=== PATIENT | male | born 1990 | race Hispanic/Latino ===

== ENCOUNTER 2023-10-19 03:50 | Inpatient (IN) | payer OTHER, SELFPAY ==
[2023-10-19] VITALS (13 sets, daily range): BP systolic 68–111; BP diastolic 60–77; BMI 20.9; BMI 20.4
--- NOTE | 2023-10-19 02:06 | ED.GENMED ---
History of Present Illness
General
Chief Complaint: Abdominal Pain
Source: patient
Exam Limitations: none
Time Seen by Provider: 10/19/23 01:48
Travel History
Have you had any contact with someone who has COVID-19?: No
Do you have any symptoms of coronavirus? Fever > 100 degrees, chills, cough, shortness of breath, sore throat, loss of taste or smell, muscle aches, or headache?: No
History of Present Illness
History of Present Illness:
This is a 33 year old male that is brought in by ambulance with c/o abd pain. States that he did drink today and now he has abd pain. States that his abd was last tapped about 3 weeks ago. States that he has some chest discomfort, SOB, abd pain and
diarrhea due to his medication. Denies any fever, chills, nausea, vomiting, headache, dizziness, urinary burning.
Past History
Past History
ED Past Medical History: Other (alcohol abuse, alcoholic hepatitis, Cirrhosis of the liver, Ascities)
ED Past Surgical History: None
Social History
Tobacco: Non-smoker
Alcohol: Chronic alcoholic (Daily 4 large beer and 2 shots)
Drug: Other (denies however UDS from prior visit pos for opioids)
Personal: Single
Living: with roommate
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
Review of Systems
Review of Systems
All Other Systems: ROS reviewed and negative except as documented in HPI and ROS
Constitutional: Reports no symptoms; Denies fever or chills
EENT: Reports no symptoms
Respiratory: Reports trouble breathing; Denies cough
Cardiac: Reports chest pain
ABD/GI: Reports abdominal pain and diarrhea; Denies nausea or vomiting
: Reports no symptoms; Denies dysuria, frequency or urgency
Musculoskeletal: Reports no symptoms
Skin: Reports no symptoms
Neurological: Reports no symptoms; Denies dizzy or headache
Psychiatric: Reports no symptoms
Phy Exam
General Physical Exam
General Presentation: no apparent distress
General age: appears stated age
General Skin: warm and dry
General Habitus: normal
General Mental: alert
General Hydration: other (Dry lips)
ENT Exam
ENT Exam: TM's normal, pharynx normal and neck supple
Eye Exam
Eye Exam: EOMI
Cardiovascular Exam
Cardiovascular Exam: regular rate/rhythm, no edema and normal peripheral pulses
Pulmonary Exam
Pulmonary Exam: lungs clear, no respiratory distress, no rales, chest non tender, no crackles, no rhonchi, no wheezing and no cough
Gastrointestinal Exam
Gastrointestinal Exam: normal bowel sounds, non tender, no organomegaly, no pulsatile mass and ascites
Musculoskeletal Exam
Musculoskeletal Exam: full ROM and no edema
Skin Exam
Skin Exam: normal color, warm/dry, no petechia and other (Left flank contusion noted)
Psychiatric Exam
Psychiatric Exam: normal mood/affect
Course
Orders/Labs/Results
Orders:
Orders
10/19/23 02:04
US Abdomen Limited Urgent
Comment:
Reason For Exam: abd ascities.
10/19/23 02:05
Electrocardiogram (*1) Urgent
Reason for Study: Shortness of Breath
CR Chest - 2 Views Urgent
Comment:
Reason For Exam: SOB
10/19/23 02:06
EKG- Treatment ONCE
10/19/23 02:21
Alcohol Urgent
Complete Blood Count/With Diff Urgent
Comprehensive Metabolic Panel Urgent
Lipase Urgent
Prothrombin Time Urgent
Troponin I Urgent
Abnormal Lab Results
10/19/23
02:21
RBC 2.86 L 10^6/uL
(4.70-6.10)
Hgb 9.4 L g/dL
(13.0-18.0)
Hct 25.5 L %
(39.0-52.0)
MCH 32.9 H pg
(27.0-31.0)
RDW 14.9 H %
(11.5-14.5)
Absolute Monos (auto) 0.8 H 10^3/uL
(0.1-0.6)
Monocytes % 9.7 H %
(1.7-9.3)
Eosinophils % 7.9 H %
(0-6)
Basophils % 2.2 H %
(0-2)
PT 18.2 H Sec
(11.4-14.6)
Sodium 130 L mmol/L
(135-145)
Chloride 96 L mmol/L
(98-107)
Creatinine 0.6 L mg/dL
(0.7-1.3)
Glucose 101 H mg/dl
(70-99)
Calcium 7.9 L mg/dl
(8.4-10.2)
Total Bilirubin 3.9 H mg/dl
(0.2-1.3)
AST 89 H U/L
(17-59)
Alkaline Phosphatase 208 H U/L
(38-126)
Albumin 3.3 L g/dl
(3.5-5.0)
Alcohol, Quantitative 482 H* mg/dl
10/19/23 02:21
10/19/23 02:21
H/H low but consistent with prior labs, Sodium slightly low. PT 18.2 with INR 1.50, Chloride slightly low. Glucose nonfasting. Calcium slightly low. AST elevation (chronic alcoholic), Albumin low, Alcohol elevated at 482
Vital Signs
Initial and Last Documented VS:
Initial Vital Signs
Temp Pulse Resp BP Pulse Ox
97.6 F 78 20 108/76 97
10/19/23 01:45 10/19/23 01:45 10/19/23 01:45 10/19/23 01:45 10/19/23 01:45
Last Documented Vital Signs
Temp Pulse Resp BP Pulse Ox
97.6 F 74 22 104/73 98
10/19/23 01:45 10/19/23 02:15 10/19/23 02:15 10/19/23 02:00 10/19/23 02:15
MDM/Problems Addressed
Differential Diagnosis Includes:
Abd ascites.
MDM/Problems Addressed:
This is a 33 year old male that comes in by ambulance with c/o abd pain. States that he did drink today and he has abd pain. States that he was taped 3 weeks ago. States that he has abd pain, SOB and chest discomfort.
Will get labs, US and chest x-ray.
Back into see patient. Explained that he will be admitted. US shows a large amount of ascites. Hospitalist notified.
Chronic conditions affecting care: Other (Cirrhosis of the liver, Ascites)
Acute Exacerbation and/or Progression of Chronic Illness:
Ascites
*Radiology
Radiology exam reviewed: preliminary read by ED provider (Chest- Poor inspiration. Elevated diaphragms. Negative for any acute disease of the chest. ) and radiology read reviewed (US night hawk-Large volume abdominal ascites with fluid in all 4
quadrants. The liver demonstrates a heterogeneous echotexture and surface nodularity consistent with cirrhosis. No hydronephrosis in the visualized kidneys. )
*EKG
Interpreted by ED Provider?: Yes
Heart Rate: 72
Rate: normal
Rhythm: sinus
[place]: left axis deviation
Interval: normal interval
QRS Pattern: normal QRS
Ischemia: no ischemia
*Critical Care Note
Total Time (30-74mins, 75-104mins- exclusive of procedures): Not Applicable
ED Attending Note
-
Portions of this chart may have been created with voice recognition software.� Occasional wrong word or��sound alike� substitutions may have occurred due to the inherent limitations of voice recognition software.
Discharge Plan
Departure
Patient Disposition: Admit
Date of Disposition: 10/19/23
Time of Disposition: 03:06
Admit to: Telemetry
Presentation/result/management discussed w/ accepting MD/DO: Hospitalist
Patient with high blood pressure during this ER visit?: No
Condition: Good
Covid-19: Not Applicable
Discharge Problem:
Abdominal ascites, Abdominal pain, Alcohol intoxication
Prescriptions:
No Action
furosemide 40 mg Tablet
60 mg PO DAILY Qty: 30 0RF
spironolactone 50 mg Tablet
100 mg PO DAILY Qty: 30 0RF
Vitamin D3
1 tab PO DAILY
potassium
1 tab PO DAILY
Interventions
Interventions:
*Risk Screen - Suicide Last Done: 10/19/23 01:45
*General Assessment Last Done: 10/19/23 01:45
*Neglect/Abuse Screening Last Done: 10/19/23 01:45
ED- Fall Risk Assessment Last Done: 10/19/23 01:56
*ED COVID-19 Vaccine History Last Done: 10/19/23 01:45
SA-Lcvbtm-Oyqiirohjm Assessment Last Done: 10/19/23 01:56
[2023-10-19 02:45] LABS: PT 18.2 Sec (11.4-14.6)
[2023-10-19 02:50] LABS: % Basophils 2.2 % (0-2); % Eosinophils 7.9 % (0-6); % Immature Granulocytes 0.3 % (0-0.5); % Lymphocytes 30.2 % (20.5-51.1); % Monocytes 9.7 % (1.7-9.3); % Neutrophils 49.7 % (42.2-75.2); ALT (SGPT) 23 U/L (0-50); AST (SGOT) 89 U/L (17-59); Absolute Basophils 0.2 10^3/uL (0-0.2); Absolute Eosinophils 0.7 10^3/uL (0-0.7); Absolute Lymphocytes 2.6 10^3/uL (1.2-3.4); Absolute Monocytes 0.8 10^3/uL (0.1-0.6); Absolute Neutrophils 4.3 10^3/uL (1.4-6.5); Albumin 3.3 g/dl (3.5-5.0); Alkaline Phosphatase 208 U/L (38-126); Blood Urea Nitrogen 17 mg/dl (9-20); Calcium 7.9 mg/dl (8.4-10.2); Carbon Dioxide 27 mmol/L (22-30); Chloride 96 mmol/L (98-107); Estimated Creatinine Clearance > 125 ml/min; Glucose 101 mg/dl (70-99); Hematocrit 25.5 % (39.0-52.0); Hemoglobin 9.4 g/dL (13.0-18.0); Lipase 50 U/L (23-300); Mean Corp Hgb Conc. 36.9 g/dL (33.0-37.0); Mean Corpuscular Hgb 32.9 pg (27.0-31.0); Mean Corpuscular Volume 89.2 fL (80.0-94.0); Mean Platelet Volume 8.7 fL (7.4-10.4); Nucleated Red Blood Cells % 0 % (-); Platelet Count 302 10^3/uL (130-400); Potassium 4.4 mmol/L (3.5-5.1); Red Blood Cell Count 2.86 10^6/uL (4.70-6.10); Red Cell Dist. Width 14.9 % (11.5-14.5); Sodium 130 mmol/L (135-145); Total Bilirubin 3.9 mg/dl (0.2-1.3); Total Protein 7.4 g/dl (6.3-8.2); White Blood Cell Count 8.7 10^3/uL (4.8-10.8); eGFR > 60.00
[2023-10-19 03:01] LABS: Troponin I < 0.012 ng/ml
[2023-10-19 03:06] LABS: Alcohol 482 mg/dl
--- NOTE | 2023-10-19 03:45 | HPS.HSE ---
Family Physician
-
Family Physician: * NONE
Chief Complaint
-
Abdominal ascension, shortness of breath
History of Present Illness
Patient is 33 years old with history of alcoholic liver cirrhosis, recurrent ascites status post paracentesis, alcohol abuse, who came to the ER with abdominal ascension and shortness of breath, patient did drink today and complaining of abdominal
pain and distention.
Last paracentesis was 3 weeks ago.
Patient also was complaining of chest discomfort, diarrhea, denies any fever or chills.
Initial blood work in the ER shows alcohol level of 482.
Patient will be admitted under hospitalist service.
Medical History
Past Medical History
Past Medical History: Reports Other
Additional Past Medical History:
Liver cirrhosis, ascites, alcohol abuse, esophageal varices status post banding
Past Surgical History: Reports Other
Additional Past Surgical History:
EGD, esophageal varices banding
Social History
Tobacco: Non-smoker
Alcohol: Daily
Family History
Family History: Not pertinent
Allergies / Home Medications
Allergies reflects when Allergies were last updated in [facility].
Home Medications with original date entered in [facility]
Allergy/Medication List:
Allergies
Allergy/AdvReac Type Severity Reaction Status Date / Time
No Known Allergies Allergy Verified 08/21/23 18:10
Home Medications
furosemide 40 mg tablet 60 mg PO DAILY #30 tabs 07/06/23
spironolactone 50 mg tablet 100 mg PO DAILY #30 tabs 07/06/23
Vitamin D3 1 tab PO DAILY 08/21/23
potassium 1 tab PO DAILY 08/21/23
Review of Systems
-
A 12 point ROS was completed and negative except as noted: Yes
Constitutional: Reports Weight Gain and Fatigue; Denies Fever, Weight Loss or Sleep Disturbance
EENT: Denies Tearing, Sore Throat, Mouth Pain, Mouth Swelling or Runny Nose
Respiratory: Reports Trouble Breathing; Denies Cough or Hemoptysis
Cardiac: Reports Chest Pain; Denies Diaphoresis, Palpitations or Syncope
Abdomen/GI: Reports See HPI, Abdominal Pain, Pain and Other (Abdominal distention); Denies Nausea, Vomiting, Diarrhea, Constipated, Bloody Stools or Black Stools
: Denies Dysuria, Frequency, Flank Pain, Incontinence, Difficulty Voiding, Urgency, Bleeding or Dark Urine
Musculoskeletal: Denies Joint Pain, Joint Swelling, Muscle Pain, Muscle Stiffness or Edema
Skin: Denies Itching or Rash
Neurological: Reports Weakness; Denies Dizzy, Headache or Numbness
Endocrine: Denies Polyuria, Polydipsia or Temp Intolerance
Hematologic/Lymphatic: Denies Bleeding, Swollen Glands or Bruising
Psych: Reports Calm; Denies Depression, Anxiety or Panic Disorder
Physical Exam
Vital Signs
Vital Signs
Temp Pulse Resp BP Pulse Ox
97.6 F 74 22 104/73 98
10/19/23 01:45 10/19/23 02:15 10/19/23 02:15 10/19/23 02:00 10/19/23 02:15
Physical Exam
General: Respiratory Distress, Appears in Distress, Pain and Appears Chronically Ill; No Well Developed or Well Nourished
HEENT: NormoCephalic, Moist mucous membranes, Atraumatic, PERRLA, Nose Appears Normal and Ears Appear Normal
Respiratory: Rales, Rhonchi and Crackles
Cardiac: S1/S2 and Regular Rhythm
Breast: Deferred by me
GI: Tender, Distended and Other (Abdomen is distended with shifting dullness); No Non Distended
Genito-urinary: Deferred by me
Musculoskeletal: No Clubbing, No Cyanosis and No Edema
Skin: Warm; No Rash, Jaundice, Ulcers, Lesions or Decubitus Ulcers
Neuro: Awake, Alert, Oriented, AO x 3, No Motor Deficits, Nonfocal/grossly intact and Cranial Nerves Intact
Hematologic/Lymphatic: No Lymphadenopathy
Psych: Calm
Laboratory Results
-
10/19/23 02:21
10/19/23 02:21
Laboratory Results
PT 18.2 Sec (11.4-14.6) H 10/19/23 02:21
INR 1.50 10/19/23 02:21
Total Bilirubin 3.9 mg/dl (0.2-1.3) H 10/19/23 02:21
AST 89 U/L (17-59) H 10/19/23 02:21
ALT 23 U/L (0-50) 10/19/23 02:21
Alkaline Phosphatase 208 U/L (38-126) H 10/19/23 02:21
Troponin I < 0.012 ng/ml 10/19/23 02:21
Lipase 50 U/L (23-300) 10/19/23 02:21
Data Reviewed
-
Diagnostic Radiology: Report Reviewed by me
CT Scan: Report Reviewed by me
Ultrasound: Report Reviewed by me
Lab Data: Labs Reviewed by me
Impression/Plan
-
IMPRESSION:
34 years old with history of alcoholic cirrhosis and recurrent ascites came with chest pain, shortness of breath, abdominal distention, daily alcohol use, admitted for paracentesis.
PLAN:
Acute respiratory distress secondary ascites caused by decompensated liver cirrhosis.
-IR consulted for paracentesis
-GI consulted
-Continue Xifaxan
-cont Lasix
-Continue spironolactone
-Start Rocephin empirically for SBP
PT/OT consult, social service for discharge plan.
Alcohol use disorder
-Alcohol level of 482
-No signs of withdrawal currently but high risk for withdrawal
-Thiamine and folate
History of esophageal varices status post banding
No sign of GI bleed
CODE STATUS: Full code
DVT prophylaxis: Lovenox
Diet: Cardiac diet
[2023-10-19] MEDS: ROCEPHIN 1000 MG IV (04:21)
[2023-10-19] MEDS: STERILE WATER FOR INJECTION 10 ML IV (04:21)
--- NOTE | 2023-10-19 06:30 | PTCARENOTE ---
patient admitted to [facility], placed on tele #5. Pt mosotho speaking, truck hop #[id number] used for admission intake and assessment. Patient dozing off during conversation but easily arousable to verbal command. pt inst to utilize call peraza and not get oob
without assitance. patient verb understanding
[2023-10-19 06:55] LABS: Hematocrit 26.1 % (39.0-52.0); Hemoglobin 9.5 g/dL (13.0-18.0); Mean Corp Hgb Conc. 36.4 g/dL (33.0-37.0); Mean Corpuscular Volume 90.6 fL (80.0-94.0); Mean Platelet Volume 8.3 fL (7.4-10.4); Platelet Count 255 10^3/uL (130-400); Red Blood Cell Count 2.88 10^6/uL (4.70-6.10); Red Cell Dist. Width 14.8 % (11.5-14.5); White Blood Cell Count 7.4 10^3/uL (4.8-10.8)
[2023-10-19 07:25] LABS: ALT (SGPT) 21 U/L (0-50); AST (SGOT) 75 U/L (17-59); Albumin 2.8 g/dl (3.5-5.0); Alkaline Phosphatase 201 U/L (38-126); Blood Urea Nitrogen 15 mg/dl (9-20); Calcium 7.9 mg/dl (8.4-10.2); Carbon Dioxide 28 mmol/L (22-30); Chloride 96 mmol/L (98-107); Estimated Creatinine Clearance 115 ml/min; Glucose 91 mg/dl (70-99); Magnesium 1.9 mg/dl (1.6-2.3); Sodium 131 mmol/L (135-145); Total Bilirubin 3.3 mg/dl (0.2-1.3); Total Protein 6.8 g/dl (6.3-8.2); eGFR > 60.00
--- NOTE | 2023-10-19 07:43 | W.PN.UPDATE ---
Update Note
Progress Note Update
33-year-old Micronesian-speaking only male admitted early this morning for respiratory distress secondary to severe ascites from alcoholic liver cirrhosis.
He continues to drink. Will order IV Ativan for MSAS protocol, he is for paracentesis today. GI consulted. Continue to monitor closely.
--- NOTE | 2023-10-19 07:48 | CON.GI ---
Addendum entered and electronically signed by Uche Viera MD 10/19/23 16:20:
I saw and examined the patient.
The INDUSTRIAL CHEMICALS SUPERVISOR or PA's note was reviewed and I agree with the note.
Comment:
This patient is a 33-year-old man with a history of decompensated alcoholic liver disease. He is also history of ascites requiring paracentesis and esophageal varices. He did come to the emergency room with confusion as well as complaints of more
abdominal distention. He did have recent alcohol use.
abd: soft, less distended
lethargic, oriented to name not place
impression;
ascites
encephalopathy
alcohol abuse
cirrhosis
plan:
paracentesis
SBP prophalaxis if neg for SBP
lactulose and xifaxin bid
PPI
alcohol abstinence
Addendum entered and electronically signed by Nikia Angeles NP 10/19/23 13:05:
7300mL removed. 37.5g Albumin 25% IV ordered per protocol. No SBP on fluid cell counts. Will discuss with Dr. Viera regarding prophylaxis for SBP. Was on Ciprofloxacin in past. Unclear if he was taking this daily.
Original Note:
Consultation
-
Date/Time Consultation Requested: 10/19/23 @ 05:59
Date/Time Consultation Performed: 10/19/23 @ 08:30
Requesting Provider: Dr. Mere Navarro
Performing Provider: AMINA Sanders; Dr. Uche Viera
Reason for Consultation: Liver cirrhosis with ascites
Medical History
Chief Complaint / HPI
Chief Complaint: abdominal distention, shortness of breath
History of Present Illness:
The pt is a 33 yo male with a PMH significant for decompensated alcoholic liver cirrhosis with ascites requiring multiple paracentesis, ongoing alcohol abuse, Esophageal varices with banding in April 2023, chronic anemia, hepatic encephalopathy,
who presented to the ER with complaints of abdominal distention and shortness of breath. We are being asked to evaluate for ascites. Upon review of records, the patient has had multiple admissions for recurrent ascites with ongoing alcohol use. He
was last seen in the hospital in June with abdominal pain found to have recurrent significant ascites. His peritoneal fluid did have some blood as well, and he required blood transfusion but had no further signs of bleeding. He has had
multiple paracentesis in the past with large volume removal, with previous fluid cell counts with questionable paracentesis and had been on ciprofloxacin prophylactic in the past but most recent paracentesis was negative for SBP. He had required
transfer to [facility] in the fall as well for bleeding EV. It is noted he was in the emergency room in August with complaints of abdominal pain with leaking fluid from his umbilicus. He was subsequently transferred to [facility] at that time with
concern for possible perforated viscus and the patient notes he did have a surgery for a ?hernia. Language line digital media sales consultant #[id number] used for HPI. Today he reports that he started with significant abdominal pain yesterday. He notes chronic
abdominal swelling, and drank a large volume of alcohol yesterday. He had been abstaining from alcohol but because he felt sad and missed [facility] he drank significantly. He does not quantify how much he drank but it is noted his alcohol level
was in the 400s on admission. He admits to pain in his abdomen which is improving. He denies nausea or vomiting. He denies any melena, hematochezia, or hematemesis. He is lethargic but arousable. He denies fevers or chills. He does appear
confused but answering questions appropriately, and does admit to feeling somewhat confused yesterday but feels this is improved this morning. Per his medication list he is on furosemide 60 mg and spironolactone 100 mg which she reports being
compliant with. Pertinent labs in the ER showed a sodium 130, BUN 17, creatinine 0.6, potassium 4.4, total bilirubin 3.9, AST 89, ALT 23, alk phos 208, lipase 50, troponin negative x 1, INR 1.5, WBC 8.7, hemoglobin 9.4, platelets 302,000. He
underwent ultrasound imaging of the abdomen which did show severe ascites. He was made n.p.o., admitted for further evaluation by GI, and pending a paracentesis this morning.
Past Medical History
Past Medical History: Other (decompensated liver disease with ascites, encephalopathy, esophageal varices with bleeding/banding)
Past Surgical History: Other (?Hernia repair August 2023)
Social History
Tobacco: Non-Smoker
Alcohol: Chronic Alcoholic
Drug: None
Family History
Family History: Reviewed & Not Pertinent
Allergies / Home Medications
Allergy/AdvReac Type Severity Reaction Status Date / Time
No Known Allergies Allergy Verified 10/19/23 04:20
Medication Instructions Recorded
furosemide 40 mg tablet 60 mg PO DAILY #30 tabs 07/06/23
spironolactone 50 mg tablet 100 mg PO DAILY #30 tabs 07/06/23
Vitamin D3 1 tab PO DAILY 08/21/23
potassium 1 tab PO DAILY 08/21/23
Review of Systems
-
History Source: Patient
Constitutional: Reports No Symptoms
EENT: Reports No Symptoms
Respiratory: Reports No Symptoms
Cardiac: Reports No Symptoms
Abdomen/GI: Reports Abdominal Pain
: Reports No Symptoms
Musculoskeletal: Reports No Symptoms
Skin: Reports No Symptoms
Neurological: Reports No Symptoms
Vital Signs
Temp Pulse Resp BP Pulse Ox
97.8 F 73 18 99/72 97
10/19/23 05:06 10/19/23 05:06 10/19/23 05:06 10/19/23 05:06 10/19/23 05:06
Physical Exam
Exam
General: Comfortable and Other (Cachectic appearing, jaundice, but resting comfortably no acute distress)
HEENT: Normocephalic, Atraumatic and Other (Bilateral scleral icterus)
Respiratory: Clear
Cardiac: S1/S2 and Regular Rhythm
Breast: N/A
GI: Soft, Non Tender, Normal Bowel Sounds, Distended and Other (+fluid wave, ascites)
Rectal: Deferred by Provider
Musculoskeletal: No Edema
Skin: Warm and Dry
Neuro: Other (drowsy but arousable, confused, oriented to self and place, no asterixis)
Psych: Calm
Results
WBC 7.4 10^3/uL (4.8-10.8) 10/19/23 06:10
Hgb 9.5 g/dL (13.0-18.0) L 10/19/23 06:10
Hct 26.1 % (39.0-52.0) L 10/19/23 06:10
MCV 90.6 fL (80.0-94.0) 10/19/23 06:10
Plt Count 255 10^3/uL (130-400) 10/19/23 06:10
Absolute Neuts (auto) 4.3 10^3/uL (1.4-6.5) 10/19/23 02:21
PT 18.2 Sec (11.4-14.6) H 10/19/23 02:21
INR 1.50 10/19/23 02:21
Sodium 131 mmol/L (135-145) L 10/19/23 06:10
Potassium 4.0 mmol/L (3.5-5.1) 10/19/23 06:10
Chloride 96 mmol/L (98-107) L 10/19/23 06:10
Carbon Dioxide 28 mmol/L (22-30) 10/19/23 06:10
BUN 15 mg/dl (9-20) 10/19/23 06:10
Creatinine 0.7 mg/dL (0.7-1.3) 10/19/23 06:10
Calcium 7.9 mg/dl (8.4-10.2) L 10/19/23 06:10
Total Bilirubin 3.3 mg/dl (0.2-1.3) H 10/19/23 06:10
AST 75 U/L (17-59) H 10/19/23 06:10
ALT 21 U/L (0-50) 10/19/23 06:10
Alkaline Phosphatase 201 U/L (38-126) H 10/19/23 06:10
Lipase 50 U/L (23-300) 10/19/23 02:21
Diagnostic Image Results:
10/19/2023 US abdomen: IMPRESSION: 'Severe ascites. Cirrhotic liver morphology.'
08/21/2023 CT A/P: 'There is minimal free intraperitoneal air suggesting the presence of perforated abdominal viscus. There is soft tissue with internal gas presumably reflecting bowel in the patient's 3.5 cm umbilical hernia with bowel appearing to
extend beyond the skin surface. This may be the origin of the free intraperitoneal air. There is moderate volume ascites throughout the abdomen and pelvis, decreased in volume when compared with the prior study with associated anasarca. While the
liver has a normal appearance, the presence of significant ascites and splenomegaly raises concern for liver failure.'
Prior GI Procedures:
EGD: 04/22/23, Dr. Kim: Grade II esophageal varices. Banded. Esophageal plaques were found, consistent with� candidiasis. Erythematous mucosa in the stomach. Portal hypertensive gastropathy. Normal examined duodenum. No specimens collected
Colonoscopy: none
Assessment / Plan
-
The pt is a 33 yo male with a PMH significant for decompensated alcoholic liver cirrhosis with ascites requiring multiple paracentesis, ongoing alcohol abuse, Esophageal varices with banding in April 2023, chronic anemia, hepatic encephalopathy
on Xifaxan, who presented to the ER with complaints of abdominal distention and shortness of breath. We are being asked to evaluate for ascites. As noted above he has had recurrent admissions for ascites secondary to decompensated liver cirrhosis
with recurrent alcohol use. His last admission was in June requiring 2 larger volume paracentesis of 7700 and 6600 cc of fluid removed. No SBP at that time. He now again presents with recurrent abdominal pain with severe ascites on ultrasound
imaging. He notes binge drinking yesterday, but unable to quantify. He is drowsy this morning but arousable. MELD-sodium score 22 indicating a 19.6% estimated 90-day mortality rate/MELD 3.0 is 20.
Problem list:
-Abdominal pain likely secondary to severe ascites seen on ultrasound imaging
-decompensated liver cirrhosis secondary to alcohol abuse with recurrent ascites, hepatic encephalopathy, and esophageal varices with prior banding
-Chronic hyponatremia
-hx GI bleed 04/2023 with EV with bleeding/banding transfer to [facility]
-ETOH abuse
-hx�ETOH hepatitis
-Chronic anemia
-?History of SBP (February 2023)
-Recent surgery at [facility] for ?Hernia versus perforated viscus (records not available)
Recommendations:
-Etiology of symptoms 2/2 to recurrent ascites with decompensated liver cirrhosis with ongoing alcohol use v peritonitis with somewhat recent abdominal surgery at [facility] v other.
---US showing severe ascites
-Agree with paracentesis, send fluid culture, cell counts, and gram stain, rule out SBP
-Albumin if needed (pending volume removed)
-Daily MELD sodium labs (current MELD sodium score 22/MELD 3.0 is 20)
-Reportedly with history of SBP in February 2023, to consider ongoing prophylaxis at discharge, currently on Rocephin 1 g
-Continue diuretics with Lasix 60mg and Spironolactone 100mg daily
-Monitor electrolytes
-Continue Xifaxan BiD and monitor mental status
-Will check an ammonia level, may need to add lactulose as he was somewhat difficult to arouse but did participate in conversation normally when awake
-2 gram Na diet
-PPI daily
-Again reinforced the need for ETOH abstinence as this will ultimately cause mortality with his severe liver disease
-Monitor for alcohol withdrawal
-Will obtain records from [facility] with his reported recent surgery. Evaluation in our ER in August showed possible perforated viscus.
-Will follow
-
-
Thank you for consultation and allowing me to participate in the patient's care. Please call the electronics utility worker GI physician during the after hours with any questions or concerns.
[2023-10-19] MEDS: VITAMIN B1 100 MG PO (09:17)
[2023-10-19] MEDS: PROTONIX 40 MG PO (09:17)
[2023-10-19] MEDS: FOLVITE 1 MG PO (09:18)
[2023-10-19] MEDS: XIFAXAN 550 MG PO ×2 (09:18→20:34)
[2023-10-19 09:41] LABS: Ammonia 21 umol/L (9-30)
[2023-10-19] MEDS: ALDACTONE PO (10:07)
[2023-10-19] MEDS: LASIX PO (10:08)
[2023-10-19 12:32] LABS: Body Fluid Albumin < 1.0 g/dl; Body Fluid Amylase < 30 U/L; Body Fluid LDH 121 U/L; Body Fluid Protein < 2.0 g/dl
[2023-10-19 12:41] LABS: Body Fluid Mononuclear 87.2 %; Body Fluid Polymorphonuclear 12.8 %; Body Fluid WBC 140 /CUMM
[2023-10-19 12:54] LABS: Body Fluid Second Tech AMA
[2023-10-19] MEDS: FLEXBUMIN 50 IV (15:48)
[2023-10-19] MEDS: FLEXBUMIN 100 IV (15:48)
[2023-10-19] MEDS: MORPHINE SULFATE 4 MG IV ×2 (15:52→20:34)
[2023-10-19] MEDS: LOW STRENGTH ASPIRIN 324 MG PO (16:14)
[2023-10-19] MEDS: LOVENOX 40 MG SC (18:25)
[2023-10-20] VITALS (7 sets, daily range): BP systolic 106–147; BP diastolic 59–86; PULSE 75; O2SAT 97
[2023-10-20] MEDS: MORPHINE SULFATE 4 MG IV ×4 (01:18→21:10)
[2023-10-20] MEDS: STERILE WATER FOR INJECTION 10 ML IV (05:29)
[2023-10-20] MEDS: ROCEPHIN 1000 MG IV (05:30)
[2023-10-20 06:17] LABS: Hematocrit 25.6 % (39.0-52.0); Mean Corp Hgb Conc. 35.2 g/dL (33.0-37.0); Mean Corpuscular Hgb 32.6 pg (27.0-31.0); Mean Corpuscular Volume 92.8 fL (80.0-94.0); Mean Platelet Volume 8.6 fL (7.4-10.4); Platelet Count 206 10^3/uL (130-400); Red Blood Cell Count 2.76 10^6/uL (4.70-6.10); Red Cell Dist. Width 14.8 % (11.5-14.5); White Blood Cell Count 8.2 10^3/uL (4.8-10.8)
[2023-10-20 06:33] LABS: Troponin I < 0.012 ng/ml
[2023-10-20 06:36] LABS: ALT (SGPT) 20 U/L (0-50); AST (SGOT) 63 U/L (17-59); Albumin 3.1 g/dl (3.5-5.0); Alkaline Phosphatase 213 U/L (38-126); Blood Urea Nitrogen 15 mg/dl (9-20); Calcium 8.9 mg/dl (8.4-10.2); Carbon Dioxide 31 mmol/L (22-30); Chloride 95 mmol/L (98-107); Estimated Creatinine Clearance > 125 ml/min; Glucose 122 mg/dl (70-99); Magnesium 1.9 mg/dl (1.6-2.3); Phosphorus 4.3 mg/dl (2.5-4.5); Potassium 4.4 mmol/L (3.5-5.1); Sodium 131 mmol/L (135-145); Total Bilirubin 4.6 mg/dl (0.2-1.3); Total Protein 6.9 g/dl (6.3-8.2); eGFR > 60.00
--- NOTE | 2023-10-20 07:47 | W.PN.HOSP.TC ---
Today's Communication/Plan
-
see bold
Assessment / Plan
Assessment / Plan
HPI: 33 years old with history of alcoholic liver cirrhosis, recurrent ascites status post paracentesis, alcohol abuse, who came to the ER with abdominal ascension and shortness of breath, patient did drink today and complaining of abdominal pain
and distention.
Last paracentesis was 3 weeks ago.
Patient also was complaining of chest discomfort, diarrhea, denies any fever or chills.
Initial blood work in the ER shows alcohol level of 482.
Patient will be admitted under hospitalist service.
Acute respiratory distress secondary ascites caused by decompensated liver cirrhosis
-Improved status post paracentesis on 10/18 draining 7.3 L, s/p IV albumin, neg for SBP
-GI following, continue Xifaxan, Lasix, spironolactone, Rocephin
-Alcohol cessation counseling has been recommended�patient has been informed that he will if he keeps drinking
-PT/OT
Nausea/vomiting
-Supportive care, clear liquid diet
Noncardiac chest pain
-EKG nonischemic, troponins negative
-Pain meds as needed
Alcohol use disorder
-Alcohol level of 482 upon admission
-MSAS protocol, IV ativan prn
-Thiamine and folate
History of esophageal varices status post banding
-No sign of GI bleed, monitor
DVT prophylaxis�Lovenox
Full code
Physical Exam
General: Appears chronically ill, no acute distress
HEENT: Normocephalic, Atraumatic, EOMI, MMM
Respiratory: Clear to Auscultation bilaterally
Cardiac: Normal S1/S2, Regular Rate and Rhythm
GI: Soft, distended abdomen, diffusely tender
Extremities: No Clubbing, Cyanosis, or Edema
Neuro: Nonfocal/Grossly Intact
Psych: Calm, Cooperative
Derm: No Visible lesions
Anticipated Discharge: 24 - 48 hours
Subjective/Interval History
-
Date of Service: October 19, 2023
Had nausea or vomiting.
Objective Data
-
Labs:
Laboratory Results
10/19/23 10/19/23
02:21 06:10
WBC 8.7 7.4
Hgb 9.4 L 9.5 L
Hct 25.5 L 26.1 L
Plt Count 302 255
PT 18.2 H
INR 1.50
Sodium 130 L 131 L
Potassium 4.4 4.0
Chloride 96 L 96 L
Carbon Dioxide 27 28
BUN 17 15
Creatinine 0.6 L 0.7
Glucose 101 H 91
Calcium 7.9 L 7.9 L
Total Bilirubin 3.9 H 3.3 H
AST 89 H 75 H
ALT 23 21
Alkaline Phosphatase 208 H 201 H
Vital Signs:
Vital Signs
Temp Pulse Resp BP Pulse Ox
98 F 73 16 95/64 97
10/19/23 08:41 10/19/23 08:41 10/19/23 08:41 10/19/23 08:41 10/19/23 08:41
[2023-10-20] MEDS: PROTONIX 40 MG PO (07:52)
[2023-10-20] MEDS: ALDACTONE 100 MG PO (07:52)
[2023-10-20] MEDS: FOLVITE 1 MG PO (07:53)
[2023-10-20] MEDS: VITAMIN B1 100 MG PO (07:53)
[2023-10-20] MEDS: LASIX 60 MG PO (07:53)
[2023-10-20] MEDS: LOW STRENGTH ASPIRIN 81 MG PO (07:53)
[2023-10-20] MEDS: XIFAXAN 550 MG PO ×2 (07:54→21:08)
[2023-10-20] MEDS: DUPHALAC/CHRONULAC 20 GRAMS PO (08:39)
--- NOTE | 2023-10-20 08:49 | PTCARENOTE ---
1 episode of vomiting right after taking lactulose. Feels relief after.
[2023-10-20] MEDS: ATIVAN 1 MG IV (10:51)
--- NOTE | 2023-10-20 11:35 | W.PN.GI.CBS2 ---
Addendum entered and electronically signed by Uche Viera MD 10/20/23 13:53:
I saw and examined the patient.
The SYNTHETIC GEM PRESS OPERATOR or PA's note was reviewed and I agree with the note.
Comment:
Pt with improvement in confusion. did state some abdominal pain (not to me in early am but to Nikia SYNTHETIC GEM PRESS OPERATOR)
abd: soft, nontender
aao x3
impression
alcohol cirrhosis
encephalopathy
ascites
plan:
checking lipase
clear liquids
monitor lfts, mental status
ascitic fluid w/o SBP
Original Note:
Today's Communication / Plan
-
Clear liquid diet. Check lipase level. Trend LFTs. Monitor mental status
Assessment / Plan
-
The pt is a 33 yo male with a PMH significant for decompensated alcoholic liver cirrhosis with ascites requiring multiple paracentesis, ongoing alcohol abuse, Esophageal varices with banding in April 2023, chronic anemia, hepatic encephalopathy
on Xifaxan, who presented to the ER with complaints of abdominal distention and shortness of breath. We are being asked to evaluate for ascites. As noted above he has had recurrent admissions for ascites secondary to decompensated liver cirrhosis
with recurrent alcohol use. His last admission was in June requiring 2 larger volume paracentesis of 7700 and 6600 cc of fluid removed. No SBP at that time. He now again presents with recurrent abdominal pain with severe ascites on ultrasound
imaging. He notes binge drinking yesterday, but unable to quantify. MELD-sodium score 22 indicating a 19.6% estimated 90-day mortality rate/MELD 3.0 is 20.
10/20/2023: More awake and alert. Episode of nausea with vomiting this morning. Complains of upper epigastric/left-sided chest pain.
Problem list:
-Abdominal pain likely secondary to severe ascites seen on ultrasound imaging
-decompensated liver cirrhosis secondary to alcohol abuse with recurrent ascites, hepatic encephalopathy, and esophageal varices with prior banding
-Chronic hyponatremia
-hx GI bleed 04/2023 with EV with bleeding/banding transfer to [place]
-ETOH abuse
-hx�ETOH hepatitis
-Chronic anemia
-?History of SBP (February 2023)
-Recent surgery at [facility] for ?Hernia versus perforated viscus (records not available)
Recommendations:
-Etiology of symptoms 2/2 to recurrent ascites with decompensated liver cirrhosis with ongoing alcohol use v peritonitis with somewhat recent abdominal surgery at [place] v other.
-Status post paracentesis with 7300 cc removed, no evidence of SBP.
-Will check a lipase level with episode of epigastric pain and vomiting with recent heavy alcohol use and mildly uptrending LFTs
-Continue diuretics with Lasix 60 mg daily and spironolactone 100 mg daily
-Follow peritoneal fluid culture/Gram stain
-On IV ceftriaxone. Will need SBP prophylaxis at discharge with history of SBP.
-Daily MELD sodium labs
-Monitor renal function electrolyte
-With improvement in mental status will discontinue lactulose and continue on a regular medication regimen with twice daily side effect. His ammonia level was normal
-Will change to clear liquid diet with episode of vomiting, and advance when tolerating and no further vomiting
-PPI daily
-Strict alcohol abstinence is advised
-Will obtain records from [place] with his reported recent surgery. Evaluation in our ER in August showed possible perforated viscus. Will request records again as they are not available.
-Will follow
Subjective
Subjective
Date of Service: October 20, 2023
The patient was seen and examined at the bedside. I did use a truck loader overhead crane service. The patient notes he had some upper abdominal pain/chest pain this morning which resulted in vomiting. Currently feels improved after receiving anti-nausea
medication and Ativan. He denies any further complaints. He reports he had a brown bowel movement last night.
Objective
Data Reviewed
Laboratory Data:
Laboratory Results
10/20/23 06:00
10/20/23 06:00
Laboratory Results
PT 18.2 Sec (11.4-14.6) H 10/19/23 02:21
INR 1.50 10/19/23 02:21
Phosphorus 4.3 mg/dl (2.5-4.5) 10/20/23 06:00
Magnesium 1.9 mg/dl (1.6-2.3) 10/20/23 06:00
Total Bilirubin 4.6 mg/dl (0.2-1.3) H 10/20/23 06:00
AST 63 U/L (17-59) H 10/20/23 06:00
ALT 20 U/L (0-50) 10/20/23 06:00
Alkaline Phosphatase 213 U/L (38-126) H 10/20/23 06:00
Lipase 50 U/L (23-300) 10/19/23 02:21
Vital Signs and I&O:
Vital Signs
Temp Pulse Resp BP Pulse Ox
98.9 F 77 16 106/59 97
10/20/23 11:27 10/20/23 11:27 10/20/23 11:27 10/20/23 11:27 10/20/23 11:27
I&O
10/19/23 10/20/23 10/21/23
06:59 06:59 06:59
Intake Total 780 / 780
Balance 780 / 780
Physical Exam
Physical Exam
HEENT: Other (Bilateral scleral icterus)
Cardiology: S1 and S2 (Regular rate/rhythm)
Pulmonary: Clear
GI: Soft, Distended (Minimally distended), Tender (Mild tenderness to the mid epigastric area without guarding or rebound tenderness) and Normal Bowel Sounds
Awake, alert
[2023-10-20 12:07] LABS: Lipase 45 U/L (23-300)
[2023-10-20] MEDS: LOVENOX 40 MG SC (18:00)
[2023-10-21 03:38] VITALS: BP 114/77
[2023-10-21] MEDS: ROCEPHIN 1000 MG IV (04:48)
[2023-10-21] MEDS: STERILE WATER FOR INJECTION 10 ML IV (04:48)
[2023-10-21 06:26] LABS: Hematocrit 23.2 % (39.0-52.0); Hemoglobin 8.4 g/dL (13.0-18.0); Mean Corp Hgb Conc. 36.2 g/dL (33.0-37.0); Mean Corpuscular Hgb 33.2 pg (27.0-31.0); Mean Corpuscular Volume 91.7 fL (80.0-94.0); Mean Platelet Volume 8.5 fL (7.4-10.4); Platelet Count 164 10^3/uL (130-400); Red Blood Cell Count 2.53 10^6/uL (4.70-6.10); Red Cell Dist. Width 14.5 % (11.5-14.5); White Blood Cell Count 6.9 10^3/uL (4.8-10.8)
[2023-10-21 07:02] LABS: ALT (SGPT) 16 U/L (0-50); AST (SGOT) 49 U/L (17-59); Albumin 3.1 g/dl (3.5-5.0); Alkaline Phosphatase 152 U/L (38-126); Blood Urea Nitrogen 17 mg/dl (9-20); Calcium 8.9 mg/dl (8.4-10.2); Carbon Dioxide 33 mmol/L (22-30); Chloride 86 mmol/L (98-107); Estimated Creatinine Clearance 115 ml/min; Glucose 99 mg/dl (70-99); Magnesium 1.6 mg/dl (1.6-2.3); Potassium 4.4 mmol/L (3.5-5.1); Sodium 125 mmol/L (135-145); Total Bilirubin 5.7 mg/dl (0.2-1.3); Total Protein 6.7 g/dl (6.3-8.2); eGFR > 60.00
[2023-10-21 07:43] VITALS: BP 106/69
[2023-10-21] MEDS: PROTONIX 40 MG PO (08:16)
[2023-10-21] MEDS: VITAMIN B1 100 MG PO (08:16)
[2023-10-21] MEDS: XIFAXAN 550 MG PO ×2 (08:17→20:10)
[2023-10-21] MEDS: ALDACTONE 100 MG PO (08:17)
[2023-10-21] MEDS: MORPHINE SULFATE 4 MG IV (08:17)
[2023-10-21] MEDS: FOLVITE 1 MG PO (08:17)
[2023-10-21] MEDS: LOW STRENGTH ASPIRIN 81 MG PO (08:17)
[2023-10-21] MEDS: LASIX 60 MG PO (08:17)
--- NOTE | 2023-10-21 08:49 | W.PN.HOSP.TC ---
Addendum entered and electronically signed by Corbin Ribeiro MD 10/21/23 14:16:
Called patient's sister to give her an update per patient request.
She did not curing pickling packer, I left a message.
Original Note:
Today's Communication/Plan
-
see bold
Assessment / Plan
Assessment / Plan
HPI: 33 years old with history of alcoholic liver cirrhosis, recurrent ascites status post paracentesis, alcohol abuse, who came to the ER with abdominal ascension and shortness of breath, patient did drink today and complaining of abdominal pain
and distention.
Last paracentesis was 3 weeks ago.
Patient also was complaining of chest discomfort, diarrhea, denies any fever or chills.
Initial blood work in the ER shows alcohol level of 482.
Patient will be admitted under hospitalist service.
Acute respiratory distress secondary ascites caused by decompensated liver cirrhosis
-Improved status post paracentesis on 10/18 draining 7.3 L, s/p IV albumin, neg for SBP
-GI following, continue Xifaxan, Lasix, spironolactone, Rocephin
-Alcohol cessation counseling has been recommended�patient has been informed that he will if he keeps drinking
-PT/OT
Chronic hyponatremia
-Due to fluid overload from liver failure
-Sodium 125 today, was 131
-Start fluid restriction, trend sodium
Chronic anemia from chronic liver disease
-Hemoglobin 8.4 today, was 9, about his baseline
-Monitor, transfuse for hemoglobin less than 7.0
Nausea/vomiting
-Abd xray with some mild dilation/thickening of SB in LUQ
-Resolved
Noncardiac chest pain
-EKG nonischemic, troponins negative
-Pain meds as needed
Alcohol use disorder
-Alcohol level of 482 upon admission
-MSAS protocol, IV ativan prn
-Thiamine and folate
History of esophageal varices status post banding
-No sign of GI bleed, monitor
DVT prophylaxis�Lovenox
Full code
Physical Exam
General: Appears chronically ill, no acute distress
HEENT: Normocephalic, Atraumatic, EOMI, MMM
Respiratory: Clear to Auscultation bilaterally
Cardiac: Normal S1/S2, Regular Rate and Rhythm
GI: Soft, distended abdomen, diffusely tender
Extremities: No Clubbing, Cyanosis, or Edema
Neuro: Nonfocal/Grossly Intact
Psych: Calm, Cooperative
Derm: No Visible lesions
Anticipated Discharge: 24 - 48 hours
Subjective/Interval History
-
Date of Service: October 21, 2023
Nausea and vomiting resolved. Patient feels much better today. No chest pain, no abdominal pain. He is breathing comfortably.
Objective Data
-
Labs:
Laboratory Results
10/21/23
06:19
WBC 6.9
Hgb 8.4 L
Hct 23.2 L
Plt Count 164 D
Sodium 125 L
Potassium 4.4
Chloride 86 L
Carbon Dioxide 33 H
BUN 17
Creatinine 0.7
Glucose 99
Calcium 8.9
Total Bilirubin 5.7 H
AST 49
ALT 16
Alkaline Phosphatase 152 H
Vital Signs:
Vital Signs
Temp Pulse Resp BP Pulse Ox
98.8 F 87 17 106/69 99
10/21/23 07:43 10/21/23 07:43 10/21/23 07:43 10/21/23 07:43 10/21/23 07:43
I&O
10/20/23 10/21/23 10/22/23
06:59 06:59 06:59
Intake Total 780 / 780 1680 / 1680
Output Total 225 / 225
Balance 780 / 780 1455 / 1455
--- NOTE | 2023-10-21 09:47 | W.PN.GI.CBS2 ---
Today's Communication / Plan
-
advance diet as tolerated
Assessment / Plan
-
The pt is a 33 yo male with a PMH significant for decompensated alcoholic liver cirrhosis with ascites requiring multiple paracentesis, ongoing alcohol abuse, Esophageal varices with banding in April 2023, chronic anemia, hepatic encephalopathy
on Xifaxan, who presented to the ER with complaints of abdominal distention and shortness of breath. We are being asked to evaluate for ascites. As noted above he has had recurrent admissions for ascites secondary to decompensated liver cirrhosis
with recurrent alcohol use. His last admission was in June requiring 2 larger volume paracentesis of 7700 and 6600 cc of fluid removed. No SBP at that time. He now again presents with recurrent abdominal pain with severe ascites on ultrasound
imaging. He notes binge drinking yesterday, but unable to quantify. MELD-sodium score 22 indicating a 19.6% estimated 90-day mortality rate/MELD 3.0 is 20.
10/20/2023: More awake and alert. Episode of nausea with vomiting this morning. Complains of upper epigastric/left-sided chest pain.
Problem list:
-Abdominal pain likely secondary to severe ascites seen on ultrasound imaging
-decompensated liver cirrhosis secondary to alcohol abuse with recurrent ascites, hepatic encephalopathy, and esophageal varices with prior banding
-Chronic hyponatremia
-hx GI bleed 04/2023 with EV with bleeding/banding transfer to [place]
-ETOH abuse
-hx�ETOH hepatitis
-Chronic anemia
-?History of SBP (February 2023)
-Recent surgery at [facility] for ?Hernia versus perforated viscus (records not available)
Recommendations:
- lipase normal, continue diet
- abd xray with some mild dilation/thickening of SB in LUQ, likely etiology of yesterdays symptoms but better today, will follow
- continue diuretics
- mental status back to baseline
- continue clears and advance as tolerated
- no SBP by paracentesis
-Strict alcohol abstinence is advised
-
Subjective
Subjective
Date of Service: October 21, 2023
Pt feels better, still some LUQ d/c but mild. no more N/V
Objective
Data Reviewed
Laboratory Data:
Laboratory Results
10/21/23 06:19
10/21/23 06:19
Laboratory Results
PT 18.2 Sec (11.4-14.6) H 10/19/23 02:21
INR 1.50 10/19/23 02:21
Phosphorus 4.0 mg/dl (2.5-4.5) 10/21/23 06:19
Magnesium 1.6 mg/dl (1.6-2.3) 10/21/23 06:19
Total Bilirubin 5.7 mg/dl (0.2-1.3) H 10/21/23 06:19
AST 49 U/L (17-59) 10/21/23 06:19
ALT 16 U/L (0-50) 10/21/23 06:19
Alkaline Phosphatase 152 U/L (38-126) H 10/21/23 06:19
Lipase Cancelled 10/20/23 11:03
Vital Signs and I&O:
Vital Signs
Temp Pulse Resp BP Pulse Ox
98.8 F 87 17 106/69 99
10/21/23 07:43 10/21/23 07:43 10/21/23 07:43 10/21/23 07:43 10/21/23 07:43
I&O
10/20/23 10/21/23 10/22/23
06:59 06:59 06:59
Intake Total 780 / 780 1680 / 1680
Output Total 225 / 225
Balance 780 / 780 1455 / 1455
Physical Exam
Physical Exam
GI: Soft and Tender (mild tenderness LUQ)
Neuro: Non Focal (oriented)
[2023-10-21 11:25] VITALS: BP 112/77
[2023-10-21 15:53] VITALS: BP 110/69
[2023-10-21] MEDS: LOVENOX 40 MG SC (17:52)
[2023-10-21 23:15] VITALS: BP 105/65
[2023-10-22 00:19] VITALS: BP 105/65
[2023-10-22] MEDS: FLUSH (NSS) 2 FLUSH IV (04:27)
[2023-10-22] MEDS: STERILE WATER FOR INJECTION 10 ML IV (04:27)
[2023-10-22] MEDS: ROCEPHIN 1000 MG IV (04:28)
[2023-10-22 06:11] LABS: Hematocrit 23.2 % (39.0-52.0); Hemoglobin 8.2 g/dL (13.0-18.0); Mean Corp Hgb Conc. 35.3 g/dL (33.0-37.0); Mean Corpuscular Hgb 32.8 pg (27.0-31.0); Mean Corpuscular Volume 92.8 fL (80.0-94.0); Mean Platelet Volume 8.9 fL (7.4-10.4); Platelet Count 182 10^3/uL (130-400); Red Cell Dist. Width 14.2 % (11.5-14.5); White Blood Cell Count 8.3 10^3/uL (4.8-10.8)
[2023-10-22 06:39] LABS: ALT (SGPT) 16 U/L (0-50); AST (SGOT) 42 U/L (17-59); Albumin 3.1 g/dl (3.5-5.0); Alkaline Phosphatase 182 U/L (38-126); Blood Urea Nitrogen 19 mg/dl (9-20); Calcium 8.5 mg/dl (8.4-10.2); Carbon Dioxide 33 mmol/L (22-30); Chloride 87 mmol/L (98-107); Estimated Creatinine Clearance 90 ml/min; Glucose 92 mg/dl (70-99); Magnesium 1.7 mg/dl (1.6-2.3); Phosphorus 3.9 mg/dl (2.5-4.5); Potassium 4.1 mmol/L (3.5-5.1); Sodium 127 mmol/L (135-145); Total Bilirubin 3.9 mg/dl (0.2-1.3); Total Protein 6.6 g/dl (6.3-8.2); eGFR > 60.00
[2023-10-22 07:00] VITALS: BP 112/69
[2023-10-22] MEDS: LOW STRENGTH ASPIRIN 81 MG PO (08:48)
[2023-10-22] MEDS: FOLVITE 1 MG PO (08:48)
[2023-10-22] MEDS: LASIX 60 MG PO (08:48)
[2023-10-22] MEDS: VITAMIN B1 100 MG PO (08:48)
[2023-10-22] MEDS: PROTONIX 40 MG PO (08:48)
[2023-10-22] MEDS: XIFAXAN 550 MG PO (08:48)
[2023-10-22] MEDS: ALDACTONE 100 MG PO (08:52)
--- NOTE | 2023-10-22 09:44 | W.PN.GI.CBS2 ---
Today's Communication / Plan
-
alcohol abstinence
Assessment / Plan
-
The pt is a 33 yo male with a PMH significant for decompensated alcoholic liver cirrhosis with ascites requiring multiple paracentesis, ongoing alcohol abuse, Esophageal varices with banding in April 2023, chronic anemia, hepatic encephalopathy
on Xifaxan, who presented to the ER with complaints of abdominal distention and shortness of breath. We are being asked to evaluate for ascites. As noted above he has had recurrent admissions for ascites secondary to decompensated liver cirrhosis
with recurrent alcohol use. His last admission was in June requiring 2 larger volume paracentesis of 7700 and 6600 cc of fluid removed. No SBP at that time. He now again presents with recurrent abdominal pain with severe ascites on ultrasound
imaging. He notes binge drinking yesterday, but unable to quantify. MELD-sodium score 22 indicating a 19.6% estimated 90-day mortality rate/MELD 3.0 is 20.
10/20/2023: More awake and alert. Episode of nausea with vomiting this morning. Complains of upper epigastric/left-sided chest pain.
Problem list:
-Abdominal pain likely secondary to severe ascites seen on ultrasound imaging
-decompensated liver cirrhosis secondary to alcohol abuse with recurrent ascites, hepatic encephalopathy, and esophageal varices with prior banding
-Chronic hyponatremia
-hx GI bleed 04/2023 with EV with bleeding/banding transfer to [place]
-ETOH abuse
-hx�ETOH hepatitis
-Chronic anemia
-?History of SBP (February 2023)
-Recent surgery at [facility] for ?Hernia versus perforated viscus (records not available)
Recommendations:
- low sodium diet
- outpatient cipro for SBP prophalaxis
- outpatient dose of diuretics
-Strict alcohol abstinence is advised
no active inpatient issue will sign off.
Subjective
Subjective
Date of Service: October 22, 2023
Pt feels well. eating fine, area of LUQ (that corresponded with some dilated sb loops) resolved
Objective
Data Reviewed
Laboratory Data:
Laboratory Results
10/22/23 05:42
10/22/23 05:42
Laboratory Results
PT 18.2 Sec (11.4-14.6) H 10/19/23 02:21
INR 1.50 10/19/23 02:21
Phosphorus 3.9 mg/dl (2.5-4.5) 10/22/23 05:42
Magnesium 1.7 mg/dl (1.6-2.3) 10/22/23 05:42
Total Bilirubin 3.9 mg/dl (0.2-1.3) H 10/22/23 05:42
AST 42 U/L (17-59) 10/22/23 05:42
ALT 16 U/L (0-50) 10/22/23 05:42
Alkaline Phosphatase 182 U/L (38-126) H 10/22/23 05:42
Lipase Cancelled 10/20/23 11:03
Vital Signs and I&O:
Vital Signs
Temp Pulse Resp BP Pulse Ox
99 F 82 18 112/69 99
10/22/23 07:00 10/22/23 08:48 10/22/23 07:00 10/22/23 08:48 10/22/23 09:02
I&O
10/21/23 10/22/23 10/23/23
06:59 06:59 06:59
Intake Total 1680 / 1680 540 / 540
Output Total 225 / 225 50 / 50
Balance 1455 / 1455 490 / 490
Physical Exam
Physical Exam
HEENT: Anicteric (mildly icteric)
Cardiology: S1 and S2
GI: Soft and Non Distended
Neuro: Non Focal (oriented x3)
--- NOTE | 2023-10-22 11:32 | W.PN.HOSP.TC ---
Addendum entered and electronically signed by Rl Valenzuela MD 10/23/23 13:13:
Add on diagnosis list:
Moderate protein calorie malnutrition
Alcohol abuse and dependence
Original Note:
Today's Communication/Plan
-
d/c home
Assessment / Plan
Assessment / Plan
HPI: 33 years old with history of alcoholic liver cirrhosis, recurrent ascites status post paracentesis, alcohol abuse, who came to the ER with abdominal ascension and shortness of breath, patient did drink today and complaining of abdominal pain
and distention.
Last paracentesis was 3 weeks ago. Patient also was complaining of chest discomfort, diarrhea, denies any fever or chills. Initial blood work in the ER shows alcohol level of 482. Patient will be admitted under hospitalist service.
Acute respiratory distress secondary ascites caused by decompensated liver cirrhosis
-Improved status post paracentesis on 10/18 draining 7.3 L, s/p IV albumin, neg for SBP
-GI following, continue Xifaxan, Lasix, spironolactone, Rocephin
-Alcohol cessation counseling has been recommended�patient has been informed that he will if he keeps drinking
-Patient does not have medical insurance - will provide script for lactulose .
Chronic hyponatremia
-Due to fluid overload from liver failure
-Sodium 127 today
-Maintain on fluid restriction
Chronic anemia from chronic liver disease
-Hemoglobin 8.2
-Monitor, transfuse for hemoglobin less than 7.0
Nausea/vomiting-resolved
-Abd xray with some mild dilation/thickening of SB in LUQ
-Resolved
Noncardiac chest pain
-EKG nonischemic, troponins negative
-Pain meds as needed
Alcohol use disorder
-Alcohol level of 482 upon admission
-MSAS protocol, IV ativan prn
-Thiamine and folate
History of esophageal varices status post banding
-No sign of GI bleed, monitor
DVT prophylaxis�Lovenox
Full code
More than 30 minutes spent in discharge including
Final examination of the patient
Summarizing hospital stay
Instructions for continuing care to all relevant caregivers
Preparation of discharge records, prescriptions, and referral forms
Total time spent (in minutes): 38 mins
Anticipated Discharge: Today
Subjective/Interval History
-
Date of Service: October 22, 2023
denies of abd pain/nausea/vomiting
resting comfortably in bed
Objective Data
-
Labs:
Laboratory Results
10/22/23
05:42
WBC 8.3
Hgb 8.2 L
Hct 23.2 L
Plt Count 182
Sodium 127 L
Potassium 4.1
Chloride 87 L
Carbon Dioxide 33 H
BUN 19
Creatinine 0.9
Glucose 92
Calcium 8.5
Total Bilirubin 3.9 H
AST 42
ALT 16
Alkaline Phosphatase 182 H
Vital Signs:
Vital Signs
Temp Pulse Resp BP Pulse Ox
99 F 82 18 112/69 99
10/22/23 07:00 10/22/23 08:48 10/22/23 07:00 10/22/23 08:48 10/22/23 09:02
I&O
10/21/23 10/22/23 10/23/23
06:59 06:59 06:59
Intake Total 1680 / 1680 540 / 540
Output Total 225 / 225 50 / 50
Balance 1455 / 1455 490 / 490
Review of Systems
-
Respiratory: Reports No Symptoms
Cardiac: Reports No Symptoms
Abdomen/GI: Reports No Symptoms
Physical Exam
-
General: Appears Chronically Ill
HEENT: Oxygen
Respiratory: Clear to Auscultation
Cardiac: Regular Rhythm and S1/S2; Negative Murmur
GI: Soft, Nontender and Normal Bowel Sounds
Neuro: Awake, Alert and Oriented
--- NOTE | 2023-10-22 13:26 | CM ---
Addendum entered by Essie Rao 10/22/23 14:12:
patient has declned assisitance with his alcohol use.
Original Note:
doctor notified that patient ready for discharge home.therapy had recommended patient go to skilled rehab.i spoke with patient via budget analyst phone.he wants to return home to his apt where he has 10 steps to enter apt.his bed and bath are on first
level once he is inside apt.he lives with a friend and states he amb with a walker at times.friend also assists with his adl's when needed. patient states he wants to go home and has declined ip rehab.i have asked therapy to eval him again.therapy
told cm that if he can ambulate in room he is able to return home.patient is not able to get a ride home.he does not have his phone so he cannot call his friend to pick hip up.he told cm he does have the keys to his apt.i have also left [facility] for his
sister to return my call.patient has no pcp so i gave him a pamphlet for the [facility] in both [place] and [place].
plan:home with no hcs.ankush is setting up lyft ride for patient to return home.
--- NOTE | 2023-10-22 13:39 | CM ---
CM will provide patient with transportation assistance via [employer]ft. CM updated bedside RN.
--- NOTE | 2023-10-23 07:28 | W.DCSUMMARY ---
Discharge Summary
Discharge Data
Date of Admission: 10/19/23
Date of Discharge: 10/22/23
-
Pending Results: No
Hospital Course
Discharging Physician : Dr Rl Valenzuela
Disposition : To home
Primary care physician : None
Principal Discharge diagnosis :
Acute hypoxic respite insufficiency
Recurrent ascites
Alcohol abuse
Chronic hyponatremia
Chronic Discharge diagnosis :
History of esophageal varices s/p banding
History of alcohol hepatitis
Chronic anemia
Hospital Course :
Patient is a 33-year-old male with above-mentioned past medical history came to ER for having new onset of abdominal distention and shortness of breath. Patient with history of alcoholic cirrhosis and had paracentesis 3 weeks ago. Patient
continues to drink an alcohol level of 482 in ER. Examination suggestive of patient having recurrent of significant ascites and causing dyspnea. Interventional radiology and gastroenterology was consulted and patient was started on empiric
Rocephin. Interventional urology drained 7.3 L peritoneal fluid and was provided IV albumin. No signs of bacterial peritonitis on testing. Antibiotics were discontinued and patient was maintained on rifaximin/Lasix/Aldactone. Alcohol cessation
and counseling was discussed with patient.
As mentioned above patient was noted to be intoxicated with blood alcohol level of 482 at admission. Patient monitored for alcohol withdrawal in hospital.
Post stabilization patient was discharged home.
Important imaging findings :
None
Procedure findings :
None
Discharge Plan
-
Patient Disposition: Home (Routine Discharge)
Discharge Diagnosis/Procedures: Alcoholic cirrhosis, Recurrent ascites, hyponatremia
Condition: Fair
Diet: 2 Gram Sodium and Restrict fluids to 48 oz
Activity: As tolerated
Driving Restrictions: As prior to admission
Bathing Restrictions: OK to Shower
Activity Restrictions/Additional Instructions:
Please call [facility] [phone] for a follow up appointment.
Referrals:
NONE,* [Family Provider] -
Prescriptions:
New
furosemide 40 mg Tablet
60 mg PO DAILY 30 Days Qty: 45 2RF
pantoprazole 40 mg Tablet,Delayed Release (Dr/Ec)
40 mg PO DAILY Qty: 30 2RF
lactulose 20 gram/30 mL solution
20 g PO BID 30 Days Qty: 2880 0RF
Continued
spironolactone 50 mg Tablet
100 mg PO DAILY Qty: 30 0RF
Patient Comments:
STRENGTH UNKNOWN
Vitamin D3
1 tab PO DAILY
Patient Comments:
STRENGTH UNKNOWN
potassium
1 tab PO DAILY
Patient Comments:
STRENGTH UNKNOWN
ciprofloxacin HCl 500 mg tablet
500 mg PO DAILY
Patient Comments:
STRENGTH UNKNOWN
folic acid 1 mg tablet
1 mg PO DAILY
Discontinued
furosemide 40 mg Tablet
40 mg PO DAILY
Discharge Orders:
Discharge Patient (As Directed); Ordered 10/22/23
Ordered By: Rl Valenzuela
Discharge Date and Time
Discharge Date/Time: 10/22/23 14:20
Print Language: GERMAN
--- NOTE | 2023-10-23 09:51 | PN.CDI ---
CDI
- -
CDI:
Physician Documentation Request
Admit Date: 10/19/23 03:50
Dear Doctor Nicolas,
Patient admitted for decompensated liver cirrhosis.
ED Physician Documentation: 'States that he did drink today and now he has abd pain...alcohol abuse...Daily 4 large beer and 2 shots'
10/21 Hospitalist PN: 'Alcohol use disorder -Alcohol level of 482 upon admission'
If possible, please provide further specificity as outlined below:
1. Please specify the pattern of use, include all that apply:
- Use, with or without abuse and/or dependence
- Abuse with or without dependence
- Dependence
2. Please identify any associated manifestations
- Intoxication: with or without delirium, with or without perceptual disturbance
- Other, please specify
- No manifestations
Use of terms such as suspected, likely, concern for, or probable (associated with a specific diagnosis that is being evaluated, monitored, or treated as if it exists) are acceptable and can be coded in the inpatient setting, when documented at the
time of discharge.
Thank you,
Kathy Rouse RN, BSN
CDI Specialist
Available via [place] text
Please use your independent medical judgment in providing your response.
--- NOTE | 2023-10-23 10:03 | PN.CDI ---
CDI
- -
CDI:
Physician Documentation Request
Admit Date: 10/19/23 03:50
Dear Doctor Nicolas,
Patient admitted for decompensated liver cirrhosis.
10/18 Assembly Inspector Helper Assessment: 'With weight loss of > 10% in 6 months and observed muscle and fat wasting pt meets AND/ASPEN criteria for moderate protein calorie malnutrition.'
Based on the information, which of the following most accurately represents the patient's nutritional status?
Moderate protein calorie malnutrition
Other
[place] Criteria ([facility] Hospitalist 2017)
2 or more criteria must be present for either
non severe or severe malnutrition
Note that the criteria differs related to the
presence of an acute or chronic illness
Acute Illness Chronic Illness
Energy Intake Non Severe: <75% for >7 days Non Severe: <75% for >1 month
Severe: <50% for >5 days Severe: <75% for >1 month
Weight Loss Non Severe: 1-2% over 1 week Non Severe: 5% over 1 month
5% over 1 month 7.5% over 3 months
7.5% over 3 months 10% over 6 months
1 year N/A 20% over 1 year
Severe: >2% over 1 week Severe: >5% over 1 month
>5% over 1 month >7.5% over 3 months
>7.5% over 3 months >10% over 6 months
1 year N/A >20% over 1 year
Body Fat Non Severe: Mild Decrease Non Severe: Mild Loss
Severe: Moderate Decrease Severe: Severe Loss
Muscle Mass Non Severe: Mild Decrease Non Severe: Mild Loss
Severe: Moderate Decrease Severe: Severe Loss
Fluid Accumulation Non Severe: Mild Accumulation Non Severe: Mild Accumulation
Severe: Moderate to severe Severe: Moderate to severe
accumulation accumulation
Reduced Wing Mailer Machine Operator Strength Non Severe: N/A Non Severe: N/A
Severe: Measurably reduced Severe: Measurably reduced
Use of terms such as suspected, likely, concern for, or probable (associated with a specific diagnosis that is being evaluated, monitored, or treated as if it exists) are acceptable and can be coded in the inpatient setting, when documented at the
time of discharge.
Thank you,
Kathy Rouse RN, BSN
CDI Specialist
Available via [place] text
Please use your independent medical judgment in providing your response.
== END 2023-10-22 14:20 | disposition home or self-care (01) | DRG 433 ==
LOC: 3 WEST ACU 03:50
PROVIDERS: Clinical Nurse Specialist Family Health; Family Medicine; Nurse Practitioner Family; Physician Assistant; ADMITTING PHYSICIAN General Practice; ATTENDING PHYSICIAN Hospitalist; CONSULT PHYSICIAN Specialist; EMERGENCY PHYSICIAN Student in an Organized Health Care Education/Training Program
PROC: 0W9G3ZZ Drainage of Peritoneal Cavity, Percutaneous Approach (ICD-10-PCS; 2023-10-19)
DX: K70.31 Alcoholic cirrhosis of liver with ascites (principal); E44.0 Moderate protein-calorie malnutrition; E87.1 Hypo-osmolality and hyponatremia; D64.9 Anemia, unspecified; F10.229 Alcohol dependence with intoxication, unspecified; Y90.8 Blood alcohol level of 240 mg/100 ml or more; R06.03 Acute respiratory distress; Z68.20 Body mass index [BMI] 20.0-20.9, adult
CPT/HCPCS: 49083; 71046; 74018; 76705; 80053; 82042; 82077; 82140; 82150; 83615; 83690; 83735; 84100; 84157; 84484; 85025; 85027; 85610; 87015; 87070; 87205; 89051; 93005; 97163; 99285; P9047

== ENCOUNTER 2023-11-17 23:16 | Inpatient (IN) | payer OTHER, SELFPAY ==
[2023-11-17 19:19] VITALS: BP 136/93
[2023-11-17 20:48] LABS: % Basophils 1.7 % (0-2); % Eosinophils 4.3 % (0-6); % Immature Granulocytes 0.3 % (0-0.5); % Lymphocytes 16.9 % (20.5-51.1); % Monocytes 7.2 % (1.7-9.3); % Neutrophils 69.6 % (42.2-75.2); Absolute Basophils 0.1 10^3/uL (0-0.2); Absolute Eosinophils 0.3 10^3/uL (0-0.7); Absolute Lymphocytes 1.3 10^3/uL (1.2-3.4); Absolute Monocytes 0.5 10^3/uL (0.1-0.6); Absolute Neutrophils 5.2 10^3/uL (1.4-6.5); Hemoglobin 11.2 g/dL (13.0-18.0); Mean Corp Hgb Conc. 36.1 g/dL (33.0-37.0); Mean Corpuscular Hgb 32.7 pg (27.0-31.0); Mean Corpuscular Volume 90.4 fL (80.0-94.0); Mean Platelet Volume 8.1 fL (7.4-10.4); Nucleated Red Blood Cells % 0 % (-); Platelet Count 240 10^3/uL (130-400); Red Blood Cell Count 3.43 10^6/uL (4.70-6.10); Red Cell Dist. Width 13.5 % (11.5-14.5); White Blood Cell Count 7.5 10^3/uL (4.8-10.8)
[2023-11-17 21:06] LABS: ALT (SGPT) 20 U/L (0-50); AST (SGOT) 62 U/L (17-59); Albumin 3.3 g/dl (3.5-5.0); Alcohol 179 mg/dl; Alkaline Phosphatase 279 U/L (38-126); Blood Urea Nitrogen 4 mg/dl (9-20); Calcium 8.3 mg/dl (8.4-10.2); Carbon Dioxide 23 mmol/L (22-30); Chloride 98 mmol/L (98-107); Glucose 101 mg/dl (70-99); Lipase 43 U/L (23-300); Sodium 128 mmol/L (135-145); Total Bilirubin 4.9 mg/dl (0.2-1.3); Total Protein 8.1 g/dl (6.3-8.2); eGFR > 60.00
[2023-11-17 21:20] LABS: Potassium 4.3 mmol/L (3.5-5.1)
[2023-11-17 21:21] VITALS: BP 119/90
[2023-11-17 21:50] VITALS: BP 119/90
[2023-11-17 22:00] VITALS: BP 106/73
--- NOTE | 2023-11-17 22:15 | ED.GENMED ---
History of Present Illness
General
Chief Complaint: Abdominal Symptoms
Source: patient and previous hospital records (Previous hospitalizations for similar complaint most recently October 18 until October 21)
Exam Limitations: none
Time Seen by Provider: 11/17/23 21:37
Travel History
Have you had any contact with someone who has COVID-19?: No
Do you have any symptoms of coronavirus? Fever > 100 degrees, chills, cough, shortness of breath, sore throat, loss of taste or smell, muscle aches, or headache?: No
History of Present Illness
History of Present Illness:
This is a 33-year-old gentleman with history of chronic alcohol use disorder, hepatic cirrhosis with ascites who presents with progressive severe ascites with shortness of breath.
Multiple previous ED visits and previous hospitalizations for similar complaints most recently October 18 to October 21 where he underwent paracentesis by IR draining 7.3 L of peritoneal fluid.
He continues to neglect follow-up with an [facility] citing transportation issues.
He unfortunately continues to drink alcohol as well.
He complains of shortness of breath worse with lying supine but no cough nor fever. Generalized abdominal fullness without pain. No vomiting nor diarrhea.
Past History
Past History
ED Past Medical History: Other (alcohol abuse, alcoholic hepatitis, Cirrhosis of the liver, Ascities)
ED Past Surgical History: None
Social History
Tobacco: Non-smoker
Alcohol: Chronic alcoholic (Daily 4 large beer and 2 shots)
Drug: Other (denies however UDS from prior visit pos for opioids)
Personal: Single
Living: with roommate
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
Family History
Family History: Other (Noncontributory)
Phy Exam
Physical Exam
Physical Exam:
GENERAL: 33-year-old primarily Faroese-speaking gentleman appears somewhat older than stated age. Thin build with severe abdominal distention related to ascites. Overall appears in no acute distress.
EYE: pupils equal and reactive. Mildly icteric sclera.
NECK: Supple, nontender, no meningismus, no significant adenopathy. Mild JVD.
ENT: oral mucosa is moist. No rhinorrhea.
CARDIAC: Regular rate and rhythm. no murmur.
LUNGS: no acute respiratory distress, mildly decreased breath sounds at bases otherwise clear to auscultation.
ABDOMEN: Significant global abdominal distention with positive fluid wave, no appreciable tenderness to palpation, no r/g, no cvat. normoactive BS.
NEUROLOGICAL: Alert and oriented x3, no focal neuro deficits.
SKIN: Warm and dry, mildly icteric, skin intact. No rash.
MUSCULOSKELETAL: No C/C/E. peripheral pulses are full and equal b/l. No palpable tenderness.
PSYCH: Moderately blunted affect.
Course
Orders/Labs/Results
Orders:
Orders
11/17/23 20:36
Alcohol Urgent
Complete Blood Count/With Diff Urgent
Comprehensive Metabolic Panel Urgent
Lipase Urgent
11/17/23 21:38
Protime/PTT Urgent
Abnormal Lab Results
11/17/23
20:36
RBC 3.43 L 10^6/uL
(4.70-6.10)
Hgb 11.2 L g/dL
(13.0-18.0)
Hct 31.0 L %
(39.0-52.0)
MCH 32.7 H pg
(27.0-31.0)
Lymphocytes % 16.9 L %
(20.5-51.1)
Sodium 128 L mmol/L
(135-145)
BUN 4 L mg/dl
(9-20)
Creatinine 0.6 L mg/dL
(0.7-1.3)
Glucose 101 H mg/dl
(70-99)
Calcium 8.3 L mg/dl
(8.4-10.2)
Total Bilirubin 4.9 H mg/dl
(0.2-1.3)
AST 62 H U/L
(17-59)
Alkaline Phosphatase 279 H U/L
(38-126)
Albumin 3.3 L g/dl
(3.5-5.0)
11/17/23 20:36
11/17/23 20:36
Vital Signs
Initial and Last Documented VS:
Initial Vital Signs
Temp Pulse Resp BP Pulse Ox
99.2 F 101 20 136/93 96
11/17/23 19:19 11/17/23 19:19 11/17/23 19:19 11/17/23 19:19 11/17/23 19:19
Last Documented Vital Signs
Temp Pulse Resp BP Pulse Ox
99.2 F 92 20 119/90 98
11/17/23 19:19 11/17/23 21:50 11/17/23 21:50 11/17/23 21:50 11/17/23 21:51
MDM/Problems Addressed
Differential Diagnosis Includes:
33-year-old with ongoing/chronic alcohol abuse, hepatic cirrhosis with recurrent severe ascites.
Ongoing social constraints including lack of healthcare coverage, lack of reliable transportation adds to poor follow-up and recurrent unscheduled ED visits/hospitalizations for recurrent severe, symptomatic ascites.
Labs show mild anemia but improved from previous. Normal white blood cell count.
Chronic hyponatremia, similar to previous.
Chronic mild hyperbilirubinemia, similar to previous.
Alcohol level 179, consistent with ongoing alcohol abuse.
Questionable low-grade fever initially, afebrile upon recheck.
He is certainly at risk for spontaneous bacterial peritonitis.
Thus far no evidence of alcohol withdrawal on exam.
Will admit to hospitalist service with plan for IR consult, paracentesis in the a.m.
*Pulse Oximetry
Patient hypoxic: no
*Critical Care Note
Total Time (30-74mins, 75-104mins- exclusive of procedures): Not Applicable
ED Attending Note
-
Portions of this chart may have been created with voice recognition software.� Occasional wrong word or��sound alike� substitutions may have occurred due to the inherent limitations of voice recognition software.
Discharge Plan
Departure
Patient Disposition: Admit
Date of Disposition: 11/17/23
Time of Disposition: 22:18
Admit to: Med/Surg
Admit to doctor: Htay
Presentation/result/management discussed w/ accepting MD/DO: Hospitalist
Condition: Good
Discharge Problem:
Alcoholic cirrhosis of liver with ascites, Decompensation of cirrhosis of liver, Abdominal ascites, Alcohol intoxication, Severe alcohol use disorder
Prescriptions:
No Action
spironolactone 50 mg Tablet
100 mg PO DAILY Qty: 30 0RF
Patient Comments:
STRENGTH UNKNOWN
Vitamin D3
1 tab PO DAILY
Patient Comments:
STRENGTH UNKNOWN
potassium
1 tab PO DAILY
Patient Comments:
STRENGTH UNKNOWN
ciprofloxacin HCl 500 mg tablet
500 mg PO DAILY
Patient Comments:
STRENGTH UNKNOWN
folic acid 1 mg tablet
1 mg PO DAILY
furosemide 40 mg Tablet
60 mg PO DAILY 30 Days Qty: 45 2RF
pantoprazole 40 mg Tablet,Delayed Release (Dr/Ec)
40 mg PO DAILY Qty: 30 2RF
lactulose 20 gram/30 mL solution
20 g PO BID 30 Days Qty: 2880 0RF
Referrals:
UNKNOWN - PT DOES,NOT KNOW [Family Provider] -
Interventions
Interventions:
*Risk Screen - Suicide Last Done: 11/17/23 21:51
*General Assessment Last Done: 11/17/23 21:51
ED- Fall Risk Assessment Last Done: 11/17/23 21:51
*ED COVID-19 Vaccine History Last Done: 11/17/23 21:51
UJ-Fzvauj-Yhzmyuyvve Assessment Last Done: 03/30/24 21:51
Discharge Date and Time
Print Language: INDIAN
[2023-11-17 22:41] LABS: INR 1.56; PT 18.5 Sec (11.4-14.6)
[2023-11-17 22:42] LABS: APTT 42.4 Sec (23.4-35.0)
--- NOTE | 2023-11-17 22:48 | HPS.HSE ---
Family Physician
-
Family Physician: NOT KNOW UNKNOWN - PT DOES
Chief Complaint
-
recurrent ascites and SoB .
History of Present Illness
33M HX decompensated alcoholic liver cirrhosis with ascites requiring multiple paracentesis, ongoing ETOH abuse, Esophageal varices with banding in April 2023, chronic anemia, hepatic encephalopathy on Xifaxan, who presented to the ER to
evaluate for recurrent ascites and SoB .
Reports non complaint with Meds and OP f/u at [facility] citing transportation issues
ROS:
Dyspnea worse with lying supine
No cough nor fever.
Generalized abdominal fullness without pain.
No V/D
Medical History
Past Medical History
Past Medical History: Reports Other
Additional Past Medical History:
Alcohol abuse
HX decompensated liver cirrhosis
Ongoing ETOH use with recurrent ascites, hepatic encephalopathy, and esophageal varices with prior banding
Chronic hyponatremia
HX GI bleed 04/2023 with EV with bleeding/banding transfer to [place]
HX ETOH hepatitis
Chronic anemia
Past Surgical History: Reports None
Social History
Tobacco: Non-smoker
Alcohol: Chronic Alcoholic (Daily 4 large beer and 2 shot)
Personal: Single
Living: Other (with room mate )
Family History
Family History: Not pertinent
Allergies / Home Medications
Allergies reflects when Allergies were last updated in [facility].
Home Medications with original date entered in [facility]
Allergy/Medication List:
Allergies
Allergy/AdvReac Type Severity Reaction Status Date / Time
No Known Allergies Allergy Verified 10/19/23 04:20
Home Medications
spironolactone 50 mg tablet 100 mg (2 x 50 mg) PO DAILY #30 tabs 07/06/23
Vitamin D3 1 tab PO DAILY Supplement 08/21/23
potassium 1 tab PO DAILY Electrolyte Repletion 08/21/23
ciprofloxacin HCl 500 mg tablet 500 mg PO DAILY Liver Issues 10/19/23
folic acid 1 mg tablet 1 mg PO DAILY Supplement 10/19/23
furosemide 40 mg tablet 60 mg (1.5 x 40 mg) PO DAILY Fluid retention/Swelling 30 days #45 tabs 10/22/23
lactulose 20 gram/30 mL oral solution 20 g (30 mL) PO BID Liver cirrohosis 30 days #2,880 mL 10/22/23
pantoprazole 40 mg tablet,delayed release 40 mg PO DAILY GERD #30 tabs 10/22/23
Review of Systems
-
Constitutional: Reports No Symptoms
EENT: Reports No Symptoms
Respiratory: Reports Trouble Breathing (with lying flat )
Cardiac: Reports No Symptoms
Abdomen/GI: Reports Other (distension )
: Reports No Symptoms
Musculoskeletal: Reports No Symptoms
Skin: Reports No Symptoms
Neurological: Reports No Symptoms
Endocrine: Reports No Symptoms
Hematologic/Lymphatic: Reports No Symptoms
Psych: Reports No Symptoms
Physical Exam
Vital Signs
Vital Signs
Temp Pulse Resp BP Pulse Ox
99.2 F 92 20 119/90 98
11/17/23 19:19 11/17/23 21:50 11/17/23 21:50 11/17/23 21:50 11/17/23 21:51
Physical Exam
General: Well Developed (thin ) and No Apparent Distress
HEENT: NormoCephalic, Moist mucous membranes and Atraumatic
Respiratory: Clear; No Wheezes, Rales or Rhonchi
Cardiac: S1/S2 and Regular Rhythm; No Tachycardia or Murmur
Breast: Deferred by me
GI: Distended (massive distension , non tender ); No Non Distended (significnatly distended ) or Tender
Rectal: Deferred by Provider
Genito-urinary: Deferred by me
Musculoskeletal: No Edema
Neuro: AO x 3
Psych: Other (flat affect )
Laboratory Results
-
11/17/23 20:36
11/17/23 20:36
Laboratory Results
PT 18.5 Sec (11.4-14.6) H 11/17/23 22:25
INR 1.56 11/17/23 22:25
APTT 42.4 Sec (23.4-35.0) H 11/17/23 22:25
Total Bilirubin 4.9 mg/dl (0.2-1.3) H 11/17/23 20:36
AST 62 U/L (17-59) H 11/17/23 20:36
ALT 20 U/L (0-50) 11/17/23 20:36
Alkaline Phosphatase 279 U/L (38-126) H 11/17/23 20:36
Lipase 43 U/L (23-300) 11/17/23 20:36
Data Reviewed
-
Lab Data: Labs Reviewed by me
Old Records: Reviewed
Impression/Plan
-
Reviewed VS: T 99.2 HR 92 BP 120/90 RR 20 POx 98
Wt 53.75 kg( 10/19/23 ) ---> 68.3 kg today : Gained 14.6 kg over 4 weeks
Data
nl WCC nl Plt
Hgb 11.2 - baseline is 8 - 9
Pending INR - base line is 1.5
Stable Na 128 - baseline is 125 - 130
BUN 4
Cr 0.6
BG 101
TB 4.9 AST 62 ALT 20 AKP 280 Alb 3.3
ETOH 179
Last hospitalist admission: Last hospitalist admission: 10/19/23 - 10/22/23
DC Dx:
Acute hypoxic respite insufficiency
Recurrent ascites
Alcohol abuse
Chronic hyponatremia
ASSESSMENT & PLAN
Recurrent symptomatic massive ascites : Gained 14.6 kg over 4 weeks
MELD- Na 24 score : 14-15 % estimated 90-day mortality
HX decompensated liver cirrhosis
Ongoing ETOH use with recurrent ascites, hepatic encephalopathy, and esophageal varices with prior banding
Chronic hyponatremia
HX GIB 04/2023 with EV with bleeding/banding transfer to [facility]
HX ETOH hepatitis
Chronic anemia
NON COMPLIANCE with Meds and f/u
-? HX SBP (February 2023)
- low sodium diet
- Resume PO Cipro for SBP prophylaxis
- Resume Lasix/ Aldactone
- Strict alcohol abstinence
- GI consult
- IR consult for abdo paracentesis
Chronic hyponatremia: stab;e
- fluid restriction
Chronic anemia from chronic liver disease
- Observe Hgb
Alcohol use disorder: severe
- ETOH 179 upon admission
- MSAS protocol, IV Ativan prn
-Thiamine and folate
DVT Px: LMWH
Full code
IP MS
[2023-11-17 23:00] VITALS: BP 109/81
[2023-11-18] VITALS: BP 103/69
[2023-11-18 01:19] VITALS: BP 127/89
--- NOTE | 2023-11-18 01:30 | PTCARENOTE ---
pt arrived to floor from ed via stretcher. Pt transferred to bed from stretcher because pt reported he felt too weak to ambulate. Pt flat and drowsy. Pt primary language is Turkish, LL set up in room to communicate with pt. Pt c/o abdominal
discomfort r/t severe abdominal distention. MSAS 1 for HR of 92. otherwise Pt VSS. Pt oriented to room, call peraza within reach. will review chart and follow plan of care.
[2023-11-18] MEDS: DILAUDID 0.25 MG IV ×3 (02:47→19:52)
[2023-11-18 07:00] VITALS: BP 140/80
[2023-11-18 07:42] LABS: Ammonia 26 umol/L (9-30)
[2023-11-18] MEDS: THIAMINE INJECTION 200 MG IV ×2 (08:19→19:42)
[2023-11-18] MEDS: DUPHALAC/CHRONULAC 20 GRAMS PO ×2 (08:19→19:41)
[2023-11-18] MEDS: FOLVITE 1 MG PO (08:20)
[2023-11-18] MEDS: CIPRO 500 MG PO (08:20)
[2023-11-18] MEDS: PROTONIX 40 MG PO (08:20)
[2023-11-18] MEDS: ALDACTONE 100 MG PO (08:20)
[2023-11-18] MEDS: LASIX 40 MG PO (08:25)
--- NOTE | 2023-11-18 09:53 | CON.GI ---
Consultation
-
Date/Time Consultation Requested: 11/18/23 at 5am
Date/Time Consultation Performed: 11/18/23 at 7:15
Requesting Provider: Judith
Performing Provider: Maximiliano
Reason for Consultation: Ascites
Medical History
Chief Complaint / HPI
Chief Complaint: ascites
History of Present Illness:
This patient is a 33-year-old man with a history of decompensated alcoholic liver disease predominantly with ascites requiring multiple paracentesis, ongoing intermittent alcohol use, history of esophageal varices with banding in 2022 who comes
emergency room with recurrent ascites. He does not have abdominal pain, nausea or vomiting. He does continue to drink alcohol
Past Medical History
Past Medical History: Other (Decompensated liver disease, chronic hyponatremia, alcohol abuse, esophageal varices)
Past Surgical History: Other (Presumed hernia repair)
Social History
Alcohol: Binge Drinker
Family History
Family History: Reviewed & Not Pertinent
Allergies / Home Medications
Allergy/AdvReac Type Severity Reaction Status Date / Time
No Known Allergies Allergy Verified 10/19/23 04:20
�Medication �Instructions �Recorded
spironolactone 50 mg tablet 100 mg (2 x 50 mg) PO DAILY #30 07/06/23
tabs
Vitamin D3 1 tab PO DAILY Supplement 08/21/23
potassium 1 tab PO DAILY Electrolyte 08/21/23
Repletion
ciprofloxacin HCl 500 mg tablet 500 mg PO DAILY Liver Issues 10/19/23
folic acid 1 mg tablet 1 mg PO DAILY Supplement 10/19/23
furosemide 40 mg tablet 60 mg (1.5 x 40 mg) PO DAILY Fluid 10/22/23
retention/Swelling 30 days #45 tabs
lactulose 20 gram/30 mL oral 20 g (30 mL) PO BID Liver 10/22/23
solution cirrohosis 30 days #2,880 mL
pantoprazole 40 mg tablet,delayed 40 mg PO DAILY GERD #30 tabs 10/22/23
release
Review of Systems
-
All other systems: A 12 pt ROS was Negative except as stated above in HPI
Vital Signs
Temp Pulse Resp BP Pulse Ox
98.3 F 85 16 140/80 93
11/18/23 07:00 11/18/23 08:20 11/18/23 07:00 11/18/23 08:20 11/18/23 07:00
Physical Exam
Exam
General: Comfortable
HEENT: Anicteric
Cardiac: S1/S2
GI: Other (Tense ascites nontender)
Neuro: Awake and Oriented (X 2)
Psych: Calm
Results
WBC 7.5 10^3/uL (4.8-10.8) 11/17/23 20:36
Hgb 11.2 g/dL (13.0-18.0) L 11/17/23 20:36
Hct 31.0 % (39.0-52.0) L 11/17/23 20:36
MCV 90.4 fL (80.0-94.0) 11/17/23 20:36
Plt Count 240 10^3/uL (130-400) 11/17/23 20:36
Absolute Neuts (auto) 5.2 10^3/uL (1.4-6.5) 11/17/23 20:36
PT 18.5 Sec (11.4-14.6) H 11/17/23 22:25
INR 1.56 11/17/23 22:25
APTT 42.4 Sec (23.4-35.0) H 11/17/23 22:25
Sodium 128 mmol/L (135-145) L 11/17/23 20:36
Potassium 4.3 mmol/L (3.5-5.1) 11/17/23 20:36
Chloride 98 mmol/L (98-107) 11/17/23 20:36
Carbon Dioxide 23 mmol/L (22-30) 11/17/23 20:36
BUN 4 mg/dl (9-20) L 11/17/23 20:36
Creatinine 0.6 mg/dL (0.7-1.3) L 11/17/23 20:36
Calcium 8.3 mg/dl (8.4-10.2) L 11/17/23 20:36
Total Bilirubin 4.9 mg/dl (0.2-1.3) H 11/17/23 20:36
AST 62 U/L (17-59) H 11/17/23 20:36
ALT 20 U/L (0-50) 11/17/23 20:36
Alkaline Phosphatase 279 U/L (38-126) H 11/17/23 20:36
Lipase 43 U/L (23-300) 11/17/23 20:36
Assessment / Plan
-
This patient is a 33-year-old man with a history of decompensated alcoholic liver disease predominantly with ascites requiring multiple taps intermittently and a previous history of variceal bleeding. For now I would do the following:
1. large volume paracentesis
2. hold diuretics today and restart based on kidney function in am (currently normal)
3. eventual elective egd for varices
4. continue sbp prophalaxis
5. continue xifaxin
6. alcohol abstinence
-
-
Thank you for consultation and allowing me to participate in the patient's care. Please call the alternative education teacher GI physician during the after hours with any questions or concerns.
--- NOTE | 2023-11-18 11:31 | W.PN.HOSP.TC ---
Today's Communication/Plan
-
for paracentesis today
Assessment / Plan
Assessment / Plan
pt is a 33 year old male
HX decompensated liver cirrhosis from ETOH abuse--now with Recurrent symptomatic massive ascites--Gained 14.6 kg over 4 weeks noncompliant with meds and follow up despite being told by myself on a previous admission that he will if he doesn't
follow up and abstain from ETOH--MELD- Na 24 score--14-15 % estimated 90-day mortality--Ongoing ETOH use with recurrent ascites, hx hepatic encephalopathy, and esophageal varices with prior banding--low sodium diet--Resume PO Cipro for SBP
prophylaxis--Resume Lasix/ Aldactone--Strict alcohol abstinence--GI consult--IR consult for abdominal paracentesis
Chronic hyponatremia--fluid restriction and lasix/aldactone
Chronic anemia from chronic liver disease- Observe Hgb
Alcohol use disorder--severe - ETOH 179 upon admission--watch for DTs--MSAS protocol, IV Ativan prn--Thiamine and folate
DVT Px: LMWH
code status --Full code
Anticipated Discharge: > 48 hours
Subjective/Interval History
-
Date of Service: November 18, 2023
pt denies c/o
Objective Data
-
Vital Signs:
max temp for 24 hours
11/17/23
19:19
Temp 99.2 F
Vital Signs
Temp Pulse Resp BP Pulse Ox
98.3 F 85 16 140/80 93
11/18/23 07:00 11/18/23 08:20 11/18/23 07:00 11/18/23 08:20 11/18/23 07:00
Review of Systems
-
All other systems: Reviewed and negative
Physical Exam
-
General: Appears Chronically Ill and Cachectic
HEENT: Normocephalic and Atraumatic
Respiratory: Clear to Auscultation; Negative Wheezes or Rhonchi
Cardiac: Regular Rhythm, S1/S2 and Tachycardic; Negative Murmur
GI: Soft, Nontender, Normal Bowel Sounds and Distended (massively)
Musculoskeletal: No Clubbing and No Cyanosis; Negative No Edema (2+ LE edema bilaterally)
Neuro: Awake
[2023-11-18 12:05] VITALS: BP 124/80; BP_SYST 98
--- NOTE | 2023-11-18 12:36 | CM ---
Attempted to do Initial assessment - pt off unit in IR
[2023-11-18 13:04] LABS: Body Fluid Mononuclear 89.7 %; Body Fluid Polymorphonuclear 10.3 %; Body Fluid WBC 97 /CUMM
[2023-11-18 13:06] LABS: Body Fluid Albumin < 1.0 g/dl; Body Fluid Amylase < 30 U/L; Body Fluid LDH < 90 U/L; Body Fluid Protein < 2.0 g/dl
[2023-11-18 13:21] LABS: Body Fluid Second Tech CS
[2023-11-18] MEDS: FLEXBUMIN 50 IV (13:28)
[2023-11-18] MEDS: FLEXBUMIN 100 IV ×2 (14:35→16:17)
[2023-11-18 15:00] VITALS: BP 109/70
[2023-11-18 23:34] VITALS: BP 111/68
[2023-11-19 00:34] VITALS: BP 111/68
[2023-11-19 07:00] VITALS: BP 113/68
[2023-11-19] MEDS: THIAMINE INJECTION 200 MG IV (07:31)
[2023-11-19] MEDS: PROTONIX 40 MG PO (07:31)
[2023-11-19] MEDS: DUPHALAC/CHRONULAC 20 GRAMS PO (07:31)
[2023-11-19] MEDS: CIPRO 500 MG PO (07:31)
[2023-11-19] MEDS: FOLVITE 1 MG PO (07:31)
[2023-11-19 08:18] LABS: Hematocrit 25.8 % (39.0-52.0); Mean Corp Hgb Conc. 34.9 g/dL (33.0-37.0); Mean Corpuscular Hgb 32.7 pg (27.0-31.0); Mean Corpuscular Volume 93.8 fL (80.0-94.0); Mean Platelet Volume 8.8 fL (7.4-10.4); Platelet Count 121 10^3/uL (130-400); Red Blood Cell Count 2.75 10^6/uL (4.70-6.10); Red Cell Dist. Width 13.6 % (11.5-14.5); White Blood Cell Count 6.3 10^3/uL (4.8-10.8)
[2023-11-19 08:46] LABS: Blood Urea Nitrogen 5 mg/dl (9-20); Calcium 8.3 mg/dl (8.4-10.2); Carbon Dioxide 29 mmol/L (22-30); Chloride 95 mmol/L (98-107); Estimated Creatinine Clearance > 125 ml/min; Glucose 94 mg/dl (70-99); Magnesium 1.5 mg/dl (1.6-2.3); Potassium 3.3 mmol/L (3.5-5.1); Sodium 131 mmol/L (135-145); eGFR > 60.00
--- NOTE | 2023-11-19 11:26 | W.PN.GI.CBS2 ---
Today's Communication / Plan
-
can restart outpatient diuretics on discharge
no further inpt w/u
Assessment / Plan
-
This patient is a 33-year-old man with a history of decompensated alcoholic liver disease predominantly with ascites requiring multiple taps intermittently and a previous history of variceal bleeding. For now I would do the following:
1. restart outpatient diuretics upon discharge as renal function remains stable
2. continue sbp prophalaxis
3.. continue xifaxin
4. Alcohol abstinence
no further inpatient management will sign off
Subjective
Subjective
Date of Service: November 19, 2023
Pt feels much better after paracentesis
Objective
Data Reviewed
Laboratory Data:
Laboratory Results
11/19/23 07:46
11/19/23 07:46
Laboratory Results
PT 18.5 Sec (11.4-14.6) H 11/17/23 22:25
INR 1.56 11/17/23 22:25
APTT 42.4 Sec (23.4-35.0) H 11/17/23 22:25
Magnesium 1.5 mg/dl (1.6-2.3) L 11/19/23 07:46
Total Bilirubin 4.9 mg/dl (0.2-1.3) H 11/17/23 20:36
AST 62 U/L (17-59) H 11/17/23 20:36
ALT 20 U/L (0-50) 11/17/23 20:36
Alkaline Phosphatase 279 U/L (38-126) H 11/17/23 20:36
Lipase 43 U/L (23-300) 11/17/23 20:36
Vital Signs and I&O:
Vital Signs
Temp Pulse Resp BP Pulse Ox
99.2 F 91 18 113/68 95
11/19/23 07:00 11/19/23 07:00 11/19/23 07:00 11/19/23 07:00 11/19/23 07:00
I&O
11/18/23 11/19/23 11/20/23
06:59 06:59 06:59
Intake Total 740 / 740
Output Total 200 / 200
Balance 540 / 540
Physical Exam
Physical Exam
GI: Other (ascites much improved, not tense)
Neuro: Non Focal
--- NOTE | 2023-11-19 14:11 | W.PN.HOSP.TC ---
Addendum entered and electronically signed by Rylan Morales MD 11/22/23 16:00:
Moderate Protein Calorie Malnutrition with weight loss >10% in 6 months and subcutaneous fat loss over tricep, loss of muscle over quads and calf.
Original Note:
Today's Communication/Plan
-
DC planning
Assessment / Plan
Assessment / Plan
pt is a 33 year old male
HX decompensated liver cirrhosis from ETOH abuse--now with Recurrent symptomatic massive ascites--Gained 14.6 kg over 4 weeks noncompliant with meds and follow up despite being told by on a previous admission that he will if he
doesn't follow up and abstain from ETOH--MELD- Na 24 score--14-15 % estimated 90-day mortality--Ongoing ETOH use with recurrent ascites, hx hepatic encephalopathy, and esophageal varices with prior banding--low sodium diet--Resume PO Cipro for SBP
prophylaxis--Resume Lasix/ Aldactone--Strict alcohol abstinence--GI input from today noted - follow up as OP
Chronic hyponatremia--fluid restriction and lasix/aldactone
Chronic anemia from chronic liver disease- stable Hgb
Alcohol use disorder--severe - ETOH 179 upon admission-no evidence of alcohol withdrawal. Patient did not need any Ativan here in the hospital.
DVT Px: LMWH
code status --Full code
Medically reached stability for discharge ;follow as outpatient
PT eval prior to DC
Anticipated Discharge: Today
Subjective/Interval History
-
Date of Service: November 19, 2023
Tolerating diet without nausea vomiting. No shakes or tremors.
Denies any abdominal pain.
Korean speaking . Speaks little sinhala.
Objective Data
-
Labs:
Laboratory Results
11/19/23
07:46
WBC 6.3
Hgb 9.0 L
Hct 25.8 L
Plt Count 121 L D
Sodium 131 L
Potassium 3.3 L
Chloride 95 L
Carbon Dioxide 29
BUN 5 L
Creatinine 0.5 L
Glucose 94
Calcium 8.3 L
Vital Signs:
Vital Signs
Temp Pulse Resp BP Pulse Ox
99.2 F 91 18 113/68 95
11/19/23 07:00 11/19/23 07:00 11/19/23 07:00 11/19/23 07:00 11/19/23 07:00
I&O
11/18/23 11/19/23 11/20/23
06:59 06:59 06:59
Intake Total 740 / 740
Output Total 200 / 200
Balance 540 / 540
Review of Systems
-
Unable to obtain full review of systems at this time due to: Language Barrier
Respiratory: Denies Trouble Breathing
Cardiac: Denies Chest Pain
Neuro: Denies Dizzy
Physical Exam
-
General: No Apparent Distress
HEENT: Moist Mucous Membranes
Respiratory: Clear to Auscultation
Cardiac: Regular Rhythm, S1/S2 and Tachycardic
GI: Soft, Nontender, Normal Bowel Sounds and Distended
Neuro: Awake, Alert and Oriented; Negative Tremors
Psych: Calm
Data Reviewed
-
Labs: Labs Reviewed by me
--- NOTE | 2023-11-19 14:46 | CM ---
Placed a call to [facility] and spoke with [place] who stated that he would be on his way to provide resources to patient prior to discharge.
Plan: Case management will continue to follow and assist with discharge planning. Patient will f/u with [facility].
[2023-11-19 15:00] VITALS: BP 114/76; BP 118/82; PULSE 73
[2023-11-19 15:08] VITALS: BMI 19.9
--- NOTE | 2023-11-19 15:27 | CM ---
Reviewed chart, received referral from attending for etoh resources. Placed a call to [facility] and spoke with [place] who stated that he would come out and provide resources.
Obtained information for assessment. Glue Jointer Feeder by bedside. Patient stated that he lives with his dad who assists with printer maintainer, cooking, cleaning and laundry in a one story apartment.
He has no DME.
His father assists with ADLs when patient is unable otherwise he is independent.
He denied any DME in his home.
Patient uses [facility] for all of his medications.
He does not have a PCP.
Patient has no health insurance. Placed a call to Diane in [facility] to update. Left message and provided patient information.
Plan: Case management will continue to follow and assist with discharge planning. Home when stable with ETOH resources.
[2023-11-19 16:24] VITALS: BMI 19.9
--- NOTE | 2023-11-19 16:53 | W.DS.TRANS ---
DC Summary - Hiv Counselor
-
Discharge Instructions:
Discharge Diagnosis/Procedures Decompensated liver disease with recurrent
ascites status post paracentesis; ongoing
alcohol use
Diet 2 Gram Sodium
Activity As tolerated
Driving Restrictions No driving
Bathing Restrictions None
Blood Work BMP blood work -arrange through your PCP
Other Services PT
Specialty Instructions Weigh Daily
Instructions:
Stand-Alone Forms:
Changes to Home Medications: No
Discharge Medications:
DC Medications w/original date entered in 99tests
ciprofloxacin HCl 500 mg tablet 500 mg PO DAILY #30 tabs 11/19/23
folic acid 1 mg tablet 1 mg PO DAILY #30 tabs 11/19/23
furosemide 40 mg tablet 40 mg PO DAILY #30 tabs 11/19/23
lactulose 20 gram/30 mL oral solution 20 g (30 mL) PO BID #1,200 mL 11/19/23
pantoprazole 40 mg tablet,delayed release 40 mg PO DAILY #30 tabs 11/19/23
spironolactone 50 mg tablet 100 mg (2 x 50 mg) PO DAILY #30 tabs 11/19/23
thiamine HCl (vitamin B1) 100 mg tablet 100 mg PO DAILY #30 tabs 11/19/23
Home Medication Changes
Pending Results: No
--- NOTE | 2023-11-19 21:22 | PTCARENOTE ---
Patient discharged and transported via wheelchair @2030 by tech to lobby, picked up by family member.
--- NOTE | 2023-11-20 10:42 | PN.CDI ---
CDI
- -
CDI:
Physician Documentation Request
Admit Date: 11/17/23 23:16
Dear Doctor Andrew,
Please review the following and provide your response in the progress notes.
Clinical Indicators:
Per RD assessment 11/18: Patient meets ASPEN/AND criteria for Moderate Protein Calorie Malnutrition with weight loss >10% in 6 months and subcutaneous fat loss over tricep, loss of muscle over quads and calf.
BMI 19.9
Based on the information, which of the following most accurately represents the patient's nutritional status?
Moderate malnutrition
Other (please specify)
[place] Criteria ([facility] Hospitalist 2017)
2 or more criteria must be present for either
non severe or severe malnutrition
Note that the criteria differs related to the
presence of an acute or chronic illness
Acute Illness Chronic Illness
Energy Intake Non Severe: <75% for >7 days Non Severe: <75% for >1 month
Severe: <50% for >5 days Severe: <75% for >1 month
Weight Loss Non Severe: 1-2% over 1 week Non Severe: 5% over 1 month
5% over 1 month 7.5% over 3 months
7.5% over 3 months 10% over 6 months
1 year N/A 20% over 1 year
Severe: >2% over 1 week Severe: >5% over 1 month
>5% over 1 month >7.5% over 3 months
>7.5% over 3 months >10% over 6 months
1 year N/A >20% over 1 year
Body Fat Non Severe: Mild Decrease Non Severe: Mild Loss
Severe: Moderate Decrease Severe: Severe Loss
Muscle Mass Non Severe: Mild Decrease Non Severe: Mild Loss
Severe: Moderate Decrease Severe: Severe Loss
Fluid Accumulation Non Severe: Mild Accumulation Non Severe: Mild Accumulation
Severe: Moderate to severe Severe: Moderate to severe
accumulation accumulation
Reduced Home Health Occupational Therapist Strength Non Severe: N/A Non Severe: N/A
Severe: Measurably reduced Severe: Measurably reduced
Additional criteria that can be used to Determine if Mild or Moderate Malnutrition (Merck Manual 2018)
Mild Moderate Severe
Albumin gm/dl <3.0 gm/dl <2.5 gm/dl <2.0 gm/dl
Pre Albumin mg/dl <15 gm/dl <10 mg/dl <5.0 mg/dl
BMI <18.5 <17 <16
Use of terms such as suspected, likely, concern for, or probable (associated with a specific diagnosis that is being evaluated, monitored, or treated as if it exists) are acceptable and can be coded in the inpatient setting, when documented at the
time of discharge.
Thank you,
Audrey Chan
CDI Specialist
Please use your independent medical judgment in providing your response.
== END 2023-11-19 20:32 | disposition home or self-care (01) | DRG 433 ==
LOC: 3 WEST ACU 23:16
PROVIDERS: Emergency Medicine; Internal Medicine; Radiology Diagnostic Radiology; ADMITTING PHYSICIAN Internal Medicine; ATTENDING PHYSICIAN Internal Medicine; CONSULT PHYSICIAN Internal Medicine; EMERGENCY PHYSICIAN Emergency Medicine
PROC: 0W9G3ZZ Drainage of Peritoneal Cavity, Percutaneous Approach (ICD-10-PCS; 2023-11-18)
DX: K70.31 Alcoholic cirrhosis of liver with ascites (principal); E44.0 Moderate protein-calorie malnutrition; E87.1 Hypo-osmolality and hyponatremia; Z68.1 Body mass index [BMI] 19.9 or less, adult; F10.229 Alcohol dependence with intoxication, unspecified; Y90.6 Blood alcohol level of 120-199 mg/100 ml; D63.8 Anemia in other chronic diseases classified elsewhere; Z91.148 Patient's other noncompliance with medication regimen for other reason
CPT/HCPCS: 49083; 80048; 80053; 82042; 82077; 82140; 82150; 83615; 83690; 83735; 84157; 85025; 85027; 85610; 85730; 89051; 97162; 99285; P9047

== ENCOUNTER 2023-12-18 18:05 | Inpatient (IN) | payer OTHER, SELFPAY ==
[2023-12-16] VITALS (11 sets, daily range): BP systolic 105–109; BP diastolic 63–72; PULSE 75–84; BMI 19.6; BMI 19.8
[2023-12-16 19:03] LABS: Hematocrit 23.3 % (39.0-52.0); Hemoglobin 8.2 g/dL (13.0-18.0); Mean Corp Hgb Conc. 35.2 g/dL (33.0-37.0); Mean Corpuscular Hgb 31.8 pg (27.0-31.0); Mean Corpuscular Volume 90.3 fL (80.0-94.0); Mean Platelet Volume 9.2 fL (7.4-10.4); Platelet Count 102 10^3/uL (130-400); Red Blood Cell Count 2.58 10^6/uL (4.70-6.10); White Blood Cell Count 4.6 10^3/uL (4.8-10.8)
[2023-12-16 19:11] LABS: INR 1.98; PT 22.4 Sec (11.4-14.6)
[2023-12-16 19:12] LABS: APTT 43.3 Sec (23.4-35.0)
[2023-12-16 19:14] LABS: ALT (SGPT) 27 U/L (0-50); AST (SGOT) 121 U/L (17-59); Albumin 2.7 g/dl (3.5-5.0); Alkaline Phosphatase 182 U/L (38-126); Blood Urea Nitrogen 21 mg/dl (9-20); Calcium 8.2 mg/dl (8.4-10.2); Carbon Dioxide 32 mmol/L (22-30); Chloride 96 mmol/L (98-107); Estimated Creatinine Clearance 68 ml/min; Glucose 95 mg/dl (70-99); Potassium 3.1 mmol/L (3.5-5.1); Sodium 132 mmol/L (135-145); Total Bilirubin 4.3 mg/dl (0.2-1.3); Total Protein 7.2 g/dl (6.3-8.2); eGFR > 60.00
[2023-12-16 19:20] LABS: Alcohol None Detected
[2023-12-16 19:29] LABS: Absolute Neutrophils -Man Diff 3.6 10^3/uL (1.4-6.5); Band Neutrophils 5 % (0-3); Eosinophils 1 % (0-6); Lymphocytes 8 % (20-51); Monocytes 11 % (2-9); Segmented Neutrophils 75 % (42-75)
[2023-12-16 19:30] LABS: Anisocytosis 1+; Normal RBC Morphology Yes
[2023-12-16 19:31] LABS: Hypochromasia 1+; Polychromasia Slight; Smudge Cells 1+; Total Cells Counted 100
[2023-12-16 19:32] LABS: Platelets Checked Yes
--- NOTE | 2023-12-16 19:37 | ED.GENMED ---
History of Present Illness
<Jenny Ward PA-C - Last Filed: 12/16/23 22:00>
General
Chief Complaint: Dizziness
Source: patient
Exam Limitations: none
Time Seen by Provider: 12/16/23 18:55
Nursing documentation reviewed up to this point in time: agreed with
Travel History
Have you had any contact with someone who has COVID-19?: No
Do you have any symptoms of coronavirus? Fever > 100 degrees, chills, cough, shortness of breath, sore throat, loss of taste or smell, muscle aches, or headache?: No
History of Present Illness
History of Present Illness:
33 y/o M with h/o ESLD, ongoing alcohol abuse, significant ascites requiring frequent paracenteiss, h/o esophageal varices requiring bandint, chronic anemia
says he has had a skin tag or lesion on his anterior neck near collar bone that spontaneously started bleeding yesterday, despite pressure, was bleeding/oozing through bandages at times
he doesn't think it was constantly bleeding but got worse today
he feels lightheaded and short of breath
last was here 3 weeks ago when he had a para for severe ascites causing sob
pt continues to drink and be noncompliant with medication despite being told how critical his condition of liver diseae is
pt denies drinking today
Past History
<eJnny Ward PA-C - Last Filed: 12/16/23 22:00>
Past History
ED Past Medical History: Other (alcohol abuse, alcoholic hepatitis, Cirrhosis of the liver, Ascities)
ED Past Surgical History: None
Social History
Tobacco: Non-smoker
Alcohol: Chronic alcoholic (Daily 4 large beer and 2 shots)
Drug: Other (denies however UDS from prior visit pos for opioids)
Personal: Single
Living: with roommate
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
Family History
Family History: Other (Noncontributory)
Review of Systems
<Jenny Ward PA-C - Last Filed: 12/16/23 22:00>
Review of Systems
Allergies reviewed?: Yes
All Other Systems: Not applicable
Phy Exam
<Jenny Ward PA-C - Last Filed: 12/16/23 22:00>
Physical Exam
Physical Exam:
GENERAL: Alert ,chronically ill appearing
EYE: pupils equal and reactive , icteric
NECK: Supple
ENT: o/p clr, mmm.
CARDIAC: Regular rate and rhythm .
LUNGS: mildly tachypneic, diminished lungs b/l, no wheezes
ABDOMEN: distended, nontender, + ascites
NEUROLOGICAL: Alert and oriented, no focal neuro deficits
SKIN: Warm and dry,
small skin tag with ulceration/pin point opening that is oozing blood
did not respond to holdin pressure
MUSCULOSKELETAL: thin
PSYCH: Normal and appropriate interaction.
Course
<Jenny Ward PA-C - Last Filed: 12/16/23 22:00>
Orders/Labs/Results
Orders:
Orders
12/16/23 Lunch
Regular
At Your Request: Limited Participation
Does patient need a safe tray?: No
12/16/23 18:40
EKG [Electrocardiogram (*1)] Urgent
Reason for Study: Vertigo / Dizzy
EKG- Treatment ONCE
12/16/23 18:55
Alcohol Urgent
Complete Blood Count/With Diff Urgent
Comprehensive Metabolic Panel Urgent
Manual Differential Urgent
PT/INR [Prothrombin Time] Urgent
PTT Urgent
12/16/23 19:41
Orthostatic VS- Treatment ONCE
CR Chest - 2 Views Urgent
Comment:
Reason For Exam: sob
12/16/23 20:58
Add On- LAB Urgent
Tests Added?: ALCOHOL
12/16/23 22:08
Admit/Transfer Patient As Directed
Co-Sign Provider:
Level of Care: Observation services
Assign to:: Medical/Surgical
Physician / Group: Shayne/Hospitalist
Diagnosis: etOH cirrhosis, ascites, bleeding skin tag
Reason for Hospitalization: etOH cirrhosis, ascites, bleeding skin tag
12/16/23 22:10
Code Status As Directed
Resuscitation Status: Full Code
12/16/23 22:17
Potassium Chloride [KCl] 40 meq PO NOW STA
12/16/23 23:40
Bisacodyl [Dulcolax] 10 mg RECTAL [id number] PRN
Docusate W/Senna [Senokot-S] 1 tablet PO BIDPRN PRN
Polyethylene Glycol Powder [Miralax] 17 grams PO DAILYPRN PRN
12/16/23 23:40
Consult Interventional Radiology [IRAD CONSULT] Routine
Consulting Provider: Pranay Kaiser
Was physician already notified: No
Reason for Consult/Procedure: paracentesis, therapeutic
Acknowledgement that appropriate orders are entered: Yes
Consult Notification Routine
Specialty to Notify: IRAD (Interventional Radiology)
Activity As Directed
Activity Level: With Assistance
Intake/ Output As Directed
Frequency: Per unit guidelines
MSAS SCORE As Directed
MSAS Score 0-4: Repeat MSAS every 2 hours until 0-4 for three consecutive assessments, then every 4 hours x 48
hours.
MSAS Score 5-7: For MILD withdrawl symptoms. Repeat MSAS and RASS every 2 hours
MSAS Score 8-11: For MODERATE withdrawal symptoms. Repeat MSAS and RASS every 1 hour. Consider ICU or IMU
level of care.
MSAS Score > 11: For SEVERE withdrawal symptoms. Repeat MSAS and RASS every 1 hour. Notify provider, consider
ICU level of care.
MSAS Additional Instructions: If no improvement or no decrease in score from severe to moderate within 12
hours, consult psychiatry
MSAS Notify Provider: Notify provider if patient requires more than 10 mg of Lorazepam in eight hour period.
Pneumatic Compression Sleeves As Directed
Type: Knee high
Vital Signs As Directed
Frequency: Per unit guidelines
Weight As Directed
Frequency: Daily
Pulse Ox/spot Check [RESP] Routine
Quantity: 1
DX Deep Vein Thrombosis Video Routine
12/17/23 06:00
Complete Blood Count/No Diff IN AM
Comprehensive Metabolic Panel IN AM
Magnesium IN AM
12/17/23 08:00
Ciprofloxacin HCl [Cipro] 500 mg PO DAILY
FOLic ACID [Folvite] 1 mg PO DAILY
Furosemide [Lasix] 40 mg PO DAILY
Lactulose [Duphalac/Chronulac] 20 grams PO BID
Pantoprazole [Protonix] 40 mg PO DAILY
Spironolactone [Aldactone] 100 mg PO DAILY
Thiamine HCl [Vitamin B1] 100 mg PO DAILY
Abnormal Lab Results
12/16/23
18:55
WBC 4.6 L 10^3/uL
(4.8-10.8)
RBC 2.58 L 10^6/uL
(4.70-6.10)
Hgb 8.2 L g/dL
(13.0-18.0)
Hct 23.3 L %
(39.0-52.0)
MCH 31.8 H pg
(27.0-31.0)
RDW 15.0 H %
(11.5-14.5)
Plt Count 102 L 10^3/uL
(130-400)
Band Neutrophils 5 H %
(0-3)
Lymphocytes (Manual) 8 L %
(20-51)
Monocytes (Manual) 11 H %
(2-9)
PT 22.4 H Sec
(11.4-14.6)
APTT 43.3 H Sec
(23.4-35.0)
Sodium 132 L mmol/L
(135-145)
Potassium 3.1 L mmol/L
(3.5-5.1)
Chloride 96 L mmol/L
(98-107)
Carbon Dioxide 32 H mmol/L
(22-30)
BUN 21 H mg/dl
(9-20)
Calcium 8.2 L mg/dl
(8.4-10.2)
Total Bilirubin 4.3 H mg/dl
(0.2-1.3)
AST 121 H U/L
(17-59)
Alkaline Phosphatase 182 H U/L
(38-126)
Albumin 2.7 L g/dl
(3.5-5.0)
12/16/23 18:55
12/16/23 18:55
Vital Signs
Initial and Last Documented VS:
Initial Vital Signs
Temp Pulse Resp BP Pulse Ox
99.0 F 87 19 109/71 98
12/16/23 18:48 12/16/23 18:48 12/16/23 18:48 12/16/23 18:48 12/16/23 18:48
Last Documented Vital Signs
Temp Pulse Resp BP Pulse Ox
99 F 81 17 105/68 97
12/16/23 23:27 12/16/23 23:27 12/16/23 23:27 12/16/23 23:27 12/16/23 23:27
Nildalt;Stanislav Gutierrez, - Last Filed: 12/17/23 00:51>
Orders/Labs/Results
Orders:
Orders
12/16/23 Lunch
Regular
At Your Request: Limited Participation
Does patient need a safe tray?: No
12/16/23 18:40
EKG [Electrocardiogram (*1)] Urgent
Reason for Study: Vertigo / Dizzy
EKG- Treatment ONCE
12/16/23 18:55
Alcohol Urgent
Complete Blood Count/With Diff Urgent
Comprehensive Metabolic Panel Urgent
Manual Differential Urgent
PT/INR [Prothrombin Time] Urgent
PTT Urgent
12/16/23 19:41
Orthostatic VS- Treatment ONCE
CR Chest - 2 Views Urgent
Comment:
Reason For Exam: sob
12/16/23 20:58
Add On- LAB Urgent
Tests Added?: ALCOHOL
12/16/23 22:08
Admit/Transfer Patient As Directed
Co-Sign Provider:
Level of Care: Observation services
Assign to:: Medical/Surgical
Physician / Group: Shayne/Hospitalist
Diagnosis: etOH cirrhosis, ascites, bleeding skin tag
Reason for Hospitalization: etOH cirrhosis, ascites, bleeding skin tag
12/16/23 22:10
Code Status As Directed
Resuscitation Status: Full Code
12/16/23 22:17
Potassium Chloride [KCl] 40 meq PO NOW STA
12/16/23 23:40
Bisacodyl [Dulcolax] 10 mg RECTAL [id number] PRN
Docusate W/Senna [Senokot-S] 1 tablet PO BIDPRN PRN
Polyethylene Glycol Powder [Miralax] 17 grams PO DAILYPRN PRN
12/16/23 23:40
Consult Interventional Radiology [IRAD CONSULT] Routine
Consulting Provider: Pranay Kaiser
Was physician already notified: No
Reason for Consult/Procedure: paracentesis, therapeutic
Acknowledgement that appropriate orders are entered: Yes
Consult Notification Routine
Specialty to Notify: IRAD (Interventional Radiology)
Activity As Directed
Activity Level: With Assistance
Intake/ Output As Directed
Frequency: Per unit guidelines
MSAS SCORE As Directed
MSAS Score 0-4: Repeat MSAS every 2 hours until 0-4 for three consecutive assessments, then every 4 hours x 48
hours.
MSAS Score 5-7: For MILD withdrawl symptoms. Repeat MSAS and RASS every 2 hours
MSAS Score 8-11: For MODERATE withdrawal symptoms. Repeat MSAS and RASS every 1 hour. Consider ICU or IMU
level of care.
MSAS Score > 11: For SEVERE withdrawal symptoms. Repeat MSAS and RASS every 1 hour. Notify provider, consider
ICU level of care.
MSAS Additional Instructions: If no improvement or no decrease in score from severe to moderate within 12
hours, consult psychiatry
MSAS Notify Provider: Notify provider if patient requires more than 10 mg of Lorazepam in eight hour period.
Pneumatic Compression Sleeves As Directed
Type: Knee high
Vital Signs As Directed
Frequency: Per unit guidelines
Weight As Directed
Frequency: Daily
Pulse Ox/spot Check [RESP] Routine
Quantity: 1
DX Deep Vein Thrombosis Video Routine
12/17/23 06:00
Complete Blood Count/No Diff IN AM
Comprehensive Metabolic Panel IN AM
Magnesium IN AM
12/17/23 08:00
Ciprofloxacin HCl [Cipro] 500 mg PO DAILY
FOLic ACID [Folvite] 1 mg PO DAILY
Furosemide [Lasix] 40 mg PO DAILY
Lactulose [Duphalac/Chronulac] 20 grams PO BID
Pantoprazole [Protonix] 40 mg PO DAILY
Spironolactone [Aldactone] 100 mg PO DAILY
Thiamine HCl [Vitamin B1] 100 mg PO DAILY
Abnormal Lab Results
12/16/23
18:55
WBC 4.6 L 10^3/uL
(4.8-10.8)
RBC 2.58 L 10^6/uL
(4.70-6.10)
Hgb 8.2 L g/dL
(13.0-18.0)
Hct 23.3 L %
(39.0-52.0)
MCH 31.8 H pg
(27.0-31.0)
RDW 15.0 H %
(11.5-14.5)
Plt Count 102 L 10^3/uL
(130-400)
Band Neutrophils 5 H %
(0-3)
Lymphocytes (Manual) 8 L %
(20-51)
Monocytes (Manual) 11 H %
(2-9)
PT 22.4 H Sec
(11.4-14.6)
APTT 43.3 H Sec
(23.4-35.0)
Sodium 132 L mmol/L
(135-145)
Potassium 3.1 L mmol/L
(3.5-5.1)
Chloride 96 L mmol/L
(98-107)
Carbon Dioxide 32 H mmol/L
(22-30)
BUN 21 H mg/dl
(9-20)
Calcium 8.2 L mg/dl
(8.4-10.2)
Total Bilirubin 4.3 H mg/dl
(0.2-1.3)
AST 121 H U/L
(17-59)
Alkaline Phosphatase 182 H U/L
(38-126)
Albumin 2.7 L g/dl
(3.5-5.0)
12/16/23 18:55
12/16/23 18:55
Vital Signs
Initial and Last Documented VS:
Initial Vital Signs
Temp Pulse Resp BP Pulse Ox
99.0 F 87 19 109/71 98
12/16/23 18:48 12/16/23 18:48 12/16/23 18:48 12/16/23 18:48 12/16/23 18:48
Last Documented Vital Signs
Temp Pulse Resp BP Pulse Ox
99 F 81 17 105/68 97
12/16/23 23:27 12/16/23 23:27 12/16/23 23:27 12/16/23 23:27 12/16/23 23:27
Procedures
<Jenny Ward PA-C - Last Filed: 12/16/23 22:00>
Laceration Closure
Anterior Neck:
Status of Wound: clean
Size of Wound in cm: 0.1
Description of Wound Edges: other (small hemangioma or skin tag bleeding actively)
Preparation: cleaned with saline
Anesthesia: 1% Lidocaine with epi
Type of Closure: single layer closure
Skin Closure Material: 4-0 nylon
Number of sutures: 1
Additional information:
figure 8 suture placed, no bleeding
<HAMLET Castro Last Filed: 12/16/23 22:00>
MDM/Problems Addressed
Differential Diagnosis Includes:
anemia, pneumonia, ascites, sepsis
MDM/Problems Addressed:
33 y/o M alcoholic cirrhosis, ascites, continued alcohol use, esophageal varices with banding; here with lightheadedness, sob and bleeding from a skin tag or hemangioma that spontaneously started bleeding left sternal notch region yesterday; it was
oozing mildly yesterdya, worse soaking dressings todya;
bp soft low 100s, not tachy, the area was continuosly oozing, not pulsatile; i put a figure 8 suture in that stopped it
hg down from 9 3 weeks ago to 8.2, bands present, pt is mildly tachypneic and has a very large amount of ascites but without tendrness or pain; new atelectasis on cxr; admit to trend [facility], and para tomorrow
<HAMLET Castro Last Filed: 12/16/23 22:00>
*Critical Care Note
Total Time (30-74mins, 75-104mins- exclusive of procedures): Not Applicable
ED Attending Note
<Jenny Ward PA-C - Last Filed: 12/16/23 22:00>
-
Portions of this chart may have been created with voice recognition software.� Occasional wrong word or��sound alike� substitutions may have occurred due to the inherent limitations of voice recognition software.
<Stanislav Gutierrez DO - Last Filed: 12/17/23 00:51>
ED Attending Note
Patient seen and examined by attending physician: Yes
I performed the substantive portion of visit, reviewed & personally made and approve the management plan that is documented in note by myself or KAIN.: Yes
Discharge Plan
Departure
Patient Disposition: Admit
Date of Disposition: 12/16/23
Time of Disposition: 21:01
Admit to: Telemetry
Presentation/result/management discussed w/ accepting MD/DO: Hospitalist
Condition: Fair
Covid-19: Not Applicable
Discharge Problem:
Hemorrhage of skin lesion, Anemia, Ascites
Interventions
Interventions:
*Risk Screen - Suicide Last Done: 12/16/23 18:40
*General Assessment Last Done: 12/16/23 18:40
*Neglect/Abuse Screening Last Done: 12/16/23 18:40
ED- Fall Risk Assessment Last Done: 12/16/23 18:45
*ED COVID-19 Vaccine History Last Done: 12/16/23 18:40
*Nursing Disposition Last Done: 12/16/23 23:17
ED- Neurological Assessment Last Done: 12/16/23 18:46
ED Swallowing Screen Last Done: 12/16/23 22:00
Discharge Date and Time
Discharge Date/Time: 12/16/23 23:18
--- NOTE | 2023-12-16 21:34 | HPS.HSE ---
Family Physician
-
Family Physician: NOT KNOW UNKNOWN - PT DOES
Chief Complaint
-
Bleeding skin tag
History of Present Illness
The patient is a 33 year old male with PMH significant for ESLD, decompensated liver cirrhosis from ETOH abuse, ongoing alcohol abuse (last drink 2 days ago per patient report), recurrent massive ascites requiring frequent paracentesis most recent 1
month ago per patient, hepatic encephalopathy, esophageal varices requiring banding, chronic anemia, chronic hyponatremia, presents to the ED due to bleeding skin tag or lesion on anterior neck near collar bone, started spontaneously bleeding
yesterday, bleeding/oozing through bandages at times. Symptoms of bleeding worsened today, associated with lightheadedness and dyspnea.
He was admitted here 11/16 to 11/18 and had paracentesis for severe ascites- noted at that time MELD- Na 24 score--14-15 % estimated 90-day mortality - discussed alcohol cessation with patient at that time as well.
Patient continues to drink and be noncompliant with medication despite being told how critical his condition of liver disease. He declines to talk about it with me at this time.
Medical History
Past Medical History
Past Medical History: Reports Other
Additional Past Medical History:
Alcohol abuse
HX decompensated liver cirrhosis
Ongoing ETOH use with recurrent ascites, hepatic encephalopathy, and esophageal varices with prior banding
Chronic hyponatremia
HX GI bleed 04/2023 with EV with bleeding/banding transfer to [place]
HX ETOH hepatitis
Chronic anemia
Past Surgical History: Reports None
Social History
Tobacco: Non-smoker
Alcohol: Chronic Alcoholic (Daily 4 large beer and 2 shot)
Personal: Single
Living: Other (with room mate )
Family History
Family History: Not pertinent
Allergies / Home Medications
Allergies reflects when Allergies were last updated in [facility].
Home Medications with original date entered in [facility]
Allergy/Medication List:
Allergies
Allergy/AdvReac Type Severity Reaction Status Date / Time
No Known Allergies Allergy Verified 12/16/23 18:45
Home Medications
ciprofloxacin HCl 500 mg tablet 500 mg PO DAILY #30 tabs 11/19/23
folic acid 1 mg tablet 1 mg PO DAILY #30 tabs 11/19/23
furosemide 40 mg tablet 40 mg PO DAILY #30 tabs 11/19/23
lactulose 20 gram/30 mL oral solution 20 g (30 mL) PO BID #1,200 mL 11/19/23
pantoprazole 40 mg tablet,delayed release 40 mg PO DAILY #30 tabs 11/19/23
spironolactone 50 mg tablet 100 mg (2 x 50 mg) PO DAILY #30 tabs 11/19/23
thiamine HCl (vitamin B1) 100 mg tablet 100 mg PO DAILY #30 tabs 11/19/23
Review of Systems
-
A 12 point ROS was completed and negative except as noted: Yes
Physical Exam
Vital Signs
Vital Signs
Temp Pulse Resp BP Pulse Ox
99.0 F 80 22 108/68 98
12/16/23 18:48 12/16/23 21:15 12/16/23 21:15 12/16/23 21:00 12/16/23 18:48
Physical Exam
General: Appears Chronically Ill and Cachectic
HEENT: NormoCephalic and Other (fine hair on head, mustache, nagel, icteric sclera)
Respiratory: Clear and Non Labored Respirations
Cardiac: S1/S2 and Regular Rhythm
GI: Distended (severe ascites w fluid wave)
Musculoskeletal: No Clubbing, No Cyanosis and No Edema
Skin: Warm and Dry
Neuro: AO x 3, No Motor Deficits and Nonfocal/grossly intact
Psych: Calm
Laboratory Results
-
12/16/23 18:55
12/16/23 18:55
Laboratory Results
PT 22.4 Sec (11.4-14.6) H 12/16/23 18:55
INR 1.98 12/16/23 18:55
APTT 43.3 Sec (23.4-35.0) H 12/16/23 18:55
Total Bilirubin 4.3 mg/dl (0.2-1.3) H 12/16/23 18:55
AST 121 U/L (17-59) H 12/16/23 18:55
ALT 27 U/L (0-50) 12/16/23 18:55
Alkaline Phosphatase 182 U/L (38-126) H 12/16/23 18:55
Data Reviewed
-
Diagnostic Radiology: Report Reviewed by me (New suspected moderate right lower lobe atelectasis.)
Impression/Plan
-
IMPRESSION:
The patient is a 33 year old male with PMH significant for ESLD, decompensated liver cirrhosis from ETOH abuse, ongoing alcohol abuse (last drink 2 days ago per patient report), recurrent massive ascites requiring frequent paracentesis most recent 1
month ago per patient, hepatic encephalopathy, esophageal varices requiring banding, chronic anemia, chronic hyponatremia, presents to the ED due to bleeding skin tag or lesion on anterior neck near collar bone, started spontaneously bleeding
yesterday, bleeding/oozing through bandages at times. Symptoms of bleeding worsened today, associated with lightheadedness and dyspnea.
He was admitted here 11/16 to 11/18 and had paracentesis for severe ascites- noted at that time MELD- Na 24 score--14-15 % estimated 90-day mortality - discussed alcohol cessation with patient at that time as well.
Patient continues to drink and be noncompliant with medication despite being told how critical his condition of liver disease. He declines to talk about it with me at this time.
ED txt: Figure 8 suture skin tag/bleeding chest lesion stopped bleeding in ED
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
-monitor for signs/symptoms of bleeding/repeat monitoring of H & H in am
# Alcohol abuse, last drink 1-2 days ago
-CIWA protocol,monitor for withdrawal
#HX decompensated liver cirrhosis with Ongoing ETOH use with recurrent ascites, hepatic encephalopathy, and esophageal varices with prior banding
-monitor , no signs of encephalopathy at this time, nor active GI bleeding
-IR consult for paracentesis, therapeutic
-O2 if needed per protocol
-continue home meds
#Chronic hyponatremia, stable at 132
#HX GI bleed 04/2023 with EV with bleeding/banding transfer to [place]
#HX ETOH hepatitis
#Chronic anemia
DVT proph-bleeding risk/PCDs
Full Code
[2023-12-16] MEDS: KCL 40 MEQ PO (22:30)
[2023-12-17] VITALS (7 sets, daily range): BP systolic 73–109; BP diastolic 45–75; BMI 19.9
--- NOTE | 2023-12-17 00:52 | PTCARENOTE ---
Pt received from ER AAOX3, ambulated to bed. Denies of any complaints at this time. Pt moroccan speaking only,able to understand basic dominican.On [facility] protocol.Plan of care continued. pt oriented to room and call peraza in reach.
[2023-12-17 08:02] LABS: Hemoglobin 7.2 g/dL (13.0-18.0); Mean Corp Hgb Conc. 34.6 g/dL (33.0-37.0); Mean Corpuscular Hgb 31.6 pg (27.0-31.0); Mean Corpuscular Volume 91.2 fL (80.0-94.0); Red Blood Cell Count 2.28 10^6/uL (4.70-6.10); Red Cell Dist. Width 14.8 % (11.5-14.5); White Blood Cell Count 4.2 10^3/uL (4.8-10.8)
[2023-12-17 08:19] LABS: Hematocrit 20.8 % (39.0-52.0)
[2023-12-17 08:43] LABS: Mean Platelet Volume 9.4 fL (7.4-10.4); Platelet Count 94 10^3/uL (130-400)
[2023-12-17 08:59] LABS: ALT (SGPT) 30 U/L (0-50); AST (SGOT) 115 U/L (17-59); Albumin 2.4 g/dl (3.5-5.0); Alkaline Phosphatase 182 U/L (38-126); Blood Urea Nitrogen 20 mg/dl (9-20); Calcium 7.9 mg/dl (8.4-10.2); Carbon Dioxide 32 mmol/L (22-30); Chloride 99 mmol/L (98-107); Estimated Creatinine Clearance 81 ml/min; Glucose 91 mg/dl (70-99); Magnesium 1.6 mg/dl (1.6-2.3); Potassium 3.7 mmol/L (3.5-5.1); Sodium 132 mmol/L (135-145); Total Bilirubin 2.9 mg/dl (0.2-1.3); Total Protein 6.5 g/dl (6.3-8.2); eGFR > 60.00
--- NOTE | 2023-12-17 09:30 | PTCARENOTE ---
Received patient back from IR, s/p Right paracentesis. Patient ambulated from stretcher to bed with supervision. Patient has no c/o pain, RUQ bandaid CDI. Patient tolerating PO fluids, breakfast is ordered.
[2023-12-17] MEDS: ALDACTONE 100 MG PO (09:40)
[2023-12-17] MEDS: PROTONIX 40 MG PO (09:40)
[2023-12-17] MEDS: CIPRO 500 MG PO (09:40)
[2023-12-17] MEDS: LASIX 40 MG PO (09:40)
[2023-12-17] MEDS: DUPHALAC/CHRONULAC 20 GRAMS PO ×2 (09:40→20:14)
[2023-12-17] MEDS: VITAMIN B1 100 MG PO (09:40)
[2023-12-17] MEDS: FOLVITE 1 MG PO (09:40)
[2023-12-17 09:55] LABS: Body Fluid Mononuclear 85.1 %; Body Fluid Polymorphonuclear 14.9 %; Body Fluid WBC 54 /CUMM
[2023-12-17 10:01] LABS: Body Fluid Second Tech AMA
--- NOTE | 2023-12-17 11:16 | W.PN.HOSP.TC ---
Today's Communication/Plan
-
recheck Hgb
pending results, consider GI consult
albumin infusion post paracentesis
Assessment / Plan
Assessment / Plan
The patient is a 33 year old male with PMH significant for ESLD, decompensated liver cirrhosis from ETOH abuse, ongoing alcohol abuse (last drink 2 days RUN LEAD per patient report), recurrent massive ascites requiring frequent paracentesis most recent 1
month ago per patient, hepatic encephalopathy, esophageal varices requiring banding, chronic anemia, chronic hyponatremia, presents to the ED due to bleeding skin tag or lesion on anterior neck near collar bone, started spontaneously bleeding
yesterday, bleeding/oozing through bandages at times. Symptoms of bleeding worsened today, associated with lightheadedness and dyspnea.
He was admitted here 11/16 to 11/18 and had paracentesis for severe ascites- noted at that time MELD- Na 24 score--14-15 % estimated 90-day mortality - discussed alcohol cessation with patient at that time as well.
Patient continues to drink and be noncompliant with medication despite being told how critical his condition of liver disease. He declines to talk about it with me at this time.
ED txt: Figure 8 suture skin tag/bleeding chest lesion stopped bleeding in ED
Underwent paracentesis this morning with 7300 cc fluid removed
Case reviewed with Dr. Brady, will repeat Hgb this afternoon, if not steady or rising, will consult
Will order albumin post paracentesis
#Bleeding skin lesion upper chest wall s/p figure 8 suture in ED, pt has coagulopathy from alcohol cirrhosis Hgb 8.2-->7.2 from 9.0 (11/18), likely due to acute bleeding from skin lesion
-monitor for signs/symptoms of bleeding/repeat monitoring of H & H in am
# Alcohol abuse, last drink 1-2 days RUN LEAD
-[facility] protocol,monitor for withdrawal
#HX decompensated liver cirrhosis with Ongoing ETOH use with recurrent ascites, hepatic encephalopathy, and esophageal varices with prior banding
-monitor , no signs of encephalopathy at this time, nor active GI bleeding
-IR consult for paracentesis, appreciated
-O2 if needed per protocol
-continue home meds
-hypoalbuminemia
Alb 2.4
#Chronic hyponatremia, stable at 132
#HX GI bleed 04/2023 with EV with bleeding/banding transfer to [place]
#HX ETOH hepatitis
#Chronic anemia
Hypokalemia
resolved 3.1-->3.7
DVT proph-bleeding risk/PCDs
Full Code
Anticipated Discharge: 24 - 48 hours
Subjective/Interval History
-
Date of Service: December 17, 2023
Appears comfortable post paracentesis
Objective Data
-
Labs:
Laboratory Results
12/17/23
07:37
WBC 4.2 L
Hgb 7.2 L
Hct 20.8 L*
Plt Count 94 L
Sodium 132 L
Potassium 3.7
Chloride 99
Carbon Dioxide 32 H
BUN 20
Creatinine 1.0
Glucose 91
Calcium 7.9 L
Total Bilirubin 2.9 H
AST 115 H
ALT 30
Alkaline Phosphatase 182 H
Vital Signs:
Vital Signs
Temp Pulse Resp BP Pulse Ox
98.8 F 74 16 104/65 98
12/17/23 08:10 12/17/23 09:06 12/17/23 09:06 12/17/23 09:06 12/17/23 08:54
I&O
12/16/23 12/17/23 12/18/23
06:59 06:59 06:59
Intake Total 240 / 240
Balance 240 / 240
Review of Systems
-
History Source: Patient and Coordinated Provider
Constitutional: Denies Fever
EENT: Reports No Symptoms Reported
Respiratory: Reports No Symptoms
Cardiac: Reports No Symptoms; Denies Chest Pain
Abdomen/GI: Reports No Symptoms
Physical Exam
-
General: Well Developed, Well Nourished, No Apparent Distress and Appears Chronically Ill
HEENT: Normocephalic, Atraumatic and Moist Mucous Membranes
Respiratory: Clear to Auscultation; Negative Wheezes, Rales, Rhonchi or Crackles
Cardiac: Regular Rhythm and S1/S2
GI: Soft, Nontender and Nondistended
Musculoskeletal: No Clubbing, No Cyanosis and No Edema
Skin: Warm and Dry
[2023-12-17] MEDS: FLEXBUMIN 100 IV ×2 (12:21→20:13)
[2023-12-17 14:01] LABS: Hemoglobin 7.2 g/dL (13.0-18.0)
[2023-12-17 14:04] LABS: Hematocrit 20.6 % (39.0-52.0)
[2023-12-17] MEDS: BENADRYL 25 MG PO (20:30)
[2023-12-18] MEDS: FLEXBUMIN 100 IV (04:00)
[2023-12-18 04:08] VITALS: BMI 16.9
[2023-12-18] MEDS: DUPHALAC/CHRONULAC 20 GRAMS PO ×2 (07:51→19:55)
[2023-12-18] MEDS: CIPRO 500 MG PO (07:52)
[2023-12-18] MEDS: FOLVITE 1 MG PO (07:52)
[2023-12-18] MEDS: VITAMIN B1 100 MG PO (07:52)
[2023-12-18] MEDS: PROTONIX 40 MG PO (07:52)
[2023-12-18] MEDS: ALDACTONE PO (07:58)
[2023-12-18] MEDS: LASIX PO (07:58)
[2023-12-18 08:08] LABS: % Basophils 0.8 % (0-2); % Immature Granulocytes 0.3 % (0-0.5); % Lymphocytes 35.7 % (20.5-51.1); % Monocytes 19.4 % (1.7-9.3); % Neutrophils 38.8 % (42.2-75.2); Absolute Eosinophils 0.2 10^3/uL (0-0.7); Absolute Lymphocytes 1.3 10^3/uL (1.2-3.4); Absolute Monocytes 0.7 10^3/uL (0.1-0.6); Absolute Neutrophils 1.4 10^3/uL (1.4-6.5); Hemoglobin 7.2 g/dL (13.0-18.0); Mean Corp Hgb Conc. 34.8 g/dL (33.0-37.0); Mean Corpuscular Hgb 31.9 pg (27.0-31.0); Mean Corpuscular Volume 91.6 fL (80.0-94.0); Mean Platelet Volume 9.7 fL (7.4-10.4); Nucleated Red Blood Cells % 0 % (-); Platelet Count 84 10^3/uL (130-400); Red Blood Cell Count 2.26 10^6/uL (4.70-6.10); Red Cell Dist. Width 14.6 % (11.5-14.5); White Blood Cell Count 3.6 10^3/uL (4.8-10.8)
[2023-12-18 08:11] LABS: Hematocrit 20.7 % (39.0-52.0)
[2023-12-18 08:20] VITALS: BP 97/62
[2023-12-18 08:35] LABS: ALT (SGPT) 27 U/L (0-50); AST (SGOT) 101 U/L (17-59); Alkaline Phosphatase 176 U/L (38-126); Blood Urea Nitrogen 14 mg/dl (9-20); Calcium 8.4 mg/dl (8.4-10.2); Carbon Dioxide 30 mmol/L (22-30); Chloride 102 mmol/L (98-107); Estimated Creatinine Clearance 69 ml/min; Glucose 90 mg/dl (70-99); Potassium 3.7 mmol/L (3.5-5.1); Sodium 134 mmol/L (135-145); Total Bilirubin 2.5 mg/dl (0.2-1.3); Total Protein 6.5 g/dl (6.3-8.2); eGFR > 60.00
--- NOTE | 2023-12-18 11:37 | CM ---
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 Patient reports he resides with his father and cousin in an apartment, no DME. Patient does not have a PCP, uses the [facility] pharmacy in [place]. Patient
reports nothing new has changed since his last admission. CM will continue to follow for discharge planning needs.
Plan; home no needs likely.
--- NOTE | 2023-12-18 13:11 | W.PN.HOSP.TC ---
Addendum entered and electronically signed by Miles Branham MD 12/18/23 18:02:
call from Edwin Bhardwaj D.O. Recommend change status to inpt due to complexity of issues, will change
Original Note:
Today's Communication/Plan
-
recheck Hgb in AM
Assessment / Plan
Assessment / Plan
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
month ago per patient, hepatic encephalopathy, esophageal varices requiring banding, chronic anemia, chronic hyponatremia, presents to the ED due to bleeding skin tag or lesion on anterior neck near collar bone, started spontaneously bleeding
yesterday, bleeding/oozing through bandages at times. Symptoms of bleeding worsened today, associated with lightheadedness and dyspnea.
He was admitted here 11/16 to 11/18 and had paracentesis for severe ascites- noted at that time MELD- Na 24 score--14-15 % estimated 90-day mortality - discussed alcohol cessation with patient at that time as well.
Patient continues to drink and be noncompliant with medication despite being told how critical his condition of liver disease. He declines to talk about it with me at this time.
ED txt: Figure 8 suture skin tag/bleeding chest lesion stopped bleeding in ED
Underwent paracentesis morning of admission with 7300 cc fluid removed
Alb increased 2.5-->3.0
Anemia.
Hgb 8.2-->7.2-->7.2-->7.2
showing no signs of active bleed. Obtained blood permit, used translation line on phone
Call placed to Dr. Casarez 12/17 and reviewed case. Hgb holding steady at 7.2. His preference would be no blood transfused at this time, as has no signs of active bleed.
Will recheck Hgb in AM. If continues to hold steady, consider dc. If Hgb drops, will transfuse and consider consult
#Bleeding skin lesion upper chest wall s/p figure 8 suture in ED, pt has coagulopathy from alcohol cirrhosis Hgb 8.2-->7.2 from 9.0 (11/18), likely due to acute bleeding from skin lesion
-monitor for signs/symptoms of bleeding/repeat monitoring of H & H in am
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
-CIWA protocol,monitor for withdrawal
#HX decompensated liver cirrhosis with Ongoing ETOH use with recurrent ascites, hepatic encephalopathy, and esophageal varices with prior banding
-monitor , no signs of encephalopathy at this time, nor active GI bleeding
-IR consult for paracentesis, appreciated
-O2 if needed per protocol
-continue home meds
-hypoalbuminemia
Alb 2.4-->3.0
#Chronic hyponatremia, stable at 132
#HX GI bleed 04/2023 with EV with bleeding/banding transfer to [place]
#HX ETOH hepatitis
#Chronic anemia
Hypokalemia
resolved 3.1-->3.7
DVT proph-bleeding risk/PCDs
Full Code
Anticipated Discharge: 24 - 48 hours
Subjective/Interval History
-
Date of Service: December 18, 2023
Pt is comfortable
Objective Data
-
Labs:
Laboratory Results
12/18/23
07:24
WBC 3.6 L
Hgb 7.2 L
Hct 20.7 L*
Plt Count 84 L
Sodium 134 L
Potassium 3.7
Chloride 102
Carbon Dioxide 30
BUN 14
Creatinine 1.0
Glucose 90
Calcium 8.4
Total Bilirubin 2.5 H
AST 101 H
ALT 27
Alkaline Phosphatase 176 H
Vital Signs:
Vital Signs
Temp Pulse Resp BP Pulse Ox
98.6 F 77 18 97/62 96
12/18/23 08:20 12/18/23 08:20 12/18/23 08:20 12/18/23 08:20 12/18/23 08:20
I&O
12/17/23 12/18/23 12/19/23
06:59 06:59 06:59
Intake Total 240 / 240 1979
Balance 240 / 240 1979
Review of Systems
-
History Source: Patient and Coordinated Provider
Constitutional: Denies Fever
EENT: Reports No Symptoms Reported
Respiratory: Reports No Symptoms
Cardiac: Reports No Symptoms; Denies Chest Pain
Abdomen/GI: Reports No Symptoms
Physical Exam
-
General: Well Developed, Well Nourished, No Apparent Distress and Appears Chronically Ill
HEENT: Normocephalic, Atraumatic and Moist Mucous Membranes
Respiratory: Clear to Auscultation; Negative Wheezes, Rales, Rhonchi or Crackles
Cardiac: Regular Rhythm and S1/S2
GI: Soft, Nontender and Nondistended
Musculoskeletal: No Clubbing, No Cyanosis and No Edema
Skin: Warm and Dry
[2023-12-18 15:21] VITALS: BP 101/65
[2023-12-18 23:20] VITALS: BP 92/59
[2023-12-19 06:00] VITALS: BMI 17.0
[2023-12-19 07:34] LABS: % Basophils 1.1 % (0-2); % Immature Granulocytes 0.2 % (0-0.5); % Lymphocytes 32.7 % (20.5-51.1); % Monocytes 15.7 % (1.7-9.3); % Neutrophils 46.3 % (42.2-75.2); Absolute Basophils 0.1 10^3/uL (0-0.2); Absolute Eosinophils 0.2 10^3/uL (0-0.7); Absolute Lymphocytes 1.5 10^3/uL (1.2-3.4); Absolute Monocytes 0.7 10^3/uL (0.1-0.6); Absolute Neutrophils 2.1 10^3/uL (1.4-6.5); Hematocrit 21.9 % (39.0-52.0); Hemoglobin 7.5 g/dL (13.0-18.0); Mean Corp Hgb Conc. 34.2 g/dL (33.0-37.0); Mean Corpuscular Hgb 31.1 pg (27.0-31.0); Mean Corpuscular Volume 90.9 fL (80.0-94.0); Mean Platelet Volume 9.8 fL (7.4-10.4); Nucleated Red Blood Cells % 0 % (-); Platelet Count 98 10^3/uL (130-400); Red Blood Cell Count 2.41 10^6/uL (4.70-6.10); Red Cell Dist. Width 14.5 % (11.5-14.5); White Blood Cell Count 4.5 10^3/uL (4.8-10.8)
[2023-12-19 07:43] VITALS: BP 89/58
[2023-12-19 07:44] VITALS: BP 91/56
[2023-12-19] MEDS: CIPRO 500 MG PO (07:49)
[2023-12-19] MEDS: PROTONIX 40 MG PO (07:49)
[2023-12-19] MEDS: VITAMIN B1 100 MG PO (07:49)
[2023-12-19] MEDS: LASIX PO (07:49)
[2023-12-19] MEDS: FOLVITE 1 MG PO (07:49)
[2023-12-19] MEDS: DUPHALAC/CHRONULAC 20 GRAMS PO (07:49)
[2023-12-19] MEDS: ALDACTONE PO (07:49)
[2023-12-19 14:17] VITALS: BMI 17.0
[2023-12-19 15:00] VITALS: BP 89/52
--- NOTE | 2023-12-19 16:29 | W.PN.HOSP.TC ---
Addendum entered and electronically signed by Miles Branham MD 12/21/23 17:44:
'Patient meets ASPEN/AND Criteria for Moderate Protein Calorie Malnutrition as evidenced by Unintentional weight loss >10% in 6 months and moderate SQ loss over rib cage and moderate muscle loss over quadriceps, calf and clavicle.'
BMI 17.0
Albumin 2.7-2.4-3.0
Original Note:
Today's Communication/Plan
-
dc to home, state he lives with his father
Assessment / Plan
Assessment / Plan
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
month ago per patient, hepatic encephalopathy, esophageal varices requiring banding, chronic anemia, chronic hyponatremia, presents to the ED due to bleeding skin tag or lesion on anterior neck near collar bone, started spontaneously bleeding
yesterday, bleeding/oozing through bandages at times. Symptoms of bleeding worsened today, associated with lightheadedness and dyspnea.
He was admitted here 11/16 to 11/18 and had paracentesis for severe ascites- noted at that time MELD- Na 24 score--14-15 % estimated 90-day mortality - discussed alcohol cessation with patient at that time as well.
Patient through translation line states he is not drinking
ED txt: Figure 8 suture skin tag/bleeding chest lesion stopped bleeding in ED
Underwent paracentesis morning of admission with 7300 cc fluid removed
Alb increased 2.5-->3.0
Anemia.
Hgb 8.2-->7.2-->7.2-->7.2-->7.5
showing no signs of active bleed. Obtained blood permit, used translation line on phone
Call placed to Dr. Casarez 12/17 and reviewed case. Hgb holding steady at 7.2. His preference would be no blood transfused at this time, as has no signs of active bleed.
Will recheck Hgb in AM. If continues to hold steady, consider dc. If Hgb drops, will transfuse and consider consult
#Bleeding skin lesion upper chest wall s/p figure 8 suture in ED, pt has coagulopathy from alcohol cirrhosis Hgb 8.2-->7.2 from 9.0 (11/18), likely due to acute bleeding from skin lesion
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
-[facility] protocol,monitor for withdrawal
#HX decompensated liver cirrhosis with Ongoing ETOH use with recurrent ascites, hepatic encephalopathy, and esophageal varices with prior banding
-monitor , no signs of encephalopathy at this time, nor active GI bleeding
-IR consult for paracentesis, appreciated
-hypoalbuminemia
Alb 2.4-->3.0
#Chronic hyponatremia, stable at 132
#HX GI bleed 04/2023 with EV with bleeding/banding transfer to [place]
#HX ETOH hepatitis
#Chronic anemia
Hypokalemia
resolved 3.1-->3.7
DVT proph-bleeding risk/PCDs
Actually looks better, he wants to go home. He appears optimized and we reviewed that he absolutely must stop drinking
Full Code
dc now
see dictated note
Anticipated Discharge: Today
Subjective/Interval History
-
Date of Service: December 19, 2023
Feels well, used translation line
Objective Data
-
Labs:
Laboratory Results
12/19/23
07:09
WBC 4.5 L
Hgb 7.5 L
Hct 21.9 L
Plt Count 98 L
Vital Signs:
Vital Signs
Temp Pulse Resp BP Pulse Ox
98.6 F 77 18 89/52 99
12/19/23 15:00 12/19/23 15:00 12/19/23 15:00 12/19/23 15:00 12/19/23 15:00
I&O
12/18/23 12/19/23 12/20/23
06:59 06:59 06:59
Intake Total 1979 960 / 960
Balance 1979 960 / 960
Review of Systems
-
History Source: Patient and Coordinated Provider
Constitutional: Denies Fever
EENT: Reports No Symptoms Reported
Respiratory: Reports No Symptoms
Cardiac: Reports No Symptoms; Denies Chest Pain
Abdomen/GI: Reports No Symptoms
Physical Exam
-
General: Well Developed, Well Nourished, No Apparent Distress and Appears Chronically Ill
HEENT: Normocephalic, Atraumatic and Moist Mucous Membranes
Respiratory: Clear to Auscultation; Negative Wheezes, Rales, Rhonchi or Crackles
Cardiac: Regular Rhythm and S1/S2
GI: Soft, Nontender and Nondistended
Musculoskeletal: No Clubbing, No Cyanosis and No Edema
Skin: Warm and Dry
--- NOTE | 2023-12-19 19:00 | W.DS.TRANS ---
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
-
Discharge Instructions:
Discharge Diagnosis/Procedures Blood Loss Anemia, Alcohol Liver Disease
Diet Restrict fluids to 64 oz
Activity As tolerated
Driving Restrictions As prior to admission
Bathing Restrictions None
Blood Work CBC, CMP after seen in clinic
Instructions:
Stand-Alone Forms:
Changes to Home Medications: Yes
Discharge Medications:
DC Medications w/original date entered in [facility]
ciprofloxacin HCl 500 mg tablet 500 mg PO DAILY #30 tabs 11/19/23
furosemide 40 mg tablet 40 mg PO DAILY #30 tabs 11/19/23
lactulose 20 gram/30 mL oral solution 20 g (30 mL) PO BID #1,200 mL 11/19/23
pantoprazole 40 mg tablet,delayed release 40 mg PO DAILY #30 tabs 11/19/23
spironolactone 50 mg tablet 100 mg (2 x 50 mg) PO DAILY #30 tabs 11/19/23
thiamine HCl (vitamin B1) 100 mg tablet 100 mg PO DAILY #30 tabs 11/19/23
bisacodyl 10 mg rectal suppository 10 mg IL [id number] PRN constipation #0 ea 12/19/23
folic acid 1 mg tablet 1 mg PO DAILY #0 tabs 12/19/23
neomycin-bacitracn Zn-polymyx 3.5 mg-400 unit-5,000 unit/gram top oint (Neosporin ([id number])) 1 applic topical BID #14.2 grams 12/19/23
polyethylene glycol 3350 17 gram oral powder packet (HealthyLax) 17 g PO DAILYPRN PRN constipation #0 ea 12/19/23
sennosides 8.6 mg-docusate sodium 50 mg tablet 1 tab PO BIDPRN PRN constipation #0 tabs 12/19/23
Home Medication Changes
Neosporin added to bleeding skin tag
Pending Results: No
--- NOTE | 2023-12-21 10:40 | PN.CDI ---
CDI
- -
CDI:
Physician Documentation Request
Admit Date: 12/18/23 18:05
Dear Doctor Yonas,
Please review the following and provide your response in the progress notes.
Clinical Indicators:
Per RD assessment 12/18: 'Patient meets ASPEN/AND Criteria for Moderate Protein Calorie Malnutrition as evidenced by Unintentional weight loss >10% in 6 months and moderate SQ loss over rib cage and moderate muscle loss over quadriceps, calf and
clavicle.'
BMI 17.0
Albumin 2.7-2.4-3.0
Based on the information, which of the following most accurately represents the patient's nutritional status?
Moderate Malnutrition
Other (please specify)Unable to determine
[place] Criteria ([facility] Hospitalist 2017)
2 or more criteria must be present for either
non severe or severe malnutrition
Note that the criteria differs related to the
presence of an acute or chronic illness
Acute Illness Chronic Illness
Energy Intake Non Severe: <75% for >7 days Non Severe: <75% for >1 month
Severe: <50% for >5 days Severe: <75% for >1 month
Weight Loss Non Severe: 1-2% over 1 week Non Severe: 5% over 1 month
5% over 1 month 7.5% over 3 months
7.5% over 3 months 10% over 6 months
1 year N/A 20% over 1 year
Severe: >2% over 1 week Severe: >5% over 1 month
>5% over 1 month >7.5% over 3 months
>7.5% over 3 months >10% over 6 months
1 year N/A >20% over 1 year
Body Fat Non Severe: Mild Decrease Non Severe: Mild Loss
Severe: Moderate Decrease Severe: Severe Loss
Muscle Mass Non Severe: Mild Decrease Non Severe: Mild Loss
Severe: Moderate Decrease Severe: Severe Loss
Fluid Accumulation Non Severe: Mild Accumulation Non Severe: Mild Accumulation
Severe: Moderate to severe Severe: Moderate to severe
accumulation accumulation
Reduced Dielectric Press Operator Strength Non Severe: N/A Non Severe: N/A
Severe: Measurably reduced Severe: Measurably reduced
Additional criteria that can be used to Determine if Mild or Moderate Malnutrition ([employer]ck Manual 2018)
Mild Moderate Severe
Albumin gm/dl <3.0 gm/dl <2.5 gm/dl <2.0 gm/dl
Pre Albumin mg/dl <15 gm/dl <10 mg/dl <5.0 mg/dl
BMI <18.5 <17 <16
Use of terms such as suspected, likely, concern for, or probable (associated with a specific diagnosis that is being evaluated, monitored, or treated as if it exists) are acceptable and can be coded in the inpatient setting, when documented at the
time of discharge.
Thank you,
Audrey REDDY, RN, CCDS
CDI Specialist
[phone]
Please use your independent medical judgment in providing your response.
== END 2023-12-19 17:35 | disposition home or self-care (01) | DRG 607 ==
LOC: 4 EAST ACU 18:05
PROVIDERS: Radiology Vascular & Interventional Radiology; ADMITTING PHYSICIAN Internal Medicine; ATTENDING PHYSICIAN Internal Medicine; EMERGENCY PHYSICIAN Emergency Medicine
PROC: 0W9G3ZZ Drainage of Peritoneal Cavity, Percutaneous Approach (ICD-10-PCS; 2023-12-18)
DX: L98.9 Disorder of the skin and subcutaneous tissue, unspecified (principal); E87.1 Hypo-osmolality and hyponatremia; E44.0 Moderate protein-calorie malnutrition; Z68.1 Body mass index [BMI] 19.9 or less, adult; D50.0 Iron deficiency anemia secondary to blood loss (chronic); K72.10 Chronic hepatic failure without coma; K70.31 Alcoholic cirrhosis of liver with ascites; K70.11 Alcoholic hepatitis with ascites; F10.10 Alcohol abuse, uncomplicated; K76.82 Hepatic encephalopathy; E87.6 Hypokalemia; Z91.148 Patient's other noncompliance with medication regimen for other reason
CPT/HCPCS: 12001; 49083; 71046; 80053; 82077; 83735; 85014; 85018; 85025; 85027; 85610; 85730; 89051; 93005; 99285; P9047

== ENCOUNTER 2024-01-16 21:11 | Inpatient (IN) | payer OTHER, SELFPAY ==
[2024-01-16 19:27] VITALS: BP 114/66
[2024-01-16 19:44] VITALS: BP 120/82
[2024-01-16] MEDS: ZOFRAN 4 MG IV ×2 (19:55→23:40)
[2024-01-16 19:59] LABS: % Basophils 0.4 % (0-2); % Eosinophils 0.4 % (0-6); % Immature Granulocytes 0.5 % (0-0.5); % Lymphocytes 7.8 % (20.5-51.1); % Monocytes 6.3 % (1.7-9.3); % Neutrophils 84.6 % (42.2-75.2); Absolute Basophils 0.1 10^3/uL (0-0.2); Absolute Immature Granulocytes 0.1 10^3/uL (0-0.05); Absolute Lymphocytes 0.9 10^3/uL (1.2-3.4); Absolute Monocytes 0.7 10^3/uL (0.1-0.6); Absolute Neutrophils 9.4 10^3/uL (1.4-6.5); Hemoglobin 7.3 g/dL (13.0-18.0); Mean Corp Hgb Conc. 37.1 g/dL (33.0-37.0); Mean Corpuscular Volume 89.1 fL (80.0-94.0); Mean Platelet Volume 9.6 fL (7.4-10.4); Nucleated Red Blood Cells % 0 % (-); Platelet Count 107 10^3/uL (130-400); Red Blood Cell Count 2.21 10^6/uL (4.70-6.10); Red Cell Dist. Width 15.6 % (11.5-14.5); White Blood Cell Count 11.1 10^3/uL (4.8-10.8)
[2024-01-16 20:00] VITALS: BP 110/93
[2024-01-16 20:02] LABS: Hematocrit 19.7 % (39.0-52.0)
--- NOTE | 2024-01-16 20:03 | ED.GENMED ---
Addendum entered and electronically signed by AMINA Edwards 01/17/24 02:46:
Rectal exam hem positive for dark stool. When going back into see patient for his rectal exam, patient has vomited coffee ground liquid. Will start on Protonix drip. Hospitalist notified. PRBC's ordered.
Original Note:
History of Present Illness
General
Chief Complaint: Breathing Problem
Source: patient
Exam Limitations: other (Language barrier)
Time Seen by Provider: 01/16/24 19:38
Travel History
Have you had any contact with someone who has COVID-19?: No
Do you have any symptoms of coronavirus? Fever > 100 degrees, chills, cough, shortness of breath, sore throat, loss of taste or smell, muscle aches, or headache?: No
History of Present Illness
History of Present Illness:
This is a 33 year old male that comes in with c/o nausea, vomiting and pain. Sates that he has generalized pain with nausea and vomiting. State that he is not able to eat. States that this has been going on for the past several days. States that he
has chills, chest pain, SOB, nausea, vomiting, diarrhea, headache. Denies any dizziness or urinary burning.
Past History
Past History
ED Past Medical History: Renal failure (Peritoneal dialysis), Psychiatric (Depression) and Other (alcohol abuse, alcoholic hepatitis, Cirrhosis of the liver, Ascites, Anemia, )
ED Past Surgical History: Other (Hernia repair)
Social History
Tobacco: Non-smoker
Alcohol: Chronic alcoholic (Daily 4 large beer and 2 shots)
Drug: Other (denies however UDS from prior visit pos for opioids)
Personal: Single
Living: with roommate
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
Family History
Family History: Other (Noncontributory)
Review of Systems
Review of Systems
All Other Systems: ROS reviewed and negative except as documented in HPI and ROS
Constitutional: Reports fever and chills
EENT: Reports no symptoms
Respiratory: Reports trouble breathing; Denies cough
Cardiac: Reports chest pain
ABD/GI: Reports abdominal pain, nausea, vomiting and diarrhea
: Reports no symptoms; Denies dysuria, frequency or urgency
Musculoskeletal: Reports no symptoms
Skin: Reports no symptoms
Neurological: Reports headache; Denies dizzy
Psychiatric: Reports no symptoms
Phy Exam
General Physical Exam
General Presentation: moderate distress
General age: appears older than age
General Skin: warm and dry
General Habitus: frail
General Mental: alert
General Hydration: dry mucous membranes
ENT Exam
ENT Exam: TM's normal, pharynx normal and neck supple
Eye Exam
Eye Exam: EOMI
Cardiovascular Exam
Cardiovascular Exam: no edema, normal peripheral pulses and tachycardia
Pulmonary Exam
Pulmonary Exam: chest non tender, no rhonchi, no cough and other (Rales with Exp wheezing noted throughout)
Gastrointestinal Exam
Gastrointestinal Exam: no organomegaly, no pulsatile mass and ascites (large amount of ascites)
Musculoskeletal Exam
Musculoskeletal Exam: full ROM and no edema
Skin Exam
Skin Exam: warm/dry, no rash, no petechia and jaundice (Slight jaundice)
Psychiatric Exam
Psychiatric Exam: normal mood/affect
Course
Orders/Labs/Results
Orders:
Orders
01/16/24 19:31
Electrocardiogram (*1) Urgent
Reason for Study: Shortness of Breath
EKG- Treatment ONCE
01/16/24 19:47
Type+Screen Urgent
CBC/With Diff [Complete Blood Count/With Diff] Urgent
01/16/24 19:52
Ondansetron Injectable [Zofran] 4 mg .ROUTE .STK-MED ONE
01/16/24 19:53
Ondansetron Injectable [Zofran] 4 mg IV NOW STA
01/16/24 20:00
Ammonia Urgent
Protime/PTT Urgent
01/16/24 20:02
US Abdomen Limited Urgent
Comment:
Reason For Exam: abd ascites
01/16/24 20:04
CR Chest - 2 Views Urgent
Comment:
Reason For Exam: Wheezing, rales
01/16/24 20:08
Morphine Sulfate 2 mg IV NOW STA
01/16/24 20:09
Lactic Acid Urgent
Blood Culture Q30M
LEENA Source: Blood/Venous
Specimen Description:
01/16/24 20:24
Comprehensive Metabolic Panel Urgent
Blood Culture Q30M
LEENA Source: Blood/Venous
Specimen Description:
01/16/24 20:31
0.9% Sodium Chloride 1000 ml [Nss] 1,000 ml IV BOLUS
01/16/24 20:48
Admit/Transfer Patient As Directed
Co-Sign Provider:
Level of Care: Inpatient admission
Assign to:: ICU
Physician / Group: milena
Diagnosis: decompensated liver cirrhosis, hepatic encephelopathy
Reason for Hospitalization: decompensated liver cirrhosis, hepatic encephelopathy
Expected length of stay greater than two midnights?: Yes
ELOS- Estimated Length of Stay in days: 2
I certify the patient meets the requirements for IP care: Yes
01/16/24 20:49
Code Status As Directed
Resuscitation Status: Full Code
01/16/24 21:00
Pantoprazole 80 mg/ 100 mL 8 mg/hr NOW X 1 BAG Pantoprazole 80 mg/100 ml Nss [Protonix] 80 mg in 100 ml IV NOW
Pantoprazole [Protonix IV] 80 mg IV NOW STA
01/16/24 21:01
* Blood Bank Products Urgent
Blood Bank Products: *Packed RBC Leuko(PRBC's)
Quantity: 2
Transfuse Today: Yes
Reason: Bleeding
Type And Crossmatch Urgent
IV Insert/Care/Rem.- Treatment PRN
Abnormal Lab Results
01/16/24 01/16/24 01/16/24
19:47 20:00 20:09
WBC 11.1 H 10^3/uL
(4.8-10.8)
RBC 2.21 L 10^6/uL
(4.70-6.10)
Hgb 7.3 L g/dL
(13.0-18.0)
Hct 19.7 L* %
(39.0-52.0)
MCH 33.0 H pg
(27.0-31.0)
MCHC 37.1 H g/dL
(33.0-37.0)
RDW 15.6 H %
(11.5-14.5)
Plt Count 107 L 10^3/uL
(130-400)
Abs Immat Gran (auto) 0.1 H 10^3/uL
(0-0.05)
Absolute Neuts (auto) 9.4 H 10^3/uL
(1.4-6.5)
Absolute Lymphs (auto) 0.9 L 10^3/uL
(1.2-3.4)
Absolute Monos (auto) 0.7 H 10^3/uL
(0.1-0.6)
Neutrophils % 84.6 H %
(42.2-75.2)
Lymphocytes % 7.8 L %
(20.5-51.1)
PT 21.4 H Sec
(11.4-14.6)
APTT 36.2 H Sec
(23.4-35.0)
Sodium
Chloride
BUN
Glucose
Lactic Acid 4.0 H* mmol/L
(0.7-2.0)
Calcium
Total Bilirubin
Alkaline Phosphatase
Ammonia 45 H umol/L
(9-30)
Total Protein
Albumin
01/16/24
20:24
WBC
RBC
Hgb
Hct
MCH
MCHC
RDW
Plt Count
Abs Immat Gran (auto)
Absolute Neuts (auto)
Absolute Lymphs (auto)
Absolute Monos (auto)
Neutrophils %
Lymphocytes %
PT
APTT
Sodium 128 L mmol/L
(135-145)
Chloride 96 L mmol/L
(98-107)
BUN 28 H mg/dl
(9-20)
Glucose 117 H mg/dl
(70-99)
Lactic Acid
Calcium 7.6 L mg/dl
(8.4-10.2)
Total Bilirubin 3.6 H mg/dl
(0.2-1.3)
Alkaline Phosphatase 140 H U/L
(38-126)
Ammonia
Total Protein 6.0 L g/dl
(6.3-8.2)
Albumin 2.5 L g/dl
(3.5-5.0)
01/16/24 19:47
01/16/24 20:24
Slight Leukocytosis, H/H low, anemic, Plt low, PT 21.4 with INR 1.87, PTT 36.2, Ammonia elevated to 45, Lactic acid 4.0, Hyponatremia, chloride slightly low. Dehydration. Glucose nonfasting. Hypocalcemia, Total brown elevation. Alk phos elevation.
Total protein slightly low. Albumin low.
Vital Signs
Initial and Last Documented VS:
Initial Vital Signs
Temp Pulse Resp BP Pulse Ox
99.3 F 117 18 114/66 93
01/16/24 19:27 01/16/24 19:27 01/16/24 19:27 01/16/24 19:27 01/16/24 19:27
Last Documented Vital Signs
Temp Pulse Resp BP Pulse Ox
99.3 F 118 22 110/93 97
01/16/24 19:27 01/16/24 20:15 01/16/24 20:15 01/16/24 20:00 01/16/24 20:15
MDM/Problems Addressed
Differential Diagnosis Includes:
aspiration Pneumonia. Ascites,
MDM/Problems Addressed:
This is a 33 year old male that comes in with c/o generalized pain, nausea and vomiting. Patient has ascites.
Will get labs, US and admit.
Chronic conditions affecting care:
Ascites
Acute Exacerbation and/or Progression of Chronic Illness:
ascites
*Radiology
Radiology exam reviewed: radiology read reviewed (Chest-Extremely low lung volumes with. Elevation of right hemidiaphragam again noted. Pulmonary vascularity within the limits of normal. Mild right basilar subsegmental atelectasis and scarring.
US-large volume ascites Throughout)
*Pulse Oximetry
Patient hypoxic: yes
Comment: 88% on room air
*Credit Assessment Analyst Interpretation
Rate: tachycardiac
Heart Rate: 125
Rhythm: sinus tachycardia
*Critical Care Note
Total Time (30-74mins, 75-104mins- exclusive of procedures): Not Applicable
ED Attending Note
-
Portions of this chart may have been created with voice recognition software.� Occasional wrong word or��sound alike� substitutions may have occurred due to the inherent limitations of voice recognition software.
Discharge Plan
Departure
Patient Disposition: Admit
Date of Disposition: 01/16/24
Time of Disposition: 20:39
Admit to: ICU
Presentation/result/management discussed w/ accepting MD/DO: Hospitalist
Condition: Fair
Covid-19: Not Applicable
Discharge Problem:
Abdominal ascites, Anemia, Acute hepatic encephalopathy, Generalized pain, Acute GI bleeding
Prescriptions:
No Action
ciprofloxacin HCl 500 mg Tablet
500 mg PO DAILY Qty: 30 0RF
Rx Instructions:
as before
pantoprazole 40 mg Tablet,Delayed Release (Dr/Ec)
40 mg PO DAILY Qty: 30 0RF
Rx Instructions:
as before
spironolactone 50 mg Tablet
100 mg PO DAILY Qty: 30 0RF
Rx Instructions:
as before
lactulose 20 gram/30 mL Solution
20 g PO BID Qty: 1200 0RF
Rx Instructions:
as before
thiamine HCl (vitamin B1) 100 mg tablet
100 mg PO DAILY Qty: 30 0RF
furosemide 40 mg Tablet
40 mg PO DAILY Qty: 30 0RF
Rx Instructions:
as before
polyethylene glycol 3350 [HealthyLax] 17 gram Powder In Packet
17 g PO DAILYPRN PRN (Reason: constipation) Qty: 0 0RF
sennosides-docusate sodium 8.6-50 mg Tablet
1 tab PO BIDPRN PRN (Reason: constipation) Qty: 0 0RF
bisacodyl 10 mg Suppository
10 mg SC [id number] PRN (Reason: constipation) Qty: 0 0RF
folic acid 1 mg Tablet
1 mg PO DAILY Qty: 0 0RF
Neosporin (swp-vlf-nizsj) 3.5mg-400 unit- 5,000 unit/gram ointment
1 applic topical BID Qty: 14.2 0RF
Rx Instructions:
apply to cut on chest wall until resolves
Referrals:
UNKNOWN - PT DOES,NOT KNOW [Family Provider] -
Interventions
Interventions:
*Risk Screen - Suicide Last Done: 01/16/24 20:00
*General Assessment Last Done: 01/16/24 19:27
ED- Fall Risk Assessment Last Done: 01/16/24 20:00
ED- Cardiac Assessment Last Done: 01/16/24 20:00
ED- Pulmonary Assessment Last Done: 01/16/24 20:00
Discharge Date and Time
Print Language: CHINESE
[2024-01-16 20:17] LABS: Ammonia 45 umol/L (9-30); INR 1.87; PT 21.4 Sec (11.4-14.6)
[2024-01-16] MEDS: MORPHINE SULFATE 2 MG IV (20:17)
[2024-01-16 20:18] LABS: APTT 36.2 Sec (23.4-35.0)
[2024-01-16 20:58] LABS: ALT (SGPT) 21 U/L (0-50); AST (SGOT) 56 U/L (17-59); Albumin 2.5 g/dl (3.5-5.0); Alkaline Phosphatase 140 U/L (38-126); Blood Urea Nitrogen 28 mg/dl (9-20); Calcium 7.6 mg/dl (8.4-10.2); Carbon Dioxide 22 mmol/L (22-30); Chloride 96 mmol/L (98-107); Glucose 117 mg/dl (70-99); Potassium 3.5 mmol/L (3.5-5.1); Sodium 128 mmol/L (135-145); Total Bilirubin 3.6 mg/dl (0.2-1.3); eGFR > 60.00
--- NOTE | 2024-01-16 21:06 | HPS.HSE ---
Family Physician
-
Family Physician: NOT KNOW UNKNOWN - PT DOES
Chief Complaint
-
abdominal distention
History of Present Illness
33-year-old male with past medical history of end-stage liver disease, alcoholic cirrhosis, alcohol use disorder, alcoholic hepatitis, esophageal varices status post banding, chronic anemia, chronic hyponatremia, presenting with nausea, vomiting for
past several days. He had coffee-ground emesis in the emergency room. He is not able to eat. He has generalized body pain. He has chills, chest pain, shortness of breath, diarrhea and headache as per ER.
Patient is not able to provide much history to me at this time due to abdominal discomfort.
He does admit to drinking 5 beers 2 to 3 days ago.
Medical History
Past Medical History
Past Medical History: Reports Other (end-stage liver disease, alcoholic cirrhosis, alcohol use disorder, alcoholic hepatitis, esophageal varices status post banding, chronic anemia, chronic hyponatremia)
Past Surgical History: Reports None
Social History
Tobacco: Non-smoker
Alcohol: Daily
Drug: None
Family History
Family History: Not pertinent
Allergies / Home Medications
Allergies reflects when Allergies were last updated in [facility].
Home Medications with original date entered in [facility]
Allergy/Medication List:
Allergies
Allergy/AdvReac Type Severity Reaction Status Date / Time
No Known Allergies Allergy Verified 12/16/23 18:45
Home Medications
ciprofloxacin HCl 500 mg tablet 500 mg PO DAILY #30 tabs 11/19/23
furosemide 40 mg tablet 40 mg PO DAILY #30 tabs 11/19/23
lactulose 20 gram/30 mL oral solution 20 g (30 mL) PO BID #1,200 mL 11/19/23
pantoprazole 40 mg tablet,delayed release 40 mg PO DAILY #30 tabs 11/19/23
spironolactone 50 mg tablet 100 mg (2 x 50 mg) PO DAILY #30 tabs 11/19/23
thiamine HCl (vitamin B1) 100 mg tablet 100 mg PO DAILY #30 tabs 11/19/23
bisacodyl 10 mg rectal suppository 10 mg VA [id number] PRN constipation #0 ea 12/19/23
folic acid 1 mg tablet 1 mg PO DAILY #0 tabs 12/19/23
neomycin-bacitracn Zn-polymyx 3.5 mg-400 unit-5,000 unit/gram top oint (Neosporin ([id number])) 1 applic topical BID #14.2 grams 12/19/23
polyethylene glycol 3350 17 gram oral powder packet (HealthyLax) 17 g PO DAILYPRN PRN constipation #0 ea 12/19/23
sennosides 8.6 mg-docusate sodium 50 mg tablet 1 tab PO BIDPRN PRN constipation #0 tabs 12/19/23
Review of Systems
-
History Source: Patient
A 12 point ROS was completed and negative except as noted: Yes
Constitutional: Reports No Symptoms
EENT: Reports No Symptoms
Respiratory: Reports No Symptoms
Cardiac: Reports No Symptoms
Abdomen/GI: Reports See HPI
: Reports No Symptoms
Musculoskeletal: Reports No Symptoms
Skin: Reports No Symptoms
Neurological: Reports No Symptoms
Endocrine: Reports No Symptoms
Hematologic/Lymphatic: Reports No Symptoms
Psych: Reports No Symptoms
Physical Exam
Vital Signs
Vital Signs
Temp Pulse Resp BP Pulse Ox
99.3 F 118 22 110/93 97
01/16/24 19:27 01/16/24 20:15 01/16/24 20:15 01/16/24 20:00 01/16/24 20:15
Physical Exam
General: Well Developed, Well Nourished and No Apparent Distress
HEENT: NormoCephalic, Moist mucous membranes and Atraumatic
Respiratory: Clear
Cardiac: S1/S2 and Regular Rhythm; No Murmur or Rub
GI: Soft, Non Tender, Non Distended and Normal Bowel Sounds; No Organomegaly
Rectal: Deferred by Provider
Musculoskeletal: No Clubbing, No Cyanosis and No Edema
Skin: No Rash
Neuro: Nonfocal/grossly intact
Laboratory Results
-
01/16/24 19:47
01/16/24 20:24
Laboratory Results
PT 21.4 Sec (11.4-14.6) H 01/16/24 20:00
INR 1.87 01/16/24 20:00
APTT 36.2 Sec (23.4-35.0) H 01/16/24 20:00
Lactic Acid 4.0 mmol/L (0.7-2.0) H* 01/16/24 20:09
Total Bilirubin 3.6 mg/dl (0.2-1.3) H 01/16/24 20:24
AST 56 U/L (17-59) 01/16/24 20:24
ALT 21 U/L (0-50) 01/16/24 20:24
Alkaline Phosphatase 140 U/L (38-126) H 01/16/24 20:24
Data Reviewed
-
Lab Data: Labs Reviewed by me
Old Records: Reviewed
Impression/Plan
-
IMPRESSION:
PLAN:
#Hematemesis
#History of esophageal varices status post banding
-Hemoccult positive
-N.p.o.
-2 units of blood
-Protonix drip
-Octreotide drip
# Decompensated alcoholic liver cirrhosis with ascites
# Hepatic encephalopathy
-Ammonia level 45
-INR 1.87
-Lactic acid 4 secondary to decreased hepatic clearance
-CMP pending
-Check blood cultures
-Chest x-ray unremarkable
-IV fluids given
-Liver ultrasound pending
-Empiric ceftriaxone to cover for SBP
-IR consulted for paracentesis
-N.p.o.
-Continue lactulose, add Xifaxan
-Hold Lasix, spironolactone
-GI consulted
Chronic anemia
-Hemoglobin stable 7.3
Chronic thrombocytopenia secondary to cirrhosis
-Stable
Worsening of chronic hyponatremia secondary to GI losses
-Monitor with IV fluids
Alcohol use disorder
-Check alcohol, UDS
-Thiamine and folate
-Alcohol withdrawal protocol
History of umbilical hernia
Full code
DVT prophylaxis�SCDs
NPO
[2024-01-16] MEDS: NSS 1000 IV ×2 (21:12→21:48)
[2024-01-16] MEDS: PROTONIX IV 80 MG IV (21:13)
[2024-01-16] MEDS: PROTONIX 100 IV (21:13)
--- NOTE | 2024-01-16 21:21 | PHANOTE ---
Med Rec Note:
Used housing development specialist to ask pt about his medication, pt began answering and then stopped, housing development specialist ended call.
Home med list compiled from discharge on 12/19/23, and Dr Adrian. Med list left unconfirmed due unknown what pt is taking.
[2024-01-16] MEDS: DILAUDID 0.5 MG IV (21:45)
[2024-01-16] MEDS: ROCEPHIN 2000 MG IV (21:47)
[2024-01-16] MEDS: STERILE WATER FOR INJECTION 20 ML IV (21:47)
[2024-01-16 22:00] VITALS: BP 109/62
[2024-01-16 22:15] VITALS: BP 111/80
[2024-01-16 22:24] LABS: Magnesium 1.8 mg/dl (1.6-2.3)
[2024-01-16 22:25] LABS: Alcohol None Detected
[2024-01-16 23:00] VITALS: BP 120/83
[2024-01-16] MEDS: SANDOSTATIN 500.600000000000023 MCG IV (23:00)
[2024-01-16] MEDS: ATIVAN 1 MG IV (23:48)
[2024-01-17] VITALS (66 sets, daily range): BP systolic 91–144; BP diastolic 60–106
--- NOTE | 2024-01-17 00:31 | PTCARENOTE ---
Rec'd pt from ED actively vomiting blood. Protonix gtt continued. PRBCs sent for and hung. Awaiting 2nd unit. Upper Sorbian speaking, oriented, c/o pain in b/L lower abdomen. Dilaudid given as ordered with relief. ST 120s, BP stable. Additional PIV
placed. Labs sent as ordered. 2L nc Sat 97%, 90% on Room Air. Abdomen extremely distended, rounded, firm, tender. NPO with sips of clears. Zofran PRN. Scattered bruising on back. When asked 'I get bruises'. Will monitor.
[2024-01-17] MEDS: DILAUDID 0.5 MG IV ×4 (05:31→20:00)
[2024-01-17 05:33] LABS: % Basophils 0.2 % (0-2); % Eosinophils 0.7 % (0-6); % Immature Granulocytes 0.5 % (0-0.5); % Lymphocytes 13.5 % (20.5-51.1); % Monocytes 7.3 % (1.7-9.3); % Neutrophils 77.8 % (42.2-75.2); Absolute Eosinophils 0.1 10^3/uL (0-0.7); Absolute Immature Granulocytes 0.1 10^3/uL (0-0.05); Absolute Lymphocytes 1.7 10^3/uL (1.2-3.4); Absolute Monocytes 0.9 10^3/uL (0.1-0.6); Hematocrit 23.1 % (39.0-52.0); Hemoglobin 8.4 g/dL (13.0-18.0); Mean Corp Hgb Conc. 36.4 g/dL (33.0-37.0); Mean Corpuscular Hgb 31.3 pg (27.0-31.0); Mean Corpuscular Volume 86.2 fL (80.0-94.0); Mean Platelet Volume 9.3 fL (7.4-10.4); Nucleated Red Blood Cells % 0 % (-); Platelet Count 85 10^3/uL (130-400); Red Blood Cell Count 2.68 10^6/uL (4.70-6.10); Red Cell Dist. Width 16.5 % (11.5-14.5); White Blood Cell Count 12.8 10^3/uL (4.8-10.8)
[2024-01-17 05:46] LABS: Lactic Acid 1.3 mmol/L (0.7-2.0)
[2024-01-17 05:51] LABS: Amphetamines Negative (Negative); Barbiturates Negative (Negative); Benzodiazepines Positive (Negative); Buprenorphine Negative (Negative); Cocaine Negative (Negative); Marijuana Negative (Negative); Methadone Negative (Negative); Methamphetamines Negative (Negative); Opiates Positive (Negative); Phencyclidine Negative (Negative); Tricyclic Antidepressants Negative (Negative)
[2024-01-17 06:04] LABS: Fentanyl, Urine Negative (Negative)
[2024-01-17 06:20] LABS: ALT (SGPT) 22 U/L (0-50); AST (SGOT) 63 U/L (17-59); Albumin 2.6 g/dl (3.5-5.0); Alkaline Phosphatase 149 U/L (38-126); Blood Urea Nitrogen 36 mg/dl (9-20); Carbon Dioxide 23 mmol/L (22-30); Chloride 96 mmol/L (98-107); Glucose 119 mg/dl (70-99); Potassium 3.9 mmol/L (3.5-5.1); Sodium 128 mmol/L (135-145); Total Bilirubin 4.3 mg/dl (0.2-1.3); Total Protein 6.1 g/dl (6.3-8.2); eGFR > 60.00
--- NOTE | 2024-01-17 06:21 | PTCARENOTE ---
No change in previous assessment, one episode of bloody stool this AM. AM Labs pending. Dilaudid for pain PRN. Will monitor.
[2024-01-17] MEDS: XIFAXAN 550 MG PO (07:40)
[2024-01-17] MEDS: FOLVITE 1 MG PO (07:41)
[2024-01-17] MEDS: THIAMINE INJECTION 100 MG IV (07:41)
--- NOTE | 2024-01-17 08:00 | PTCARENOTE ---
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
--- NOTE | 2024-01-17 08:31 | CON.INTV ---
Consultation
Consultation Request
Date/Time Consultation Requested: 01/16/2024 - 2132
Date/Time Consultation Performed: 01/17/2024829
Requesting Provider: Dr. Granados
Performing Provider: Dr. Domínguez
Reason for Consultation: UGIB/Anemia
Medical History
-
Chief Complaint: SOB, N/V
History of Present Illness:
33-year-old male with a past medical history of decompensated alcoholic cirrhosis who presents with shortness of breath, nausea and vomiting for the last few days. He says he drank 4 days ago. In the ER he had heme positive dark stool on rectal
exam, and also vomited coffee-ground liquids. Hb was 7.3 with a platelet count of 107. INR 1.87. He had positive opiates and benzodiazepines on his UDS. Alcohol screen was negative. Blood cultures were collected. Abdominal ultrasound showed
large volume ascites, and CXR showed low lung volumes with right hemidiaphragm elevation which was seen on prior CXR's. He was given morphine in the ER + Zofran, and started on PPI gtt and octretoide gtt. Considering his history of decompensated
alcoholic cirrhosis with concern for upper GI bleed, he was admitted to the ICU for further care and critical care services consulted for additional management/recommendations.
Patient seen this morning. He is very distended in his belly due to ascites. Going down for paracentesis today then is pending EGD by GI. When I saw him his BP was 133/106, heart rate 105, he was breathing at 16 breaths/min and saturating 97% on
room air.
PMHx: Decompensated alcoholic liver cirrhosis, alcohol use disorder, history of esophageal varices s/p banding (April 2023 here at ), portal hypertensive gastropathy, history of esophageal candidiasis, chronic anemia, chronic hyponatremia
PSHx: Hernia repair
Past Medical History
Past Medical History: Other (Above as per HPI)
Past Surgical History: Other (Above as per HPI)
Social History
Tobacco: Non-smoker
Alcohol: Daily (Chronic alcoholic)
Drug: None
Family History
Family History: Reviewed & Not Pertinent
Allergies / Home Medications
Allergies
Allergy/AdvReac Type Severity Reaction Status Date / Time
No Known Allergies Allergy Verified 12/16/23 18:45
Home Medications
�Medication �Instructions �Recorded �Confirmed �Last Taken �Type
ciprofloxacin HCl 500 mg tablet 500 mg PO DAILY #30 tabs 11/19/23 Unknown Rx
furosemide 40 mg tablet 40 mg PO DAILY #30 tabs 11/19/23 Unknown Rx
lactulose 20 gram/30 mL oral 20 g (30 mL) PO BID #1,200 mL 11/19/23 Unknown Rx
solution
pantoprazole 40 mg tablet,delayed 40 mg PO DAILY #30 tabs 11/19/23 Unknown Rx
release
spironolactone 50 mg tablet 100 mg (2 x 50 mg) PO DAILY #30 11/19/23 Unknown Rx
tabs
thiamine HCl (vitamin B1) 100 mg 100 mg PO DAILY #30 tabs 11/19/23 Unknown Rx
tablet
bisacodyl 10 mg rectal suppository 10 mg [place] [id number] PRN constipation 12/19/23 Unknown Rx
#0 ea
folic acid 1 mg tablet 1 mg PO DAILY #0 tabs 12/19/23 Unknown Rx
neomycin-bacitracn Zn-polymyx 3.5 1 applic topical BID #14.2 grams 12/19/23 Unknown Rx
mg-400 unit-5,000 unit/gram top
oint (Neosporin ([id number]))
polyethylene glycol 3350 17 gram 17 g PO DAILYPRN PRN constipation 12/19/23 Unknown Rx
oral powder packet (HealthyLax) #0 ea
sennosides 8.6 mg-docusate sodium 1 tab PO BIDPRN PRN constipation 12/19/23 Unknown Rx
50 mg tablet #0 tabs
Review of Systems
-
Unable to Obtain full review of systems at this time due to: Acuity
Vitals / Labs / Diagnostic Testing
Vital Signs
Temp Pulse Resp BP Pulse Ox
98.8 F 108 11 130/86 94
01/17/24 03:48 01/17/24 06:00 01/17/24 06:00 01/17/24 06:00 01/17/24 06:00
Lab Data
01/17/24 05:14
01/17/24 05:14
Laboratory Results
01/16/24
20:00
PT 21.4 H
INR 1.87
APTT 36.2 H
Diagnostic Testing:
Physical Exam
-
HEENT: Normocephalic and Anicteric
Cardiovascular: S1/S2 and Peripheral Edema (negative)
Respiratory: Wheeze (negative), Rales (negative), Rhonchi (negative) and Non-Labored Respirations
GI: Soft, Distended and Non Tender
Neurology: Awake, Alert and Tremors (n)
Skin: Warm and Dry
General: Fever (negative), Chills (negative) and Sweats (negative)
Assessment
-
Assessment: 33-year-old male with a past medical history of decompensated alcoholic cirrhosis who presents with shortness of breath, nausea and vomiting for the last few days. He says he drank 4 days ago. In the ER he had heme positive dark stool
on rectal exam, and also vomited coffee-ground liquids. Hb was 7.3 with a platelet count of 107. INR 1.87. He had positive opiates and benzodiazepines on his UDS. Alcohol screen was negative. Blood cultures were collected. Abdominal ultrasound
showed large volume ascites, and CXR showed low lung volumes with right hemidiaphragm elevation which was seen on prior CXR's. He was given morphine in the ER + Zofran, and started on PPI gtt and octretoide gtt. Considering his history of
decompensated alcoholic cirrhosis with concern for upper GI bleed, he was admitted to the ICU for further care and critical care services consulted for additional management/recommendations.
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
chronic hyponatremia
Impression:
#Acute anemia suspected to be from hematemesis
#Upper gastrointestinal hemorrhage likely due to esophageal varices versus PUD versus Sara-Taylor
#Decompensated alcoholic cirrhosis with Hx of EV s/p banding (04/2023), HE and recurrent ascites
#Elevated right hemidiaphragm likely due to recurrent ascites vs phrenic nerve dysfunction
#Hypochloremic, hyponatremia - due to cirrhosis and is chronic (baseline sNa 125-131)
#Positive blood culture/GPC in clusters from 01/16/2024
#Lactic acidosis � resolved
#Transaminitis with hyperbilirubinemia and elevated ammonia � due to acute decompensated liver cirrhosis
Plan:
- Given concern for upper GI bleed, keep n.p.o. with large-bore IV x 2
- Rocephin 2g x 7 days
- Start IV vanc given (+) blood Cx with GPC in clusters - could be a contaminant but unknown if MRSA; continue IV vancomycin until BCx speciates
- GI consulted --> patient underwent EGD today with grade 1 esophageal varices seen with no stigmata of recent bleeding, also portal hypertensive gastropathy, scar seen in the middle/lower third of his esophagus due to prior banding, with a normal
examined duodenum.
- Check UA with reflex to UCx
- Abdominal ultrasound with Dopplers to assess if patient had TIPS procedure, which he apparently was sent to [facility] for in the past but unclear if this ever was performed --> no TIPS seen on US
- His CBD was dilated to 9 mm on abdominal ultrasound to would obtain MRCP to further evaluate this
- PPI + octreotide gtt
- Trend H/H q6-8 hrs and transfuse to keep Hb>7g/dL; do NOT be aggressive with transfusions as this can cause his known esophageal varices to rupture
- Gentle hydration with NS 0.9% but caution not to cause volume overload
- MSAS, folate, MVN and thiamine
- Consult IR for paracentesis --> removed 10L of ascitic fluid. Fluid was clear, yellow and sent for cultures and cytopathology.
- Continue rifaxminin
- Would hold lactulose until Hb is stable for at least 12-24 hours, as if there is a gastrointestinal bleed occurring then the lactulose could worsen this
- Maintain SpO2 >90-94%
- Maintain MAP>65
- If BP remains stable by tomorrow then would resume aldactone and lasix
- Trend I/O and sCr
- Trend sNa
- Replete electrolytes with K>4, Mg>2
- Maintain euglycemia with goal BG 140-180
- prn nebulized bronchodilators
- Incentive spirometer
- DVT ppx
Continue ICU level of care and this patient with decompensated liver cirrhosis and unstable acute anemia with high risk of clinical deterioration and need for vasopressors and additional life saving measures. He requires q1hr vital signs.
Critical care statement: A total of 40 minutes of critical care time was provided for this patient today. This includes management of unstable vital signs, evaluation of the patient at bedside, reviewing the patient's pertinent medical records
including radiographs, microbiology, laboratory evaluations, and discussion with primary team, consultants, pharmacy, nutrition, physical therapy, case management, charge nurse, critical care nursing, and respiratory therapy.
Data:
Abd US with dopplers 01-17-2024:
No TIPS catheter is demonstrated.
There is moderate-large volume ascites
There is cirrhosis
There is cholelithiasis
There is dilatation of the common duct to 9 mm suggesting possible distal biliary obstruction which, if clinically indicated, could be further evaluated with MRCP
Abd US 01-16-2024: Large volume ascites.
CXR 01-16-2024:
Extremely low lung volumes with elevation of right hemidiaphragm again noted.
Pulmonary vascularity within the limits of normal.
Mild right basilar subsegmental atelectasis and scarring.
[2024-01-17] MEDS: SANDOSTATIN 500.600000000000023 MCG IV ×2 (08:59→21:05)
[2024-01-17] MEDS: PROTONIX 100 IV ×3 (09:04→18:38)
--- NOTE | 2024-01-17 09:11 | CON.GI ---
Addendum entered and electronically signed by Toña Rosales MD 01/17/24 13:42:
I saw and examined the patient.
The CHIEF SECURITY OFFICER's note was reviewed and I agree with the note.
Comment: This is a 33-year-old Uruguayan-speaking male with history of decompensated alcohol cirrhosis with prior history of esophageal varices and upper GI bleed status post banding April 2023 and subsequently was transferred to [place] to
evaluate for TIPS unfortunately continues to use alcohol, hepatic encephalopathy and recurrent ascites he also had a perforated bowel in August 2023 from strangulated umbilical hernia and was emergently transferred to [place] for surgery. He now
presents with ascites and had paracentesis today with 10 L removed and also was having symptoms of coffee-ground emesis and dark stool today.
Assessment and plan 1 dark stools with coffee-ground emesis his hemoglobin though is close to baseline from his prior admissions. He does have a history of portal gastropathy and esophageal varices which were banded in April 2023 will schedule
him for repeat endoscopy. Will start prophylactic antibiotics X 7 days for cirrhosis and GIB. Continue PPI gtt and Octreotide gtt. not a candidate for beta-blockers given recurrent large volume ascites
2 decompensated alcoholic cirrhosis with prior history of hepatic encephalopathy and also recurrent ascites and has required paracenteses multiple times in the past he did have a repeat paracentesis today with 10 L drained will follow-up on cell
counts to rule out SBP and give albumin replacement. Unfortunately continues to drink advised strict alcohol abstinence. Continue thiamine and folic acid. Also continue Xifaxan, currently no HE.
Addendum entered and electronically signed by AMINA Canales 01/17/24 10:35:
10 liters removed in para will add albumin replacement await cell counts
Original Note:
Consultation
-
Date/Time Consultation Requested: 01/16/24 2300
Date/Time Consultation Performed: 01/17/24 0900
Requesting Provider: Mu Granados MD
Performing Provider: AMINA Teague, Toña Rosales MD
Reason for Consultation: hematemesis, abd distention
Medical History
Chief Complaint / HPI
Chief Complaint: abdominal pain
History of Present Illness:
Pt is a 33yo with hx ETOH cirrhosis with decompensation with continued ETOH use, prior UGI bleed with variceal banding (apr 2023), ascites, hepatic encephalopathy, tx to [place] several months ago for evaluation for TIPS procedure in April
and ? hernia repair in August presents with abdominal pain, shortness of breath, vomiting dark emesis. In reviewing with patient via language line he admits to ETOH 3 days prior to admission.
He admits to dizziness, occasional dysphagia, abdominal pain with distention, and diarrhea with dark stools and black stool this am per staff. He denies issue with GERD and constipation. Last EGD 04/22/23, Dr. Kim: Grade II esophageal
varices. Banded. Esophageal plaques were found, consistent with� candidiasis. Erythematous mucosa in the stomach. Portal hypertensive gastropathy. Normal examined duodenum. No specimens collected-- after EGD noted with spurting blood treated with
additional bands. On admission US with marked ascites. hbg 7.3, platelets 107, Na 128, K 3.5, creat 0.8, bili 3.6, AST 56, ALT 21, alk phos 140 albumin 2.5.
Past Medical History
Past Medical History: Other (cirrhosis with decompensation with GI bleed, EV with banding, ascites, and HE)
Past Surgical History: Other (hernia repair August 2023)
Social History
Tobacco: Non-Smoker
Alcohol: Chronic Alcoholic (last ETOH 3 days prior to admission - beer )
Drug: None
Living: With Family (father )
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
Family History
Family History: Other (uncle with cirrhosis )
Allergies / Home Medications
Allergy/AdvReac Type Severity Reaction Status Date / Time
No Known Allergies Allergy Verified 12/16/23 18:45
�Medication �Instructions �Recorded
ciprofloxacin HCl 500 mg tablet 500 mg PO DAILY #30 tabs 11/19/23
furosemide 40 mg tablet 40 mg PO DAILY #30 tabs 11/19/23
lactulose 20 gram/30 mL oral 20 g (30 mL) PO BID #1,200 mL 11/19/23
solution
pantoprazole 40 mg tablet,delayed 40 mg PO DAILY #30 tabs 11/19/23
release
spironolactone 50 mg tablet 100 mg (2 x 50 mg) PO DAILY #30 11/19/23
tabs
thiamine HCl (vitamin B1) 100 mg 100 mg PO DAILY #30 tabs 11/19/23
tablet
bisacodyl 10 mg rectal suppository 10 mg PA [id number] PRN constipation 12/19/23
#0 ea
folic acid 1 mg tablet 1 mg PO DAILY #0 tabs 12/19/23
neomycin-bacitracn Zn-polymyx 3.5 1 applic topical BID #14.2 grams 12/19/23
mg-400 unit-5,000 unit/gram top
oint (Neosporin ([id number]))
polyethylene glycol 3350 17 gram 17 g PO DAILYPRN PRN constipation 12/19/23
oral powder packet (HealthyLax) #0 ea
sennosides 8.6 mg-docusate sodium 1 tab PO BIDPRN PRN constipation 12/19/23
50 mg tablet #0 tabs
Review of Systems
-
History Source: Patient
Constitutional: Reports Weight Gain
EENT: Reports No Symptoms
Respiratory: Reports Trouble Breathing
Abdomen/GI: Reports Nausea, Vomiting, Diarrhea and Black Stools
: Reports No Symptoms
Musculoskeletal: Reports No Symptoms
Skin: Reports No Symptoms
Neurological: Reports Dizzy and Weakness
Hematologic/Lymphatic: Reports Bleeding
Vital Signs
Temp Pulse Resp BP Pulse Ox
98.1 F 95 17 133/106 97
01/17/24 07:55 01/17/24 09:00 01/17/24 09:00 01/17/24 09:00 01/17/24 09:00
Physical Exam
Exam
General: Other (ill appearing, jaundice )
HEENT: Other (jaundice )
Respiratory: Other (decreased )
Cardiac: Other (tachy)
GI: Soft, Tender (minimal ) and Distended
Rectal: Other (black this am per nursing staff)
Musculoskeletal: No Clubbing and No Cyanosis
Skin: Warm and Dry
Neuro: Awake, Alert and Other (upper sorbian speaking with conversation with natural resource specialist)
Psych: Calm
Results
WBC 12.8 10^3/uL (4.8-10.8) H 01/17/24 05:14
Hgb 8.4 g/dL (13.0-18.0) L 01/17/24 05:14
Hct 23.1 % (39.0-52.0) L 01/17/24 05:14
MCV 86.2 fL (80.0-94.0) 01/17/24 05:14
Plt Count 85 10^3/uL (130-400) L D 01/17/24 05:14
Absolute Neuts (auto) 10.0 10^3/uL (1.4-6.5) H 01/17/24 05:14
PT 21.4 Sec (11.4-14.6) H 01/16/24 20:00
INR 1.87 01/16/24 20:00
APTT 36.2 Sec (23.4-35.0) H 01/16/24 20:00
Sodium 128 mmol/L (135-145) L 01/17/24 05:14
Potassium 3.9 mmol/L (3.5-5.1) 01/17/24 05:14
Chloride 96 mmol/L (98-107) L 01/17/24 05:14
Carbon Dioxide 23 mmol/L (22-30) 01/17/24 05:14
BUN 36 mg/dl (9-20) H 01/17/24 05:14
Creatinine 1.0 mg/dL (0.7-1.3) 01/17/24 05:14
Calcium 8.0 mg/dl (8.4-10.2) L 01/17/24 05:14
Total Bilirubin 4.3 mg/dl (0.2-1.3) H 01/17/24 05:14
AST 63 U/L (17-59) H 01/17/24 05:14
ALT 22 U/L (0-50) 01/17/24 05:14
Alkaline Phosphatase 149 U/L (38-126) H 01/17/24 05:14
Diagnostic Image Results:
01/16/24 CXR
Extremely low lung volumes with.
Elevation of right hemidiaphragm again noted.
Pulmonary vascularity within the limits of normal.
Mild right basilar subsegmental atelectasis and scarring.
01/16/24 US abdomen large volume ascites
12/17/23 para 7300ml
08/21/2023 CT A/P: 'There is minimal free intraperitoneal air suggesting the presence of perforated abdominal viscus. There is soft tissue with internal gas presumably reflecting bowel in the patient's 3.5 cm umbilical hernia with bowel appearing to
extend beyond the skin surface. This may be the origin of the free intraperitoneal air. There is moderate volume ascites throughout the abdomen and pelvis, decreased in volume when compared with the prior study with associated anasarca. While the
liver has a normal appearance, the presence of significant ascites and splenomegaly raises concern for liver failure.'
Prior GI Procedures:
EGD: 04/22/23, Dr. Kim: Grade II esophageal varices. Banded. Esophageal plaques were found, consistent with� candidiasis. Erythematous mucosa in the stomach. Portal hypertensive gastropathy. Normal examined duodenum. No specimens collected
Colonoscopy: none
Assessment / Plan
-
Pt is a 33yo with hx ETOH cirrhosis with decompensation with continued ETOH use, prior UGI bleed with variceal banding (apr 2023), ascites, hepatic encephalopathy, tx to [place] several months ago for evaluation for TIPS procedure in April
and ? hernia repair in August presents with abdominal pain, shortness of breath, vomiting dark emesis. In reviewing with patient via language line he admits to ETOH 3 days prior to admission. Last EGD 04/22/23, Dr. Kim: Grade II esophageal
varices. Banded. Esophageal plaques were found, consistent with� candidiasis. Erythematous mucosa in the stomach. Portal hypertensive gastropathy. Normal examined duodenum. No specimens collected-- after EGD noted with spurting blood treated with
additional bands. On admission US with marked ascites. hbg 7.3, platelets 107, Na 128, K 3.5, creat 0.8, bili 3.6, AST 56, ALT 21, alk phos 140 albumin 2.5. MELD 3.0 24 on admission
-decompensated cirrhosis with continued ETOH ses
-intractable ascites
-hematemesis./black stools
-leukocytosis
-LE edema
-GI bleed 04/2023 with EV with bleeding/banding transfer to [place]
-hx HE
-continued ETOH abuse
-anemia
-hyponatremia
-coagulopathy
-thrombocytopenia
PLAN:etiology of symptoms with concern for recurrent ascites in setting of continued decompensated cirrhosis with concurrent bleeding
plan for paracentesis this am to eval for SBP with leukocytosis, will likely need albumin replacement post para
possible EGD later today vs tomorrow- sooner if continued vomiting only minimal overnight with black stool this am
cont NPO
cont PPI and octeotide gtt
MELD NA 24 on admission
diuretics on hold
discussed Need for ETOH abstinence and severity of disease with risk of with continued ETOH use
offered to call family to discuss status -- pt declines
cont Xifaxan BiD and monitor mental status
monitor for withdrawal
cont thiamine and folate
requested [place] records to confirm no prior tips placed and ? hernia repair last August
close follow
-
-
Thank you for consultation and allowing me to participate in the patient's care. Please call the client application support specialist GI physician during the after hours with any questions or concerns.
[2024-01-17 10:46] LABS: Body Fluid Mononuclear 93.3 %; Body Fluid Polymorphonuclear 6.7 %; Body Fluid WBC 30 /CUMM
[2024-01-17 10:59] LABS: Body Fluid Albumin < 1.0 g/dl; Body Fluid Amylase < 30 U/L; Body Fluid LDH < 90 U/L; Body Fluid Protein < 2.0 g/dl
[2024-01-17 11:00] LABS: Body Fluid Second Tech AMA
[2024-01-17] MEDS: NSS 1000 IV ×2 (11:09→21:06)
[2024-01-17] MEDS: FLEXBUMIN 100 IV ×2 (11:17→13:11)
[2024-01-17] MEDS: FLEXBUMIN 50 IV (11:51)
--- NOTE | 2024-01-17 12:30 | PTCARENOTE ---
pt had paracentesis preformed, 10L removed, pt tolerated procedure, PRN pain meds given, currently down in GI lab.
--- NOTE | 2024-01-17 13:18 | CM ---
CM following re: discharge planing.
Reviewed pt's chart, met with pt and spoke to pt's sister's GRACE Valdes.
Pt is a 33 year old Dutch speaking male, admitted with primary dx of Hematemesis
Pt is well known to this CM from previous admission. CM spoke pt's sister Maira Valdes (cell [phone]) who stated he brought pt to yesterday. Pt was born and grew up in [place],arrived to [place] [facility] at the age of 18, remains undocumented
immigrant, lives with a friend in an apartment in [place] and has supportive sister Maira. Per Lucio, pt is single and has no children.
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 Patient does not work and has no insurance. He has PCP and uses [facility] pharmacy in [place].
As per prior CM notes, patient has been referred to [facility] in prior admissions. He has also been referred to [facility] in prior admissions and has declined referrals for alcohol related treatment.
Pt referred to [facility]
D/C plan: most likely home with sister and friends support and to follow up with [facility].
CM will follow with discharge plan updates as hospitalization progresses
--- NOTE | 2024-01-17 16:00 | PTCARENOTE ---
pt continues to c/o ABD pain, PRN meds given, Ultrasound was completed, no other changes at this time, call peraza in reach.
[2024-01-17 16:14] LABS: Hematocrit 21.9 % (39.0-52.0); Hemoglobin 7.7 g/dL (13.0-18.0); Mean Corp Hgb Conc. 35.2 g/dL (33.0-37.0); Mean Corpuscular Hgb 31.2 pg (27.0-31.0); Mean Corpuscular Volume 88.7 fL (80.0-94.0); Mean Platelet Volume 9.5 fL (7.4-10.4); Platelet Count 62 10^3/uL (130-400); Red Blood Cell Count 2.47 10^6/uL (4.70-6.10); Red Cell Dist. Width 17.5 % (11.5-14.5); White Blood Cell Count 9.7 10^3/uL (4.8-10.8)
--- NOTE | 2024-01-17 17:03 | W.PN.HOSP.TC ---
Today's Communication/Plan
-
follow Hgb
NPO
continue in ICU
Assessment / Plan
Assessment / Plan
Hematemesis
#History of esophageal varices status post banding
-Hemoccult positive
-N.p.o.
-2 units of blood given
-Protonix drip
-Octreotide drip
# Decompensated alcoholic liver cirrhosis with ascites
# Hepatic encephalopathy
-Ammonia level 45
-INR 1.87
-Lactic acid 4-->3.0-->1.3
-Check blood cultures
-Chest x-ray unremarkable
-IV fluids given
-Liver ultrasound pending
-Empiric ceftriaxone to cover for SBP
-IR consulted for paracentesis
10 liters removed
-N.p.o.
-Continue lactulose, add Xifaxan
-Hold Lasix, spironolactone
-GI consulted
discussed with Bobby
Chronic anemia
-Hemoglobin 7.3-->8.4-->7.7
discussed with GI, requests NPO post midnight, but hold on further blood for now
Chronic thrombocytopenia secondary to cirrhosis
-Stable
Worsening of chronic hyponatremia secondary to GI losses
-Monitor with IV fluids
Alcohol use disorder
-Check alcohol, UDS
-Thiamine and folate
-Alcohol withdrawal protocol
History of umbilical hernia
Total Critical Care Time 45 minutes. I was immediately available to the patient and staff. I personally examined, reviewed labs, diagnostic images/reports, interpretations, treatment plans, discussed patient care with other providers and family
or caregivers (if patient is unable to make decisions), entered orders as appropriate and documented the medical record.
Full code
DVT prophylaxis�SCDs
NPO
Anticipated Discharge: > 48 hours
Subjective/Interval History
-
Date of Service: January 17, 2024
Not in distress
Objective Data
-
Labs:
Laboratory Results
01/17/24 01/17/24
05:14 16:02
WBC 12.8 H 9.7
Hgb 8.4 L 7.7 L
Hct 23.1 L 21.9 L
Plt Count 85 L D 62 L D
Sodium 128 L
Potassium 3.9
Chloride 96 L
Carbon Dioxide 23
BUN 36 H
Creatinine 1.0
Glucose 119 H
Calcium 8.0 L
Total Bilirubin 4.3 H
AST 63 H
ALT 22
Alkaline Phosphatase 149 H
Vital Signs:
Vital Signs
Temp Pulse Resp BP Pulse Ox
98.3 F 95 12 109/75 93
01/17/24 11:42 01/17/24 16:45 01/17/24 16:45 01/17/24 16:45 01/17/24 16:45
I&O
01/16/24 01/17/24 01/18/24
06:59 06:59 06:59
Intake Total 1740.2 / 1871.9 1567.0 / 1567.0
Output Total 350 / 350 300 / 300
Balance 1390.2 / 1521.9 1267.0 / 1267.0
Review of Systems
-
History Source: Coordinated Provider
Constitutional: Denies Fever
Respiratory: Reports No Symptoms
Cardiac: Reports No Symptoms
Abdomen/GI: Reports No Symptoms; Denies Abdominal Pain
Physical Exam
-
General: Well Developed, Well Nourished and No Apparent Distress
HEENT: Normocephalic, Atraumatic and Moist Mucous Membranes
Respiratory: Clear to Auscultation; Negative Wheezes, Rales or Rhonchi
Cardiac: Regular Rhythm and S1/S2
GI: Soft, Nontender and Nondistended
Musculoskeletal: No Clubbing, No Cyanosis and No Edema
[2024-01-17] MEDS: VANCOCIN 300 MG IV (18:44)
[2024-01-17] MEDS: VANCOCIN 300 ML IV (18:44)
[2024-01-17] MEDS: XIFAXAN PO (19:48)
--- NOTE | 2024-01-17 19:56 | PHA.VAN.IN ---
Assessment
- Assessment
Renal Function: Appears elevated from baseline (~0.6)
Concomitant Antimicrobials: ceftriaxone
Plan
- Plan
Initial / Loading Dose: vanc 1500mg administered @ 1843
Maintenance Regimen: dosing by level for now
Monitoring: random level 01/17 600
Pharmacokinetics Vancomycin I
- -
Patient Age: 33
Patient Sex: Male
Vancomycin Day #: 1
Indication: Bacteremia
Requesting Provider: Dr. Valenzuela
Pertinent Antimicrobial Allergies:
no pertinent antimicrobial allergies
Height / Weight:
Actual Weight 62.6 kg
- Vital Signs / Lab Results
Temp Pulse Resp BP Pulse Ox
98.2 F 86 11 116/64 94
01/17/24 15:57 01/17/24 19:30 01/17/24 19:30 01/17/24 19:30 01/17/24 19:30
Lab Results - Hematology
01/16/24 01/17/24 01/17/24
19:47 05:14 16:02
WBC 11.1 H 12.8 H 9.7
Lab Results - Chemistry
01/16/24 01/16/24 01/17/24
19:47 20:24 05:14
BUN Cancelled 28 H 36 H
Creatinine Cancelled 0.8 1.0
Estimated Creat Clear Cancelled
Albumin Cancelled 2.5 L 2.6 L
01/16/24 01/16/24 01/17/24
20:09 21:52 05:14
Lactic Acid 4.0 H* 3.0 H 1.3
Microbiology Results
01/16/24 20:24 Blood Culture - Preliminary
Blood/Venous Positive culture in progress
Gram Stain - Preliminary
01/17/24 09:45 Gram Stain - Preliminary
Peritoneal Fluid
--- NOTE | 2024-01-17 20:00 | PTCARENOTE ---
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 IV x 3 patent- Protonix gtt, Octreotide gtt, NSS infusing per work list. pt c/o 02/26 abd pain- prn dilaudid given as documented in OCT. call peraza with patient, bed alarm on.
[2024-01-17] MEDS: ROCEPHIN 2000 MG IV (21:05)
[2024-01-17] MEDS: STERILE WATER FOR INJECTION 20 ML IV (21:05)
[2024-01-17 21:20] LABS: Mean Corp Hgb Conc. 36.3 g/dL (33.0-37.0); Mean Corpuscular Hgb 31.7 pg (27.0-31.0); Mean Corpuscular Volume 87.2 fL (80.0-94.0); Mean Platelet Volume 9.1 fL (7.4-10.4); Platelet Count 47 10^3/uL (130-400); Red Blood Cell Count 2.18 10^6/uL (4.70-6.10); Red Cell Dist. Width 17.7 % (11.5-14.5); White Blood Cell Count 7.2 10^3/uL (4.8-10.8)
[2024-01-17 21:22] LABS: Hemoglobin 6.9 g/dL (13.0-18.0)
--- NOTE | 2024-01-17 21:50 | PTCARENOTE ---
2100 hgb recheck 6.9, 1 u PRBC started.
[2024-01-17 22:54] LABS: Urine Albumin Negative (Neg - Trace); Urine Bilirubin 1+ (Negative); Urine Character Clear (Clear); Urine Color Yellow; Urine Glucose Negative (Negative); Urine Ketone 1+ (Negative); Urine Leukocyte Trace (Negative); Urine Nitrite Negative (Negative); Urine Occult Blood Negative (Negative); Urine Specific Gravity 1.015 (<1.030); Urine Urobilinogen Negative (Neg - 1+)
[2024-01-17 23:05] LABS: Urine Squamous Cell 0-2 /LPF (Few)
[2024-01-17 23:07] LABS: Urine Red Blood Cell 0-2 /HPF (0-2)
[2024-01-17 23:08] LABS: Urine Bacteria Moderate (Negative)
[2024-01-18] VITALS (17 sets, daily range): BP systolic 103–143; BP diastolic 67–91
[2024-01-18] MEDS: DILAUDID 0.5 MG IV ×5 (00:05→18:07)
--- NOTE | 2024-01-18 00:05 | PTCARENOTE ---
Reassessed, PRBC complete, prn dilaudid for 8/10 B/L upper abd pain, no further changes.
[2024-01-18 03:02] LABS: Hematocrit 22.6 % (39.0-52.0); Hemoglobin 8.2 g/dL (13.0-18.0); Mean Corp Hgb Conc. 36.3 g/dL (33.0-37.0); Mean Corpuscular Hgb 31.2 pg (27.0-31.0); Mean Corpuscular Volume 85.9 fL (80.0-94.0); Platelet Count 57 10^3/uL (130-400); Red Blood Cell Count 2.63 10^6/uL (4.70-6.10); Red Cell Dist. Width 17.4 % (11.5-14.5); White Blood Cell Count 6.7 10^3/uL (4.8-10.8)
[2024-01-18 03:11] LABS: INR 1.94
--- NOTE | 2024-01-18 03:15 | PTCARENOTE ---
no changes in pt assessment, CHG cloths, new linen, mouth care; denies pain at this time, am labs sent, call peraza with patient.
[2024-01-18 03:25] LABS: Vancomycin Random 17.7 ug/ml
[2024-01-18 03:29] LABS: ALT (SGPT) 17 U/L (0-50); AST (SGOT) 50 U/L (17-59); Albumin 2.7 g/dl (3.5-5.0); Alkaline Phosphatase 97 U/L (38-126); Blood Urea Nitrogen 25 mg/dl (9-20); Calcium 7.8 mg/dl (8.4-10.2); Carbon Dioxide 24 mmol/L (22-30); Chloride 99 mmol/L (98-107); Glucose 99 mg/dl (70-99); Magnesium 1.6 mg/dl (1.6-2.3); Phosphorus 2.7 mg/dl (2.5-4.5); Potassium 3.1 mmol/L (3.5-5.1); Sodium 130 mmol/L (135-145); Total Bilirubin 3.4 mg/dl (0.2-1.3); Total Protein 5.6 g/dl (6.3-8.2); eGFR > 60.00
[2024-01-18 04:05] LABS: AFP Male/Tumor Marker 1.74 ng/ml
[2024-01-18] MEDS: PROTONIX 100 IV (04:14)
[2024-01-18] MEDS: MAGNESIUM SULFATE 102 GRAMS IV (04:56)
[2024-01-18] MEDS: KCL ELIXIR 40 MEQ PO (04:56)
--- NOTE | 2024-01-18 05:31 | W.PN.GI.CBS2 ---
Today's Communication / Plan
-
See assessment and plan for details.
Assessment / Plan
-
1. Cirrhosis: Secondary to alcohol, decompensated with previous esophageal varices status post banding and ascites. There is no signs of active GI bleeding now, with scars from previous banding sites, small varices without stigmata of bleeding, no
gastric varices or signs of blood in the stomach. He did have some blood in the oropharynx and his bleeding could have been more from oropharyngeal in the setting of thrombocytopenia and coagulopathy rather than GI, now stable after 3 units in
total. He is status post paracentesis, without SBP and overall doing okay. Ultrasound with Doppler shows no TIPS as it was a question about whether not he received this when he was transferred to [place] last time. At this point can stop
octreotide, continue PPI twice daily. He states he does not follow-up with a physician, unclear if he was taking medicines at home, though would restart Lasix and Aldactone, advance diet and continue observation for now.
Subjective
Subjective
Date of Service: January 18, 2024
No events overnight, no vomiting or bowel movements per nursing or the patient. Received 1 unit PRBC and responded more than appropriately. His pain is much improved status post paracentesis. Endoscopy showed scars from previous banding, small
varices, without gastric varices or signs of recent GI bleeding, though did have blood in his oropharynx.
Objective
Data Reviewed
Laboratory Data:
Laboratory Results
01/18/24 02:48
01/18/24 02:48
Laboratory Results
PT 22.0 Sec (11.4-14.6) H 01/18/24 02:48
INR 1.94 01/18/24 02:48
APTT 36.2 Sec (23.4-35.0) H 01/16/24 20:00
Phosphorus 2.7 mg/dl (2.5-4.5) 01/18/24 02:48
Magnesium 1.6 mg/dl (1.6-2.3) 01/18/24 02:48
Total Bilirubin 3.4 mg/dl (0.2-1.3) H 01/18/24 02:48
AST 50 U/L (17-59) 01/18/24 02:48
ALT 17 U/L (0-50) 01/18/24 02:48
Alkaline Phosphatase 97 U/L (38-126) 01/18/24 02:48
Vital Signs and I&O:
Vital Signs
Temp Pulse Resp BP Pulse Ox
97.9 F 88 19 116/75 96
01/18/24 03:07 01/18/24 04:15 01/18/24 04:15 01/18/24 04:00 01/18/24 04:15
I&O
01/16/24 01/17/24 01/18/24
06:59 06:59 06:59
Intake Total 1740.2 / 1871.9 3897.4 / 3897.4
Output Total 350 / 350 650 / 650
Balance 1390.2 / 1521.9 3247.4 / 3247.4
Physical Exam
Physical Exam
General: NAD
Abdomen: normal bowel sounds, soft, minimal epigastric tenderness, no masses or bruits, mild ascites
[2024-01-18] MEDS: LASIX 40 MG PO (07:33)
[2024-01-18] MEDS: THIAMINE INJECTION 100 MG IV (07:33)
[2024-01-18] MEDS: ALDACTONE 100 MG PO (07:33)
[2024-01-18] MEDS: FOLVITE 1 MG PO (07:33)
[2024-01-18] MEDS: XIFAXAN 550 MG PO ×2 (07:34→21:17)
--- NOTE | 2024-01-18 09:31 | PN.CDI ---
CDI
- -
CDI:
Physician Documentation Request
Admit Date: 01/16/24 21:11
Dear Doctor Yonas,
Clinical Indicators:
Patient admitted with hematemesis and decompensated alcoholic cirrhosis.
01/16 note/assessment: -'Significant 26.8% weight loss over 6months.'
-'Pt meets criteria for severe protein calorie malnutrition of chronic illness with
>10% wt loss x 6months, prolonged inadequate energy intake prior to hospital
admit <75% for >1month, severe fluid/ascites accumulation.'
Based on the information, which of the following most accurately represents the patient's nutritional status?
Severe Protein Calorie Malnutrition
Moderate Protein Calorie Malnutrition
Other (please specify)
[place] Criteria ([facility] Hospitalist 2017)
2 or more criteria must be present for either
non severe or severe malnutrition
Note that the criteria differs related to the
presence of an acute or chronic illness
Acute Illness Chronic Illness
Energy Intake Non Severe: <75% for >7 days Non Severe: <75% for >1 month
Severe: <50% for >5 days Severe: <75% for >1 month
Weight Loss Non Severe: 1-2% over 1 week Non Severe: 5% over 1 month
5% over 1 month 7.5% over 3 months
7.5% over 3 months 10% over 6 months
1 year N/A 20% over 1 year
Severe: >2% over 1 week Severe: >5% over 1 month
>5% over 1 month >7.5% over 3 months
>7.5% over 3 months >10% over 6 months
1 year N/A >20% over 1 year
Body Fat Non Severe: Mild Decrease Non Severe: Mild Loss
Severe: Moderate Decrease Severe: Severe Loss
Muscle Mass Non Severe: Mild Decrease Non Severe: Mild Loss
Severe: Moderate Decrease Severe: Severe Loss
Fluid Accumulation Non Severe: Mild Accumulation Non Severe: Mild Accumulation
Severe: Moderate to severe Severe: Moderate to severe
accumulation accumulation
Reduced Pourer Crane Ladle Strength Non Severe: N/A Non Severe: N/A
Severe: Measurably reduced Severe: Measurably reduced
Additional criteria that can be used to Determine if Mild or Moderate Malnutrition ([employer]ck Manual 2018)
Mild Moderate Severe
Albumin gm/dl <3.0 gm/dl <2.5 gm/dl <2.0 gm/dl
Pre Albumin mg/dl <15 gm/dl <10 mg/dl <5.0 mg/dl
BMI <18.5 <17 <16
Use of terms such as suspected, likely, concern for, or probable (associated with a specific diagnosis that is being evaluated, monitored, or treated as if it exists) are acceptable and can be coded in the inpatient setting, when documented at the
time of discharge.
Thank you,
MAUREEN Valdez RN
CDI Specialist
available via tiger text
Please use your independent medical judgment in providing your response.
--- NOTE | 2024-01-18 09:48 | PN.CDI ---
CDI
- -
CDI:
Physician Documentation Request
Admit Date: 01/16/24 21:11
Dear Doctor Yonas,
Clinical Indicators:
Patient admitted with hematemesis and decompensated alcoholic cirrhosis.
01/16 PN, 'Alcohol use disorder'
01/15-01/16 MSAS scores: 3- 8 (tachycardia, constant nausea, diaphoresis, increased activity)
01/15 Ativan 1 mg IV x 1 dose.
Please provide further specificity as outlined below:
Alcohol use disorder with dependence & withdrawal
Alcohol use disorder with dependence only
Alcohol use disorder only
Other, please specify
Use of terms such as suspected, likely, concern for, or probable (associated with a specific diagnosis that is being evaluated, monitored, or treated as if it exists) are acceptable and can be coded in the inpatient setting, when documented at the
time of discharge.
Thank you,
MAUREEN Valdez RN
CDI Specialist
available via tiger text
Please use your independent medical judgment in providing your response.
--- NOTE | 2024-01-18 11:28 | W.PN.INTV ---
Today's Communication / Plan
Recommendations
Transferred to [facility]
Monitor H&H
Alcohol withdrawal protocol
Monitor electrolytes
Vancomycin for now until cultures finalize
Ceftriaxone for SBP prophylaxis
Continue PPI
Sign off
Assessment
-
Assessment: 33-year-old male with a past medical history of decompensated alcoholic cirrhosis who presents with shortness of breath, nausea and vomiting for the last few days. He says he drank 4 days ago. In the ER he had heme positive dark stool
on rectal exam, and also vomited coffee-ground liquids. Hb was 7.3 with a platelet count of 107. INR 1.87. He had positive opiates and benzodiazepines on his UDS. Alcohol screen was negative. Blood cultures were collected. Abdominal ultrasound
showed large volume ascites, and CXR showed low lung volumes with right hemidiaphragm elevation which was seen on prior CXR's. He was given morphine in the ER + Zofran, and started on PPI gtt and octretoide gtt. Considering his history of
decompensated alcoholic cirrhosis with concern for upper GI bleed, he was admitted to the ICU for further care and critical care services consulted for additional management/recommendations.
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
chronic hyponatremia
Impression:
#Acute anemia suspected to be from hematemesis
#Upper gastrointestinal hemorrhage likely due to esophageal varices versus PUD versus Sara-Taylor
#Decompensated alcoholic cirrhosis with Hx of EV s/p banding (04/2023), HE and recurrent ascites
#Elevated right hemidiaphragm likely due to recurrent ascites vs phrenic nerve dysfunction
#Hypochloremic, hyponatremia - due to cirrhosis and is chronic (baseline sNa 125-131)
#Positive blood culture/GPC in clusters from 01/16/2024
#Lactic acidosis � resolved
#Transaminitis with hyperbilirubinemia and elevated ammonia � due to acute decompensated liver cirrhosis
Plan:
Clinically hemodynamically stable overnight
No further bleeding
GI correspondence reviewed: No evidence for acute bleeding on EGD.
Diet has been advanced and he is tolerating
No further transfusions
-
Ascitic fluid without peritonitis.
Prophylactic antibiotics started Rocephin.
Started IV vanc given (+) blood Cx with GPC in clusters - could be a contaminant but unknown if MRSA; continue IV vancomycin until BCx speciates
Urinalysis noted with bacteria but no WBCs.
Follow cultures.
-
GI following--> patient underwent EGD today with grade 1 esophageal varices seen with no stigmata of recent bleeding, also portal hypertensive gastropathy, scar seen in the middle/lower third of his esophagus due to prior banding, with a normal
examined duodenum.
no evidence for prior TIPS.
PPI-consider transition to twice daily dosing of steroid drip.
off octreotide
-
Trend H/H q6-8 hrs and transfuse to keep Hb>7g/dL;
Status post 3 units of packed red blood cell.
Currently without active bleeding
-Alert, following commands.
- MSAS, folate, MVN and thiamine
IR for paracentesis --> removed 10L of ascitic fluid. Fluid was clear, yellow and sent for cultures and cytopathology. No evidence for SBP
Continue rifaximin
Lactulose as
-
- Replete electrolytes with K>4, Mg>2
- Maintain euglycemia with goal BG 140-180
- Incentive spirometer
- DVT ppx
Transferred to [facility]. Critical care team will sign off at this point.

Data:
Abd US with dopplers 01-17-2024:
No TIPS catheter is demonstrated.
There is moderate-large volume ascites
There is cirrhosis
There is cholelithiasis
There is dilatation of the common duct to 9 mm suggesting possible distal biliary obstruction which, if clinically indicated, could be further evaluated with MRCP
Abd US 01-16-2024: Large volume ascites.
CXR 01-16-2024:
Extremely low lung volumes with elevation of right hemidiaphragm again noted.
Pulmonary vascularity within the limits of normal.
Mild right basilar subsegmental atelectasis and scarring.
Subjective Dataa
Subjective Data
Date of Service:
Date of Service: January 18, 2024
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
Subjective:
Patient feels better
Tolerating breakfast
Denies nausea or vomiting
No further bleeding
Review of Systems
General: Fever (nn)
Cardiopulmonary: Dyspnea (n), Dyspnea on Exertion (n) and Cough (n)
GI: Abdominal Pain (n)
Objective Data
Data Reviewed
Vital Signs / I&O / Oxygen:
Vital Signs
Temp Pulse Resp BP Pulse Ox
97.6 F 72 8 123/79 95
01/18/24 07:57 01/18/24 11:00 01/18/24 11:00 01/18/24 11:00 01/18/24 11:00
Intake and Output
01/17/24 01/18/24 01/19/24
06:59 06:59 06:59
Intake Total 1740.2 / 1871.9 4160.8 / 4250.8 450 / 450
Output Total 350 / 350 650 / 650 215 / 215
Balance 1390.2 / 1521.9 3510.8 / 3600.8 235 / 235
SaO2 95
Nasal Cannula flow liters per 2
minute
Physical Exam
General: Respiratory Distress (n), Comfortable and Other (Cachectic)
HEENT: Normocephalic
Cardiovascular: S1-S2
Respiratory: Clear and Non-Labored Respirations
GI: Distended (Ascites)
Neurology: Awake and Alert
Labs/Micro/Reports
Lab Data
01/18/24 02:48
01/18/24 02:48
Laboratory Results
01/18/24
02:48
PT 22.0 H
INR 1.94
Microbiology
01/17/24 09:45 Peritoneal Fluid Body Fluid Culture - Preliminary
No Growth After 18-24 Hours
01/17/24 09:45 Peritoneal Fluid Gram Stain - Preliminary
01/16/24 20:09 Blood/Venous Blood Culture - Preliminary
No Growth in 24 hours- Final report to follow
01/16/24 20:24 Blood/Venous Blood Culture - Preliminary
Positive culture in progress
01/16/24 20:24 Blood/Venous Gram Stain - Preliminary
--- NOTE | 2024-01-18 11:47 | PHA.VAN.FU ---
Vancomycin Assessment / Plan
- Assessment
Renal Function: SCR Decreasing
WBC's are: WNL
In the past 24 hrs, patient has been: Afebrile
Concomitant Antimicrobials: ceftriaxone
- Assessment - Therapeutic Drug Monitoring
Random Level: 17.7 - drawn ~8H after 1500mg loading dose
- Dosing Plan
Adjust Regimen to: Vanc 1000mg Q12H starting at 1800
New Regimen Predicts: AUC (520), Peak (35.9), Trough (11.5)
- Monitoring Plan
No level(s) ordered at this time: consider levels in next few days
- Follow Up
Pharmacy will continue to follow.
Vancomycin Follow UP
- -
Patient Age: 33
Patient Sex: Male
Vancomycin Day #: 2
Indication: Bacteremia
Requesting Provider: Dr. Valenzuela
Pertinent Antimicrobial Allergies:
NKDA
Height / Weight:
Height 5 ft 5 in
Actual Weight 55.7 kg
- Vital Signs / Lab Results
Temp Pulse Resp BP Pulse Ox
97.6 F 72 8 123/79 95
01/18/24 07:57 01/18/24 11:00 01/18/24 11:00 01/18/24 11:00 01/18/24 11:00
Lab Results - Hematology
01/16/24 01/17/24 01/17/24
19:47 05:14 16:02
WBC 11.1 H 12.8 H 9.7
01/17/24 01/18/24
21:06 02:48
WBC 7.2 6.7
Lab Results - Chemistry
01/16/24 01/16/24 01/17/24
19:47 20:24 05:14
BUN Cancelled 28 H 36 H
Creatinine Cancelled 0.8 1.0
Estimated Creat Clear Cancelled
Albumin Cancelled 2.5 L 2.6 L
01/18/24
02:48
BUN 25 H
Creatinine 0.7
Estimated Creat Clear
Albumin 2.7 L
01/16/24 01/16/24 01/17/24
20:09 21:52 05:14
Lactic Acid 4.0 H* 3.0 H 1.3
Lab Results - Urine
01/17/24
22:47
Urine Nitrite (Reflex) Negative
Leukocyte Esterase Rfl Trace A
Ur Squamous Epith Cells 0-2
Microbiology Results
01/17/24 09:45 Body Fluid Culture - Preliminary
Peritoneal Fluid No Growth After 18-24 Hours
Gram Stain - Preliminary
01/16/24 20:09 Blood Culture - Preliminary
Blood/Venous No Growth in 24 hours- Final report to follow
01/16/24 20:24 Blood Culture - Preliminary
Blood/Venous Positive culture in progress
Gram Stain - Preliminary
Therapeutic Drug Monitoring
Random Vancomycin 17.7 ug/ml 01/18/24 02:48
--- NOTE | 2024-01-18 13:56 | CM ---
CM following re: discharge planing.
Discussed in rounds, reviewed pt's chart, met with pt. Per rounds meeting, clinically hemodynamically stable, no bleeding and pt will be downgraded from ICU level of care.
Pt was born and grew up in [facility] [place],arrived to [facility] at the age of 18, remains undocumented immigrant, lives with a friend in an apartment in [place] and has supportive sister Maira, has long h/o alcohol abuse.
[facility] following.
D/C plan: most likely home with sister and friends support and to follow up with [facility].
CM will follow with discharge plan updates as hospitalization progresses
--- NOTE | 2024-01-18 15:10 | W.PN.HOSP.TC ---
Today's Communication/Plan
-
transfer to Med Surg
Abd US in AM
May need further paracentesis
follow CBC, potential further transfusion
Poor prognosis
Assessment / Plan
Assessment / Plan
Hematemesis
#History of esophageal varices status post banding
-Hemoccult positive
-diet advanced
-2 units of blood given initially, 3rd unit given last evening
-Protonix changed to 40 mg IV q12h
-Octreotide drip stopped
# Decompensated alcoholic liver cirrhosis with ascites
# Hepatic encephalopathy
-Ammonia level 45
-INR 1.87
-Lactic acid 4-->3.0-->1.3
-blood cultures coag neg Staph
-Chest x-ray unremarkable
-IV fluids given
-Liver ultrasound pending
-Empiric ceftriaxone to cover for SBP
-IR consulted for paracentesis
10 liters removed
-resumed diet
-Continue lactulose, add Xifaxan
-Hold Lasix, spironolactone
-GI consulted
discussed with Dr Rosales
Chronic anemia
-Hemoglobin 7.3-->8.4-->7.7-->6.9-->8.2
patient underwent EGD 01/17 with grade 1 esophageal varices seen with no stigmata of recent bleeding, also portal hypertensive gastropathy, scar seen in the middle/lower third of his esophagus due to prior banding, with a normal examined duodenum.
no evidence for prior TIPS.
Severe Protein Calorie Malnutrition
Pt appears cachexic with alb of 2.7 most likely from a combination of alcohol abuse and cirrhosis. With RD stating that pt meets criteria for severe malnutrition
Alcohol use disorder with dependence & withdrawal
will continue MSAS protocol
Chronic thrombocytopenia secondary to cirrhosis
-Stable
Worsening of chronic hyponatremia secondary to GI losses
-Monitor with IV fluids
Alcohol use disorder
-Thiamine and folate
-Alcohol withdrawal protocol
History of umbilical hernia
Full code
DVT prophylaxis�SCDs
diet resumed
Anticipated Discharge: > 48 hours
Subjective/Interval History
-
Date of Service: January 18, 2024
Appears comfortable, sitting in chair eating
Objective Data
-
Labs:
Laboratory Results
01/18/24
02:48
PT 22.0 H
INR 1.94
Sodium 130 L
Potassium 3.1 L
Chloride 99
Carbon Dioxide 24
BUN 25 H
Creatinine 0.7
Glucose 99
Calcium 7.8 L
Total Bilirubin 3.4 H
AST 50
ALT 17
Alkaline Phosphatase 97
Vital Signs:
Vital Signs
Temp Pulse Resp BP Pulse Ox
98.0 F 82 15 119/82 97
01/18/24 11:52 01/18/24 14:30 01/18/24 14:30 01/18/24 12:00 01/18/24 14:30
I&O
01/17/24 01/18/24 01/19/24
06:59 06:59 06:59
Intake Total 1740.2 / 1871.9 4160.8 / 4250.8 690 / 690
Output Total 350 / 350 650 / 650 415 / 415
Balance 1390.2 / 1521.9 3510.8 / 3600.8 275 / 275
Review of Systems
-
History Source: Coordinated Provider
Constitutional: Denies Fever
Respiratory: Reports No Symptoms
Cardiac: Reports No Symptoms
Abdomen/GI: Reports No Symptoms; Denies Abdominal Pain
Physical Exam
-
General: Well Developed, Well Nourished, No Apparent Distress, Appears Chronically Ill and Cachectic
HEENT: Normocephalic, Atraumatic and Moist Mucous Membranes
Respiratory: Clear to Auscultation; Negative Wheezes, Rales or Rhonchi
Cardiac: Regular Rhythm and S1/S2
GI: Soft, Nontender, Nondistended and Other (recurrence of ascites)
Musculoskeletal: No Clubbing, No Cyanosis and No Edema
[2024-01-18] MEDS: KCL 20 MEQ PO ×2 (16:10→21:17)
[2024-01-18] MEDS: ZOFRAN 4 MG IV (16:11)
--- NOTE | 2024-01-18 16:29 | PTCARENOTE ---
Received patient from ICU awake and alert. No c/o pain, did c/o nausea and received Zofran with some relief. Oriented to room and unit. Call peraza in reach.
[2024-01-18] MEDS: VANCOCIN 200 IV (17:00)
--- NOTE | 2024-01-18 17:16 | PTCARENOTE ---
Patient requested oxygen be placed on for 'comfort' . Pulse ox on room air 96% oxygen applied at 2 LPM . Denies chest pain or any other issue at present .
[2024-01-18] MEDS: ROCEPHIN 2000 MG IV (21:18)
[2024-01-18] MEDS: PROTONIX IV 40 MG IV (21:18)
[2024-01-18] MEDS: STERILE WATER FOR INJECTION 20 ML IV (21:18)
[2024-01-18] MEDS: NSS (PRESERVATIVE FREE) 10 ML IV (21:18)
[2024-01-19] MEDS: DILAUDID 0.5 MG IV (00:10)
[2024-01-19 04:13] VITALS: BP 105/67
[2024-01-19] MEDS: VANCOCIN 200 IV ×2 (05:09→17:05)
[2024-01-19 07:17] LABS: % Basophils 0.7 % (0-2); % Eosinophils 9.2 % (0-6); % Immature Granulocytes 0.3 % (0-0.5); % Lymphocytes 18.3 % (20.5-51.1); % Monocytes 8.9 % (1.7-9.3); % Neutrophils 62.6 % (42.2-75.2); Absolute Basophils 0.1 10^3/uL (0-0.2); Absolute Eosinophils 0.6 10^3/uL (0-0.7); Absolute Lymphocytes 1.3 10^3/uL (1.2-3.4); Absolute Monocytes 0.6 10^3/uL (0.1-0.6); Absolute Neutrophils 4.3 10^3/uL (1.4-6.5); Hematocrit 23.6 % (39.0-52.0); Hemoglobin 8.3 g/dL (13.0-18.0); Mean Corp Hgb Conc. 35.2 g/dL (33.0-37.0); Mean Corpuscular Hgb 30.5 pg (27.0-31.0); Mean Corpuscular Volume 86.8 fL (80.0-94.0); Mean Platelet Volume 9.2 fL (7.4-10.4); Nucleated Red Blood Cells % 0 % (-); Platelet Count 55 10^3/uL (130-400); Red Blood Cell Count 2.72 10^6/uL (4.70-6.10); Red Cell Dist. Width 16.9 % (11.5-14.5); White Blood Cell Count 6.9 10^3/uL (4.8-10.8)
[2024-01-19 07:38] LABS: ALT (SGPT) 16 U/L (0-50); AST (SGOT) 46 U/L (17-59); Albumin 2.4 g/dl (3.5-5.0); Alkaline Phosphatase 102 U/L (38-126); Blood Urea Nitrogen 14 mg/dl (9-20); Calcium 7.6 mg/dl (8.4-10.2); Carbon Dioxide 25 mmol/L (22-30); Chloride 95 mmol/L (98-107); Estimated Creatinine Clearance 119 ml/min; Glucose 132 mg/dl (70-99); Sodium 125 mmol/L (135-145); Total Bilirubin 1.9 mg/dl (0.2-1.3); Total Protein 5.4 g/dl (6.3-8.2); eGFR > 60.00
[2024-01-19 07:45] LABS: Potassium 3.8 mmol/L (3.5-5.1)
[2024-01-19 08:09] VITALS: BP 104/68
[2024-01-19] MEDS: LASIX 40 MG PO (08:23)
[2024-01-19] MEDS: FOLVITE 1 MG PO (08:23)
[2024-01-19] MEDS: KCL 20 MEQ PO ×2 (08:23→20:40)
[2024-01-19] MEDS: ALDACTONE 100 MG PO (08:23)
[2024-01-19] MEDS: PROTONIX IV 40 MG IV ×2 (08:24→20:40)
[2024-01-19] MEDS: NSS (PRESERVATIVE FREE) 10 ML IV ×2 (08:24→20:40)
[2024-01-19] MEDS: THIAMINE INJECTION 100 MG IV (08:24)
[2024-01-19] MEDS: XIFAXAN 550 MG PO ×2 (08:24→20:39)
--- NOTE | 2024-01-19 08:37 | PHA.VAN.FU ---
Vancomycin Assessment / Plan
- Assessment
Renal Function: Stable (SCr 1.0 ->0.7 ->0.7)
WBC's are: WNL
In the past 24 hrs, patient has been: Afebrile
- Dosing Plan
Continue: vanc 1000mg q12h
- Monitoring Plan
Peak Level: 01/19 2030
Trough Level: 01/20 530
- Follow Up
Pharmacy will continue to follow.
Vancomycin Follow UP
- -
Patient Age: 33
Patient Sex: Male
Vancomycin Day #: 3
Indication: Bacteremia
Requesting Provider: Dr. Valenzuela/ Dr Branham
Pertinent Antimicrobial Allergies:
NKDA
Height / Weight:
Height 5 ft 5 in
Actual Weight 55.7 kg
- Vital Signs / Lab Results
Temp Pulse Resp BP Pulse Ox
98.6 F 63 14 104/68 100
01/19/24 08:09 01/19/24 08:09 01/19/24 08:09 01/19/24 08:09 01/19/24 08:09
Lab Results - Hematology
01/16/24 01/17/24 01/17/24
19:47 05:14 16:02
WBC 11.1 H 12.8 H 9.7
01/17/24 01/18/24 01/19/24
21:06 02:48 06:36
WBC 7.2 6.7 6.9
Lab Results - Chemistry
01/16/24 01/16/24 01/17/24
19:47 20:24 05:14
BUN Cancelled 28 H 36 H
Creatinine Cancelled 0.8 1.0
Estimated Creat Clear Cancelled
Albumin Cancelled 2.5 L 2.6 L
01/18/24 01/19/24
02:48 06:36
BUN 25 H 14
Creatinine 0.7 0.7
Estimated Creat Clear 119
Albumin 2.7 L 2.4 L
01/16/24 01/16/24 01/17/24
20:09 21:52 05:14
Lactic Acid 4.0 H* 3.0 H 1.3
Microbiology Results
01/16/24 20:09 Blood Culture - Preliminary
Blood/Venous No Growth in 48 hours- Final report to follow
01/16/24 20:24 Blood Culture - Preliminary
Blood/Venous Coagulase neg. staphylococcus
Additional testing on request
Gram Stain - Preliminary
01/17/24 09:45 Body Fluid Culture - Preliminary
Peritoneal Fluid No Growth After 18-24 Hours
Gram Stain - Preliminary
Therapeutic Drug Monitoring
Random Vancomycin 17.7 ug/ml 01/18/24 02:48
--- NOTE | 2024-01-19 09:59 | W.PN.GI.CBS2 ---
Today's Communication / Plan
-
See assessment and plan for details.
Assessment / Plan
-
1. Cirrhosis: Secondary to alcohol, decompensated with previous esophageal varices status post banding and ascites. There is no signs of active GI bleeding now, with scars from previous banding sites, small varices without stigmata of bleeding, no
gastric varices or signs of blood in the stomach. He did have some blood in the oropharynx and his bleeding could have been more from oropharyngeal in the setting of thrombocytopenia and coagulopathy rather than GI, now stable after 3 units in
total. He is status post paracentesis, without SBP and overall doing okay. LFTs are trending down. Diuretics restarted yesterday, there was no TIPS on imaging. Will continue diuretics, Xifaxan and supportive care. Pending clinical course
possible repeat paracentesis on Sunday.
Subjective
Subjective
Date of Service: January 19, 2024
Patient feeling okay, complains of some mild right-sided abdominal pain, no vomiting, tolerating diet without difficulty, no signs of bleeding.
Objective
Data Reviewed
Laboratory Data:
Laboratory Results
01/19/24 06:36
01/19/24 06:36
Laboratory Results
PT 22.0 Sec (11.4-14.6) H 01/18/24 02:48
INR 1.94 01/18/24 02:48
APTT 36.2 Sec (23.4-35.0) H 01/16/24 20:00
Phosphorus 2.7 mg/dl (2.5-4.5) 01/18/24 02:48
Magnesium 1.6 mg/dl (1.6-2.3) 01/18/24 02:48
Total Bilirubin 1.9 mg/dl (0.2-1.3) H D 01/19/24 06:36
AST 46 U/L (17-59) 01/19/24 06:36
ALT 16 U/L (0-50) 01/19/24 06:36
Alkaline Phosphatase 102 U/L (38-126) 01/19/24 06:36
Vital Signs and I&O:
Vital Signs
Temp Pulse Resp BP Pulse Ox
98.6 F 63 14 104/68 99
01/19/24 08:09 01/19/24 08:09 01/19/24 08:09 01/19/24 08:09 01/19/24 09:26
I&O
01/18/24 01/19/24 01/20/24
06:59 06:59 06:59
Intake Total 4160.8 / 4250.8 910 / 910
Output Total 650 / 650 1240 / 1240
Balance 3510.8 / 3600.8 -330 / -330
Physical Exam
Physical Exam
General: NAD, alert
Abdomen: normal bowel sounds, soft, mild right sided tenderness, no masses or bruits, moderate ascites
[2024-01-19 10:47] VITALS: BP 107/67
[2024-01-19 15:00] VITALS: BP 100/67
--- NOTE | 2024-01-19 17:17 | W.PN.HOSP.TC ---
Today's Communication/Plan
-
consideration for repeat paracentesis in 2 days
Assessment / Plan
Assessment / Plan
Hematemesis
#History of esophageal varices status post banding
-Hemoccult positive
-diet advanced
-2 units of blood given initially, 3rd unit given last evening
-Protonix changed to 40 mg IV q12h
-Octreotide drip stopped
# Decompensated alcoholic liver cirrhosis with ascites
# Hepatic encephalopathy
-Ammonia level 45
-INR 1.87
-Lactic acid 4-->3.0-->1.3
-blood cultures coag neg Staph
-Chest x-ray unremarkable
-IV fluids given
-Liver ultrasound pending
-Empiric ceftriaxone to cover for SBP
-IR consulted for paracentesis
10 liters removed
-resumed diet
-Continue lactulose, add Xifaxan
-Hold Lasix, spironolactone
-GI consulted
discussed with Dr Casarez
01/18 US: Ultrasound of the abdomen is performed to assess for ascites. There is a moderate to large amount of ascites present, with ascites visualized in both lower quadrants as well as the right upper quadrant.
Chronic anemia
-Hemoglobin 7.3-->8.4-->7.7-->6.9-->8.2
patient underwent EGD 01/17 with grade 1 esophageal varices seen with no stigmata of recent bleeding, also portal hypertensive gastropathy, scar seen in the middle/lower third of his esophagus due to prior banding, with a normal examined duodenum.
no evidence for prior TIPS.
Severe Protein Calorie Malnutrition
Pt appears cachexic with alb of 2.7 most likely from a combination of alcohol abuse and cirrhosis. With RD stating that pt meets criteria for severe malnutrition
Alcohol use disorder with dependence & withdrawal
will continue MSAS protocol
Chronic thrombocytopenia secondary to cirrhosis
-Stable
Worsening of chronic hyponatremia secondary to GI losses
-Monitor with IV fluids
Alcohol use disorder
-Thiamine and folate
-Alcohol withdrawal protocol
History of umbilical hernia
Full code
DVT prophylaxis�SCDs
diet resumed
Anticipated Discharge: > 48 hours
Subjective/Interval History
-
Date of Service: January 19, 2024
does not appear in distress
Objective Data
-
Labs:
Laboratory Results
01/19/24
06:36
WBC 6.9
Hgb 8.3 L
Hct 23.6 L
Plt Count 55 L
Sodium 125 L
Potassium 3.8
Chloride 95 L
Carbon Dioxide 25
BUN 14
Creatinine 0.7
Glucose 132 H
Calcium 7.6 L
Total Bilirubin 1.9 H D
AST 46
ALT 16
Alkaline Phosphatase 102
Vital Signs:
Vital Signs
Temp Pulse Resp BP Pulse Ox
98.4 F 87 16 107/67 96
01/19/24 10:47 01/19/24 10:47 01/19/24 10:47 01/19/24 10:47 01/19/24 10:47
I&O
01/18/24 01/19/24 01/20/24
06:59 06:59 06:59
Intake Total 4160.8 / 4250.8 910 / 910
Output Total 650 / 650 1240 / 1240
Balance 3510.8 / 3600.8 -330 / -330
Review of Systems
-
History Source: Coordinated Provider
Constitutional: Denies Fever
Respiratory: Reports No Symptoms
Cardiac: Reports No Symptoms
Abdomen/GI: Reports No Symptoms; Denies Abdominal Pain
Physical Exam
-
General: Well Developed, Well Nourished, No Apparent Distress, Appears Chronically Ill and Cachectic
HEENT: Normocephalic, Atraumatic and Moist Mucous Membranes
Respiratory: Clear to Auscultation; Negative Wheezes, Rales or Rhonchi
Cardiac: Regular Rhythm and S1/S2
GI: Soft, Nontender, Nondistended and Other (recurrence of ascites)
Musculoskeletal: No Clubbing, No Cyanosis and No Edema
[2024-01-19 20:54] VITALS: BP 108/68
[2024-01-19] MEDS: ROCEPHIN 2000 MG IV (21:49)
[2024-01-19] MEDS: STERILE WATER FOR INJECTION 20 ML IV (21:49)
[2024-01-20] VITALS (7 sets, daily range): BP systolic 97–129; BP diastolic 54–78
[2024-01-20] MEDS: VANCOCIN 200 IV ×2 (05:48→17:05)
[2024-01-20] MEDS: ALDACTONE 100 MG PO (08:14)
[2024-01-20] MEDS: KCL 20 MEQ PO ×2 (08:15→22:14)
[2024-01-20] MEDS: XIFAXAN 550 MG PO ×2 (08:15→22:14)
[2024-01-20] MEDS: FOLVITE 1 MG PO (08:15)
[2024-01-20] MEDS: LASIX 40 MG PO (08:15)
[2024-01-20] MEDS: NSS (PRESERVATIVE FREE) 10 ML IV ×2 (08:16→22:14)
[2024-01-20] MEDS: PROTONIX IV 40 MG IV ×2 (08:16→22:14)
[2024-01-20] MEDS: THIAMINE INJECTION 100 MG IV (08:16)
--- NOTE | 2024-01-20 08:39 | PHA.VAN.FU ---
Vancomycin Assessment / Plan
- Assessment
Renal Function: Stable
WBC's are: WNL
In the past 24 hrs, patient has been: Afebrile
Concomitant Antimicrobials: ceftriaxone, rifaximin
- Dosing Plan
Continue: vancomycin 1000 mg q12h
- Monitoring Plan
Peak Level: ordered for 12/19 2029
Trough Level: ordered for 01/20 530
- Follow Up
Pharmacy will continue to follow.
Vancomycin Follow UP
- -
Patient Age: 33
Patient Sex: Male
Vancomycin Day #: 4
Indication: Bacteremia
Requesting Provider: Dr. Valenzuela/ Dr Branham
Pertinent Antimicrobial Allergies:
NKDA
Height / Weight:
Height 5 ft 5 in
Actual Weight 55.7 kg
- Vital Signs / Lab Results
Temp Pulse Resp BP Pulse Ox
98.2 F 81 18 107/71 98
01/20/24 08:00 01/20/24 08:00 01/20/24 08:00 01/20/24 08:00 01/20/24 08:00
Lab Results - Hematology
01/17/24 01/17/24 01/18/24
16:02 21:06 02:48
WBC 9.7 7.2 6.7
01/19/24
06:36
WBC 6.9
Lab Results - Chemistry
01/18/24 01/19/24
02:48 06:36
BUN 25 H 14
Creatinine 0.7 0.7
Estimated Creat Clear 119
Albumin 2.7 L 2.4 L
Microbiology Results
01/16/24 20:09 Blood Culture - Preliminary
Blood/Venous No Growth in 72 hours- Final report to follow
01/16/24 20:24 Blood Culture - Preliminary
Blood/Venous Coagulase neg. staphylococcus
Additional testing on request
Gram Stain - Preliminary
01/17/24 22:47 Urine Culture - Final
Urine NO GROWTH
01/17/24 09:45 Body Fluid Culture - Preliminary
Peritoneal Fluid No Growth After 48 Hours
Gram Stain - Preliminary
Therapeutic Drug Monitoring
Random Vancomycin 17.7 ug/ml 01/18/24 02:48
--- NOTE | 2024-01-20 11:11 | W.PN.HOSP.TC ---
Today's Communication/Plan
-
possible repeat paracentesis tomorrow
continue to follow labs
Assessment / Plan
Assessment / Plan
Hematemesis
#History of esophageal varices status post banding
-Hemoccult positive
-diet advanced
-2 units of blood given initially, 3rd unit given 01/17 evening
-Protonix changed to 40 mg IV q12h
-Octreotide drip stopped
currently eating well
# Decompensated alcoholic liver cirrhosis with ascites
# Hepatic encephalopathy
-Ammonia level 45
-INR 1.87
-Lactic acid 4-->3.0-->1.3
-blood cultures coag neg Staph
-Chest x-ray unremarkable
-IV fluids given
-Liver ultrasound pending
-Empiric ceftriaxone to cover for SBP
-IR consulted for paracentesis
10 liters removed
-resumed diet
-Continue lactulose, add Xifaxan
-Resumed Lasix, spironolactone
-GI consulted
discussed with Dr Casarez 01/18, await decision as to whether will have repeat paracentesis tomorrow
01/18 US: Ultrasound of the abdomen is performed to assess for ascites. There is a moderate to large amount of ascites present, with ascites visualized in both lower quadrants as well as the right upper quadrant.
Chronic anemia
-Hemoglobin 7.3-->8.4-->7.7-->6.9-->8.2-->8.3
patient underwent EGD 01/17 with grade 1 esophageal varices seen with no stigmata of recent bleeding, also portal hypertensive gastropathy, scar seen in the middle/lower third of his esophagus due to prior banding, with a normal examined duodenum.
no evidence for prior TIPS.
Severe Protein Calorie Malnutrition
Pt appears cachexic with alb of 2.7 most likely from a combination of alcohol abuse and cirrhosis. With RD stating that pt meets criteria for severe malnutrition
Alcohol use disorder with dependence & withdrawal
will continue MSAS protocol
Chronic thrombocytopenia secondary to cirrhosis
-Stable 55k
Worsening of chronic hyponatremia secondary to GI losses
-Monitor with IV fluids
Alcohol use disorder
-Thiamine and folate
-Alcohol withdrawal protocol
History of umbilical hernia
Full code
DVT prophylaxis�SCDs
diet resumed
Anticipated Discharge: 24 - 48 hours
Subjective/Interval History
-
Date of Service: January 20, 2024
No distress
Objective Data
-
Vital Signs:
Vital Signs
Temp Pulse Resp BP Pulse Ox
98.2 F 81 18 107/71 98
01/20/24 08:00 01/20/24 08:00 01/20/24 08:00 01/20/24 08:00 01/20/24 08:35
I&O
01/19/24 01/20/24 01/21/24
06:59 06:59 06:59
Intake Total 910 / 910 980 / 980
Output Total 1240 / 1240 1050 / 1050
Balance -330 / -330 -70 / -70
Review of Systems
-
History Source: Coordinated Provider
Constitutional: Denies Fever
Respiratory: Reports No Symptoms
Cardiac: Reports No Symptoms
Abdomen/GI: Reports No Symptoms; Denies Abdominal Pain
Physical Exam
-
General: Well Developed, Well Nourished, No Apparent Distress, Appears Chronically Ill and Cachectic
HEENT: Normocephalic, Atraumatic and Moist Mucous Membranes
Respiratory: Clear to Auscultation; Negative Wheezes, Rales or Rhonchi
Cardiac: Regular Rhythm and S1/S2
GI: Soft, Nontender, Nondistended and Other (recurrence of ascites)
Musculoskeletal: No Clubbing, No Cyanosis and No Edema
--- NOTE | 2024-01-20 15:07 | W.PN.GI.CBS2 ---
Today's Communication / Plan
-
para Mon
Assessment / Plan
-
1. Cirrhosis: Secondary to alcohol, decompensated with previous esophageal varices status post banding and ascites. There is no signs of active GI bleeding now, with scars from previous banding sites, small varices without stigmata of bleeding, no
gastric varices or signs of blood in the stomach. He did have some blood in the oropharynx and his bleeding could have been more from oropharyngeal in the setting of thrombocytopenia and coagulopathy rather than GI, now stable after 3 units in
total. He is status post paracentesis, without SBP and overall doing okay 01/16. LFTs are trending down - no labs checked today - ordered labs for AM should have daily MELD labs. Diuretics restarted 01/17, there was no TIPS on imaging. Will
continue diuretics, Xifaxan and supportive care. 01/18 with mod/large ascites. Will order para in AM to be done on Sunday.
Subjective
Subjective
Date of Service: January 20, 2024
no events
Objective
Data Reviewed
Laboratory Data:
Laboratory Results
01/19/24 06:36
01/19/24 06:36
Laboratory Results
PT 22.0 Sec (11.4-14.6) H 01/18/24 02:48
INR 1.94 01/18/24 02:48
APTT 36.2 Sec (23.4-35.0) H 01/16/24 20:00
Phosphorus 2.7 mg/dl (2.5-4.5) 01/18/24 02:48
Magnesium 1.6 mg/dl (1.6-2.3) 01/18/24 02:48
Total Bilirubin 1.9 mg/dl (0.2-1.3) H D 01/19/24 06:36
AST 46 U/L (17-59) 01/19/24 06:36
ALT 16 U/L (0-50) 01/19/24 06:36
Alkaline Phosphatase 102 U/L (38-126) 01/19/24 06:36
Vital Signs and I&O:
Vital Signs
Temp Pulse Resp BP Pulse Ox
98.2 F 81 18 107/71 98
01/20/24 08:00 01/20/24 08:00 01/20/24 08:00 01/20/24 08:00 01/20/24 08:35
I&O
01/19/24 01/20/24 01/21/24
06:59 06:59 06:59
Intake Total 910 / 910 980 / 980
Output Total 1240 / 1240 1050 / 1050
Balance -330 / -330 -70 / -70
Physical Exam
Physical Exam
GI: Distended
Extremities: Other (cachexia in arms)
--- NOTE | 2024-01-20 15:45 | CM ---
Patient with Dx Hematemesis, Decompensated alcoholic liver cirrhosis with ascites, Hepatic encephalopathy. Plan possible repeat paracentesis tomorrow. Per nurse assessment; assist of 1, ambulatory in room.
Spoke with ELVI Boyle, who was here to meet with this patient; the patient agrees to do a Estonian speaking outpatient program, and did not commit to a specific program. Per [place], as he is uninsured he may do AA.
Plan home with outpatient [facility] program referrals from [facility]VI.
[2024-01-20] MEDS: DILAUDID 0.5 MG IV (17:05)
[2024-01-20 21:04] LABS: Vancomycin Peak 33.9 ug/ml (18-26)
[2024-01-20] MEDS: STERILE WATER FOR INJECTION IV (22:15)
[2024-01-21] VITALS (9 sets, daily range): BP systolic 75–115; BP diastolic 54–76
[2024-01-21] MEDS: DILAUDID 0.5 MG IV ×3 (01:01→15:59)
[2024-01-21 05:56] LABS: % Basophils 0.6 % (0-2); % Eosinophils 7.2 % (0-6); % Immature Granulocytes 0.4 % (0-0.5); % Lymphocytes 18.8 % (20.5-51.1); % Monocytes 15.1 % (1.7-9.3); % Neutrophils 57.9 % (42.2-75.2); Absolute Eosinophils 0.5 10^3/uL (0-0.7); Absolute Lymphocytes 1.4 10^3/uL (1.2-3.4); Absolute Monocytes 1.1 10^3/uL (0.1-0.6); Absolute Neutrophils 4.2 10^3/uL (1.4-6.5); Hematocrit 25.5 % (39.0-52.0); Mean Corp Hgb Conc. 35.3 g/dL (33.0-37.0); Mean Corpuscular Hgb 31.5 pg (27.0-31.0); Mean Corpuscular Volume 89.2 fL (80.0-94.0); Mean Platelet Volume 9.2 fL (7.4-10.4); Nucleated Red Blood Cells % 0 % (-); Platelet Count 71 10^3/uL (130-400); Red Blood Cell Count 2.86 10^6/uL (4.70-6.10); White Blood Cell Count 7.2 10^3/uL (4.8-10.8)
[2024-01-21 06:11] LABS: INR 1.63; PT 19.2 Sec (11.4-14.6)
[2024-01-21 06:19] LABS: Vancomycin Trough 19.2 ug/ml (5-20)
[2024-01-21 06:24] LABS: ALT (SGPT) 16 U/L (0-50); AST (SGOT) 37 U/L (17-59); Albumin 2.7 g/dl (3.5-5.0); Alkaline Phosphatase 133 U/L (38-126); Blood Urea Nitrogen 15 mg/dl (9-20); Calcium 8.3 mg/dl (8.4-10.2); Carbon Dioxide 26 mmol/L (22-30); Chloride 92 mmol/L (98-107); Direct Bilirubin 1.1 mg/dl (0.0-0.4); Estimated Creatinine Clearance 104 ml/min; Glucose 98 mg/dl (70-99); Potassium 4.1 mmol/L (3.5-5.1); Sodium 124 mmol/L (135-145); Total Bilirubin 2.2 mg/dl (0.2-1.3); Total Protein 5.9 g/dl (6.3-8.2); eGFR > 60.00
[2024-01-21] MEDS: VANCOCIN IV (08:08)
[2024-01-21] MEDS: XIFAXAN 550 MG PO ×2 (08:09→19:58)
[2024-01-21] MEDS: ALDACTONE 100 MG PO (08:09)
[2024-01-21] MEDS: KCL 20 MEQ PO ×2 (08:09→19:58)
[2024-01-21] MEDS: FOLVITE 1 MG PO (08:10)
[2024-01-21] MEDS: NSS (PRESERVATIVE FREE) 10 ML IV ×2 (08:10→19:59)
[2024-01-21] MEDS: LASIX 40 MG PO (08:10)
[2024-01-21] MEDS: THIAMINE INJECTION 100 MG IV (08:10)
[2024-01-21] MEDS: PROTONIX IV 40 MG IV ×2 (08:10→19:59)
--- NOTE | 2024-01-21 08:11 | W.PN.GI.CBS2 ---
Today's Communication / Plan
-
Please see assessment and plan for details.
Assessment / Plan
-
1. Cirrhosis: Secondary to alcohol, decompensated with previous esophageal varices status post banding and ascites. There is no signs of active GI bleeding now, with scars from previous banding sites, small varices without stigmata of bleeding, no
gastric varices or signs of blood in the stomach. He did have some blood in the oropharynx and his bleeding could have been more from oropharyngeal in the setting of thrombocytopenia and coagulopathy rather than GI, now stable after 3 units in
total. He is status post paracentesis, without SBP and overall doing okay 01/16, though with reaccumulation and pain we will repeat paracentesis today. Will continue diuretics, Xifaxan and supportive care.
Subjective
Subjective
Date of Service: January 21, 2024
Patient complaining of some abdominal pain, otherwise doing well, no signs of bleeding.
Objective
Data Reviewed
Laboratory Data:
Laboratory Results
01/21/24 05:21
01/21/24 05:21
Laboratory Results
PT 19.2 Sec (11.4-14.6) H 01/21/24 05:21
INR 1.63 01/21/24 05:21
APTT 36.2 Sec (23.4-35.0) H 01/16/24 20:00
Phosphorus 2.7 mg/dl (2.5-4.5) 01/18/24 02:48
Magnesium 1.6 mg/dl (1.6-2.3) 01/18/24 02:48
Total Bilirubin 2.2 mg/dl (0.2-1.3) H 01/21/24 05:21
AST 37 U/L (17-59) 01/21/24 05:21
ALT 16 U/L (0-50) 01/21/24 05:21
Alkaline Phosphatase 133 U/L (38-126) H 01/21/24 05:21
Vital Signs and I&O:
Vital Signs
Temp Pulse Resp BP Pulse Ox
98.0 F 70 18 99/63 96
01/21/24 03:14 01/21/24 03:14 01/21/24 03:14 01/21/24 03:14 01/21/24 03:14
I&O
01/20/24 01/21/24 01/22/24
06:59 06:59 06:59
Intake Total 980 / 980 860 / 860
Output Total 1050 / 1050 400 / 400
Balance -70 / -70 460 / 460
Physical Exam
Physical Exam
General: NAD
Abdomen: normal bowel sounds, soft, mild diffuse tenderness, no masses or bruits, large ascites
--- NOTE | 2024-01-21 09:36 | PHA.VAN.FU ---
Vancomycin Assessment / Plan
- Assessment
Renal Function: Stable
Vancomycin discontinued but provided the following patient-specific PK based on levels collected prior to discontinuation
- Assessment - Therapeutic Drug Monitoring
Extrapolated Cmax (mcg/mL): 39.3
Peak level was drawn: Appropriately (drawn ~2.3H after end of previous infusion)
Extrapolated Cmin (mcg/mL): 19.5
Trough Drawn: Appropriately
Levels were drawn: At steady state (levels drawn after 5th maintenance dose)
Calculated AUC (mcg*h/mL): 681
Calculated ke: 0.0635
Calculated half life (H): 10.9
Calculated Vd (L): 46 (0.8 L/kg)
Calculated Vanc CL (ml/min): 49
Above calculations are from regimen of Vanc 1000mg Q12H
Vancomycin 750mg Q12H is predicted to provide and AUC 527, Cmax 30.4, Cmin 15.1 using patient-specific PK
- Follow Up
Vancomycin discontinued
Vancomycin Follow UP
- -
Patient Age: 33
Patient Sex: Male
Vancomycin Day #: 5
Indication: Bacteremia
Requesting Provider: Dr. Valenzuela/ Dr Branham
Pertinent Antimicrobial Allergies:
NKDA
Height / Weight:
Height 5 ft 5 in
Actual Weight 55.7 kg
- Vital Signs / Lab Results
Temp Pulse Resp BP Pulse Ox
97.9 F 89 18 106/68 96
01/21/24 08:15 01/21/24 08:15 01/21/24 08:15 01/21/24 08:15 01/21/24 08:15
Lab Results - Hematology
01/19/24 01/21/24
06:36 05:21
WBC 6.9 7.2
Lab Results - Chemistry
01/19/24 01/21/24
06:36 05:21
BUN 14 15
Creatinine 0.7 0.8
Estimated Creat Clear 119 104
Albumin 2.4 L 2.7 L
Microbiology Results
01/16/24 20:09 Blood Culture - Preliminary
Blood/Venous No Growth in 4 days- Final report to follow
01/17/24 09:45 Body Fluid Culture - Final
Peritoneal Fluid No Growth After 72 Hours
Gram Stain - Final
01/16/24 20:24 Blood Culture - Preliminary
Blood/Venous Coagulase neg. staphylococcus
Additional testing on request
Gram Stain - Preliminary
01/17/24 22:47 Urine Culture - Final
Urine NO GROWTH
Therapeutic Drug Monitoring
Vancomycin Peak 33.9 ug/ml (18-26) H 01/20/24 20:24
Vancomycin Trough 19.2 ug/ml (5-20) 01/21/24 05:21
Random Vancomycin 17.7 ug/ml 01/18/24 02:48
--- NOTE | 2024-01-21 12:12 | W.PN.HOSP.TC ---
Today's Communication/Plan
-
nephro input
IRAD for para
DC vancomycin
Assessment / Plan
Assessment / Plan
#Hematemesis
#History of esophageal varices status post banding
-Hemoccult positive
-diet advanced
-2 units of blood given initially, 3rd unit given 01/17 evening
-Protonix changed to 40 mg IV q12h
-Octreotide drip stopped
currently eating well
# Decompensated alcoholic liver cirrhosis with ascites
# Hepatic encephalopathy
-Ammonia level 45
-INR 1.87
-Lactic acid 4-->3.0-->1.3
-Chest x-ray unremarkable
-IV fluids given
-Liver ultrasound pending
-Status post ceftriaxone.
-IR consulted for paracentesis-10 liters removed
-resumed diet
-Continue lactulose, add Xifaxan
-Resumed Lasix, spironolactone
-GI consulted
-IRAD Consult for repeat paracentesis today.
Acute on chronic hyponatremia
-Received IV fluids early on
-Maintained on diuretic
-Sodium worsened to 124.
-Check urine studies.
-Will need to ask nephro for input
Chronic anemia
-Hemoglobin at 9
patient underwent EGD 01/17 with grade 1 esophageal varices seen with no stigmata of recent bleeding, also portal hypertensive gastropathy, scar seen in the middle/lower third of his esophagus due to prior banding, with a normal examined duodenum.
Coag negative staph bacteremia
-DC further vancomycin.
Severe Protein Calorie Malnutrition
Pt appears cachexia with alb of 2.7 most likely from a combination of alcohol abuse and cirrhosis. With RD stating that pt meets criteria for severe malnutrition
Alcohol use disorder with dependence & withdrawal
will continue MSAS protocol
no evidence for prior TIPS.
Chronic thrombocytopenia secondary to cirrhosis
-Stable 71k
Alcohol use disorder
-Thiamine and folate
-Alcohol withdrawal protocol
History of umbilical hernia
Full code
DVT prophylaxis�SCDs
jail prognosis guarded
Anticipated Discharge: > 48 hours
Subjective/Interval History
-
Date of Service: January 21, 2024
states of abd distention
Objective Data
-
Labs:
Laboratory Results
01/21/24
05:21
WBC 7.2
Hgb 9.0 L
Hct 25.5 L
Plt Count 71 L D
PT 19.2 H
INR 1.63
Sodium 124 L
Potassium 4.1
Chloride 92 L
Carbon Dioxide 26
BUN 15
Creatinine 0.8
Glucose 98
Calcium 8.3 L
Total Bilirubin 2.2 H
AST 37
ALT 16
Alkaline Phosphatase 133 H
Vital Signs:
Vital Signs
Temp Pulse Resp BP Pulse Ox
98.2 F 82 18 112/72 96
01/21/24 11:00 01/21/24 11:00 01/21/24 11:00 01/21/24 11:00 01/21/24 11:00
I&O
01/20/24 01/21/24 01/22/24
06:59 06:59 06:59
Intake Total 980 / 980 860 / 860
Output Total 1050 / 1050 400 / 400
Balance -70 / -70 460 / 460
Physical Exam
-
General: No Apparent Distress, Appears Chronically Ill and Cachectic
HEENT: Normocephalic, Atraumatic and Moist Mucous Membranes
Respiratory: Clear to Auscultation; Negative Wheezes, Rales or Rhonchi
Cardiac: Regular Rhythm and S1/S2
GI: Soft, Nontender, Distended and Other (+fluid wave )
Musculoskeletal: No Clubbing, No Cyanosis and No Edema
Neuro: Awake
Psych: Calm
Data Reviewed
-
Total Time Spent with Patient (in minutes): 55
--- NOTE | 2024-01-21 12:32 | CM ---
Patient seen bedside.
Patient for paracentesis today.
Plan: home with outpatient resources for ETOH when stable.
[2024-01-21 13:48] LABS: Osmolality Serum 261 mOsm/kg (275-300)
--- NOTE | 2024-01-21 15:35 | W.CON.NEPH ---
Consultation
-
Date/Time Consultation Requested: 01/21/24 1228
Date/Time Consultation Performed: 01/21/24 1530
Requesting Provider: Romulo Garcia
Performing Provider: Mary Golden
Reason for Consultation: hypoantremia
Medical History
-
Chief Complaint: abdominal distension
History of Present Illness:
33-year-old male with past medical history of end-stage liver disease, alcoholic cirrhosis on lasix, Aldactone, alcohol use disorder, alcoholic hepatitis, esophageal varices status post banding on PPI, chronic anemia, chronic hyponatremia, presented
with nausea, vomiting for several days [employer]ING [employer]. He had coffee-ground emesis in the emergency room on 01/15. Had EGD on 01/16 with no acute bleed, has portal hypertensive gastropathy, varices grade1, prior banding scar tissue. s/p 3 units of PRBC since
admit. He has chronic hyponatremia with fluctuating levels but mostly in low 130s. This admit his sodium decreasing steadily from 128 to 124 hence nephrology consulted. Pt reports no active n/v or diarrhea. Abd pain is improving. reports eating
well. He just had paracentesis of 8.5lit. MOst recently had 10lit removed on 01/16.
He does admit to drinking 5 beers 2 to 3 days [employer]ING TEND[employer].
Past Medical History
cirrhosis with decompensation with GI bleed, EV with banding, ascites, and HE
Past Surgical History: Other (abd hernia repair August 2023, EGD with banding in 04/2023)
Social History
Tobacco: Non-Smoker
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
Living: With Family
Employment: Other (works in [employer])
Family History
uncle with cirrhosis
Family History: Not Pertinent
Allergies / Home Medications
Allergy/AdvReac Type Severity Reaction Status Date / Time
No Known Allergies Allergy Verified 12/16/23 18:45
�Medication �Instructions �Recorded �Confirmed �Type
ciprofloxacin HCl 500 mg tablet 500 mg PO DAILY #30 tabs 11/19/23 Rx
furosemide 40 mg tablet 40 mg PO DAILY #30 tabs 11/19/23 Rx
lactulose 20 gram/30 mL oral 20 g (30 mL) PO BID #1,200 mL 11/19/23 Rx
solution
pantoprazole 40 mg tablet,delayed 40 mg PO DAILY #30 tabs 11/19/23 Rx
release
spironolactone 50 mg tablet 100 mg (2 x 50 mg) PO DAILY #30 11/19/23 Rx
tabs
thiamine HCl (vitamin B1) 100 mg 100 mg PO DAILY #30 tabs 11/19/23 Rx
tablet
bisacodyl 10 mg rectal suppository 10 mg MT [id number] PRN constipation 12/19/23 Rx
#0 ea
folic acid 1 mg tablet 1 mg PO DAILY #0 tabs 12/19/23 Rx
neomycin-bacitracn Zn-polymyx 3.5 1 applic topical BID #14.2 grams 12/19/23 Rx
mg-400 unit-5,000 unit/gram top
oint (Neosporin ([id number]))
polyethylene glycol 3350 17 gram 17 g PO DAILYPRN PRN constipation 12/19/23 Rx
oral powder packet (HealthyLax) #0 ea
sennosides 8.6 mg-docusate sodium 1 tab PO BIDPRN PRN constipation 12/19/23 Rx
50 mg tablet #0 tabs
Review of Systems
-
all complete 12 point ROS have been inquired and found negative other than stated in HPI
Physical Exam
Vital Signs
Vital Signs
Temp Pulse Resp BP Pulse Ox
98.4 F 74 17 107/65 98
01/21/24 13:26 01/21/24 15:10 01/21/24 15:10 01/21/24 15:10 01/21/24 13:26
Lab Results
WBC 7.2 10^3/uL (4.8-10.8) 01/21/24 05:21
RBC 2.86 10^6/uL (4.70-6.10) L 01/21/24 05:21
Hgb 9.0 g/dL (13.0-18.0) L 01/21/24 05:21
Hct 25.5 % (39.0-52.0) L 01/21/24 05:21
Plt Count 71 10^3/uL (130-400) L D 01/21/24 05:21
Sodium 124 mmol/L (135-145) L 01/21/24 05:21
Potassium 4.1 mmol/L (3.5-5.1) 01/21/24 05:21
Chloride 92 mmol/L (98-107) L 01/21/24 05:21
Carbon Dioxide 26 mmol/L (22-30) 01/21/24 05:21
BUN 15 mg/dl (9-20) 01/21/24 05:21
Creatinine 0.8 mg/dL (0.7-1.3) 01/21/24 05:21
eGFR > 60.00 01/21/24 05:21
Glucose 98 mg/dl (70-99) 01/21/24 05:21
Calcium 8.3 mg/dl (8.4-10.2) L 01/21/24 05:21
Phosphorus 2.7 mg/dl (2.5-4.5) 01/18/24 02:48
Albumin 2.7 g/dl (3.5-5.0) L 01/21/24 05:21
CXR 01/15:
IMPRESSION:
Extremely low lung volumes with.
Elevation of right hemidiaphragm again noted.
Pulmonary vascularity within the limits of normal.
Mild right basilar subsegmental atelectasis and scarring.
Physical Exam
General: Awake, Alert, Oriented, AOx3, No Distress and Nontoxic
HEENT: EOMI, Facial Symmetry, Neck Supple and No JVD
Respiratory: Clear, Normal Excursion and Nonlabored Respirations
Cardiac: S1/S2 and Regular Rate/Rhythm
Breast: Deferred by me
Abdomen: Soft, Nontender and Nondistended
Musculoskeletal: No Cyanosis and No Edema
Skin: No Rash
Neuro: Nonfocal/Grossly Intact
Psych: Mood/afflect pleasant and Appropriate
Data Reviewed
-
Radiology: Report Reviewed by me and Discussed with Patient
Labs: Labs Reviewed by me and Discussed with Patient
Assessment/Plan
-
IMP:
Hematemesis
History of esophageal varices status post banding
Decompensated alcoholic liver cirrhosis with ascites and Hepatic encephalopathy
Acute on chronic hyponatremia
Acute on Chronic anemia
GD 01/17 with grade 1 esophageal varices seen with no stigmata of recent bleeding, also portal hypertensive gastropathy, scar seen in the middle/lower third of his esophagus due to prior banding, with a normal examined duodenum.
Coag negative staph bacteremia
Severe Protein Calorie Malnutrition
Alcohol use disorder with dependence & withdrawal
Chronic thrombocytopenia secondary to cirrhosis
Alcohol use disorder
History of umbilical hernia
PLan:
A/w decompensated cirrhosis and GIB
Progressive hyponatremia acute on chronic
check U studies, suspect from ESLD+ETOH
cont lasix and ALdactone
FR 40 ounces/day
check TSH
BP stable
cont po kcl
alb as he is s/p paracentesis today
stable renal function
smasca if U osmo significantly high
d/w pt and nursing
[2024-01-21 15:44] LABS: Body Fluid Mononuclear 91.3 %; Body Fluid Polymorphonuclear 8.7 %; Body Fluid WBC 46 /CUMM
[2024-01-21] MEDS: FLEXBUMIN 50 IV (15:59)
[2024-01-21 16:06] LABS: Body Fluid Second Tech FB
--- NOTE | 2024-01-21 17:14 | W.PN.UPDATE ---
Update Note
Progress Note Update
Paracentesis noted, negative for SBP. Would continue diuretics and outpatient medications. We again discussed alcohol abstinence today. Will sign off for now, please call back with any further questions.
[2024-01-21] MEDS: FLEXBUMIN 100 IV ×2 (17:40→19:54)
[2024-01-21] MEDS: STERILE WATER FOR INJECTION IV (20:45)
[2024-01-22 03:05] VITALS: BP 99/61
[2024-01-22] MEDS: DILAUDID 0.5 MG IV (05:15)
[2024-01-22 07:00] VITALS: BP 100/56
[2024-01-22] MEDS: ALDACTONE 100 MG PO (08:22)
[2024-01-22] MEDS: XIFAXAN 550 MG PO ×2 (08:23→20:02)
[2024-01-22] MEDS: KCL 20 MEQ PO (08:23)
[2024-01-22] MEDS: LASIX 40 MG PO (08:23)
[2024-01-22] MEDS: THIAMINE INJECTION 100 MG IV (08:23)
[2024-01-22] MEDS: NSS (PRESERVATIVE FREE) 10 ML IV ×2 (08:23→20:02)
[2024-01-22] MEDS: FOLVITE 1 MG PO (08:23)
[2024-01-22] MEDS: PROTONIX IV 40 MG IV ×2 (08:23→20:02)
[2024-01-22 08:55] LABS: Urine Sodium 21 mmol/L (30-90)
[2024-01-22 09:27] LABS: Blood Urea Nitrogen 16 mg/dl (9-20); Calcium 8.4 mg/dl (8.4-10.2); Carbon Dioxide 29 mmol/L (22-30); Chloride 92 mmol/L (98-107); Estimated Creatinine Clearance 93 ml/min; Glucose 100 mg/dl (70-99); Potassium 4.8 mmol/L (3.5-5.1); Sodium 125 mmol/L (135-145); eGFR > 60.00
[2024-01-22 11:01] VITALS: BP 98/57
[2024-01-22 11:11] LABS: Osmolality Urine 477 mOsm/kg (300-900)
--- NOTE | 2024-01-22 11:20 | W.PN.HOSP.TC ---
Today's Communication/Plan
-
nephro recs
trend bmp
Cont FR
lactulose/rifaxmin.
Assessment / Plan
Assessment / Plan
#Hematemesis
#History of esophageal varices status post banding
-Hemoccult positive
-diet advanced
-2 units of blood given initially, 3rd unit given 01/17 evening
-Protonix changed to 40 mg IV q12h
-Octreotide drip stopped
currently eating well
# Decompensated alcoholic liver cirrhosis with ascites
# Hepatic encephalopathy
-Chest x-ray unremarkable
-IV fluids given
-Status post ceftriaxone.
-IR consulted for paracentesis-10 liters removed
-resumed diet
-Continue lactulose, add Xifaxan
-Resumed Lasix, spironolactone
-GI consulted
-IRAD Consult for repeat paracentesis on 01/20 and additional 8.5L removed. NEG for SBP s/p albumin.
Acute on chronic hyponatremia
-Received IV fluids early on
-Maintained on diuretic
-Sodium at 125 from 124 yesterday s/p albumin/lasix.
-Cont with 40oz FR.
-nephro recs.
Chronic anemia
-Hemoglobin at 9
patient underwent EGD 01/17 with grade 1 esophageal varices seen with no stigmata of recent bleeding, also portal hypertensive gastropathy, scar seen in the middle/lower third of his esophagus due to prior banding, with a normal examined duodenum.
Coag negative staph bacteremia
-DC further vancomycin.
Severe Protein Calorie Malnutrition
Pt appears cachexia with alb of 2.7 most likely from a combination of alcohol abuse and cirrhosis. With RD stating that pt meets criteria for severe malnutrition
Alcohol use disorder with dependence & withdrawal
will continue MSAS protocol
no evidence for prior TIPS.
Chronic thrombocytopenia secondary to cirrhosis
-Stable 71k
Alcohol use disorder
-Thiamine and folate
-Alcohol withdrawal protocol
History of umbilical hernia
Full code
DVT prophylaxis�SCDs
Confirm med rec
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
Anticipated Discharge: 24 - 48 hours
Subjective/Interval History
-
Date of Service: January 22, 2024
states improvement in abd distention
Objective Data
-
Labs:
Laboratory Results
01/22/24
08:10
Sodium 125 L
Potassium 4.8
Chloride 92 L
Carbon Dioxide 29
BUN 16
Creatinine 0.9
Glucose 100 H
Calcium 8.4
Vital Signs:
Vital Signs
Temp Pulse Resp BP Pulse Ox
98.3 F 80 20 98/57 99
01/22/24 11:01 01/22/24 11:01 01/22/24 11:01 01/22/24 11:01 01/22/24 11:01
I&O
01/21/24 01/22/24 01/23/24
06:59 06:59 06:59
Intake Total 860 / 860 680 / 680
Output Total 400 / 400 1125 / 1125
Balance 460 / 460 -445 / -445
Physical Exam
-
General: No Apparent Distress, Appears Chronically Ill and Cachectic
HEENT: Normocephalic, Atraumatic and Moist Mucous Membranes
Respiratory: Clear to Auscultation; Negative Wheezes, Rales or Rhonchi
Cardiac: Regular Rhythm and S1/S2
GI: Soft, Nontender, Nondistended and Normal Bowel Sounds
Musculoskeletal: No Clubbing, No Cyanosis and No Edema
Neuro: Awake
Psych: Calm
[2024-01-22 15:14] VITALS: BP 98/54
--- NOTE | 2024-01-22 16:29 | W.PN.NEPH.PH ---
Today's Communication / Plan
-
samsca if BP can tolerate
Assessment/Plan
-
IMP:
Hematemesis
History of esophageal varices status post banding
Decompensated alcoholic liver cirrhosis with ascites and Hepatic encephalopathy
Acute on chronic hyponatremia
Acute on Chronic anemia
GD 01/17 with grade 1 esophageal varices seen with no stigmata of recent bleeding, also portal hypertensive gastropathy, scar seen in the middle/lower third of his esophagus due to prior banding, with a normal examined duodenum.
Coag negative staph bacteremia
Severe Protein Calorie Malnutrition
Alcohol use disorder with dependence & withdrawal
Chronic thrombocytopenia secondary to cirrhosis
Alcohol use disorder
History of umbilical hernia
PLan:
A/w decompensated cirrhosis and GIB
Progressive hyponatremia acute on chronic
U osmo is high at 477, U na low at 21 suggest prerenal from ESLD and ETOH use
cont lasix and ALdactone
FR 40 ounces/day
check TSH in am
BP are soft, could not use salt tab with ascites
stable renal function
Try smasca today but unlikely will be of much benefit
d/w pt and nursing
-
-
Date of Service: January 22, 2024
CC / HPI / ROS
-
Chief Complaint:
hyponatremia
History of Present Illness:
sodium slightly better at 125
BP are soft, cr 0.9
no fever
Review of Systems: \\
no cp or sob
eating well. no abd pain or dysuria
Labs
-
Labs:
WBC 7.2 10^3/uL (4.8-10.8) 01/21/24 05:21
RBC 2.86 10^6/uL (4.70-6.10) L 01/21/24 05:21
Hgb 9.0 g/dL (13.0-18.0) L 01/21/24 05:21
Hct 25.5 % (39.0-52.0) L 01/21/24 05:21
Plt Count 71 10^3/uL (130-400) L D 01/21/24 05:21
Sodium 125 mmol/L (135-145) L 01/22/24 08:10
Potassium 4.8 mmol/L (3.5-5.1) 01/22/24 08:10
Chloride 92 mmol/L (98-107) L 01/22/24 08:10
Carbon Dioxide 29 mmol/L (22-30) 01/22/24 08:10
BUN 16 mg/dl (9-20) 01/22/24 08:10
Creatinine 0.9 mg/dL (0.7-1.3) 01/22/24 08:10
eGFR > 60.00 01/22/24 08:10
Glucose 100 mg/dl (70-99) H 01/22/24 08:10
Calcium 8.4 mg/dl (8.4-10.2) 01/22/24 08:10
Phosphorus 2.7 mg/dl (2.5-4.5) 01/18/24 02:48
Albumin 2.7 g/dl (3.5-5.0) L 01/21/24 05:21
Physical Exam
-
Vital Signs:
Vital Signs
Temp Pulse Resp BP Pulse Ox
97.2 F 76 19 98/54 99
01/22/24 15:14 01/22/24 15:14 01/22/24 15:14 01/22/24 15:14 01/22/24 15:14
Cardiovascular:: Regular rate and rhythm
Respiratory:: Bilateral: CTA
Lung Excursion:: Normal
Abdomen:: Distended (mild), Nontender and Soft
Extremity Edema:: None: Bilateral:
Mendoza Catheter: No
[2024-01-22] MEDS: SAMSCA 7.5 MG PO (16:53)
[2024-01-22 19:55] VITALS: BP 103/63
[2024-01-22] MEDS: DILAUDID 0.25 MG IV (20:02)
[2024-01-22] MEDS: STERILE WATER FOR INJECTION IV (20:14)
[2024-01-22 23:20] VITALS: BP 105/58
[2024-01-23 03:32] VITALS: BP 100/59
[2024-01-23 08:06] VITALS: BP 101/55
[2024-01-23 08:34] LABS: Blood Urea Nitrogen 18 mg/dl (9-20); Calcium 8.8 mg/dl (8.4-10.2); Carbon Dioxide 26 mmol/L (22-30); Chloride 94 mmol/L (98-107); Estimated Creatinine Clearance 76 ml/min; Glucose 94 mg/dl (70-99); Potassium 4.3 mmol/L (3.5-5.1); Sodium 127 mmol/L (135-145); eGFR > 60.00
[2024-01-23] MEDS: THIAMINE INJECTION 100 MG IV (08:46)
[2024-01-23] MEDS: FOLVITE 1 MG PO (08:48)
[2024-01-23] MEDS: ALDACTONE 100 MG PO (08:48)
[2024-01-23] MEDS: XIFAXAN 550 MG PO ×2 (08:48→19:43)
[2024-01-23] MEDS: LASIX 40 MG PO (08:48)
[2024-01-23] MEDS: PROTONIX IV 40 MG IV (08:51)
[2024-01-23] MEDS: NSS (PRESERVATIVE FREE) 10 ML IV (08:52)
[2024-01-23 08:59] LABS: TSH Reflex To Free T4 0.67 uIU/ml (0.47-4.68)
[2024-01-23] MEDS: ULTRAM 25 MG PO ×2 (09:07→20:46)
[2024-01-23 11:33] VITALS: BP 130/60
--- NOTE | 2024-01-23 12:32 | W.PN.HOSP.TC ---
Today's Communication/Plan
-
nephro recs
on diuretics regimen
trend bmp
Assessment / Plan
Assessment / Plan
#Hematemesis
#History of esophageal varices status post banding
-Hemoccult positive
-diet advanced
-s/p 3u of PRBC so far.
-Protonix changed to 40 mg IV q12h
-Octreotide drip stopped
currently eating well
# Decompensated alcoholic liver cirrhosis with ascites
# Hepatic encephalopathy
-Chest x-ray unremarkable
-IV fluids given
-Status post ceftriaxone.
-IR consulted for paracentesis-10 liters removed
-resumed diet
-Continue lactulose, add Xifaxan
-Resumed Lasix, spironolactone
-GI consulted
-[facility] Consult for repeat paracentesis on 01/20 and additional 8.5L removed. NEG for SBP s/p albumin.
Acute on chronic hyponatremia
-Received IV fluids early on
-Maintained on diuretic
-Sodium at 127 s/p 7.5mg samsca yesterday.
-sodium slowly improving.
-Cont with 40oz FR.
-nephro recs.
Chronic anemia
-Hemoglobin at 9
patient underwent EGD 01/17 with grade 1 esophageal varices seen with no stigmata of recent bleeding, also portal hypertensive gastropathy, scar seen in the middle/lower third of his esophagus due to prior banding, with a normal examined duodenum.
Coag negative staph bacteremia
-DC further vancomycin.
Severe Protein Calorie Malnutrition
Pt appears cachexia with alb of 2.7 most likely from a combination of alcohol abuse and cirrhosis. With RD stating that pt meets criteria for severe malnutrition
Alcohol use disorder with dependence & withdrawal
will continue MSAS protocol
no evidence for prior TIPS.
Chronic thrombocytopenia secondary to cirrhosis
-Stable 71k
Alcohol use disorder
-Thiamine and folate
-Alcohol withdrawal protocol
History of umbilical hernia
Full code
DVT prophylaxis�SCDs
Confirm med rec
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
Dispo-nephro recs. Trend bmp.
Anticipated Discharge: Within 24 hours
Subjective/Interval History
-
Date of Service: January 23, 2024
states of mild abd discomfort earlier
afebrile
tolerating diet
received samsca yesterday
Objective Data
-
Labs:
Laboratory Results
01/23/24
07:08
Sodium 127 L
Potassium 4.3
Chloride 94 L
Carbon Dioxide 26
BUN 18
Creatinine 1.1
Glucose 94
Calcium 8.8
Vital Signs:
Vital Signs
Temp Pulse Resp BP Pulse Ox
97.6 F 63 19 130/60 96
01/23/24 11:33 01/23/24 11:33 01/23/24 11:33 01/23/24 11:33 01/23/24 11:33
I&O
01/22/24 01/23/24 01/24/24
06:59 06:59 06:59
Intake Total 680 / 680 1380 / 1380
Output Total 1125 / 1125 1625 / 1625
Balance -445 / -445 -245 / -245
Physical Exam
-
General: No Apparent Distress, Appears Chronically Ill and Cachectic
HEENT: Normocephalic, Atraumatic and Moist Mucous Membranes
Respiratory: Clear to Auscultation; Negative Wheezes, Rales or Rhonchi
Cardiac: Regular Rhythm and S1/S2
GI: Soft, Nontender, Nondistended and Normal Bowel Sounds
Musculoskeletal: No Clubbing, No Cyanosis and No Edema
Neuro: Awake
Psych: Calm
--- NOTE | 2024-01-23 12:41 | W.PN.NEPH.PH ---
Today's Communication / Plan
-
samsa
Assessment/Plan
-
IMP:
Hematemesis
History of esophageal varices status post banding
Decompensated alcoholic liver cirrhosis with ascites and Hepatic encephalopathy
Acute on chronic hyponatremia
Acute on Chronic anemia
GD 01/17 with grade 1 esophageal varices seen with no stigmata of recent bleeding, also portal hypertensive gastropathy, scar seen in the middle/lower third of his esophagus due to prior banding, with a normal examined duodenum.
Coag negative staph bacteremia
Severe Protein Calorie Malnutrition
Alcohol use disorder with dependence & withdrawal
Chronic thrombocytopenia secondary to cirrhosis
Alcohol use disorder
History of umbilical hernia
Plan:
samsca today
continue lasix
could consider higher lasix dose
follow BMP
prognosis is poor
-
-
Date of Service: January 23, 2024
CC / HPI / ROS
-
Chief Complaint:
hyponatremia
History of Present Illness:
sodium slightly better at 127 after samsca
BP stable
Cr 1.1
no fever
Review of Systems:
no cp or sob
eating well. no abd pain or dysuria
Labs
-
Labs:
WBC 7.2 10^3/uL (4.8-10.8) 01/21/24 05:21
RBC 2.86 10^6/uL (4.70-6.10) L 01/21/24 05:21
Hgb 9.0 g/dL (13.0-18.0) L 01/21/24 05:21
Hct 25.5 % (39.0-52.0) L 01/21/24 05:21
Plt Count 71 10^3/uL (130-400) L D 01/21/24 05:21
Sodium 127 mmol/L (135-145) L 01/23/24 07:08
Potassium 4.3 mmol/L (3.5-5.1) 01/23/24 07:08
Chloride 94 mmol/L (98-107) L 01/23/24 07:08
Carbon Dioxide 26 mmol/L (22-30) 01/23/24 07:08
BUN 18 mg/dl (9-20) 01/23/24 07:08
Creatinine 1.1 mg/dL (0.7-1.3) 01/23/24 07:08
eGFR > 60.00 01/23/24 07:08
Glucose 94 mg/dl (70-99) 01/23/24 07:08
Calcium 8.8 mg/dl (8.4-10.2) 01/23/24 07:08
Phosphorus 2.7 mg/dl (2.5-4.5) 01/18/24 02:48
Albumin 2.7 g/dl (3.5-5.0) L 01/21/24 05:21
Physical Exam
-
Vital Signs:
Vital Signs
Temp Pulse Resp BP Pulse Ox
97.6 F 63 19 130/60 96
01/23/24 11:33 01/23/24 11:33 01/23/24 11:33 01/23/24 11:33 01/23/24 11:33
Cardiovascular:: Regular rate and rhythm
Respiratory:: Bilateral: Coarse
Lung Excursion:: Normal
Abdomen:: Nontender
Bowel Sounds:: Normal
Extremity Edema:: None: Bilateral:
[2024-01-23] MEDS: SAMSCA 7.5 MG PO (13:53)
[2024-01-23 15:57] VITALS: BP 96/57
[2024-01-23 19:09] VITALS: BP 105/62
[2024-01-23] MEDS: PROTONIX 40 MG PO (19:43)
[2024-01-23] MEDS: STERILE WATER FOR INJECTION IV (23:14)
[2024-01-23 23:20] VITALS: BP 99/59
[2024-01-24] VITALS (7 sets, daily range): BP systolic 91–100; BP diastolic 40–61
[2024-01-24 08:35] LABS: % Eosinophils 9.1 % (0-6); % Immature Granulocytes 0.4 % (0-0.5); % Lymphocytes 18.2 % (20.5-51.1); % Monocytes 17.7 % (1.7-9.3); % Neutrophils 53.6 % (42.2-75.2); Absolute Basophils 0.1 10^3/uL (0-0.2); Absolute Eosinophils 0.6 10^3/uL (0-0.7); Absolute Lymphocytes 1.3 10^3/uL (1.2-3.4); Absolute Monocytes 1.2 10^3/uL (0.1-0.6); Absolute Neutrophils 3.7 10^3/uL (1.4-6.5); Hematocrit 26.8 % (39.0-52.0); Hemoglobin 9.2 g/dL (13.0-18.0); Mean Corp Hgb Conc. 34.3 g/dL (33.0-37.0); Mean Corpuscular Hgb 30.9 pg (27.0-31.0); Mean Corpuscular Volume 89.9 fL (80.0-94.0); Mean Platelet Volume 9.4 fL (7.4-10.4); Nucleated Red Blood Cells % 0 % (-); Platelet Count 143 10^3/uL (130-400); Red Blood Cell Count 2.98 10^6/uL (4.70-6.10); Red Cell Dist. Width 16.9 % (11.5-14.5); White Blood Cell Count 6.9 10^3/uL (4.8-10.8)
[2024-01-24 09:04] LABS: Carbon Dioxide 27 mmol/L (22-30); Estimated Creatinine Clearance 64 ml/min; eGFR > 60.00
[2024-01-24] MEDS: FOLVITE 1 MG PO (09:04)
[2024-01-24] MEDS: LASIX 40 MG PO (09:04)
[2024-01-24] MEDS: PROTONIX 40 MG PO ×2 (09:04→21:51)
[2024-01-24] MEDS: VITAMIN B1 100 MG PO (09:04)
[2024-01-24] MEDS: XIFAXAN 550 MG PO ×2 (09:04→21:51)
[2024-01-24] MEDS: ALDACTONE 100 MG PO (09:04)
--- NOTE | 2024-01-24 09:14 | PN.CDI ---
CDI
- -
CDI:
Physician Documentation Request
Admit Date: 01/16/24 21:11
Dear Doctor Dolly,
Clinical Indicators:
Patient admitted with hematemesis/hemoccult positive stool.
EGD report, 'he had fresh blood in mouth with tongue laceration and lip laceration he may bled from this and swallowed blood.'
01/20 Nephrology consult,'Acute on Chronic anemia'
/ PN, 'Chronic anemia'
PRBCs 3 units transfused
Hgb/Hct trend:
01/16/24 01/17/24 01/21/24
19:47 21:06 05:21
Hgb 7.3 L 6.9 L* 9.0 L
Hct 19.7 L* 19.0 L* 25.5 L
Based on the above, could you clarify, in your progress note, which of the following is the most likely type of anemia you are evaluating, monitoring and/or treating?
Acute blood loss anemia with baseline chronic anemia (please specify type)
Chronic anemia only (please specify type)
Other, please specify
Use of terms such as suspected, likely, concern for, or probable (associated with a specific diagnosis that is being evaluated, monitored, or treated as if it exists) are acceptable and can be coded in the inpatient setting, when documented at the
time of discharge.
Thank you,
MAUREEN Valdez RN
CDI Specialist
available via tiger text
Please use your independent medical judgment in providing your response.
[2024-01-24 09:17] LABS: Blood Urea Nitrogen 23 mg/dl (9-20); Calcium 8.7 mg/dl (8.4-10.2); Chloride 92 mmol/L (98-107); Glucose 93 mg/dl (70-99); Potassium 4.3 mmol/L (3.5-5.1); Sodium 128 mmol/L (135-145)
--- NOTE | 2024-01-24 11:34 | W.PN.NEPH.PH ---
Today's Communication / Plan
-
samsca
Assessment/Plan
-
IMP:
Hematemesis
History of esophageal varices status post banding
Decompensated alcoholic liver cirrhosis with ascites and Hepatic encephalopathy
Acute on chronic hyponatremia
Acute on Chronic anemia
GD 01/17 with grade 1 esophageal varices seen with no stigmata of recent bleeding, also portal hypertensive gastropathy, scar seen in the middle/lower third of his esophagus due to prior banding, with a normal examined duodenum.
Coag negative staph bacteremia
Severe Protein Calorie Malnutrition
Alcohol use disorder with dependence & withdrawal
Chronic thrombocytopenia secondary to cirrhosis
Alcohol use disorder
History of umbilical hernia
Plan:
samsca today again
continue lasix
could consider higher lasix dose
follow BMP
prognosis is poor
-
-
Date of Service: January 24, 2024
CC / HPI / ROS
-
Chief Complaint:
hyponatremia
History of Present Illness:
sodium slightly better at 128 after samsca
BP stable
Cr 1.3 stable
no fever
Review of Systems:
no cp or sob
mild abd pain
Labs
-
Labs:
WBC 6.9 10^3/uL (4.8-10.8) 01/24/24 07:46
RBC 2.98 10^6/uL (4.70-6.10) L 01/24/24 07:46
Hgb 9.2 g/dL (13.0-18.0) L 01/24/24 07:46
Hct 26.8 % (39.0-52.0) L 01/24/24 07:46
Plt Count 143 10^3/uL (130-400) D 01/24/24 07:46
Sodium 128 mmol/L (135-145) L 01/24/24 07:46
Potassium 4.3 mmol/L (3.5-5.1) 01/24/24 07:46
Chloride 92 mmol/L (98-107) L 01/24/24 07:46
Carbon Dioxide 27 mmol/L (22-30) 01/24/24 07:46
BUN 23 mg/dl (9-20) H 01/24/24 07:46
Creatinine 1.3 mg/dL (0.7-1.3) 01/24/24 07:46
eGFR > 60.00 01/24/24 07:46
Glucose 93 mg/dl (70-99) 01/24/24 07:46
Calcium 8.7 mg/dl (8.4-10.2) 01/24/24 07:46
Phosphorus 2.7 mg/dl (2.5-4.5) 01/18/24 02:48
Albumin 2.7 g/dl (3.5-5.0) L 01/21/24 05:21
Physical Exam
-
Vital Signs:
Vital Signs
Temp Pulse Resp BP Pulse Ox
98.3 F 64 12 98/60 96
01/24/24 07:00 01/24/24 07:00 01/24/24 07:00 01/24/24 07:00 01/24/24 07:00
Cardiovascular:: Regular rate and rhythm
Respiratory:: Bilateral: Coarse
Lung Excursion:: Normal
Abdomen:: Distended, Nontender and Soft
Bowel Sounds:: Normal
Extremity Edema:: None: Bilateral:
--- NOTE | 2024-01-24 12:12 | W.PN.HOSP.TC ---
Today's Communication/Plan
-
samsca
pt eval
trend bmp
Assessment / Plan
Assessment / Plan
#Hematemesis
#History of esophageal varices status post banding
-Hemoccult positive
-diet advanced
-s/p 3u of PRBC so far.
-Protonix changed to 40 mg IV q12h
-Octreotide drip stopped
currently eating well
# Decompensated alcoholic liver cirrhosis with ascites
# Hepatic encephalopathy
-Chest x-ray unremarkable
-IV fluids given
-Status post ceftriaxone.
-IR consulted for paracentesis-10 liters removed
-resumed diet
-Continue lactulose, add Xifaxan
-Resumed Lasix, spironolactone
-GI consulted
-IRAD Consult for repeat paracentesis on 01/20 and additional 8.5L removed. NEG for SBP s/p albumin.
Acute on chronic hyponatremia
-Received IV fluids early on
-Maintained on diuretic
-Sodium at 128 with plan for repeat dose of samsca today.
-sodium slowly improving.
-Cont with 40oz FR.
-nephro recs.
Chronic anemia
-Hemoglobin at 9
patient underwent EGD 01/17 with grade 1 esophageal varices seen with no stigmata of recent bleeding, also portal hypertensive gastropathy, scar seen in the middle/lower third of his esophagus due to prior banding, with a normal examined duodenum.
Coag negative staph bacteremia
-DC further vancomycin.
Severe Protein Calorie Malnutrition
Pt appears cachexia with alb of 2.7 most likely from a combination of alcohol abuse and cirrhosis. With RD stating that pt meets criteria for severe malnutrition
Alcohol use disorder with dependence & withdrawal
will continue MSAS protocol
no evidence for prior TIPS.
Chronic thrombocytopenia secondary to cirrhosis
-Stable 71k
Alcohol use disorder
-Thiamine and folate
-Alcohol withdrawal protocol
History of umbilical hernia
Full code
DVT prophylaxis�SCDs
Confirm med rec
Encourage OOB/PT
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
Dispo-nephro recs. Trend bmp.
Anticipated Discharge: Within 24 hours
Subjective/Interval History
-
Date of Service: January 24, 2024
tolerating diet
intermittent abd pain
Objective Data
-
Labs:
Laboratory Results
01/24/24
07:46
WBC 6.9
Hgb 9.2 L
Hct 26.8 L
Plt Count 143 D
Sodium 128 L
Potassium 4.3
Chloride 92 L
Carbon Dioxide 27
BUN 23 H
Creatinine 1.3
Glucose 93
Calcium 8.7
Vital Signs:
Vital Signs
Temp Pulse Resp BP Pulse Ox
98.1 F 69 12 91/54 97
01/24/24 11:00 01/24/24 11:00 01/24/24 11:00 01/24/24 11:00 01/24/24 11:00
I&O
01/23/24 01/24/24 01/25/24
06:59 06:59 06:59
Intake Total 1380 / 1380 560 / 560
Output Total 1625 / 1625 675 / 675 125 / 125
Balance -245 / -245 -115 / -115 -125 / -125
[2024-01-24] MEDS: SAMSCA 15 MG PO (12:40)
--- NOTE | 2024-01-24 15:04 | CM ---
patient seen bedside.
OOB ambulating in halls with therapy.
Plan: home with outpatient ETOH resources/ [facility].
[2024-01-24] MEDS: TYLENOL 650 MG PO (17:46)
[2024-01-24] MEDS: STERILE WATER FOR INJECTION IV (21:51)
[2024-01-25 03:22] VITALS: BP 90/54
[2024-01-25 07:59] VITALS: BP 96/53
[2024-01-25 09:29] LABS: Blood Urea Nitrogen 23 mg/dl (9-20); Carbon Dioxide 29 mmol/L (22-30); Chloride 92 mmol/L (98-107); Estimated Creatinine Clearance 64 ml/min; Glucose 98 mg/dl (70-99); Potassium 4.6 mmol/L (3.5-5.1); Sodium 130 mmol/L (135-145); eGFR > 60.00
[2024-01-25] MEDS: VITAMIN B1 100 MG PO (09:39)
[2024-01-25] MEDS: LASIX 40 MG PO (09:39)
[2024-01-25] MEDS: FOLVITE 1 MG PO (09:39)
[2024-01-25] MEDS: PROTONIX 40 MG PO ×2 (09:39→19:55)
[2024-01-25] MEDS: ALDACTONE 100 MG PO (09:39)
[2024-01-25] MEDS: XIFAXAN 550 MG PO ×2 (09:39→19:55)
[2024-01-25] MEDS: TYLENOL 650 MG PO (09:48)
[2024-01-25 11:25] VITALS: BP 92/49
--- NOTE | 2024-01-25 12:19 | W.PN.HOSP.TC ---
Today's Communication/Plan
-
nephro recs
Cr slow uptrend
trend bmp
Assessment / Plan
Assessment / Plan
Acute on chronic hyponatremia
-Received IV fluids early on
-Maintained on diuretic
-Sodium at 130. Cr slowly uptrending.
-sodium slowly improving.
-Cont with 40oz FR.
-nephro recs.
#Hematemesis
#History of esophageal varices status post banding
-Hemoccult positive
-diet advanced
-s/p 3u of PRBC so far.
-Protonix changed to 40 mg IV q12h. Switch po on dc
-Octreotide drip stopped
currently eating well
# Decompensated alcoholic liver cirrhosis with ascites
# Hepatic encephalopathy
-Chest x-ray unremarkable
-IV fluids given
-Status post ceftriaxone.
-IR consulted for paracentesis-10 liters removed
-resumed diet
-Continue lactulose, add Xifaxan
-Resumed Lasix, spironolactone
-GI consulted
-IRAD Consult for repeat paracentesis on 01/20 and additional 8.5L removed. NEG for SBP s/p albumin.
Acute blood loss anemia
Anemia of chronic disease likely 2/2 bone marrow suppression 2/2 etoh abuse
-Hemoglobin at 9.2
patient underwent EGD 01/17 with grade 1 esophageal varices seen with no stigmata of recent bleeding, also portal hypertensive gastropathy, scar seen in the middle/lower third of his esophagus due to prior banding, with a normal examined duodenum.
Coag negative staph bacteremia
-DC further vancomycin.
Severe Protein Calorie Malnutrition
Pt appears cachexia with alb of 2.7 most likely from a combination of alcohol abuse and cirrhosis. With RD stating that pt meets criteria for severe malnutrition
Alcohol use disorder with dependence & withdrawal
will continue MSAS protocol
no evidence for prior TIPS.
Chronic thrombocytopenia secondary to cirrhosis
-Stabilized.
Alcohol use disorder
-Thiamine and folate
-Alcohol withdrawal protocol
History of umbilical hernia
Full code
DVT prophylaxis�SCDs
Confirm med rec
Encourage OOB/PT
supervisor intermediates prognosis guarded
Dispo-nephro recs. Trend bmp.
Anticipated Discharge: Within 24 hours
Subjective/Interval History
-
Date of Service: January 25, 2024
Tolerating diet
Objective Data
-
Labs:
Laboratory Results
01/25/24
07:34
Sodium 130 L
Potassium 4.6
Chloride 92 L
Carbon Dioxide 29
BUN 23 H
Creatinine 1.3
Glucose 98
Calcium 9.0
Vital Signs:
Vital Signs
Temp Pulse Resp BP Pulse Ox
98.7 F 78 20 92/49 98
01/25/24 11:25 01/25/24 11:25 01/25/24 11:25 01/25/24 11:25 01/25/24 11:25
I&O
01/24/24 01/25/24 01/26/24
06:59 06:59 06:59
Intake Total 560 / 560 600 / 600
Output Total 675 / 675 825 / 825
Balance -115 / -115 -225 / -225
--- NOTE | 2024-01-25 15:23 | W.PN.NEPH.PH ---
Today's Communication / Plan
-
follow labs
no samsca
Assessment/Plan
-
IMP:
Hematemesis
History of esophageal varices status post banding
Decompensated alcoholic liver cirrhosis with ascites and Hepatic encephalopathy
Acute on chronic hyponatremia
Acute on Chronic anemia
GD 01/17 with grade 1 esophageal varices seen with no stigmata of recent bleeding, also portal hypertensive gastropathy, scar seen in the middle/lower third of his esophagus due to prior banding, with a normal examined duodenum.
Coag negative staph bacteremia
Severe Protein Calorie Malnutrition
Alcohol use disorder with dependence & withdrawal
Chronic thrombocytopenia secondary to cirrhosis
Alcohol use disorder
History of umbilical hernia
Plan:
sodium better at 130
cr is slightly higher than baseline-had 2 large paracentesis recently and soft BP
he has underlying hepatorenal physiology
continue lasix
follow BMP
prognosis is poor, hope he understands
-
-
Date of Service: January 25, 2024
CC / HPI / ROS
-
Chief Complaint:
hyponatremia
History of Present Illness:
sodium slightly better at 130 after samsca
BP soft
Cr 1.3 stable
no fever
Review of Systems:
no cp or sob
mild abd pain
Labs
-
Labs:
WBC 6.9 10^3/uL (4.8-10.8) 01/24/24 07:46
RBC 2.98 10^6/uL (4.70-6.10) L 01/24/24 07:46
Hgb 9.2 g/dL (13.0-18.0) L 01/24/24 07:46
Hct 26.8 % (39.0-52.0) L 01/24/24 07:46
Plt Count 143 10^3/uL (130-400) D 01/24/24 07:46
Sodium 130 mmol/L (135-145) L 01/25/24 07:34
Potassium 4.6 mmol/L (3.5-5.1) 01/25/24 07:34
Chloride 92 mmol/L (98-107) L 01/25/24 07:34
Carbon Dioxide 29 mmol/L (22-30) 01/25/24 07:34
BUN 23 mg/dl (9-20) H 01/25/24 07:34
Creatinine 1.3 mg/dL (0.7-1.3) 01/25/24 07:34
eGFR > 60.00 01/25/24 07:34
Glucose 98 mg/dl (70-99) 01/25/24 07:34
Calcium 9.0 mg/dl (8.4-10.2) 01/25/24 07:34
Phosphorus 2.7 mg/dl (2.5-4.5) 01/18/24 02:48
Albumin 2.7 g/dl (3.5-5.0) L 01/21/24 05:21
Physical Exam
-
Vital Signs:
Vital Signs
Temp Pulse Resp BP Pulse Ox
98.7 F 78 20 92/49 98
01/25/24 11:25 01/25/24 11:25 01/25/24 11:25 01/25/24 11:25 01/25/24 11:25
Cardiovascular:: Regular rate and rhythm
Respiratory:: Bilateral: CTA
Lung Excursion:: Normal
Abdomen:: Soft and Tender (mild TTP gen)
Extremity Edema:: None: Bilateral:
Mendoza Catheter: No
[2024-01-25 15:38] VITALS: BP 88/45
[2024-01-25 19:30] VITALS: BP 93/46
[2024-01-25] MEDS: STERILE WATER FOR INJECTION IV (19:56)
[2024-01-25 23:12] VITALS: BP 89/48
[2024-01-26 03:30] VITALS: BP 93/45
[2024-01-26 07:25] VITALS: BP 103/60
[2024-01-26] MEDS: ALDACTONE 100 MG PO (08:27)
[2024-01-26] MEDS: FOLVITE 1 MG PO (08:27)
[2024-01-26] MEDS: XIFAXAN 550 MG PO ×2 (08:27→19:45)
[2024-01-26] MEDS: LASIX 40 MG PO (08:27)
[2024-01-26] MEDS: VITAMIN B1 100 MG PO (08:28)
[2024-01-26] MEDS: PROTONIX 40 MG PO ×2 (08:28→19:45)
[2024-01-26 09:04] LABS: Blood Urea Nitrogen 24 mg/dl (9-20); Calcium 8.8 mg/dl (8.4-10.2); Carbon Dioxide 30 mmol/L (22-30); Chloride 93 mmol/L (98-107); Estimated Creatinine Clearance 64 ml/min; Glucose 87 mg/dl (70-99); Potassium 4.9 mmol/L (3.5-5.1); Sodium 131 mmol/L (135-145); eGFR > 60.00
[2024-01-26 11:25] VITALS: BP 93/56
[2024-01-26] MEDS: TYLENOL 650 MG PO (12:02)
--- NOTE | 2024-01-26 12:44 | W.PN.HOSP.TC ---
Today's Communication/Plan
-
OOB/ambulate
trend cr/na
start dispo efforts
nephro recs
Assessment / Plan
Assessment / Plan
Acute on chronic hyponatremia
-Received IV fluids early on
-Maintained on diuretic
-Sodium at 131. Cr slowly uptrending to 1.3 from baseline 0.7.
-Did undergo large volume paracentesis
-sodium slowly improving.
-Cont with 40oz FR.
-nephro recs.
#Hematemesis
#History of esophageal varices status post banding
-Hemoccult positive
-diet advanced
-s/p 3u of PRBC so far.
-Protonix changed to 40 mg IV q12h. Switch po on dc
-Octreotide drip stopped
currently eating well
# Decompensated alcoholic liver cirrhosis with ascites
# Hepatic encephalopathy
-Chest x-ray unremarkable
-IV fluids given
-Status post ceftriaxone.
-IR consulted for paracentesis-10 liters removed
-resumed diet
-Continue lactulose, add Xifaxan
-Resumed Lasix, spironolactone
-GI consulted
-IRAD Consult for repeat paracentesis on 01/20 and additional 8.5L removed. NEG for SBP s/p albumin.
Acute blood loss anemia
Anemia of chronic disease likely 2/2 bone marrow suppression 2/2 etoh abuse
-Hemoglobin at 9.2
patient underwent EGD 01/17 with grade 1 esophageal varices seen with no stigmata of recent bleeding, also portal hypertensive gastropathy, scar seen in the middle/lower third of his esophagus due to prior banding, with a normal examined duodenum.
Coag negative staph bacteremia
-DC further vancomycin.
Severe Protein Calorie Malnutrition
Pt appears cachexia with alb of 2.7 most likely from a combination of alcohol abuse and cirrhosis. With RD stating that pt meets criteria for severe malnutrition
Alcohol use disorder with dependence & withdrawal
will continue MSAS protocol
no evidence for prior TIPS.
Chronic thrombocytopenia secondary to cirrhosis
-Stabilized.
Alcohol use disorder
-Thiamine and folate
-Alcohol withdrawal protocol
History of umbilical hernia
Severe protein calorie malnutrition of chronic illness
Full code
DVT prophylaxis�SCDs
Confirm med rec
Encourage OOB/PT
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
update patient sister over the phone in details on 01/24
Dispo-nephro recs. Trend bmp.
Anticipated Discharge: Within 24 hours
Subjective/Interval History
-
Date of Service: January 26, 2024
mild abd discomfort
tolerating diet
Objective Data
-
Labs:
Laboratory Results
01/26/24
06:43
Sodium 131 L
Potassium 4.9
Chloride 93 L
Carbon Dioxide 30
BUN 24 H
Creatinine 1.3
Glucose 87
Calcium 8.8
Vital Signs:
Vital Signs
Temp Pulse Resp BP Pulse Ox
98.5 F 77 16 93/56 96
01/26/24 11:25 01/26/24 11:25 01/26/24 11:25 01/26/24 11:25 01/26/24 11:25
I&O
01/25/24 01/26/24 01/27/24
06:59 06:59 06:59
Intake Total 600 / 600 600 / 600 480 / 480
Output Total 825 / 825 250 / 250
Balance -225 / -225 600 / 600 230 / 230
--- NOTE | 2024-01-26 15:00 | W.PN.NEPH.PH ---
Today's Communication / Plan
-
d/c plan
Assessment/Plan
-
IMP:
Hematemesis
History of esophageal varices status post banding
Decompensated alcoholic liver cirrhosis with ascites and Hepatic encephalopathy
Acute on chronic hyponatremia
Acute on Chronic anemia
GD 01/17 with grade 1 esophageal varices seen with no stigmata of recent bleeding, also portal hypertensive gastropathy, scar seen in the middle/lower third of his esophagus due to prior banding, with a normal examined duodenum.
Coag negative staph bacteremia
Severe Protein Calorie Malnutrition
Alcohol use disorder with dependence & withdrawal
Chronic thrombocytopenia secondary to cirrhosis
Alcohol use disorder
History of umbilical hernia
Plan:
sodium better at 131
cr is slightly higher than baseline-had 2 large paracentesis recently and soft BP
he has underlying hepatorenal physiology
continue lasix
follow BMP
prognosis is poor, hope he understands
-
-
Date of Service: January 26, 2024
CC / HPI / ROS
-
Chief Complaint:
hyponatremia
History of Present Illness:
sodium slightly better at 131
BP soft
Cr 1.3 stable
no fever
Review of Systems:
no cp or sob
mild abd pain
Labs
-
Labs:
WBC 6.9 10^3/uL (4.8-10.8) 01/24/24 07:46
RBC 2.98 10^6/uL (4.70-6.10) L 01/24/24 07:46
Hgb 9.2 g/dL (13.0-18.0) L 01/24/24 07:46
Hct 26.8 % (39.0-52.0) L 01/24/24 07:46
Plt Count 143 10^3/uL (130-400) D 01/24/24 07:46
Sodium 131 mmol/L (135-145) L 01/26/24 06:43
Potassium 4.9 mmol/L (3.5-5.1) 01/26/24 06:43
Chloride 93 mmol/L (98-107) L 01/26/24 06:43
Carbon Dioxide 30 mmol/L (22-30) 01/26/24 06:43
BUN 24 mg/dl (9-20) H 01/26/24 06:43
Creatinine 1.3 mg/dL (0.7-1.3) 01/26/24 06:43
eGFR > 60.00 01/26/24 06:43
Glucose 87 mg/dl (70-99) 01/26/24 06:43
Calcium 8.8 mg/dl (8.4-10.2) 01/26/24 06:43
Phosphorus 2.7 mg/dl (2.5-4.5) 01/18/24 02:48
Albumin 2.7 g/dl (3.5-5.0) L 01/21/24 05:21
Physical Exam
-
Vital Signs:
Vital Signs
Temp Pulse Resp BP Pulse Ox
98.5 F 77 16 93/56 96
01/26/24 11:25 01/26/24 11:25 01/26/24 11:25 01/26/24 11:25 01/26/24 11:25
Cardiovascular:: Regular rate and rhythm
Respiratory:: Bilateral: CTA
Lung Excursion:: Normal
Abdomen:: Distended, Soft and Tender (mild gen TTP)
Extremity Edema:: None: Bilateral:
Mendoza Catheter: No
[2024-01-26 15:50] VITALS: BP 96/51
[2024-01-26 19:20] VITALS: BP 98/51
[2024-01-26] MEDS: STERILE WATER FOR INJECTION IV (19:45)
[2024-01-26 23:18] VITALS: BP 91/50
[2024-01-27 03:25] VITALS: BP 95/50
[2024-01-27 07:00] VITALS: BP 105/54
[2024-01-27 08:29] LABS: Blood Urea Nitrogen 29 mg/dl (9-20); Calcium 9.1 mg/dl (8.4-10.2); Carbon Dioxide 28 mmol/L (22-30); Chloride 93 mmol/L (98-107); Estimated Creatinine Clearance 56 ml/min; Glucose 103 mg/dl (70-99); Potassium 5.1 mmol/L (3.5-5.1); Sodium 129 mmol/L (135-145); eGFR > 60.00
[2024-01-27] MEDS: ALDACTONE PO (08:35)
[2024-01-27] MEDS: LASIX PO (08:35)
[2024-01-27] MEDS: PROTONIX 40 MG PO ×2 (08:39→19:34)
[2024-01-27] MEDS: VITAMIN B1 100 MG PO (08:39)
[2024-01-27] MEDS: XIFAXAN 550 MG PO ×2 (08:39→19:34)
[2024-01-27] MEDS: FOLVITE 1 MG PO (08:39)
--- NOTE | 2024-01-27 10:47 | PTCARENOTE ---
Assumed care of pt from previous nurse. Pt report abdominal tenderness as tolerable. Abd firm, tender to palpation, ascites, hyperactive bowel sounds. Pt call [facility]aza is within reach, pt rings paulo. will cont to monitor.
[2024-01-27 11:00] VITALS: BP 110/54
--- NOTE | 2024-01-27 11:27 | W.PN.HOSP.TC ---
Today's Communication/Plan
-
Uptrend in cr
hold diuretics
urine studies
nephro recs
oob
Assessment / Plan
Assessment / Plan
Acute on chronic hyponatremia
GREG
-Received IV fluids early on
-Maintained on diuretic
-Sodium at 129 downtrended slightly s/p samsca
-Cr uptrended to 1.5 from baseline ~0.7
-Hold diuretics
-Did undergo large volume paracentesis
-Check urine studies
-Cont with 40oz FR.
-nephro recs.
#Hematemesis
#History of esophageal varices status post banding
-Hemoccult positive
-diet advanced
-s/p 3u of PRBC so far.
-Protonix changed to 40 mg IV q12h. Switch po on dc
-Octreotide drip stopped
currently eating well
# Decompensated alcoholic liver cirrhosis with ascites
# Hepatic encephalopathy
-Chest x-ray unremarkable
-IV fluids given
-Status post ceftriaxone.
-IR consulted for paracentesis-10 liters removed
-resumed diet
-Continue lactulose, add Xifaxan
-Resumed Lasix, spironolactone
-GI consulted
-IRAD Consult for repeat paracentesis on 01/20 and additional 8.5L removed. NEG for SBP s/p albumin.
Acute blood loss anemia
Anemia of chronic disease likely 2/2 bone marrow suppression 2/2 etoh abuse
-Hemoglobin at 9.2
patient underwent EGD 01/17 with grade 1 esophageal varices seen with no stigmata of recent bleeding, also portal hypertensive gastropathy, scar seen in the middle/lower third of his esophagus due to prior banding, with a normal examined duodenum.
Coag negative staph bacteremia
-DC further vancomycin.
Severe Protein Calorie Malnutrition
Pt appears cachexia with alb of 2.7 most likely from a combination of alcohol abuse and cirrhosis. With RD stating that pt meets criteria for severe malnutrition
Alcohol use disorder with dependence & withdrawal
will continue MSAS protocol
no evidence for prior TIPS.
Chronic thrombocytopenia secondary to cirrhosis
-Stabilized.
Alcohol use disorder
-Thiamine and folate
-Alcohol withdrawal protocol
History of umbilical hernia
Severe protein calorie malnutrition of chronic illness
Full code
DVT prophylaxis�SCDs
Confirm med rec
Encourage OOB/PT
long term prognosis guarded
update patient sister over the phone in details on 01/24
Anticipated Discharge: 24 - 48 hours
Subjective/Interval History
-
Date of Service: January 27, 2024
no complaints
tolerating diet
Objective Data
-
Labs:
Laboratory Results
01/27/24
07:24
Sodium 129 L
Potassium 5.1
Chloride 93 L
Carbon Dioxide 28
BUN 29 H
Creatinine 1.5 H
Glucose 103 H
Calcium 9.1
Vital Signs:
Vital Signs
Temp Pulse Resp BP Pulse Ox
98.1 F 68 18 110/54 98
01/27/24 11:00 01/27/24 11:00 01/27/24 11:00 01/27/24 11:00 01/27/24 11:00
I&O
01/26/24 01/27/24 01/28/24
06:59 06:59 06:59
Intake Total 600 / 600 1320 / 1320
Output Total 550 / 550
Balance 600 / 600 770 / 770
[2024-01-27 15:00] VITALS: BP 102/52
--- NOTE | 2024-01-27 15:58 | W.PN.NEPH.PH ---
Today's Communication / Plan
-
IV alb, check Urine studies
Assessment/Plan
-
IMP:
GREG
Hematemesis
History of esophageal varices status post banding
Decompensated alcoholic liver cirrhosis with ascites and Hepatic encephalopathy
Acute on chronic hyponatremia
Acute on Chronic anemia
GD 01/17 with grade 1 esophageal varices seen with no stigmata of recent bleeding, also portal hypertensive gastropathy, scar seen in the middle/lower third of his esophagus due to prior banding, with a normal examined duodenum.
Coag negative staph bacteremia
Severe Protein Calorie Malnutrition
Alcohol use disorder with dependence & withdrawal
Chronic thrombocytopenia secondary to cirrhosis
Alcohol use disorder
History of umbilical hernia
Plan:
sodium down to 129
AK-cr is up today to 1.5, UOP not measured
check UA, U lytes
start alb IV course and hold diuretics lasix , Aldactone
suspect may be evolving HRS
I am not sure how much pt understands the severity of his illness
soft BP but stable
follow BMP
prognosis is poor, hope he understands
d/w pt and nursing
-
-
Date of Service: January 27, 2024
CC / HPI / ROS
-
Chief Complaint:
hyponatremia
History of Present Illness:
sodium down to 129
BP soft
Cr up at 1.5
no fever
UOP not measured
Review of Systems:
no cp or sob
mild abd pain better
Labs
-
Labs:
WBC 6.9 10^3/uL (4.8-10.8) 01/24/24 07:46
RBC 2.98 10^6/uL (4.70-6.10) L 01/24/24 07:46
Hgb 9.2 g/dL (13.0-18.0) L 01/24/24 07:46
Hct 26.8 % (39.0-52.0) L 01/24/24 07:46
Plt Count 143 10^3/uL (130-400) D 01/24/24 07:46
Sodium 129 mmol/L (135-145) L 01/27/24 07:24
Potassium 5.1 mmol/L (3.5-5.1) 01/27/24 07:24
Chloride 93 mmol/L (98-107) L 01/27/24 07:24
Carbon Dioxide 28 mmol/L (22-30) 01/27/24 07:24
BUN 29 mg/dl (9-20) H 01/27/24 07:24
Creatinine 1.5 mg/dL (0.7-1.3) H 01/27/24 07:24
eGFR > 60.00 01/27/24 07:24
Glucose 103 mg/dl (70-99) H 01/27/24 07:24
Calcium 9.1 mg/dl (8.4-10.2) 01/27/24 07:24
Phosphorus 2.7 mg/dl (2.5-4.5) 01/18/24 02:48
Albumin 2.7 g/dl (3.5-5.0) L 01/21/24 05:21
Physical Exam
-
Vital Signs:
Vital Signs
Temp Pulse Resp BP Pulse Ox
98.3 F 66 18 102/52 97
01/27/24 15:00 01/27/24 15:00 01/27/24 15:00 01/27/24 15:00 01/27/24 15:00
Cardiovascular:: Regular rate and rhythm
Respiratory:: Bilateral: CTA
Lung Excursion:: Normal
Abdomen:: Distended, Nontender and Soft
Extremity Edema:: None: Bilateral:
Mendoza Catheter: No
[2024-01-27 16:59] LABS: Urine Albumin Negative (Neg - Trace); Urine Bilirubin Negative (Negative); Urine Character Slightly Cloudy (Clear); Urine Color Yellow; Urine Glucose Negative (Negative); Urine Ketone Negative (Negative); Urine Leukocyte Trace (Negative); Urine Nitrite Negative (Negative); Urine Occult Blood Negative (Negative); Urine Urobilinogen Negative (Neg - 1+)
[2024-01-27 17:08] LABS: Urine Squamous Cell 0-2 /LPF (Few)
[2024-01-27 17:09] LABS: Urine Bacteria Few (Negative)
[2024-01-27 17:10] LABS: Urine Red Blood Cell 0-2 /HPF (0-2); Urine Yeast Many (Negative)
[2024-01-27 17:27] LABS: Urine Sodium 11 mmol/L (30-90)
[2024-01-27] MEDS: FLEXBUMIN 100 IV (17:47)
[2024-01-27 19:33] VITALS: BP 97/53
[2024-01-27] MEDS: STERILE WATER FOR INJECTION IV (19:34)
[2024-01-27] MEDS: TYLENOL 650 MG PO (19:36)
[2024-01-27 23:00] VITALS: BP 103/50
[2024-01-28] MEDS: FLEXBUMIN 100 IV ×2 (00:32→08:13)
[2024-01-28 00:52] VITALS: BP 110/62
[2024-01-28 02:07] VITALS: BP 104/61
[2024-01-28 07:00] VITALS: BP 112/56
[2024-01-28] MEDS: VITAMIN B1 100 MG PO (08:15)
[2024-01-28] MEDS: XIFAXAN 550 MG PO ×2 (08:15→19:52)
[2024-01-28] MEDS: FOLVITE 1 MG PO (08:16)
[2024-01-28] MEDS: PROTONIX 40 MG PO ×2 (08:16→19:51)
[2024-01-28 09:39] LABS: % Basophils 2.2 % (0-2); % Eosinophils 9.6 % (0-6); % Immature Granulocytes 0.4 % (0-0.5); % Lymphocytes 17.6 % (20.5-51.1); % Monocytes 10.8 % (1.7-9.3); % Neutrophils 59.4 % (42.2-75.2); Absolute Basophils 0.2 10^3/uL (0-0.2); Absolute Eosinophils 0.8 10^3/uL (0-0.7); Absolute Lymphocytes 1.4 10^3/uL (1.2-3.4); Absolute Monocytes 0.9 10^3/uL (0.1-0.6); Absolute Neutrophils 4.8 10^3/uL (1.4-6.5); Hematocrit 25.9 % (39.0-52.0); Hemoglobin 8.7 g/dL (13.0-18.0); Mean Corp Hgb Conc. 33.6 g/dL (33.0-37.0); Mean Corpuscular Volume 92.2 fL (80.0-94.0); Mean Platelet Volume 9.2 fL (7.4-10.4); Nucleated Red Blood Cells % 0 % (-); Platelet Count 249 10^3/uL (130-400); Red Blood Cell Count 2.81 10^6/uL (4.70-6.10); Red Cell Dist. Width 16.1 % (11.5-14.5); White Blood Cell Count 8.1 10^3/uL (4.8-10.8)
[2024-01-28 10:19] LABS: ALT (SGPT) 21 U/L (0-50); AST (SGOT) 39 U/L (17-59); Albumin 3.4 g/dl (3.5-5.0); Alkaline Phosphatase 161 U/L (38-126); Blood Urea Nitrogen 26 mg/dl (9-20); Calcium 9.1 mg/dl (8.4-10.2); Carbon Dioxide 28 mmol/L (22-30); Chloride 94 mmol/L (98-107); Estimated Creatinine Clearance 60 ml/min; Glucose 97 mg/dl (70-99); Potassium 4.8 mmol/L (3.5-5.1); Sodium 130 mmol/L (135-145); Total Bilirubin 1.3 mg/dl (0.2-1.3); Total Protein 6.5 g/dl (6.3-8.2); eGFR > 60.00
--- NOTE | 2024-01-28 11:38 | CM ---
Patient seen bedside, pleasant.
Continue to monitor labs.
IV Albumin.
Plan: home with family when stable, outpatient [facility] resources and [facility].
--- NOTE | 2024-01-28 13:13 | W.PN.HOSP.TC ---
Today's Communication/Plan
-
.
Assessment / Plan
Assessment / Plan
Physical Exam
-
General: No Apparent Distress, Appears Chronically Ill and Cachectic
HEENT: Normocephalic, Atraumatic and Moist Mucous Membranes
Respiratory: Clear to Auscultation; Negative Wheezes, Rales or Rhonchi
Cardiac: Regular Rhythm and S1/S2
GI: Soft, Nontender, Nondistended and Normal Bowel Sounds
Musculoskeletal: No Clubbing, No Cyanosis and No Edema
Neuro: Awake
Psych: Calm
Acute on chronic hyponatremia
GREG
-Received IV fluids early on
-Maintained on diuretic
-Sodium at 130
s/p Samsca
-Cr up trended to 1.5 then 1.4 from baseline ~0.7
-Hold diuretics
-Did undergo large volume paracentesis
-low urine sodium
- s/ Albumin gtt
Appreciate nephrology help
#Acute blood loss anemia due to Hematemesis
#History of esophageal varices status post banding
-Hemoccult positive
-diet advanced
-s/p 3u of PRBC so far.
-Protonix changed to 40 mg IV q12h. Switch po on dc
-Octreotide drip stopped
currently eating well
# Decompensated alcoholic liver cirrhosis with ascites
# Hepatic encephalopathy
-Chest x-ray unremarkable
-IV fluids given
-Status post ceftriaxone.
-IR consulted for paracentesis-10 liters removed
-resumed diet
-Continue lactulose, add Xifaxan
-Resumed Lasix, spironolactone
-GI consulted
-IRAD Consult for repeat paracentesis on 01/20 and additional 8.5L removed. NEG for SBP s/p albumin.
Acute blood loss anemia
Anemia of chronic disease likely 2/2 bone marrow suppression 2/2 etoh abuse
-Hemoglobin at 9.2
patient underwent EGD 01/17 with grade 1 esophageal varices seen with no stigmata of recent bleeding, also portal hypertensive gastropathy, scar seen in the middle/lower third of his esophagus due to prior banding, with a normal examined duodenum.
Coag negative staph bacteremia
-DC further vancomycin.
Severe Protein Calorie Malnutrition
Pt appears cachexia with alb of 2.7 most likely from a combination of alcohol abuse and cirrhosis. With RD stating that pt meets criteria for severe malnutrition
Alcohol use disorder with dependence & withdrawal
No need for MSAS protocol. HE is been here for > 7 days with no withdrawal signs
no evidence for prior TIPS.
Chronic thrombocytopenia secondary to cirrhosis
-Stabilized.
Alcohol use disorder
-Thiamine and folate
-Alcohol withdrawal protocol
History of umbilical hernia
Severe protein calorie malnutrition of chronic illness
Full code
DVT prophylaxis�SCDs
Confirm med rec
Total time spent to see the patient, examine the patient on the floor, review data and lab results, discuss treatment plan with patient, nursing staff around 55 minutes
Anticipated Discharge: 24 - 48 hours
Subjective/Interval History
-
Date of Service: January 28, 2024
Objective Data
-
Labs:
Laboratory Results
01/28/24
08:38
WBC 8.1
Hgb 8.7 L
Hct 25.9 L
Plt Count 249 D
Sodium 130 L
Potassium 4.8
Chloride 94 L
Carbon Dioxide 28
BUN 26 H
Creatinine 1.4 H
Glucose 97
Calcium 9.1
Total Bilirubin 1.3
AST 39
ALT 21
Alkaline Phosphatase 161 H
Vital Signs:
Vital Signs
Temp Pulse Resp BP Pulse Ox
99.1 F 67 16 112/56 97
01/28/24 07:00 01/28/24 07:00 01/28/24 07:00 01/28/24 07:00 01/28/24 08:15
I&O
01/27/24 01/28/24 01/29/24
06:59 06:59 06:59
Intake Total 1320 / 1320 1200 / 1200
Output Total 550 / 550 420 / 420
Balance 770 / 770 780 / 780
[2024-01-28 15:00] VITALS: BP 104/57
--- NOTE | 2024-01-28 15:05 | W.PN.NEPH.PH ---
Today's Communication / Plan
-
observe
diuretics currently held
Assessment/Plan
-
IMP:
GREG
Hematemesis
History of esophageal varices status post banding
Decompensated alcoholic liver cirrhosis with ascites and Hepatic encephalopathy
Acute on chronic hyponatremia
Acute on Chronic anemia
GD 01/17 with grade 1 esophageal varices seen with no stigmata of recent bleeding, also portal hypertensive gastropathy, scar seen in the middle/lower third of his esophagus due to prior banding, with a normal examined duodenum.
Coag negative staph bacteremia
Severe Protein Calorie Malnutrition
Alcohol use disorder with dependence & withdrawal
Chronic thrombocytopenia secondary to cirrhosis
Alcohol use disorder
History of umbilical hernia
Plan:
sodium stable around 130
AK-cr is up today to 1.4, UOP 420cc
checked UA bland
FeNa consistent with pre renal stimulus
started alb IV course and holding diuretics lasix , Aldactone
suspect may be evolving HRS , can add midodrine if bp becomes more unstable
I am not sure how much pt understands the severity of his illness
soft BP but stable
follow BMP
prognosis is poor,
nothing else much to offer
patient would not be an HD candidate due not being immediate liver transplant
-
-
Date of Service: January 28, 2024
CC / HPI / ROS
-
Chief Complaint:
hyponatremia
History of Present Illness:
sodium at 130
BP soft
Cr at 1.4
no fever
Review of Systems:
no cp or sob
mild abd pain better
oliguric
Labs
-
Labs:
WBC 8.1 10^3/uL (4.8-10.8) 01/28/24 08:38
RBC 2.81 10^6/uL (4.70-6.10) L 01/28/24 08:38
Hgb 8.7 g/dL (13.0-18.0) L 01/28/24 08:38
Hct 25.9 % (39.0-52.0) L 01/28/24 08:38
Plt Count 249 10^3/uL (130-400) D 01/28/24 08:38
Sodium 130 mmol/L (135-145) L 01/28/24 08:38
Potassium 4.8 mmol/L (3.5-5.1) 01/28/24 08:38
Chloride 94 mmol/L (98-107) L 01/28/24 08:38
Carbon Dioxide 28 mmol/L (22-30) 01/28/24 08:38
BUN 26 mg/dl (9-20) H 01/28/24 08:38
Creatinine 1.4 mg/dL (0.7-1.3) H 01/28/24 08:38
eGFR > 60.00 01/28/24 08:38
Glucose 97 mg/dl (70-99) 01/28/24 08:38
Calcium 9.1 mg/dl (8.4-10.2) 01/28/24 08:38
Phosphorus 2.7 mg/dl (2.5-4.5) 01/18/24 02:48
Albumin 3.4 g/dl (3.5-5.0) L 01/28/24 08:38
Physical Exam
-
Vital Signs:
Vital Signs
Temp Pulse Resp BP Pulse Ox
99.1 F 67 16 112/56 97
01/28/24 07:00 01/28/24 07:00 01/28/24 07:00 01/28/24 07:00 01/28/24 08:15
Cardiovascular:: Regular rate and rhythm
Respiratory:: Bilateral: Coarse
Lung Excursion:: Normal
Abdomen:: Distended
Bowel Sounds:: Decreased
Extremity Edema:: None: Bilateral:
Mendoza Catheter: No
[2024-01-28 16:33] LABS: Blood Urea Nitrogen 26 mg/dl (9-20); Calcium 9.3 mg/dl (8.4-10.2); Carbon Dioxide 26 mmol/L (22-30); Chloride 94 mmol/L (98-107); Estimated Creatinine Clearance 64 ml/min; Glucose 96 mg/dl (70-99); Sodium 127 mmol/L (135-145); eGFR > 60.00
[2024-01-28] MEDS: STERILE WATER FOR INJECTION IV (19:51)
[2024-01-28 23:11] VITALS: BP 94/50
[2024-01-29 07:08] VITALS: BP 98/58
[2024-01-29] MEDS: XIFAXAN 550 MG PO ×2 (07:46→19:35)
[2024-01-29] MEDS: VITAMIN B1 100 MG PO (07:46)
[2024-01-29] MEDS: PROTONIX 40 MG PO ×2 (07:46→19:35)
[2024-01-29] MEDS: FOLVITE 1 MG PO (07:46)
--- NOTE | 2024-01-29 09:47 | W.PN.HOSP.TC ---
Today's Communication/Plan
-
dc planning
Assessment / Plan
Assessment / Plan
Physical Exam
-
General: No Apparent Distress, Appears Chronically Ill and Cachectic
HEENT: Normocephalic, Atraumatic and Moist Mucous Membranes
Respiratory: Clear to Auscultation; Negative Wheezes, Rales or Rhonchi
Cardiac: Regular Rhythm and S1/S2
GI: Soft, Nontender, Nondistended and Normal Bowel Sounds
Musculoskeletal: No Clubbing, No Cyanosis and No Edema
Neuro: Awake, alert, oriented X3, he followed commands.
Psych: Calm
# Alcohol use disorder
I had long discussion with patient using audio translation device.
Patient reported that he knew he had liver cirrhosis from alcohol drinking and it impacted his kidney function. He said he drank because he felt lonely and away from family in [facility]. He said that drinking was a habit that he couldn't control.
I used direct language with him to make sure that he was well-informed. Alcohol would kill him. His liver was failing and no transplant offered if he continued to drink. would be likely if he continued to drink. He verbalized understanding to
the gravity of his illness.
#Acute on chronic hyponatremia
GREG
-Received IV fluids
- Off diuretic therapy
-Sodium at 130- 127
s/p Samsca
-Cr at 1.3. S/P Albumin gtt
-low urine sodium
_ nephrology possible evolving HRS
Appreciate nephrology help
#Acute blood loss anemia due to Hematemesis
#History of esophageal varices status post banding
-Hemoccult positive
-diet advanced
-s/p 3u of PRBC so far.
-Protonix changed to 40 mg IV q12h. Switch po on dc
-Octreotide drip stopped
currently eating well
# Decompensated alcoholic liver cirrhosis with ascites
# Hepatic encephalopathy
-Chest x-ray unremarkable
-IV fluids given
-Status post ceftriaxone.
-IR consulted for paracentesis-10 liters removed
-resumed diet
-Continue lactulose, add Xifaxan
-Resumed Lasix, spironolactone
-GI consulted: recommended continue diuretics, Xifaxan and supportive care
-IRAD Consult for repeat paracentesis on 01/20 and additional 8.5L removed. NEG for SBP s/p albumin.
Acute blood loss anemia
Anemia of chronic disease likely 2/2 bone marrow suppression 2/2 etoh abuse
-Hemoglobin at 9.2
patient underwent EGD 01/17 with grade 1 esophageal varices seen with no stigmata of recent bleeding, also portal hypertensive gastropathy, scar seen in the middle/lower third of his esophagus due to prior banding, with a normal examined duodenum.
Coag negative staph bacteremia
-DC further vancomycin.
Severe Protein Calorie Malnutrition
Pt appears cachexia with alb of 2.7 most likely from a combination of alcohol abuse and cirrhosis. With RD stating that pt meets criteria for severe malnutrition
Alcohol use disorder with dependence & withdrawal
No need for MSAS protocol. HE is been here for > 7 days with no withdrawal signs
no evidence for prior TIPS.
Chronic thrombocytopenia secondary to cirrhosis
-Stabilized.
Alcohol use disorder
-Thiamine and folate
-Alcohol withdrawal protocol
History of umbilical hernia
Severe protein calorie malnutrition of chronic illness
Full code
DVT prophylaxis�SCDs
Confirm med rec
Total time spent to see the patient, examine the patient on the floor, review data and lab results, discuss treatment plan with patient, nursing staff around 55 minutes
Anticipated Discharge: Within 24 hours
Subjective/Interval History
-
Date of Service: January 29, 2024
He denies abd pain or nausea
Objective Data
-
Vital Signs:
Vital Signs
Temp Pulse Resp BP Pulse Ox
97.6 F 74 16 98/58 100
01/29/24 07:08 01/29/24 07:08 01/29/24 07:08 01/29/24 07:08 01/29/24 07:30
I&O
01/28/24 01/29/24 01/30/24
06:59 06:59 06:59
Intake Total 1200 / 1200 1140 / 1140
Output Total 420 / 420 880 / 880
Balance 780 / 780 260 / 260
--- NOTE | 2024-01-29 12:51 | CM ---
Spoke with ELVI Boyle, he has already provided information for additional outpatient resources to patient.
[place] will come and see patient today or tomorrow for additional Alcohol cessation reinforcement.
CM reached out to Ani Amanda to see if patient goes for f/u appointment and if needed will provide additional application.
Plan: home with family with resources for ETOH cessation and clinic follow up.
--- NOTE | 2024-01-29 14:05 | W.PN.NEPH.PH ---
Addendum entered and electronically signed by Guillermo Small DO 01/29/24 14:09:
Add back 20 mg p.o. Lasix
Original Note:
Today's Communication / Plan
-
add back lasix 40mg po daily
Assessment/Plan
-
IMP:
GREG
Hematemesis
History of esophageal varices status post banding
Decompensated alcoholic liver cirrhosis with ascites and Hepatic encephalopathy
Acute on chronic hyponatremia
Acute on Chronic anemia
GD 01/17 with grade 1 esophageal varices seen with no stigmata of recent bleeding, also portal hypertensive gastropathy, scar seen in the middle/lower third of his esophagus due to prior banding, with a normal examined duodenum.
Coag negative staph bacteremia
Severe Protein Calorie Malnutrition
Alcohol use disorder with dependence & withdrawal
Chronic thrombocytopenia secondary to cirrhosis
Alcohol use disorder
History of umbilical hernia
Plan:
sodium down to 127
AK-cr is stable todayat 1.3, UOP 880cc
checked UA bland
FeNa consistent with pre renal stimulus
started alb IV course and holding diuretics lasix , Aldactone
suspect may be evolving HRS , can add midodrine if bp becomes more unstable
We are not sure how much pt understands the severity of his illness
soft BP but stable
follow BMP
prognosis is poor,
nothing else much to offer
patient would not be an HD candidate due not being immediate liver transplant
Add back 40 mg p.o. of Lasix daily for hyponatremia
Samsca will be used as needed but this cannot be utilized outpatient
-
-
Date of Service: January 29, 2024
CC / HPI / ROS
-
Chief Complaint:
hyponatremia
History of Present Illness:
sodium down to 127
BP soft
Cr at 1.3
no fever
Review of Systems:
no cp or sob
mild abd pain better
non-oliguric
Labs
-
Labs:
WBC 8.1 10^3/uL (4.8-10.8) 01/28/24 08:38
RBC 2.81 10^6/uL (4.70-6.10) L 01/28/24 08:38
Hgb 8.7 g/dL (13.0-18.0) L 01/28/24 08:38
Hct 25.9 % (39.0-52.0) L 01/28/24 08:38
Plt Count 249 10^3/uL (130-400) D 01/28/24 08:38
Sodium 127 mmol/L (135-145) L 01/28/24 15:52
Potassium 5.0 mmol/L (3.5-5.1) 01/28/24 15:52
Chloride 94 mmol/L (98-107) L 01/28/24 15:52
Carbon Dioxide 26 mmol/L (22-30) 01/28/24 15:52
BUN 26 mg/dl (9-20) H 01/28/24 15:52
Creatinine 1.3 mg/dL (0.7-1.3) 01/28/24 15:52
eGFR > 60.00 01/28/24 15:52
Glucose 96 mg/dl (70-99) 01/28/24 15:52
Calcium 9.3 mg/dl (8.4-10.2) 01/28/24 15:52
Phosphorus 2.7 mg/dl (2.5-4.5) 01/18/24 02:48
Albumin 3.4 g/dl (3.5-5.0) L 01/28/24 08:38
Physical Exam
-
Vital Signs:
Vital Signs
Temp Pulse Resp BP Pulse Ox
97.6 F 74 16 98/58 100
01/29/24 07:08 01/29/24 07:08 01/29/24 07:08 01/29/24 07:08 01/29/24 07:30
Cardiovascular:: Regular rate and rhythm
Respiratory:: Bilateral: CTA
Lung Excursion:: Normal
Abdomen:: Nontender and Soft
Bowel Sounds:: Normal
Extremity Edema:: None: Bilateral:
Mendoza Catheter: No
[2024-01-29] MEDS: LASIX 20 MG PO (15:09)
[2024-01-29] MEDS: TYLENOL 650 MG PO (15:16)
[2024-01-29 16:02] VITALS: BP 91/45
[2024-01-29] MEDS: STERILE WATER FOR INJECTION IV (19:35)
[2024-01-29 23:02] VITALS: BP 93/47
[2024-01-30 07:00] VITALS: BP 105/61
[2024-01-30] MEDS: VITAMIN B1 100 MG PO (07:22)
[2024-01-30] MEDS: PROTONIX 40 MG PO ×2 (07:23→19:51)
[2024-01-30] MEDS: LASIX 20 MG PO (07:23)
[2024-01-30] MEDS: XIFAXAN 550 MG PO ×2 (07:23→19:51)
[2024-01-30] MEDS: FOLVITE 1 MG PO (07:23)
[2024-01-30 07:55] LABS: Blood Urea Nitrogen 23 mg/dl (9-20); Calcium 9.1 mg/dl (8.4-10.2); Carbon Dioxide 23 mmol/L (22-30); Chloride 96 mmol/L (98-107); Estimated Creatinine Clearance 70 ml/min; Glucose 82 mg/dl (70-99); Potassium 4.6 mmol/L (3.5-5.1); Sodium 127 mmol/L (135-145); eGFR > 60.00
--- NOTE | 2024-01-30 12:10 | W.PN.HOSP.TC ---
Today's Communication/Plan
-
Encounter through translation
Reiterated points we discussed yesterday regarding alcohol use, management of liver cirrhosis, medications compliance. He took Lactulose BID at home
Seems to tolerate low dose Lasix
To add Aldactone
Likely dc in next 24 hours if stable
Assessment / Plan
Assessment / Plan
Physical Exam
-
General: No Apparent Distress, Appears Chronically Ill and Cachectic
HEENT: Normocephalic, Atraumatic and Moist Mucous Membranes
Respiratory: Clear to Auscultation; Negative Wheezes, Rales or Rhonchi
Cardiac: Regular Rhythm and S1/S2
GI: Soft, Nontender, Nondistended and Normal Bowel Sounds
Musculoskeletal: No Clubbing, No Cyanosis and No Edema
Neuro: Awake, alert, oriented X3, he followed commands.
Psych: Calm
# Alcohol use disorder
I had long discussion again today with patient using audio translation device. We visited same talking points of yesterday to make sure that patient understood his status. Answered all questions to best of my knowledge. Plan to dc in next 24-48
hours
#Acute on chronic hyponatremia
GREG
-Received IV fluids
- Off diuretic therapy
-Sodium at 130- 127
s/p Samsca
-Cr at 1.2. S/P Albumin gtt
-low urine sodium
-Resumed low dose Lasix, will add Aldactone
_ nephrology possible evolving HRS
Appreciate nephrology help
#Acute blood loss anemia due to Hematemesis
#History of esophageal varices status post banding
-Hemoccult positive
-diet advanced
-s/p 3u of PRBC so far.
-Protonix changed to 40 mg IV q12h. Switch po on dc
-Octreotide drip stopped
currently eating well
# Decompensated alcoholic liver cirrhosis with ascites
# Hepatic encephalopathy
-Chest x-ray unremarkable
-IV fluids given
-Status post ceftriaxone.
-IR consulted for paracentesis-10 liters removed
-resumed diet
-Continue lactulose, add Xifaxan
-Resumed Lasix, spironolactone
-GI consulted: recommended continue diuretics, Xifaxan and supportive care
-[facility] Consult for repeat paracentesis on 01/20 and additional 8.5L removed. NEG for SBP s/p albumin.
Acute blood loss anemia
Anemia of chronic disease likely 2/2 bone marrow suppression 2/2 etoh abuse
-Hemoglobin at 9.2
patient underwent EGD 01/17 with grade 1 esophageal varices seen with no stigmata of recent bleeding, also portal hypertensive gastropathy, scar seen in the middle/lower third of his esophagus due to prior banding, with a normal examined duodenum.
Coag negative staph bacteremia
-DC further vancomycin.
Severe Protein Calorie Malnutrition
Pt appears cachexia with alb of 2.7 most likely from a combination of alcohol abuse and cirrhosis. With RD stating that pt meets criteria for severe malnutrition
Alcohol use disorder with dependence & withdrawal
No need for MSAS protocol. HE is been here for > 7 days with no withdrawal signs
no evidence for prior TIPS.
Chronic thrombocytopenia secondary to cirrhosis
-Stabilized.
Alcohol use disorder
-Thiamine and folate
-Alcohol withdrawal protocol
History of umbilical hernia
Severe protein calorie malnutrition of chronic illness
Full code
DVT prophylaxis�SCDs
Confirm med rec
Total time spent to see the patient, examine the patient on the floor, review data and lab results, discuss treatment plan with patient, nursing staff around 57 minutes
Anticipated Discharge: Within 24 hours
Subjective/Interval History
-
Date of Service: January 30, 2024
No abdominal pain. He feels mild distention in abdomen
No chest pain
No shortness of breath
Objective Data
-
Labs:
Laboratory Results
01/30/24
06:04
Sodium 127 L
Potassium 4.6
Chloride 96 L
Carbon Dioxide 23
BUN 23 H
Creatinine 1.2
Glucose 82
Calcium 9.1
Vital Signs:
Vital Signs
Temp Pulse Resp BP Pulse Ox
97.9 F 68 16 105/61 100
01/30/24 07:00 01/30/24 07:00 01/30/24 07:00 01/30/24 07:00 01/30/24 07:30
I&O
01/29/24 01/30/24 01/31/24
06:59 06:59 06:59
Intake Total 1140 / 1140 720 / 720
Output Total 880 / 880
Balance 260 / 260 720 / 720
--- NOTE | 2024-01-30 14:03 | CM ---
[place] [facility] followed up with patient re outpatient resources.
CM left [facility] application for patient.
Plan: home with family when stable.
--- NOTE | 2024-01-30 14:53 | W.PN.NEPH.PH ---
Today's Communication / Plan
-
ok to add back aldactone, cont lasix
Assessment/Plan
-
IMP:
GREG
Hematemesis
History of esophageal varices status post banding
Decompensated alcoholic liver cirrhosis with ascites and Hepatic encephalopathy
Acute on chronic hyponatremia
Acute on Chronic anemia
GD 01/17 with grade 1 esophageal varices seen with no stigmata of recent bleeding, also portal hypertensive gastropathy, scar seen in the middle/lower third of his esophagus due to prior banding, with a normal examined duodenum.
Coag negative staph bacteremia
Severe Protein Calorie Malnutrition
Alcohol use disorder with dependence & withdrawal
Chronic thrombocytopenia secondary to cirrhosis
Alcohol use disorder
History of umbilical hernia
Plan:
sodium stable at 127
AK-cr better at 1.2
checked UA bland
FeNa consistent with pre renal stimulus
completed alb IV course
ook to resume back on lasix and ALdactone
suspect may be evolving HRS , can add midodrine if bp becomes more unstable-Bp improving
prognosis is poor,
nothing else much to offer
Samsca will be used as needed but this cannot be utilized outpatient
-
-
Date of Service: January 30, 2024
CC / HPI / ROS
-
Chief Complaint:
hyponatremia
History of Present Illness:
sodium stable at 127
BP stable
Cr at 1.2
no fever
Review of Systems:
no cp or sob
mild abd pain better
non-oliguric
Labs
-
Labs:
WBC 8.1 10^3/uL (4.8-10.8) 01/28/24 08:38
RBC 2.81 10^6/uL (4.70-6.10) L 01/28/24 08:38
Hgb 8.7 g/dL (13.0-18.0) L 01/28/24 08:38
Hct 25.9 % (39.0-52.0) L 01/28/24 08:38
Plt Count 249 10^3/uL (130-400) D 01/28/24 08:38
Sodium 127 mmol/L (135-145) L 01/30/24 06:04
Potassium 4.6 mmol/L (3.5-5.1) 01/30/24 06:04
Chloride 96 mmol/L (98-107) L 01/30/24 06:04
Carbon Dioxide 23 mmol/L (22-30) 01/30/24 06:04
BUN 23 mg/dl (9-20) H 01/30/24 06:04
Creatinine 1.2 mg/dL (0.7-1.3) 01/30/24 06:04
eGFR > 60.00 01/30/24 06:04
Glucose 82 mg/dl (70-99) 01/30/24 06:04
Calcium 9.1 mg/dl (8.4-10.2) 01/30/24 06:04
Phosphorus 2.7 mg/dl (2.5-4.5) 01/18/24 02:48
Albumin 3.4 g/dl (3.5-5.0) L 01/28/24 08:38
Physical Exam
-
Vital Signs:
Vital Signs
Temp Pulse Resp BP Pulse Ox
97.9 F 68 16 105/61 100
01/30/24 07:00 01/30/24 07:00 01/30/24 07:00 01/30/24 07:00 01/30/24 07:30
Cardiovascular:: Regular rate and rhythm
Respiratory:: Bilateral: CTA
Lung Excursion:: Normal
Abdomen:: Distended, Nontender and Soft
Extremity Edema:: None: Bilateral:
Mendoza Catheter: No
[2024-01-30 15:00] VITALS: BP 94/46
[2024-01-30] MEDS: ALDACTONE 50 MG PO (17:21)
[2024-01-30] MEDS: STERILE WATER FOR INJECTION IV (19:51)
[2024-01-30 23:44] VITALS: BP 101/58
[2024-01-31] VITALS (11 sets, daily range): BP systolic 60–100; BP diastolic 41–65
[2024-01-31 08:25] LABS: Blood Urea Nitrogen 25 mg/dl (9-20); Calcium 9.3 mg/dl (8.4-10.2); Carbon Dioxide 25 mmol/L (22-30); Chloride 96 mmol/L (98-107); Estimated Creatinine Clearance 70 ml/min; Glucose 105 mg/dl (70-99); Potassium 4.6 mmol/L (3.5-5.1); Sodium 130 mmol/L (135-145); eGFR > 60.00
--- NOTE | 2024-01-31 10:03 | W.PN.HOSP.TC ---
Today's Communication/Plan
-
dc in am
Paracentesis today
Assessment / Plan
Assessment / Plan
Physical Exam
-
General: No Apparent Distress, Appears Chronically Ill and Cachectic
HEENT: Normocephalic, Atraumatic and Moist Mucous Membranes
Respiratory: Clear to Auscultation; Negative Wheezes, Rales or Rhonchi
Cardiac: Regular Rhythm and S1/S2
GI: Soft, Nontender, Nondistended and Normal Bowel Sounds
Musculoskeletal: No Clubbing, No Cyanosis and No Edema
Neuro: Awake, alert, oriented X3, he followed commands.
Psych: Calm
# Alcohol use disorder
I had long discussion 01/29 with patient using audio translation device. We visited same talking points of 01/28 to make sure that patient understood his status. Answered all questions to best of my knowledge. Plan to dc in next 24-48 hours
Today, we went over updates only. Agreed to paracentesis.
#Acute on chronic hyponatremia
GREG
-Received IV fluids
- Off diuretic therapy
-Sodium at 130- 127
s/p Samsca
-Cr at 1.2. S/P Albumin gtt
-low urine sodium
-Resumed low dose Lasix and Aldactone
_ nephrology possible evolving HRS
Appreciate nephrology help
#Acute blood loss anemia due to Hematemesis
#History of esophageal varices status post banding
-Hemoccult positive
-diet advanced
-s/p 3u of PRBC so far.
-Protonix changed to 40 mg IV q12h. Switch po on dc
-Octreotide drip stopped
currently eating well
# Decompensated alcoholic liver cirrhosis with ascites
# Hepatic encephalopathy
-Chest x-ray unremarkable
-IV fluids given
-Status post ceftriaxone.
-IR consulted for paracentesis-10 liters removed
-resumed diet
-Continue lactulose, added Xifaxan but would not be possible for the patient with no insurance and tight financial situation per pt.
-Resumed Lasix, spironolactone
-GI consulted: recommended continue diuretics, Xifaxan( alternative Lactulose) and supportive care
-IRAD Consult for repeat paracentesis on 01/20 and additional 8.5L removed. NEG for SBP s/p albumin. Also Paracentesis 01/30 with 3500cc, Albumin is given
Acute blood loss anemia
Anemia of chronic disease likely 2/2 bone marrow suppression 2/2 etoh abuse
-Hemoglobin at 9.2
patient underwent EGD 01/17 with grade 1 esophageal varices seen with no stigmata of recent bleeding, also portal hypertensive gastropathy, scar seen in the middle/lower third of his esophagus due to prior banding, with a normal examined duodenum.
Coag negative staph bacteremia
-DC further vancomycin.
Severe Protein Calorie Malnutrition
Pt appears cachexia with alb of 2.7 most likely from a combination of alcohol abuse and cirrhosis. With RD stating that pt meets criteria for severe malnutrition
Alcohol use disorder with dependence & withdrawal
No need for MSAS protocol. HE is been here for > 7 days with no withdrawal signs
no evidence for prior TIPS.
Chronic thrombocytopenia secondary to cirrhosis
-Stabilized.
Alcohol use disorder
-Thiamine and folate
-Alcohol withdrawal protocol
History of umbilical hernia
Severe protein calorie malnutrition of chronic illness
Full code
DVT prophylaxis�SCDs
Confirm med rec
Total time spent to see the patient, examine the patient on the floor, review data and lab results, discuss treatment plan with patient, nursing staff around 55 minutes
Anticipated Discharge: Within 24 hours
Subjective/Interval History
-
Date of Service: January 31, 2024
No abd pain, feels abdomen is bigger
Objective Data
-
Labs:
Laboratory Results
01/31/24
07:17
Sodium 130 L
Potassium 4.6
Chloride 96 L
Carbon Dioxide 25
BUN 25 H
Creatinine 1.2
Glucose 105 H
Calcium 9.3
Vital Signs:
Vital Signs
Temp Pulse Resp BP Pulse Ox
98.3 F 60 14 95/63 99
01/31/24 08:53 01/31/24 09:53 01/31/24 09:53 01/31/24 09:53 01/31/24 09:53
I&O
01/30/24 01/31/24 02/01/24
06:59 06:59 06:59
Intake Total 720 / 720 1080 / 1080
Output Total 1050 / 1050
Balance 720 / 720 30 / 30
[2024-01-31 10:33] LABS: Body Fluid Mononuclear 90.2 %; Body Fluid Polymorphonuclear 9.8 %; Body Fluid WBC 102 /CUMM
[2024-01-31] MEDS: XIFAXAN 550 MG PO ×2 (10:41→19:26)
[2024-01-31] MEDS: VITAMIN B1 100 MG PO (10:42)
[2024-01-31] MEDS: PROTONIX 40 MG PO ×2 (10:42→19:26)
[2024-01-31] MEDS: LASIX 20 MG PO (10:42)
[2024-01-31] MEDS: FOLVITE 1 MG PO (10:42)
[2024-01-31 10:50] LABS: Body Fluid Second Tech AMA
[2024-01-31] MEDS: ALBUMIN 5% 250 IV ×2 (11:54→14:40)
[2024-01-31] MEDS: ALBUMIN 5% IV (12:33)
--- NOTE | 2024-01-31 14:51 | W.PN.NEPH.PH ---
Today's Communication / Plan
-
observe with lasix and aldactone
Assessment/Plan
-
IMP:
GREG
Hematemesis
History of esophageal varices status post banding
Decompensated alcoholic liver cirrhosis with ascites and Hepatic encephalopathy
Acute on chronic hyponatremia
Acute on Chronic anemia
GD 01/17 with grade 1 esophageal varices seen with no stigmata of recent bleeding, also portal hypertensive gastropathy, scar seen in the middle/lower third of his esophagus due to prior banding, with a normal examined duodenum.
Coag negative staph bacteremia
Severe Protein Calorie Malnutrition
Alcohol use disorder with dependence & withdrawal
Chronic thrombocytopenia secondary to cirrhosis
Alcohol use disorder
History of umbilical hernia
Plan:
sodium better at 130 on lasix
AK-cr better at 1.2
checked UA bland
FeNa consistent with pre renal stimulus, evolving HRS
completed alb IV course
cont lasix and ALdactone
prognosis is poor,
s/p paracentesis and IV alb today
-
-
Date of Service: January 31, 2024
CC / HPI / ROS
-
Chief Complaint:
hyponatremia
History of Present Illness:
sodium better at 130
BP stable
Cr at 1.2-no chnage
s/p paracentesis of 3.5lit today
Review of Systems:
no cp or sob
mild abd pain better
non-oliguric
Labs
-
Labs:
WBC 8.1 10^3/uL (4.8-10.8) 01/28/24 08:38
RBC 2.81 10^6/uL (4.70-6.10) L 01/28/24 08:38
Hgb 8.7 g/dL (13.0-18.0) L 01/28/24 08:38
Hct 25.9 % (39.0-52.0) L 01/28/24 08:38
Plt Count 249 10^3/uL (130-400) D 01/28/24 08:38
Sodium 130 mmol/L (135-145) L 01/31/24 07:17
Potassium 4.6 mmol/L (3.5-5.1) 01/31/24 07:17
Chloride 96 mmol/L (98-107) L 01/31/24 07:17
Carbon Dioxide 25 mmol/L (22-30) 01/31/24 07:17
BUN 25 mg/dl (9-20) H 01/31/24 07:17
Creatinine 1.2 mg/dL (0.7-1.3) 01/31/24 07:17
eGFR > 60.00 01/31/24 07:17
Glucose 105 mg/dl (70-99) H 01/31/24 07:17
Calcium 9.3 mg/dl (8.4-10.2) 01/31/24 07:17
Phosphorus 2.7 mg/dl (2.5-4.5) 01/18/24 02:48
Albumin 3.4 g/dl (3.5-5.0) L 01/28/24 08:38
Physical Exam
-
Vital Signs:
Vital Signs
Temp Pulse Resp BP Pulse Ox
98.2 F 71 16 92/41 99
01/31/24 14:39 01/31/24 14:39 01/31/24 14:39 01/31/24 14:39 01/31/24 12:00
Cardiovascular:: Regular rate and rhythm
Respiratory:: Bilateral: CTA
Lung Excursion:: Normal
Abdomen:: Distended, Nontender and Soft
Extremity Edema:: None: Bilateral:
Mendoza Catheter: No
[2024-01-31] MEDS: ALDACTONE 50 MG PO (18:41)
[2024-01-31] MEDS: STERILE WATER FOR INJECTION IV (20:12)
--- NOTE | 2024-02-01 01:11 | PTCARENOTE ---
2300 BP 86/46, patient was asymptomatic. Ivonne DRIVER MERCHANDISER notified. No new orders.
[2024-02-01 07:28] VITALS: BP 101/53
[2024-02-01 07:41] LABS: Hematocrit 26.4 % (39.0-52.0); Hemoglobin 8.9 g/dL (13.0-18.0); Mean Corp Hgb Conc. 33.7 g/dL (33.0-37.0); Mean Corpuscular Hgb 30.6 pg (27.0-31.0); Mean Corpuscular Volume 90.7 fL (80.0-94.0); Mean Platelet Volume 8.9 fL (7.4-10.4); Platelet Count 276 10^3/uL (130-400); Red Blood Cell Count 2.91 10^6/uL (4.70-6.10); Red Cell Dist. Width 15.5 % (11.5-14.5); White Blood Cell Count 7.6 10^3/uL (4.8-10.8)
[2024-02-01 08:40] LABS: ALT (SGPT) 22 U/L (0-50); AST (SGOT) 40 U/L (17-59); Albumin 3.6 g/dl (3.5-5.0); Alkaline Phosphatase 166 U/L (38-126); Blood Urea Nitrogen 20 mg/dl (9-20); Calcium 9.3 mg/dl (8.4-10.2); Carbon Dioxide 24 mmol/L (22-30); Chloride 97 mmol/L (98-107); Estimated Creatinine Clearance 76 ml/min; Glucose 90 mg/dl (70-99); Potassium 4.9 mmol/L (3.5-5.1); Sodium 130 mmol/L (135-145); Total Bilirubin 1.1 mg/dl (0.2-1.3); Total Protein 6.6 g/dl (6.3-8.2); eGFR > 60.00
[2024-02-01] MEDS: LASIX 20 MG PO (09:27)
[2024-02-01] MEDS: XIFAXAN 550 MG PO (09:27)
[2024-02-01] MEDS: PROTONIX 40 MG PO (09:27)
[2024-02-01] MEDS: VITAMIN B1 100 MG PO (09:27)
[2024-02-01] MEDS: FOLVITE 1 MG PO (09:29)
--- NOTE | 2024-02-01 10:13 | W.PN.HOSP.TC ---
Today's Communication/Plan
-
Discharge today
Case work to help with discharge
Assessment / Plan
Assessment / Plan
Physical Exam
-
General: No Apparent Distress, Appears Chronically Ill and Cachectic
HEENT: Normocephalic, Atraumatic and Moist Mucous Membranes
Respiratory: Clear to Auscultation; Negative Wheezes, Rales or Rhonchi
Cardiac: Regular Rhythm and S1/S2
GI: Soft, Nontender, Nondistended and Normal Bowel Sounds
Musculoskeletal: No Clubbing, No Cyanosis and No Edema
Neuro: Awake, alert, oriented X3, he followed commands.
Psych: Calm
# Alcohol use disorder
I had long discussion 01/29 with patient using audio translation device. We visited same talking points of 01/28 to make sure that patient understood his status. Answered all questions to best of my knowledge. Plan to dc in next 24-48 hours
Today, we went over updates only. Agreed to paracentesis.
#Acute on chronic hyponatremia, Na at 131 upon dc
GREG , resolved.
-Received IV fluids
- Back on diuretic therapy
-Sodium at 130- 127
s/p Samsca
- S/P Albumin gtt
-low urine sodium
-Resumed Lasix and Aldactone with good BP tolerance. He was educated about volume control, diuretic therapy, dizziness and precaution about low Bp.
_ nephrology possible evolving HRS
Appreciate nephrology help
#Acute blood loss anemia due to Hematemesis
#History of esophageal varices status post banding
-Hemoccult positive
-diet advanced and he is tolerating it well.
-s/p 3u of PRBC so far.
-Protonix changed to 40 mg IV q12h. Switch po on dc
-Octreotide drip stopped
currently eating well
# Decompensated alcoholic liver cirrhosis with ascites
# Hepatic encephalopathy, c/w Lactulose.
-Chest x-ray unremarkable
-IV fluids given
-Status post ceftriaxone.
-Continue lactulose, added Xifaxan but would not be possible for the patient with no insurance and tight financial situation per pt.
-Resumed Lasix, spironolactone
-GI consulted: recommended continue diuretics, Xifaxan( alternative Lactulose) and supportive care
-IRAD Consult for repeat paracentesis on 01/16 with 10,000cc and on 01/20 with 8.5L removed. Also Paracentesis 01/30 with 3500cc. NEG for SBP , low WBC count, s/p albumin.
Acute blood loss anemia
Anemia of chronic disease likely 2/2 bone marrow suppression 2/2 ETOH abuse
-Hemoglobin at 8-9
patient underwent EGD 01/17 with grade 1 esophageal varices seen with no stigmata of recent bleeding, also portal hypertensive gastropathy, scar seen in the middle/lower third of his esophagus due to prior banding, with a normal examined duodenum.
Coag negative staph bacteremia
-DC further vancomycin.
Severe Protein Calorie Malnutrition
Pt appears cachexia with alb of 2.7 most likely from a combination of alcohol abuse and cirrhosis. With RD stating that pt meets criteria for severe malnutrition
Alcohol use disorder with dependence & withdrawal
No need for MSAS protocol. HE is been here for > 7 days with no withdrawal signs . Upon discussion, he was not regularly drinking.
no evidence for prior TIPS.
Chronic thrombocytopenia secondary to cirrhosis
-Stabilized.
Alcohol use disorder
-Thiamine and folate
-Alcohol withdrawal protocol
History of umbilical hernia
Severe protein calorie malnutrition of chronic illness
Full code
DVT prophylaxis�SCDs
Total discharge time spent to see the patient, examine the patient on the floor, review data and lab results, discuss discharge treatment plan with patient, nursing staff around 75 minutes
Anticipated Discharge: Today
Subjective/Interval History
-
Date of Service: February 01, 2024
Objective Data
-
Labs:
Laboratory Results
02/01/24
07:28
WBC 7.6
Hgb 8.9 L
Hct 26.4 L
Plt Count 276
Sodium 130 L
Potassium 4.9
Chloride 97 L
Carbon Dioxide 24
BUN 20
Creatinine 1.1
Glucose 90
Calcium 9.3
Total Bilirubin 1.1
AST 40
ALT 22
Alkaline Phosphatase 166 H
Vital Signs:
Vital Signs
Temp Pulse Resp BP Pulse Ox
98.7 F 64 12 101/53 98
02/01/24 07:28 02/01/24 07:28 02/01/24 07:28 02/01/24 07:28 02/01/24 07:28
I&O
01/31/24 02/01/24 02/02/24
06:59 06:59 06:59
Intake Total 1080 / 1080 1715 / 1715
Output Total 1050 / 1050 625 / 625
Balance 30 / 30 1090 / 1090
--- NOTE | 2024-02-01 10:40 | CM ---
Spoke with patient bedside.
Patient with no insurance or PCP.
TC to [facility], patient is not currently a patient there.
[facility] packet (in portuguese) reviewed with patient and brother in law (Angelangelos spouse) via phone and he will assist patient in completing packet.
Maira to call brother to discuss transportation home.
Plan: home with outpatient f/u [facility] and with ETOH resources provided by [facility].
--- NOTE | 2024-02-01 11:22 | W.DCSUMMARY ---
Discharge Summary
Discharge Data
Date of Admission: 01/16/24
Date of Discharge: 02/01/24
-
Pending Results: No
Hospital Course
33 years old male with alcoholic liver cirrhosis who presented to the hospital with abdominal distention, nausea and vomiting. Patient had history of alcohol intake. He reported taking alcohol infrequently and he was not maintaining sobriety.
Patient was found to have anemia with positive occult blood in his stool. He was evaluated by pension adviser and underwent upper endoscopy that showed grade 1 esophageal varices with no stigmata of recent bleeding/portal hypertensive
gastropathy with scars in the middle and lower third of esophagus due to prior banding. Abdominal ultrasound and Doppler study did not show acute findings, dilatation of the common duct to 9 mm. Patient had significant amount of ascites. He
underwent paracentesis 3 times during this hospitalization with removal of 10,000, 8500, 3500 Milliliters of ascites fluid subsequently. Patient received intravenous albumin infusion after paracentesis. Patient had no signs of peritonitis. White
blood cell count remained low in ascites fluid. He had abdominal discomfort at times but no significant pain. Patient was noted to have acute on chronic blood loss anemia secondary to portal hypertensive gastropathy and possibility of bone marrow
suppression secondary to alcohol use and liver cirrhosis. Patient received total of 3 units of blood transfusion and his hemoglobin stabilized between 8 and 9. Patient did not have alcohol withdrawal signs. He had chronic thrombocytopenia with
no active bleeding. He was given Xifaxan in the hospital but he was unable to afford it. Discussed with pension adviser and recommended to continue lactulose in the outpatient setting. He had acute kidney injury, possible evolving
hepatorenal syndrome. Numerologist doctor followed the patient. Initially, diuretic therapy was held but later introduced slowly with good tolerance and stabilizing of renal function.
Multiple discussions were held with the patient through interpretation line to help him understand the potential risks and benefits of his illness and treatments. He was counseled regarding importance of alcohol sobriety, he verbalized
understanding. He seemed to have good insight into his illness during these discussions. His ability to maintain sobriety and compliance to medical treatment remain to be tested again in the outpatient setting.
Patient was counseled regarding orthostatic hypotension, fluid restriction, salt intake. He verbalized understanding. He remained hemodynamically stable and was discharged in a stable condition. assistant production manager was involved in discharge planning.
Discharge Plan
-
Patient Disposition: Home (Routine Discharge)
Discharge Diagnosis/Procedures: Acute decompensated liver cirrhosis
Ascites status post paracentesis three times
Acute on chronic hyponatremia
Hematemesis, Acute on chronic blood loss anemia status post 3 units of blood transfusion
Alcohol use disorder, you should never drink alcohol.
Continue taking diuretic therapy ( Lasix and Aldactone). Continue taking lactulose to have loose stools at least 2-4 times a day.
take Protonic to help prevent acid reflux.
Follow with [facility] in 1- 2 weeks, phone # [phone]
Condition: Fair
Diet: 2 Gram Sodium and Restrict fluids to 48 oz
Activity: With assistance and As tolerated
Driving Restrictions: Not until seen by your Dr
Referrals:
Toña Rosales MD [Active] - in two to three weeks
UNKNOWN - PT DOES,NOT KNOW [Family Provider] -
Prescriptions:
New
lactulose 20 gram/30 mL solution
20 g PO QID Qty: 3000 0RF
furosemide 40 mg Tablet
40 mg PO DAILY Qty: 30 0RF
pantoprazole [Protonix] 40 mg tablet,delayed release (DR/EC)
40 mg PO DAILY Qty: 30 0RF
spironolactone [Aldactone] 50 mg tablet
50 mg PO DAILY Qty: 30 0RF
Continued
thiamine HCl (vitamin B1) 100 mg tablet
100 mg PO DAILY Qty: 30 0RF
folic acid 1 mg Tablet
1 mg PO DAILY Qty: 0 0RF
Discontinued
ciprofloxacin HCl 500 mg Tablet
500 mg PO DAILY Qty: 30 0RF
Rx Instructions:
as before
pantoprazole 40 mg Tablet,Delayed Release (Dr/Ec)
40 mg PO DAILY Qty: 30 0RF
Rx Instructions:
as before
spironolactone 50 mg Tablet
100 mg PO DAILY Qty: 30 0RF
Rx Instructions:
as before
lactulose 20 gram/30 mL Solution
20 g PO BID Qty: 1200 0RF
Rx Instructions:
as before
furosemide 40 mg Tablet
40 mg PO DAILY Qty: 30 0RF
Rx Instructions:
as before
polyethylene glycol 3350 [HealthyLax] 17 gram Powder In Packet
17 g PO DAILYPRN PRN (Reason: constipation) Qty: 0 0RF
sennosides-docusate sodium 8.6-50 mg Tablet
1 tab PO BIDPRN PRN (Reason: constipation) Qty: 0 0RF
bisacodyl 10 mg Suppository
10 mg MT M43POOM PRN (Reason: constipation) Qty: 0 0RF
Neosporin (mbq-[id number]) 3.5mg-400 unit- 5,000 unit/gram ointment
1 applic topical BID Qty: 14.2 0RF
Rx Instructions:
apply to cut on chest wall until resolves
Discharge Orders:
Discharge Patient (As Directed); Ordered 02/01/24
Ordered By: Kiana Wagoner
Discharge Date and Time
Discharge Date/Time: 02/01/24 14:14
Print Language: FRISIAN
[2024-02-01 13:53] VITALS: BP 98/60
== END 2024-02-01 14:14 | disposition home or self-care (01) | DRG 432 ==
LOC: 4 WEST ACU 21:11
PROVIDERS: Clinical Nurse Specialist Family Health; Hospitalist; Internal Medicine; Internal Medicine Gastroenterology; Nurse Practitioner Adult Health; Nurse Practitioner Primary Care; Radiology Diagnostic Radiology; Radiology Vascular & Interventional Radiology; Specialist; ADMITTING PHYSICIAN Hospitalist; ATTENDING PHYSICIAN Internal Medicine; CONSULT PHYSICIAN Internal Medicine; CONSULT PHYSICIAN Internal Medicine Critical Care Medicine; CONSULT PHYSICIAN Internal Medicine Gastroenterology; EMERGENCY PHYSICIAN Emergency Medicine
PROC: 30233N1 Transfusion of Nonautologous Red Blood Cells into Peripheral Vein, Percutaneous Approach (ICD-10-PCS; 2024-01-16)
PROC: 0DJ08ZZ Inspection of Upper Intestinal Tract, Via Natural or Artificial Opening Endoscopic (ICD-10-PCS; 2024-01-17)
PROC: 0W9G3ZZ Drainage of Peritoneal Cavity, Percutaneous Approach (ICD-10-PCS; 2024-01-17)
DX: K70.31 Alcoholic cirrhosis of liver with ascites (principal); E43 Unspecified severe protein-calorie malnutrition; K76.7 Hepatorenal syndrome; D62 Acute posthemorrhagic anemia; E87.1 Hypo-osmolality and hyponatremia; K92.0 Hematemesis; K76.6 Portal hypertension; E87.20 Acidosis, unspecified; D68.4 Acquired coagulation factor deficiency; R78.81 Bacteremia; N17.9 Acute kidney failure, unspecified; K92.1 Melena; I85.10 Secondary esophageal varices without bleeding; R64 Cachexia; F10.239 Alcohol dependence with withdrawal, unspecified; K70.11 Alcoholic hepatitis with ascites; K72.10 Chronic hepatic failure without coma; K76.82 Hepatic encephalopathy; D69.59 Other secondary thrombocytopenia; S01.512A Laceration without foreign body of oral cavity, initial encounter; S01.511A Laceration without foreign body of lip, initial encounter; X58.XXXA Exposure to other specified factors, initial encounter; F32.A Depression, unspecified; E86.0 Dehydration; E83.51 Hypocalcemia; K31.89 Other diseases of stomach and duodenum; E87.8 Other disorders of electrolyte and fluid balance, not elsewhere classified; B95.7 Other staphylococcus as the cause of diseases classified elsewhere; Z68.20 Body mass index [BMI] 20.0-20.9, adult; I95.1 Orthostatic hypotension; K22.89 Other specified disease of esophagus; J98.6 Disorders of diaphragm
CPT/HCPCS: 88305; 49083; 71046; 76700; 76705; 80048; 80053; 80202; 80306; 80307; 81003; 81015; 82042; 82077; 82105; 82140; 82150; 82248; 82570; 83605; 83615; 83735; 83930; 83935; 84100; 84157; 84300; 84443; 85025; 85027; 85610; 85730; 86850; 86900; 86901; 86920; 87015; 87040; 87070; 87086; 87147; 87205; 88112; 89051; 93005; 93975; 96365; 96375; 97116; 97162; 99285; P9016; P9045; P9047

== ENCOUNTER 2024-04-22 09:04 | Inpatient (IN) | payer SELFPAY ==
[2024-04-20] VITALS (9 sets, daily range): BP systolic 116–135; BP diastolic 71–92
[2024-04-20] MEDS: ZOFRAN 4 MG IV (16:55)
[2024-04-20] MEDS: NSS 1000 IV (16:55)
[2024-04-20 16:58] LABS: % Basophils 1.1 % (0-2); % Eosinophils 1.1 % (0-6); % Immature Granulocytes 0.4 % (0-0.5); % Monocytes 5.9 % (1.7-9.3); % Neutrophils 69.5 % (42.2-75.2); Absolute Basophils 0.1 10^3/uL (0-0.2); Absolute Eosinophils 0.1 10^3/uL (0-0.7); Absolute Lymphocytes 1.2 10^3/uL (1.2-3.4); Absolute Monocytes 0.3 10^3/uL (0.1-0.6); Absolute Neutrophils 3.8 10^3/uL (1.4-6.5); Hematocrit 27.3 % (39.0-52.0); Hemoglobin 9.6 g/dL (13.0-18.0); Mean Corp Hgb Conc. 35.2 g/dL (33.0-37.0); Mean Corpuscular Hgb 28.9 pg (27.0-31.0); Mean Corpuscular Volume 82.2 fL (80.0-94.0); Mean Platelet Volume 9.3 fL (7.4-10.4); Nucleated Red Blood Cells % 0 % (-); Platelet Count 100 10^3/uL (130-400); Red Blood Cell Count 3.32 10^6/uL (4.70-6.10); Red Cell Dist. Width 15.5 % (11.5-14.5); White Blood Cell Count 5.5 10^3/uL (4.8-10.8)
--- NOTE | 2024-04-20 17:03 | ED.GENMED ---
History of Present Illness
General
Chief Complaint: Abdominal Pain
Time Seen by Provider: 04/20/24 16:40
History of Present Illness
History of Present Illness:
34-year-old male with known alcoholic cirrhosis with ascites presents to the emergency department due to abdominal pain and distention associated with nausea and vomiting. He states that has been at least 2 months since his last paracentesis was
performed. He had discontinued alcohol use previously but resumed recently, last drink was this morning, states he had 2 drinks. No hematemesis
Past History
Past History
ED Past Medical History: Renal failure (Peritoneal dialysis), Psychiatric (Depression) and Other (alcohol abuse, alcoholic hepatitis, Cirrhosis of the liver, Ascites, Anemia, )
ED Past Surgical History: Other (Hernia repair)
Social History
Tobacco: Non-smoker
Alcohol: Chronic alcoholic (Daily 4 large beer and 2 shots)
Drug: Other (denies however UDS from prior visit pos for opioids)
Personal: Single
Living: with roommate
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
Family History
Family History: Other (Noncontributory)
Review of Systems
Review of Systems
Allergies reviewed?: Yes
All Other Systems: ROS reviewed and negative except as documented in HPI and ROS
Phy Exam
Physical Exam
Physical Exam:
GEN: Well appearing, NAD, WDWN
HEENT: Oral mucosa moist, no scleral icterus
Cardiac: Regular rate and rhythm
Lung: No respiratory distress, no tachypnea, lungs CTAB, poor inspiratory effort
Abdomen: Rigid/protuberant abdomen, marked ascites, tender throughout, numerous abdominal petechiae/telangiectasias
MSK: No gross deformity or injuries
Skin: Good color, no pallor or jaundice, no rashes
Neuro: AO x3, moves all extremities freely
Psych: Calm, cooperative
Course
Orders/Labs/Results
Orders:
Orders
04/20/24 16:50
Complete Blood Count/With Diff Urgent
Comprehensive Metabolic Panel Urgent
Direct Bilirubin Urgent
Lipase Urgent
0.9% Sodium Chloride 1000 ml [Nss] 1,000 ml IV BOLUS
Ondansetron Injectable [Zofran] 4 mg IV NOW STA
04/20/24 16:52
Prothrombin Time Urgent
04/20/24 17:13
Ammonia Urgent
04/20/24 18:16
Lactulose [Duphalac/Chronulac] 20 grams PO NOW STA
04/20/24 18:30
Body Fluid Cell Count Urgent
What is the Body Fluid: peritoneal fluid
Date Specimen was Collected: 04/20/24
Time Specimen was Collected: 18:19
Comment: post procedure
Fluid Culture with Gram Stain Urgent
LEENA Source: Peritoneal Fluid
Specimen Description:
Date Specimen was Collected: 04/20/24
Time Specimen was Collected: 18:19
Comment: Post Procedure
Morphine Sulfate 4 mg IV NOW STA
04/20/24 21:33
Oxycodone [Roxicodone] 5 mg PO NOW STA
04/21/24 00:11
CR Chest - 2 Views Urgent
Comment:
Reason For Exam: SOB
Abnormal Lab Results
04/20/24 04/20/24 04/20/24
16:50 16:52 17:13
RBC 3.32 L 10^6/uL
(4.70-6.10)
Hgb 9.6 L g/dL
(13.0-18.0)
Hct 27.3 L %
(39.0-52.0)
RDW 15.5 H %
(11.5-14.5)
Plt Count 100 L 10^3/uL
(130-400)
PT 17.2 H Sec
(11.4-14.6)
BUN 6 L mg/dl
(9-20)
Calcium 8.2 L mg/dl
(8.4-10.2)
Total Bilirubin 4.3 H mg/dl
(0.2-1.3)
Direct Bilirubin 2.1 H mg/dl
(0.0-0.4)
AST 69 H U/L
(17-59)
Alkaline Phosphatase 243 H U/L
(38-126)
Ammonia 31 H umol/L
(9-30)
Albumin 3.4 L g/dl
(3.5-5.0)
04/20/24 16:50
04/20/24 16:50
Vital Signs
Initial and Last Documented VS:
Initial Vital Signs
Temp
98.2 F
04/20/24 16:38
Last Documented Vital Signs
Temp Pulse Resp BP Pulse Ox
98.2 F 99 22 128/84 96
04/20/24 16:38 04/20/24 23:30 04/20/24 23:30 04/20/24 23:00 04/21/24 00:14
Procedures
Other
Indication for procedure:: Rule out spontaneous bacterial peritonitis
Procedure completed by: Gina Balbuena PA-C
Consent form signed: Yes
Additional Procedure:
Patient was draped in usual sterile fashion. Skin was prepped with chlorhexidine. Ultrasound guidance was used to localize the largest fluid pocket in the right lower quadrant, skin was retracted in order to make a Z-line and needle/catheter
introduced and aspiration confirmed placement within the peritoneum. The needle introducer was withdrawn and the catheter was advanced to the hub. Catheter connected to drainage bottles under suction, a total of 2200 mL of connors yellow nonbloody
fluid was evacuated. Procedure was terminated due to slow flow although quite a large amount of ascites remains. Tolerated the procedure well
MDM/Problems Addressed
MDM/Problems Addressed:
Initially plan was to discharge the patient as spontaneous bacterial peritonitis was ruled out by peritoneal fluid sampling. However he had increasing difficulty with respiratory effort secondary to his large abdominal girth and thus the decision
was made to admit the patient for further therapeutic paracentesis. Chest x-ray shows no evidence of disease
*Critical Care Note
Total Time (30-74mins, 75-104mins- exclusive of procedures): Not Applicable
ED Attending Note
-
Portions of this chart may have been created with voice recognition software.� Occasional wrong word or��sound alike� substitutions may have occurred due to the inherent limitations of voice recognition software.
Discharge Plan
Departure
Patient Disposition: Admit
Date of Disposition: 04/20/24
Time of Disposition: 19:16
Presentation/result/management discussed w/ accepting MD/DO: Hospitalist
Patient with high blood pressure during this ER visit?: No
Discharge Problem:
Abdominal ascites, Acute respiratory insufficiency
Instructions: Fluid in the Belly (Ascites) (DC), Abdominal Paracentesis (DC)
Prescriptions:
No Action
thiamine HCl (vitamin B1) 100 mg tablet
100 mg PO DAILY Qty: 30 0RF
folic acid 1 mg Tablet
1 mg PO DAILY Qty: 0 0RF
lactulose 20 gram/30 mL solution
20 g PO QID Qty: 3000 0RF
furosemide 40 mg Tablet
40 mg PO DAILY Qty: 30 0RF
pantoprazole [Protonix] 40 mg tablet,delayed release (DR/EC)
40 mg PO DAILY Qty: 30 0RF
spironolactone [Aldactone] 50 mg tablet
50 mg PO DAILY Qty: 30 0RF
Referrals:
UNKNOWN - PT DOES,NOT KNOW [Family Provider] -
Activity Restrictions/Additional Instructions:
Llame a radiolog�a intervencionista ma�fish por la ma�fish para programar katz procedimiento para drenar el l�quido restante en katz abdomen. [phone]
Interventions
Interventions:
*Risk Screen - Suicide Last Done: 04/20/24 17:00
*General Assessment Last Done: 04/20/24 16:38
*Neglect/Abuse Screening Last Done: 04/20/24 16:38
*ED COVID-19 Vaccine History Last Done: 04/20/24 17:00
QT-Gcqxxp-Vcteqanroj Assessment Last Done: 04/20/24 17:00
Discharge Date and Time
Print Language: ALBANIAN
[2024-04-20 17:08] LABS: INR 1.42; PT 17.2 Sec (11.4-14.6)
[2024-04-20 17:14] LABS: ALT (SGPT) 16 U/L (0-50); AST (SGOT) 69 U/L (17-59); Albumin 3.4 g/dl (3.5-5.0); Alkaline Phosphatase 243 U/L (38-126); Blood Urea Nitrogen 6 mg/dl (9-20); Calcium 8.2 mg/dl (8.4-10.2); Carbon Dioxide 24 mmol/L (22-30); Chloride 98 mmol/L (98-107); Direct Bilirubin 2.1 mg/dl (0.0-0.4); Glucose 92 mg/dl (70-99); Lipase 44 U/L (23-300); Sodium 137 mmol/L (135-145); Total Bilirubin 4.3 mg/dl (0.2-1.3); eGFR > 60.00
[2024-04-20 17:31] LABS: Ammonia 31 umol/L (9-30)
[2024-04-20] MEDS: DUPHALAC/CHRONULAC 20 GRAMS PO (18:25)
[2024-04-20] MEDS: MORPHINE SULFATE 4 MG IV (18:41)
[2024-04-20 18:55] LABS: Body Fluid Mononuclear 83.4 %; Body Fluid Polymorphonuclear 16.6 %; Body Fluid WBC 42 /CUMM
[2024-04-20 18:57] LABS: Body Fluid Second Tech CMC
[2024-04-20 19:28] LABS: Glucose - Point of Care 85 mg/dl (70-99)
[2024-04-20] MEDS: ROXICODONE 5 MG PO (21:56)
[2024-04-21] VITALS (9 sets, daily range): BP systolic 98–140; BP diastolic 70–101
--- NOTE | 2024-04-21 02:09 | HPS.HSE ---
Family Physician
-
Family Physician: NOT KNOW UNKNOWN - PT DOES
Chief Complaint
-
Abdominal pain and shortness of breath
History of Present Illness
This is a 34-year-old with a history of alcoholic cirrhosis complicated by varices status post banding and recurrent large-volume ascites who presents to the emergency department with approximately 3 days of increasing abdominal girth, abdominal
pain, and shortness of breath.
Patient was last seen in the hospital in January. He reported that time he did have a large-volume paracentesis and was instructed to stay on lactulose and Lasix. Prior to that the patient had been noncompliant and had required multiple large-volume
paracentesis. The patient also has been instructed to be abstaining from alcohol. Patient reports that his last drink was actually this morning but he states that he had not had any drink for a long time prior to that. He reports that he has been
compliant with the Lasix and the lactulose. He denies having any nausea or vomiting. Denies any melena or hematochezia.
In the emergency department the patient was afebrile and hemodynamically stable. He was however hypoxic and required supplemental oxygen. Chest x-ray does not show any acute infiltrates but is consistent with atelectasis and intrusion of ascites
into thoracic space. Chemistries were mostly unremarkable. INR was 1.4 his total bilirubin was elevated compared to prior at 4.3 with essentially unchanged alk phos. CBC was unchanged from prior with slight thrombocytopenia of 100. He did receive
a paracentesis of around 2 L in the ED.
Medical History
Past Medical History
Past Medical History: Reports Other (Alcoholic Cirrhosis)
Past Surgical History: Reports None
Social History
Tobacco: Non-smoker
Alcohol: Occasional
Drug: None
Personal: Single
Living: Alone
Employment: Not Employed
Family History
Family History: Not pertinent
Allergies / Home Medications
Allergies reflects when Allergies were last updated in [facility].
Home Medications with original date entered in [facility]
Allergy/Medication List:
Allergies
Allergy/AdvReac Type Severity Reaction Status Date / Time
No Known Allergies Allergy Verified 12/16/23 18:45
Home Medications
thiamine HCl (vitamin B1) 100 mg tablet 100 mg PO DAILY #30 tabs 11/19/23
folic acid 1 mg tablet 1 mg PO DAILY #0 tabs 12/19/23
furosemide 40 mg tablet 40 mg PO DAILY #30 tabs 02/01/24
lactulose 20 gram/30 mL oral solution 20 g (30 mL) PO QID #3,000 mL 02/01/24
pantoprazole 40 mg tablet,delayed release (Protonix) 40 mg PO DAILY #30 tabs 02/01/24
spironolactone 50 mg tablet (Aldactone) 50 mg PO DAILY #30 tabs 02/01/24
Review of Systems
-
History Source: Patient
Constitutional: Reports No Symptoms
Respiratory: Reports Trouble Breathing
Cardiac: Reports No Symptoms
Abdomen/GI: Reports Pain
: Reports No Symptoms
Musculoskeletal: Reports No Symptoms
Skin: Reports No Symptoms
Neurological: Reports No Symptoms
Endocrine: Reports No Symptoms
Hematologic/Lymphatic: Reports No Symptoms
Psych: Reports No Symptoms
Physical Exam
Vital Signs
Vital Signs
Temp Pulse Resp BP Pulse Ox
98.2 F 87 13 121/86 99
04/20/24 16:38 04/21/24 01:45 04/21/24 01:45 04/21/24 01:00 04/21/24 01:45
Physical Exam
General: Appears Chronically Ill
HEENT: NormoCephalic, Moist mucous membranes, Atraumatic and PERRLA
Respiratory: Clear
Cardiac: S1/S2 and Regular Rhythm
GI: Tender and Distended
Rectal: Deferred by Provider
Genito-urinary: Deferred by me
Musculoskeletal: No Clubbing, No Cyanosis and No Edema
Skin: Warm
Neuro: AO x 3
Hematologic/Lymphatic: No Lymphadenopathy
Psych: Calm
Laboratory Results
-
04/20/24 16:50
04/20/24 16:50
Laboratory Results
PT 17.2 Sec (11.4-14.6) H 04/20/24 16:52
INR 1.42 04/20/24 16:52
Total Bilirubin 4.3 mg/dl (0.2-1.3) H 04/20/24 16:50
AST 69 U/L (17-59) H 04/20/24 16:50
ALT 16 U/L (0-50) 04/20/24 16:50
Alkaline Phosphatase 243 U/L (38-126) H 04/20/24 16:50
Lipase 44 U/L (23-300) 04/20/24 16:50
Data Reviewed
-
Diagnostic Radiology: Image Personally Visualized and interpreted
Lab Data: Labs Reviewed by me
Old Records: Reviewed
Impression/Plan
-
IMPRESSION:
Patient with h/o alcoholic cirrhosis complicated by varices status post banding and recurrent large-volume ascites who presents emergency department with significantly tense ascites. Last paracentesis was in January with removal of over 8 to 9 L and
improvement of symptoms at that time. Patient has been developing worsening ascites for several weeks now but appears to be worse the last 3 to 4 days. Reports abdominal discomfort mild nausea and shortness of breath with mild hypoxia in the ED.
He is status post 2 L paracentesis in the ED. Cell count was negative for SBP at this time. His LFTs were minimally changed from prior with slight worsening of his MELD score.
PLAN:
1. Tense Ascites - Requries large volume therapeutic paracentesis. No evidence of SBP on cell count from the 2 L para in ED.
- admit to obs
- IR consult for therapeutic paracentesis
- continue lasix, and aldactone
- continue cipro for SBP PPX.
- continue thiamine, folate for now.
- lactulose qid for 2 -3 BMs daily
2. ETOH
- encouraged complete cessation of ETOH. Reports last drink was today when he consumed 2 bottles of beer.
- poor prognosis
DVT PPX - lovenox sq
Code Status - Full Code
[2024-04-21] MEDS: MORPHINE SULFATE 2 MG IV ×4 (02:28→21:45)
--- NOTE | 2024-04-21 03:31 | PTCARENOTE ---
Pt arrived onto floor @0331. Pt AAOx3 and able to walk into room with minimal assistance. Pt on 2 L of O2, with stable vital signs. Pt oriented to room and call peraza; will continue to monitor.
[2024-04-21] MEDS: ROXICODONE 5 MG PO ×2 (05:39→10:35)
[2024-04-21 07:22] LABS: Blood Urea Nitrogen 6 mg/dl (9-20); Calcium 7.9 mg/dl (8.4-10.2); Carbon Dioxide 27 mmol/L (22-30); Chloride 99 mmol/L (98-107); Glucose 93 mg/dl (70-99); Magnesium 1.7 mg/dl (1.6-2.3); Potassium 3.9 mmol/L (3.5-5.1); Sodium 138 mmol/L (135-145); eGFR > 60.00
[2024-04-21] MEDS: VITAMIN B1 100 MG PO (08:52)
[2024-04-21] MEDS: LASIX 40 MG PO (08:53)
[2024-04-21] MEDS: DUPHALAC/CHRONULAC 20 GRAMS PO ×4 (08:53→21:25)
[2024-04-21] MEDS: ALDACTONE 50 MG PO (08:53)
[2024-04-21] MEDS: FOLVITE 1 MG PO ×2 (08:53→18:39)
[2024-04-21] MEDS: PROTONIX 40 MG PO (08:53)
--- NOTE | 2024-04-21 10:08 | W.PN.HOSP.TC ---
Today's Communication/Plan
-
see A/P
Assessment / Plan
Assessment / Plan
HPI: 34-year-old with history of alcoholic cirrhosis complicated by varices status post banding and recurrent large-volume ascites who presented to the emergency department with approximately 3 days of increasing abdominal girth, abdominal pain, and
shortness of breath.
Patient was last seen in the hospital in January. He reported that time he did have a large-volume paracentesis and was instructed to stay on lactulose and Lasix. Prior to that the patient had been noncompliant and had required multiple large-volume
paracentesis. The patient also has been instructed to be abstaining from alcohol. Patient reports that his last drink was actually the morning of admission but he states that he had not had any drink for a long time prior to that. He reports that he
has been compliant with the Lasix and the lactulose. He denies having any nausea or vomiting. Denies any melena or hematochezia.
In the emergency department the patient was afebrile and hemodynamically stable. He was however hypoxic and required supplemental oxygen. Chest x-ray does not show any acute infiltrates but is consistent with atelectasis and intrusion of ascites
into thoracic space. Chemistries were mostly unremarkable. INR was 1.4 his total bilirubin was elevated compared to prior at 4.3 with essentially unchanged alk phos. He did receive a paracentesis of around 2 L in the ED.
A/P:
# Tense Ascites
Would require large volume therapeutic paracentesis. IR consulted.
No evidence of SBP on cell count from the 2 L para in ED.
continue lasix, and aldactone
continue cipro for SBP PPX.
continue thiamine, folate for now.
Lactulose qid for 2 -3 BMs daily
# Acute hypoxic respiratory insufficiency
placed on 2L NC, wean as tolerated, pt not on home O2
# ETOH abuse
encourage complete cessation of ETOH. Reports last drink was on DOA when he consumed 2 bottles of beer.
poor prognosis
DVT PPX - lovenox sq
Code Status - Full Code
Anticipated Discharge: 24 - 48 hours
Subjective/Interval History
-
Date of Service: April 21, 2024
Objective Data
-
Labs:
Laboratory Results
04/21/24
06:07
Sodium 138
Potassium 3.9
Chloride 99
Carbon Dioxide 27
BUN 6 L
Creatinine 0.7
Glucose 93
Calcium 7.9 L
Vital Signs:
Vital Signs
Temp Pulse Resp BP Pulse Ox
36.6 C 81 16 125/82 98
04/21/24 07:00 04/21/24 08:53 04/21/24 07:00 04/21/24 08:53 04/21/24 07:00
I&O
04/20/24 04/21/24 04/22/24
06:59 06:59 06:59
Intake Total 1240 / 1240
Output Total 2100 / 2099
Balance -860 / -860
Review of Systems
-
Abdomen/GI: Reports Other (severe abdominal distension )
Physical Exam
-
General: Appears Chronically Ill and Cachectic
HEENT: Normocephalic, Atraumatic, Moist Mucous Membranes and Oxygen (2L NC)
Respiratory: Clear to Auscultation and Non Labored Respirations; Negative Accessory Resp Muscle Use
Cardiac: Regular Rhythm and S1/S2
GI: Distended
Musculoskeletal: No Clubbing, No Cyanosis and No Edema
Neuro: Awake
Psych: Calm
Data Reviewed
-
Diagnostic Radiology: Image personally visualized and interpreted and Report Reviewed by me
Labs: Labs Reviewed by me
--- NOTE | 2024-04-21 15:34 | PTCARENOTE ---
CHERYLE RN- patient rec'd to IR for paracentesis. upon inital assessment patient is mildly tremulous with mild diaphoresis. HR is 110 a rest. patient denies nausea via language line. Dr. Bonilla made aware. MSAS protocol initiated. MSAS 5 at this time.
reasses in two hours per protocol.
--- NOTE | 2024-04-21 16:03 | W.PN.UPDATE ---
Update Note
Progress Note Update
Paracentesis performed, yielding 10 L.
[2024-04-21] MEDS: ATIVAN 1 MG PO ×2 (18:38→23:59)
[2024-04-21] MEDS: LOVENOX 40 MG SC (18:39)
[2024-04-21] MEDS: FLEXBUMIN 100 IV ×2 (18:42→19:06)
[2024-04-21 21:26] LABS: Troponin I < 0.012 ng/ml
[2024-04-21] MEDS: THIAMINE INJECTION 200 MG IV (21:26)
[2024-04-21] MEDS: FLEXBUMIN 50 IV (21:27)
[2024-04-22 07:10] VITALS: BP 103/64
[2024-04-22] MEDS: LASIX 40 MG PO (08:24)
[2024-04-22] MEDS: DUPHALAC/CHRONULAC 20 GRAMS PO ×4 (08:26→20:31)
[2024-04-22] MEDS: PROTONIX 40 MG PO (08:26)
[2024-04-22] MEDS: FOLVITE 1 MG PO (08:26)
[2024-04-22] MEDS: ALDACTONE PO (08:27)
[2024-04-22] MEDS: THIAMINE INJECTION 200 MG IV ×2 (08:27→20:31)
[2024-04-22 08:49] LABS: Hematocrit 25.1 % (39.0-52.0); Hemoglobin 8.8 g/dL (13.0-18.0); Mean Corp Hgb Conc. 35.1 g/dL (33.0-37.0); Mean Corpuscular Volume 85.7 fL (80.0-94.0); Red Blood Cell Count 2.93 10^6/uL (4.70-6.10); Red Cell Dist. Width 15.6 % (11.5-14.5); White Blood Cell Count 4.7 10^3/uL (4.8-10.8)
[2024-04-22 09:00] LABS: Blood Urea Nitrogen 5 mg/dl (9-20); Calcium 8.5 mg/dl (8.4-10.2); Carbon Dioxide 34 mmol/L (22-30); Chloride 95 mmol/L (98-107); Glucose 113 mg/dl (70-99); Magnesium 1.4 mg/dl (1.6-2.3); Potassium 3.2 mmol/L (3.5-5.1); Sodium 139 mmol/L (135-145); eGFR > 60.00
--- NOTE | 2024-04-22 09:05 | W.PN.HOSP.TC ---
Addendum entered and electronically signed by Brittanie Bonilla MD 04/22/24 09:19:
# Hypokalemia
# hypomagnesemia
replete lytes
Original Note:
Today's Communication/Plan
-
see A/P
Assessment / Plan
Assessment / Plan
HPI: 34-year-old with history of alcoholic cirrhosis complicated by varices status post banding and recurrent large-volume ascites who presented to the emergency department with approximately 3 days of increasing abdominal girth, abdominal pain, and
shortness of breath.
Patient was last seen in the hospital in January. He reported that time he did have a large-volume paracentesis and was instructed to stay on lactulose and Lasix. Prior to that the patient had been noncompliant and had required multiple large-volume
paracentesis. The patient also has been instructed to be abstaining from alcohol. Patient reports that his last drink was actually the morning of admission but he states that he had not had any drink for a long time prior to that. He reports that he
has been compliant with the Lasix and the lactulose. He denies having any nausea or vomiting. Denies any melena or hematochezia.
In the emergency department the patient was afebrile and hemodynamically stable. He was however hypoxic and required supplemental oxygen. Chest x-ray does not show any acute infiltrates but is consistent with atelectasis and intrusion of ascites
into thoracic space. Chemistries were mostly unremarkable. INR was 1.4 his total bilirubin was elevated compared to prior at 4.3 with essentially unchanged alk phos. He did receive a paracentesis of around 2 L in the ED.
A/P:
# Tense Ascites
s/p 2L para in ED
followed by 10 L para by IR on 04/21
replete with albumen following large volume paracentesis
No evidence of SBP
continue lasix and aldactone
continue cipro for SBP PPX.
Lactulose qid for 2 -3 BMs daily
# Alcohol withdrawal
IV Ativan PRN with MSAS protocol
continue thiamine/folate
[facility] CS
# Acute hypoxic respiratory insufficiency
wean to RA, monitor saturation, pt not on home O2
# ETOH abuse
encourage complete cessation of ETOH.
He reported last drink was on DOA when he consumed 2 bottles of beer. Feel there is under report of his alcohol intake.
poor prognosis
[facility] CS
DVT PPX - Lovenox sq
Code Status - Full Code
DW RN
Anticipated Discharge: Within 24 hours
Subjective/Interval History
-
Date of Service: April 22, 2024
Objective Data
-
Labs:
Laboratory Results
04/22/24
07:47
WBC 4.7 L
Hgb 8.8 L
Hct 25.1 L
Plt Count Pending
Sodium 139
Potassium 3.2 L
Chloride 95 L
Carbon Dioxide 34 H
BUN 5 L
Creatinine 0.8
Glucose 113 H
Calcium 8.5
Vital Signs:
Vital Signs
Temp Pulse Resp BP Pulse Ox
36.9 C 98 16 103/64 98
04/22/24 07:10 04/22/24 08:24 04/22/24 07:10 04/22/24 08:24 04/22/24 07:10
I&O
04/21/24 04/22/24 04/23/24
06:59 06:59 06:59
Intake Total 1240 / 1240 480 / 480
Output Total 2099 / 2099 50 / 50
Balance -860 / -860 430 / 430
Review of Systems
-
Unable to obtain full review of systems at this time due to: Language Barrier
Physical Exam
-
General: Well Developed, Well Nourished, Appears Chronically Ill and Cachectic
HEENT: Normocephalic, Atraumatic and Moist Mucous Membranes
Respiratory: Clear to Auscultation and Non Labored Respirations; Negative Accessory Resp Muscle Use
Cardiac: Regular Rhythm and S1/S2
GI: Soft, Nontender, Nondistended and Normal Bowel Sounds
Musculoskeletal: No Clubbing, No Cyanosis and No Edema
Neuro: Awake
Psych: Calm
Data Reviewed
-
Diagnostic Radiology: Image personally visualized and interpreted and Report Reviewed by me
Labs: Labs Reviewed by me
[2024-04-22 10:25] LABS: Mean Platelet Volume 8.9 fL (7.4-10.4); Platelet Count 56 10^3/uL (130-400)
[2024-04-22 10:29] VITALS: BMI 23.2
[2024-04-22] MEDS: KCL 40 MEQ PO (10:58)
[2024-04-22] MEDS: MAGNESIUM SULFATE 100 IV (11:02)
--- NOTE | 2024-04-22 14:35 | CM ---
Patient seen bedside with nurse Turcios, nurse to assist with translation. Patient resides with family in an apartment, denies use of DME. Patient does not have a PCP, is interested in a list, will provide [facility] and [facility] information.
Patient confirms PCP Jarad in [place]. Patient declines [facility]/resources at this time. Patient reports he will need assistance with transportation home. CM will continue to follow for all discharge planning needs.
Plan; home no needs, declining [facility] at this time.
[2024-04-22 15:07] VITALS: BP 111/73; BP 115/75; PULSE 111; O2SAT 98
[2024-04-22 15:19] VITALS: BP 111/73; BP 115/75; PULSE 108; O2SAT 98
[2024-04-22 15:58] VITALS: BP 115/75
[2024-04-22] MEDS: LOVENOX 40 MG SC (17:10)
[2024-04-22 23:30] VITALS: BP 107/68
[2024-04-23 06:59] LABS: Hematocrit 22.9 % (39.0-52.0); Hemoglobin 8.1 g/dL (13.0-18.0); Mean Corp Hgb Conc. 35.4 g/dL (33.0-37.0); Mean Corpuscular Hgb 29.7 pg (27.0-31.0); Mean Corpuscular Volume 83.9 fL (80.0-94.0); Mean Platelet Volume 9.9 fL (7.4-10.4); Platelet Count 64 10^3/uL (130-400); Red Blood Cell Count 2.73 10^6/uL (4.70-6.10); Red Cell Dist. Width 15.5 % (11.5-14.5); White Blood Cell Count 6.1 10^3/uL (4.8-10.8)
[2024-04-23 07:30] VITALS: BP 102/65
[2024-04-23 07:33] LABS: Blood Urea Nitrogen 5 mg/dl (9-20); Calcium 8.1 mg/dl (8.4-10.2); Carbon Dioxide 30 mmol/L (22-30); Chloride 100 mmol/L (98-107); Glucose 112 mg/dl (70-99); Potassium 3.7 mmol/L (3.5-5.1); Sodium 136 mmol/L (135-145); eGFR > 60.00
[2024-04-23] MEDS: FOLVITE 1 MG PO (08:46)
[2024-04-23] MEDS: THIAMINE INJECTION 200 MG IV (08:46)
[2024-04-23] MEDS: DUPHALAC/CHRONULAC 20 GRAMS PO ×2 (08:47→12:03)
[2024-04-23] MEDS: LASIX PO (08:47)
[2024-04-23] MEDS: ALDACTONE PO (08:47)
[2024-04-23] MEDS: PROTONIX 40 MG PO (08:48)
--- NOTE | 2024-04-23 08:53 | W.PN.HOSP.TC ---
Addendum entered and electronically signed by Brittanie Bonilla MD 04/23/24 13:02:
total DC time 35 min
Original Note:
Today's Communication/Plan
-
see A/P
Assessment / Plan
Assessment / Plan
HPI: 34-year-old with history of alcoholic cirrhosis complicated by varices status post banding and recurrent large-volume ascites who presented to the emergency department with approximately 3 days of increasing abdominal girth, abdominal pain, and
shortness of breath.
Patient was last seen in the hospital in January. He reported that time he did have a large-volume paracentesis and was instructed to stay on lactulose and Lasix. Prior to that the patient had been noncompliant and had required multiple large-volume
paracentesis. The patient also has been instructed to be abstaining from alcohol. Patient reports that his last drink was actually the morning of admission but he states that he had not had any drink for a long time prior to that. He reports that he
has been compliant with the Lasix and the lactulose. He denies having any nausea or vomiting. Denies any melena or hematochezia.
In the emergency department the patient was afebrile and hemodynamically stable. He was however hypoxic and required supplemental oxygen. Chest x-ray does not show any acute infiltrates but is consistent with atelectasis and intrusion of ascites
into thoracic space. Chemistries were mostly unremarkable. INR was 1.4 his total bilirubin was elevated compared to prior at 4.3 with essentially unchanged alk phos. He did receive a paracentesis of around 2 L in the ED.
A/P:
# Tense Ascites
s/p 2L para in ED
followed by 10 L para by IR on 04/21
repleted with albumen following large volume paracentesis
No evidence of SBP
continue lasix and Aldactone
continue cipro for SBP PPX.
Lactulose qid for 2 -3 BMs daily
# Alcohol withdrawal
IV Ativan PRN with MSAS protocol
continue thiamine/folate
[facility] CS
# Acute hypoxic respiratory insufficiency, resolved
weaned to RA, monitor saturation, pt not on home O2
# ETOH abuse
encourage complete cessation of ETOH.
He reported last drink was on DOA when he consumed 2 bottles of beer. Feel there is under report of his alcohol intake.
poor prognosis
[facility] CSed
DVT PPX - Lovenox sq
Code Status - Full Code
DW RN
DW CM
Anticipated Discharge: Today
Subjective/Interval History
-
Date of Service: April 23, 2024
Objective Data
-
Labs:
Laboratory Results
04/23/24
05:22
WBC 6.1
Hgb 8.1 L
Hct 22.9 L
Plt Count 64 L
Sodium 136
Potassium 3.7
Chloride 100
Carbon Dioxide 30
BUN 5 L
Creatinine 0.8
Glucose 112 H
Calcium 8.1 L
Vital Signs:
Vital Signs
Temp Pulse Resp BP Pulse Ox
36.9 C 95 14 102/65 95
04/23/24 07:30 04/23/24 07:30 04/23/24 07:30 04/23/24 08:47 04/23/24 07:30
I&O
04/22/24 04/23/24 04/24/24
06:59 06:59 06:59
Intake Total 480 / 480 960 / 960
Output Total 50 / 50 225 / 225
Balance 430 / 430 735 / 735
Review of Systems
-
Unable to obtain full review of systems at this time due to: Language Barrier
Physical Exam
-
General: Well Developed, Well Nourished, Appears Chronically Ill and Cachectic
HEENT: Normocephalic, Atraumatic and Moist Mucous Membranes
Respiratory: Clear to Auscultation and Non Labored Respirations; Negative Accessory Resp Muscle Use
Cardiac: Regular Rhythm and S1/S2
GI: Soft, Nontender, Nondistended and Normal Bowel Sounds
Musculoskeletal: No Clubbing, No Cyanosis and No Edema
Neuro: Awake
Psych: Calm
Data Reviewed
-
Diagnostic Radiology: Image personally visualized and interpreted and Report Reviewed by me
Labs: Labs Reviewed by me
--- NOTE | 2024-04-23 10:32 | CM ---
Patient seen bedside with Nurse Mendoza to assist with translation, patient for discharge today. Patient provided with [facility] application. Patient reports he has family to provide transportation home later in the day as they work. Patient
denies any other needs upon discharge. CM will continue to follow for all discharge planning needs.
Plan; home no needs.
--- NOTE | 2024-04-23 12:47 | W.DCSUMMARY ---
Discharge Summary
Discharge Data
Date of Admission: 04/22/24
Date of Discharge: 04/23/24
-
Pending Results: No
Hospital Course
Principal Diagnosis:
Ascites due to decompensated liver failure from alcohol cirrhosis
Alcohol withdrawal
Chronic Diagnoses:�
Alcohol abuse
Alcoholic cirrhosis status post banding
Consultations:�
Interventional radiology
Procedures:�
Paracentesis, large-volume
Clinical course:�
This is a 34-year-old male with past medical history as stated above, who presented with recurrent ascites.
Problem 1:
Ascites due to decompensated liver failure from alcohol cirrhosis.
He initially underwent paracentesis in the emergency department, and 2 L was removed.
He subsequently underwent large-volume paracentesis by IR, and 10 L was removed.
SBP was ruled out.
He received albumin following large-volume paracentesis.
He can continue with prior to admission Lasix and Aldactone, also Cipro for SBP prophylaxis.
He can also continue with prior to admission lactulose 4 times daily to titrate bowel movement to 2-3 times daily.
He has been informed to quit drinking alcohol.
He has also been informed to follow-up with PCP at [facility], given he has no insurance and does not currently have a PCP.
Problem 2:
Alcohol withdrawal.
This was treated with IV Ativan as needed with MSAS protocol.
Problem 3:
Acute hypoxic respiratory insufficiency, resolved.
Discharge Plan
-
Patient Disposition: Home (Routine Discharge)
Discharge Diagnosis/Procedures: Tense ascites from liver failure (from alcohol cirrhosis) status post large volume paracentesis; Alcohol withdrawal (resolved)
Condition: Fair
Diet: As tolerated, Low Sodium and Restrict fluids to 48 oz
Activity: As tolerated
Driving Restrictions: As prior to admission
Activity Restrictions/Additional Instructions:
Follow up at [facility] if you do NOT have a PCP and do NOT have insurance.
Follow up with a GI doctor to discuss if you could start Rifaximin and beta lakshmi for your severe ascites.
Referrals:
UNKNOWN - PT DOES,NOT KNOW [Family Provider] - in less than 1 week
Prescriptions:
Continued
thiamine HCl (vitamin B1) 100 mg tablet
100 mg PO DAILY Qty: 30 0RF
folic acid 1 mg Tablet
1 mg PO DAILY Qty: 0 0RF
lactulose 20 gram/30 mL solution
20 g PO QID Qty: 3000 0RF
furosemide 40 mg Tablet
40 mg PO DAILY Qty: 30 0RF
pantoprazole [Protonix] 40 mg tablet,delayed release (DR/EC)
40 mg PO DAILY Qty: 30 0RF
spironolactone [Aldactone] 50 mg tablet
50 mg PO DAILY Qty: 30 0RF
Discharge Orders:
Discharge Patient (As Directed); Ordered 04/23/24
Ordered By: Brittanie Bonilla
Discharge Date and Time
Print Language: TURKISH
[2024-04-23 14:36] VITALS: BP 102/69
== END 2024-04-23 14:43 | disposition home or self-care (01) | DRG 433 ==
LOC: 4 WEST ACU 09:04
PROVIDERS: Physician Assistant; Radiology Vascular & Interventional Radiology; ADMITTING PHYSICIAN Internal Medicine; ATTENDING PHYSICIAN Internal Medicine; EMERGENCY PHYSICIAN Emergency Medicine
PROC: 0W9G3ZX Drainage of Peritoneal Cavity, Percutaneous Approach, Diagnostic (ICD-10-PCS; 2024-04-23)
DX: K70.31 Alcoholic cirrhosis of liver with ascites (principal); F10.139 Alcohol abuse with withdrawal, unspecified; J98.11 Atelectasis; K70.11 Alcoholic hepatitis with ascites; R06.89 Other abnormalities of breathing; R09.02 Hypoxemia; Z91.199 Patient's noncompliance with other medical treatment and regimen due to unspecified reason; K70.40 Alcoholic hepatic failure without coma
CPT/HCPCS: 49083; 71046; 80048; 80053; 82140; 82248; 82962; 83690; 83735; 84484; 85025; 85027; 85610; 87015; 87070; 87205; 89051; 93005; 96361; 96374; 97162; 97166; 99285; P9047

== ENCOUNTER 2024-05-09 12:04 | Inpatient (IN) | payer MEDICAID, SELFPAY ==
[2024-05-09] VITALS (9 sets, daily range): BP systolic 98–115; BP diastolic 60–82; BMI 22.7; BMI 17.2
[2024-05-09] MEDS: DILAUDID 0.25 MG IV (09:00)
[2024-05-09 09:18] LABS: % Basophils 3.4 % (0-2); % Eosinophils 0.8 % (0-6); % Immature Granulocytes 0.6 % (0-0.5); % Lymphocytes 11.8 % (20.5-51.1); % Neutrophils 78.4 % (42.2-75.2); Absolute Basophils 0.2 10^3/uL (0-0.2); Absolute Lymphocytes 0.6 10^3/uL (1.2-3.4); Absolute Monocytes 0.3 10^3/uL (0.1-0.6); Absolute Neutrophils 3.9 10^3/uL (1.4-6.5); Hematocrit 25.3 % (39.0-52.0); Hemoglobin 8.9 g/dL (13.0-18.0); Mean Corp Hgb Conc. 35.2 g/dL (33.0-37.0); Mean Corpuscular Hgb 30.7 pg (27.0-31.0); Mean Corpuscular Volume 87.2 fL (80.0-94.0); Mean Platelet Volume 8.8 fL (7.4-10.4); Nucleated Red Blood Cells % 0 % (-); Platelet Count 96 10^3/uL (130-400); Red Cell Dist. Width 17.5 % (11.5-14.5)
[2024-05-09 09:21] LABS: INR 1.61
[2024-05-09 09:22] LABS: APTT 37.9 Sec (23.4-35.0)
[2024-05-09 09:25] LABS: Ammonia 21 umol/L (9-30)
[2024-05-09 09:26] LABS: COVID-19 Antigen Negative (Negative)
[2024-05-09 09:32] LABS: ALT (SGPT) 26 U/L (0-50); AST (SGOT) 104 U/L (17-59); Albumin 3.2 g/dl (3.5-5.0); Alkaline Phosphatase 290 U/L (38-126); Blood Urea Nitrogen 5 mg/dl (9-20); Calcium 7.9 mg/dl (8.4-10.2); Carbon Dioxide 14 mmol/L (22-30); Chloride 98 mmol/L (98-107); Estimated Creatinine Clearance 98 ml/min; Glucose 59 mg/dl (70-99); Lipase 59 U/L (23-300); Potassium 4.4 mmol/L (3.5-5.1); Sodium 134 mmol/L (135-145); Total Bilirubin 4.2 mg/dl (0.2-1.3); Total Protein 7.5 g/dl (6.3-8.2); eGFR > 60.00
[2024-05-09 09:34] LABS: NT-proBNP 165 pg/ml; Troponin I < 0.012 ng/ml
--- NOTE | 2024-05-09 09:46 | ED.GENMED ---
History of Present Illness
General
Chief Complaint: Breathing Problem
Source: patient
Exam Limitations: none
Time Seen by Provider: 05/09/24 08:23
Nursing documentation reviewed up to this point in time: agreed with
History of Present Illness
History of Present Illness:
34-year-old male with a history of alcoholic cirrhosis/decompensated liver failure requiring paracentesis every few weeks, poor compliance, continues to drink alcohol
Presents for abdominal distention and shortness of breath and both chest and abdominal pain. Patient says he chronically has some chest discomfort but his abdomen feels more uncomfortable over the last couple of days. He also has a slight cough
and reported subjective fever symptoms but did not take his temperature. Patient last had alcohol 2 or 3 days ago and had 3 drinks. Patient says he is not feeling any symptoms of alcohol withdrawal. He denies any nausea or vomiting, diarrhea. He
said he last ate yesterday. Patient has poor compliance, no insurance and has not followed up with an [facility] clinic despite being encouraged.
Past History
Past History
ED Past Medical History: Renal failure (Peritoneal dialysis), Psychiatric (Depression) and Other (alcohol abuse, alcoholic hepatitis, Cirrhosis of the liver, Ascites, Anemia, )
ED Past Surgical History: Other (Hernia repair)
Social History
Tobacco: Non-smoker
Alcohol: Chronic alcoholic (Daily 4 large beer and 2 shots)
Drug: Other (denies however UDS from prior visit pos for opioids)
Personal: Single
Living: with roommate
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
Family History
Family History: Other (Noncontributory)
Review of Systems
Review of Systems
Allergies reviewed?: Yes
All Other Systems: Not applicable
Phy Exam
Physical Exam
Physical Exam:
GENERAL: Alert , in no apparent distress
EYE: pupils equal and reactive
NECK: Supple
ENT: o/p clr, dry mouth
CARDIAC: Regular rate and rhythm . No edema
LUNGS: Diminished at bases but no rales, occasional cough, no respiratory distress
ABDOMEN: Extremely distended abdomen but soft, large volume ascites, no erythema, there is a ventral hernia easily reducible
NEUROLOGICAL: Alert and oriented, no focal neuro deficits, neurologically intact
SKIN: Warm and dry, skin intact.
MUSCULOSKELETAL: No edema, well perfused. neg opal's sign
PSYCH: Normal and appropriate interaction.
Course
Orders/Labs/Results
Orders:
Orders
05/09/24 08:34
HYDROmorphone [Dilaudid] 0.25 mg IV NOW STA
05/09/24 08:35
Electrocardiogram (*1) Urgent
Reason for Study: Chest Pain
EKG- Treatment ONCE
05/09/24 08:38
CR Chest - 2 Views Urgent
Comment:
Reason For Exam: chest pain
05/09/24 08:54
Alcohol Urgent
Ammonia Urgent
COVID-19 Antigen Urgent
Source: Nasal Swab
Complete Blood Count/With Diff Urgent
Comprehensive Metabolic Panel Urgent
Lipase Urgent
NT-proBNP Urgent
PTT Urgent
Prothrombin Time Urgent
Troponin I Urgent
05/09/24 09:27
Consult Interventional Radiology [IRAD CONSULT] Urgent
Consulting Provider: Pranay Kaiser
Was physician already notified: Yes
Reason for Consult/Procedure: paracentesis
Acknowledgement that appropriate orders are entered: Yes
05/09/24 09:35
Dextrose 50%-Water [Dextrose 50% Syringe] 25 grams IV NOW STA
05/09/24 09:36
Add On- LAB Urgent
Tests Added?: alcohol
Thiamine Injection 100 mg IV NOW STA
05/09/24 09:44
Add On- LAB Urgent
Tests Added?: salicylate level
05/09/24 10:00
Dextrose 5%/0.9%Sodchl 500 ml [D5/0.9% Sodium Chloride] 500 ml IV 120 mls/hr
Abnormal Lab Results
05/09/24
08:54
RBC 2.90 L 10^6/uL
(4.70-6.10)
Hgb 8.9 L g/dL
(13.0-18.0)
Hct 25.3 L %
(39.0-52.0)
RDW 17.5 H %
(11.5-14.5)
Plt Count 96 L 10^3/uL
(130-400)
Absolute Lymphs (auto) 0.6 L 10^3/uL
(1.2-3.4)
Immature Gran % 0.6 H %
(0-0.5)
Neutrophils % 78.4 H %
(42.2-75.2)
Lymphocytes % 11.8 L %
(20.5-51.1)
Basophils % 3.4 H %
(0-2)
PT 19.0 H Sec
(11.4-14.6)
APTT 37.9 H Sec
(23.4-35.0)
Sodium 134 L mmol/L
(135-145)
Carbon Dioxide 14 L* mmol/L
(22-30)
BUN 5 L mg/dl
(9-20)
Glucose 59 L mg/dl
(70-99)
Calcium 7.9 L mg/dl
(8.4-10.2)
Total Bilirubin 4.2 H mg/dl
(0.2-1.3)
AST 104 H U/L
(17-59)
Alkaline Phosphatase 290 H U/L
(38-126)
Albumin 3.2 L g/dl
(3.5-5.0)
05/09/24 08:54
05/09/24 08:54
Vital Signs
Initial and Last Documented VS:
Initial Vital Signs
Temp Pulse Resp BP Pulse Ox
97.6 F 94 20 108/65 99
05/09/24 07:57 05/09/24 07:57 05/09/24 07:57 05/09/24 07:57 05/09/24 07:57
Last Documented Vital Signs
Temp Pulse Resp BP Pulse Ox
97.6 F 90 19 108/70 96
05/09/24 07:57 05/09/24 09:00 05/09/24 09:00 05/09/24 09:00 05/09/24 09:00
MDM/Problems Addressed
Differential Diagnosis Includes:
Ascites, liver failure, anemia, COVID, pneumonia, SBP, AKA
MDM/Problems Addressed:
34-year-old male with history of alcohol abuse and decompensated liver failure presents for symptoms of abdominal distention causing some shortness of breath as well as a cough and a subjective fever yesterday. Patient last had a paracentesis a
couple of weeks ago. He frequently comes every few weeks for paracentesis and has not plugged into outpatient resources despite being given free clinic information etc. Patient continues to drink alcohol. He does also report some chest discomfort
though he did say that this is chronic. On exam he has an occasional cough, stable vital signs, clear lungs, large volume abdominal ascites without erythema or significant tenderness. I do not suspect SBP but he will require a paracentesis in this
fluid analysis will be sent. On lab review the patient has stable anemia, improved platelets from previous to 90,000, and INR of 1.6, but a glucose of 56, bicarb of 14 and an anion gap which is likely related to alcoholic ketoacidosis or starvation
ketosis. I added on a salicylate level and alcohol level and I am giving him dextrose and his fluids. Thiamine. Will admit to medicine
*Critical Care Note
Total Time (30-74mins, 75-104mins- exclusive of procedures): Not Applicable
ED Attending Note
-
Portions of this chart may have been created with voice recognition software.� Occasional wrong word or��sound alike� substitutions may have occurred due to the inherent limitations of voice recognition software.
Discharge Plan
Departure
Patient Disposition: Admit
Date of Disposition: 05/09/24
Time of Disposition: 09:43
Admit to: Med/Surg
Presentation/result/management discussed w/ accepting MD/DO: Hospitalist
Patient with high blood pressure during this ER visit?: No
Condition: Fair
Covid-19: Not Applicable
Discharge Problem:
Alcoholic ketoacidosis, Abdominal ascites
Prescriptions:
No Action
thiamine HCl (vitamin B1) 100 mg tablet
100 mg PO DAILY Qty: 30 0RF
folic acid 1 mg Tablet
1 mg PO DAILY Qty: 0 0RF
lactulose 20 gram/30 mL solution
20 g PO QID Qty: 3000 0RF
furosemide 40 mg Tablet
40 mg PO DAILY Qty: 30 0RF
pantoprazole [Protonix] 40 mg tablet,delayed release (DR/EC)
40 mg PO DAILY Qty: 30 0RF
spironolactone [Aldactone] 50 mg tablet
50 mg PO DAILY Qty: 30 0RF
Referrals:
UNKNOWN - PT DOES,NOT KNOW [Family Provider] -
Interventions
Interventions:
*Risk Screen - Suicide Last Done: 05/09/24 08:03
*General Assessment Last Done: 05/09/24 08:03
*Neglect/Abuse Screening Last Done: 05/09/24 08:03
*ED COVID-19 Vaccine History Last Done: 05/09/24 08:34
LC-Hrgeog-Xmxslvpkcg Assessment Last Done: 05/09/24 08:41
ED- Cardiac Assessment Last Done: 05/09/24 08:39
ED- Pulmonary Assessment Last Done: 05/09/24 08:40
Discharge Date and Time
Print Language: ARMENIAN
[2024-05-09] MEDS: D5/0.9% SODIUM CHLORIDE 500 IV (09:47)
[2024-05-09] MEDS: DEXTROSE 50% SYRINGE 25 GRAMS IV (09:47)
[2024-05-09] MEDS: THIAMINE INJECTION 100 MG IV (09:48)
[2024-05-09 10:21] LABS: Glucose - Point of Care 217 mg/dl (70-99)
[2024-05-09 10:37] LABS: Alcohol 217 mg/dl; Salicylate < 1.0 mg/dl (2.0-20.0)
--- NOTE | 2024-05-09 11:33 | HPS.HSE ---
Family Physician
-
Family Physician: NOT KNOW UNKNOWN - PT DOES
Chief Complaint
-
Abdomen distention, dyspnea
History of Present Illness
Patient is a 34-year-old male with past medical history of decompensated alcoholic cirrhosis, ongoing alcohol use, recurrent ascites, history of SBP, history of GI bleed from esophageal varices, severe protein calorie malnutrition, thrombocytopenia
came to ER after having abdominal distention and discomfort. Patient was also noted to be dyspneic and minimally hypoxic requiring 2 L oxygen through nasal cannula. Patient blood alcohol level of 217 in ER and stated of having last drink 48 hours
before. He has no reported diarrhea. Denies of having any active cough/fever.
Patient have a history of recurrent admission for complication related to liver cirrhosis and required periodic paracentesis although patient is noncompliant. Patient also remains noncompliant to alcohol abstinence despite multiple counseling by
previous physicians.
Medical History
Past Medical History
Past Medical History: Reports Other
Additional Past Medical History:
decompensated alcoholic cirrhosis, ongoing alcohol use, recurrent ascites, history of SBP, history of GI bleed from esophageal varices, severe protein calorie malnutrition, thrombocytopenia
Past Surgical History: Reports Other
Social History
Tobacco: Non-smoker
Alcohol: Daily
Drug: None
Family History
Family History: Not pertinent
Allergies / Home Medications
Allergies reflects when Allergies were last updated in [employer].
Home Medications with original date entered in [employer]
Allergy/Medication List:
Allergies
Allergy/AdvReac Type Severity Reaction Status Date / Time
No Known Allergies Allergy Verified 05/09/24 07:55
Home Medications
thiamine HCl (vitamin B1) 100 mg tablet 100 mg PO DAILY #30 tabs 11/19/23
folic acid 1 mg tablet 1 mg PO DAILY #0 tabs 12/19/23
furosemide 40 mg tablet 40 mg PO DAILY #30 tabs 02/01/24
lactulose 20 gram/30 mL oral solution 20 g (30 mL) PO QID #3,000 mL 02/01/24
pantoprazole 40 mg tablet,delayed release (Protonix) 40 mg PO DAILY #30 tabs 02/01/24
spironolactone 50 mg tablet (Aldactone) 50 mg PO DAILY #30 tabs 02/01/24
ciprofloxacin HCl 500 mg tablet 500 mg PO DAILY 05/09/24
Review of Systems
-
Unable to obtain full review of systems at this time due to: Language Barrier (Limited)
A 12 point ROS was completed and negative except as noted: Yes
Physical Exam
Vital Signs
Vital Signs
Temp Pulse Resp BP Pulse Ox
97.6 F 96 22 103/67 95
05/09/24 07:57 05/09/24 10:00 05/09/24 11:00 05/09/24 10:00 05/09/24 11:00
Physical Exam
General: No Apparent Distress
Respiratory: Clear
Cardiac: S1/S2 and Regular Rhythm; No Murmur or Rub
GI: Soft, Non Tender, Normal Bowel Sounds and Distended; No Organomegaly
Musculoskeletal: No Cyanosis and No Edema
Skin: No Rash
Neuro: Awake, Alert, Oriented and Nonfocal/grossly intact
Laboratory Results
-
05/09/24 08:54
05/09/24 08:54
Laboratory Results
PT 19.0 Sec (11.4-14.6) H 05/09/24 08:54
INR 1.61 05/09/24 08:54
APTT 37.9 Sec (23.4-35.0) H 05/09/24 08:54
Total Bilirubin 4.2 mg/dl (0.2-1.3) H 05/09/24 08:54
AST 104 U/L (17-59) H 05/09/24 08:54
ALT 26 U/L (0-50) 05/09/24 08:54
Alkaline Phosphatase 290 U/L (38-126) H 05/09/24 08:54
Troponin I < 0.012 ng/ml 05/09/24 08:54
Lipase 59 U/L (23-300) 05/09/24 08:54
Data Reviewed
-
Diagnostic Radiology: Image Personally Visualized and interpreted and Report Reviewed by me
Lab Data: Labs Reviewed by me
Impression/Plan
-
1. Acute hypoxic respite insufficiency
-Secondary to large ascites and increased intra-abdominal pressures
-Maintain patient on oxygen through nasal cannula and wean off as appropriate
-Chest x-ray in ER showing stable chronic elevated right hemidiaphragm. No major parenchymal change
2. Recurrent ascites
h/o of SBP
-Patient have history of recurrent ascites and have not been compliant with outpatient paracentesis schedule
-In ER on exam patient had tense abdominal distention with diffuse mild tenderness
-Home medications showing patient on oral ciprofloxacin daily for SBP prophylaxis, compliance unknown
-IRAD with paracentesis of 8.6 L of fluid. Follow-up studies
-Post paracentesis 62.5g albumin infusion ordered.
-Continue home dose of oral Lasix 40 mg daily. Aldactone dose decreased to 25 mg daily with holding parameters.
3. Metabolic acidosis
-Anion gap metabolic acidosis of unclear reason
-Provide oral bicarb therapy, avoiding IVF bicarb due to volume overload issues with cirrohosis
4. Alcohol use disorder
-Blood alcohol level of 217
-Monitor for withdrawal, MSAS/Ativan protocol ordered
5. Decompensated alcoholic cirrhosis
-Patient remains at high risk of further complication due to alcoholic cirrhosis and ongoing continual alcohol use
-INR 1.6, platelet 96, total bilirubin 4.2. Close to baseline
-Child roman scoring of 10C
6. Hypoglycemia
-BG of 59 in ER, got IV dextrose.
-Acute decreased oral intake with ongoing alcohol use and impaired gluconeogenesis with cirrohosis
-Continue monitoring for Hypoglycemia, every 6 Accu-Cheks ordered
7. Hyponatremia
-mild. monitor
DVT PPX - scd
Full code
Total time spent : 85 mins
I personally saw and examined the patient.
I have reviewed all diagnostic interpretations and treatment plans as written.
Time includes patient management by me, time spent at the patients bedside, time to review lab and imaging results, discussing patient care, documentation in the medical record, and time spent with the family or caregiver and discussing care plan
with RN/Consultants.
--- NOTE | 2024-05-09 13:48 | PTCARENOTE ---
05/09- Patient transferred and oriented to unit without issue S/P Paracentesis. He is AAOX3 but lethargic, flat affect. Skin is Jaundice with Jaundice sclera; +PulsesX4; +1 pitting anasarca with round distended belly. Parcentesis site with bandaid
CDI. Patient denies any current needs.
[2024-05-09 14:22] LABS: Body Fluid Polymorphonuclear 23.1 %; Body Fluid WBC 39 /CUMM
[2024-05-09 14:23] LABS: Body Fluid Mononuclear 76.9 %
[2024-05-09 14:24] LABS: Body Fluid Second Tech LD
[2024-05-09] MEDS: SODIUM BICARBONATE 1300 MG PO ×2 (14:46→21:18)
[2024-05-09] MEDS: FLEXBUMIN 100 IV ×2 (14:47→17:51)
[2024-05-09] MEDS: ROXICODONE 5 MG PO ×3 (15:21→23:45)
[2024-05-09] MEDS: THIAMINE INJECTION 255 MG IV ×2 (16:26→23:44)
[2024-05-09] MEDS: FLEXBUMIN 50 IV (18:30)
[2024-05-10] VITALS (7 sets, daily range): BP systolic 92–103; BP diastolic 42–66
[2024-05-10] MEDS: ROXICODONE 5 MG PO ×2 (03:38→08:13)
[2024-05-10] MEDS: ZOFRAN 4 MG IV ×3 (03:42→17:04)
[2024-05-10] MEDS: SODIUM BICARBONATE 1300 MG PO ×3 (05:04→20:57)
[2024-05-10] MEDS: ATIVAN 1 MG PO (05:20)
[2024-05-10 05:25] LABS: Glucose - Point of Care 131 mg/dl (70-99)
[2024-05-10 07:13] LABS: INR 2.02; PT 22.7 Sec (11.4-14.6)
[2024-05-10 07:28] LABS: ALT (SGPT) 19 U/L (0-50); AST (SGOT) 71 U/L (17-59); Alkaline Phosphatase 196 U/L (38-126); Blood Urea Nitrogen 6 mg/dl (9-20); Calcium 7.7 mg/dl (8.4-10.2); Carbon Dioxide 24 mmol/L (22-30); Chloride 98 mmol/L (98-107); Estimated Creatinine Clearance 93 ml/min; Glucose 123 mg/dl (70-99); Potassium 3.7 mmol/L (3.5-5.1); Sodium 136 mmol/L (135-145); Total Bilirubin 4.8 mg/dl (0.2-1.3); Total Protein 6.4 g/dl (6.3-8.2); eGFR > 60.00
[2024-05-10 07:33] LABS: Glucose - Point of Care 144 mg/dl (70-99)
[2024-05-10 08:09] LABS: Hematocrit 19.2 % (39.0-52.0); Hemoglobin 6.8 g/dL (13.0-18.0); Mean Corp Hgb Conc. 35.2 g/dL (33.0-37.0); Mean Corpuscular Hgb 31.1 pg (27.0-31.0); Mean Corpuscular Volume 88.1 fL (80.0-94.0); Mean Platelet Volume 9.5 fL (7.4-10.4); Platelet Count 58 10^3/uL (130-400); Red Blood Cell Count 2.19 10^6/uL (4.70-6.10); Red Cell Dist. Width 17.3 % (11.5-14.5); White Blood Cell Count 3.7 10^3/uL (4.8-10.8)
[2024-05-10] MEDS: THIAMINE INJECTION 255 MG IV (08:13)
[2024-05-10] MEDS: LASIX 40 MG PO (08:14)
[2024-05-10] MEDS: FOLVITE 1 MG PO (08:14)
[2024-05-10] MEDS: PROTONIX 40 MG PO (08:14)
[2024-05-10] MEDS: CIPRO 500 MG PO (08:14)
[2024-05-10] MEDS: ALDACTONE 25 MG PO (08:15)
--- NOTE | 2024-05-10 11:16 | CM ---
Patient seen with nurse Mendoza to assist with translation. Patient confirms nothing has changed since most recent admission. CM offered [facility]/resources, patient not interested at this time. Patient confirms he has [employer] Application from
previous admission. Patient denies needs from CM at this time. CM will continue to follow for all discharge planning needs.
Plan; home no needs.
[2024-05-10] MEDS: VITAMIN B1 100 MG PO ×2 (11:18→20:55)
[2024-05-10 11:32] LABS: Glucose - Point of Care 219 mg/dl (70-99)
--- NOTE | 2024-05-10 14:06 | W.PN.HOSP.TC ---
Today's Communication/Plan
-
see note
Assessment / Plan
Assessment / Plan
1. Acute hypoxic respite insufficiency
-Secondary to large ascites and increased intra-abdominal pressures
-Chest x-ray in ER showing stable chronic elevated right hemidiaphragm. No major parenchymal change
-Continue wean off oxygen as possible
2. Recurrent ascites
h/o of SBP
-Patient have history of recurrent ascites and have not been compliant with outpatient paracentesis schedule
-In ER on exam patient had tense abdominal distention with diffuse mild tenderness
-Home medications showing patient on oral ciprofloxacin daily for SBP prophylaxis, compliance unknown
-IRAD with paracentesis of 8.6 L of fluid. No concern of SBP on testing.
-Post paracentesis 62.5g albumin infusion ordered.
-Continue home dose of oral Lasix 40 mg daily. Aldactone dose decreased to 25 mg daily with holding parameters.
3. Metabolic acidosis -resolved
-Anion gap metabolic acidosis possible from alcohol use and starvation ketoacidosis
-Provide oral bicarb therapy, avoiding IVF bicarb due to volume overload issues with cirrohosis
4. Alcohol use disorder
-Blood alcohol level of 217 at admission
-Monitor for withdrawal, MSAS/Ativan protocol ordered
5. Decompensated alcoholic cirrhosis
Coagulopathy
Thrombocytopenia
-Patient remains at high risk of further complication due to alcoholic cirrhosis and ongoing continual alcohol use
-INR 1.6, platelet 96, total bilirubin 4.2. Close to baseline
-Child roman scoring of 10C
6. Hypoglycemia
-BG of 59 in ER, got IV dextrose.
-Acute decreased oral intake with ongoing alcohol use and impaired gluconeogenesis with cirrohosis
-Continue monitoring for Hypoglycemia, every 6 Accu-Cheks ordered
7. Hyponatremia
-mild. monitor
8. Acute normocytic anemia
-No overt sign of blood loss, continue monitoring
-Blood consent obtained and patient to be provided 1 unit of PRBC
DVT PPX - scd
Full code
Total time spent : 53 mins
I personally saw and examined the patient.
I have reviewed all diagnostic interpretations and treatment plans as written.
Time includes patient management by me, time spent at the patients bedside, time to review lab and imaging results, discussing patient care, documentation in the medical record, and time spent with the family or caregiver and discussing care plan
with RN/Consultants.
Anticipated Discharge: 24 - 48 hours
Subjective/Interval History
-
Date of Service: May 10, 2024
Having some right sided flank pain
No nausea vomiting
No bleeding [place]
Objective Data
-
Labs:
Laboratory Results
05/10/24
05:59
WBC 3.7 L
Hgb 6.8 L* D
Hct 19.2 L*
Plt Count 58 L D
PT 22.7 H
INR 2.02
Sodium 136
Potassium 3.7
Chloride 98
Carbon Dioxide 24
BUN 6 L
Creatinine 0.8
Glucose 123 H
Calcium 7.7 L
Total Bilirubin 4.8 H
AST 71 H
ALT 19
Alkaline Phosphatase 196 H
Vital Signs:
Vital Signs
Temp Pulse Resp BP Pulse Ox
97.8 F 92 18 96/42 100
05/10/24 12:58 05/10/24 12:58 05/10/24 12:58 05/10/24 12:58 05/10/24 12:36
I&O
05/09/24 05/10/24 05/11/24
06:59 06:59 06:59
Intake Total 240 / 240 0 / 0
Output Total 300 / 300
Balance -60 / -60 0 / 0
Review of Systems
-
Respiratory: Reports No Symptoms
Cardiac: Reports No Symptoms
Abdomen/GI: Reports No Symptoms
Physical Exam
-
General: Cachectic
HEENT: Oxygen
Respiratory: Clear to Auscultation
Cardiac: Regular Rhythm and S1/S2
GI: Soft, Nondistended, Tender (RLQ) and Distended
Musculoskeletal: No Edema
Neuro: Awake
Psych: Calm
[2024-05-10] MEDS: ROXICODONE 7.5 MG PO ×2 (15:49→20:58)
[2024-05-10 16:37] LABS: Glucose - Point of Care 260 mg/dl (70-99)
[2024-05-10] MEDS: COMPAZINE 5 MG IV (20:59)
[2024-05-11] VITALS (24 sets, daily range): BP systolic 104–121; BP diastolic 56–78; BMI 18.9
[2024-05-11 00:11] LABS: Glucose - Point of Care 209 mg/dl (70-99)
[2024-05-11] MEDS: SODIUM BICARBONATE 1300 MG PO ×2 (05:18→20:19)
[2024-05-11] MEDS: ROXICODONE 7.5 MG PO ×3 (05:18→20:31)
[2024-05-11 06:24] LABS: Glucose - Point of Care 178 mg/dl (70-99)
[2024-05-11] MEDS: FOLVITE 1 MG PO (09:10)
[2024-05-11] MEDS: CIPRO 500 MG PO (09:10)
[2024-05-11] MEDS: PROTONIX 40 MG PO (09:10)
[2024-05-11] MEDS: ALDACTONE 25 MG PO (09:10)
[2024-05-11] MEDS: VITAMIN B1 100 MG PO ×2 (09:10→20:19)
[2024-05-11] MEDS: LASIX 40 MG PO (09:11)
[2024-05-11 09:32] LABS: INR 2.55; PT 27.4 Sec (11.4-14.6)
[2024-05-11 09:41] LABS: Hematocrit 15.5 % (39.0-52.0); Hemoglobin 5.5 g/dL (13.0-18.0); Mean Corp Hgb Conc. 35.5 g/dL (33.0-37.0); Mean Corpuscular Hgb 30.7 pg (27.0-31.0); Mean Corpuscular Volume 86.6 fL (80.0-94.0); Mean Platelet Volume 10.5 fL (7.4-10.4); Platelet Count 106 10^3/uL (130-400); Red Blood Cell Count 1.79 10^6/uL (4.70-6.10); Red Cell Dist. Width 16.4 % (11.5-14.5)
[2024-05-11 09:50] LABS: ALT (SGPT) 22 U/L (0-50); AST (SGOT) 74 U/L (17-59); Albumin 2.7 g/dl (3.5-5.0); Alkaline Phosphatase 150 U/L (38-126); Blood Urea Nitrogen 11 mg/dl (9-20); Carbon Dioxide 25 mmol/L (22-30); Chloride 91 mmol/L (98-107); Estimated Creatinine Clearance 37 ml/min; Glucose 166 mg/dl (70-99); Potassium 4.1 mmol/L (3.5-5.1); Sodium 127 mmol/L (135-145); Total Bilirubin 7.8 mg/dl (0.2-1.3); eGFR 44.36
--- NOTE | 2024-05-11 10:19 | CON.GI ---
Consultation
-
Date/Time Consultation Performed: 05/11/24
Performing Provider: Archie Casarez MD
Reason for Consultation: anemia, cirrhosis
Medical History
Chief Complaint / HPI
Chief Complaint: abdominal pain
History of Present Illness:
The patient is a 34-year-old male with past medical history as noted with cirrhosis, who presents with abdominal pain. He has longstanding history of alcoholic cirrhosis, decompensated the past with GI bleed from esophageal varices status post
banding, portal gastropathy, ascites with SBP in the past. He has had multiple paracentesis, including recently in the with clear vicky fluid, 8.6 L. He has persistent pain which she describes as diffuse. He has had episodes of vomiting
including earlier this morning which have been bilious. He had a small bowel movement yesterday without blood. He was noted to have a hemoglobin of 8.9 at admission which dropped to 6.8 yesterday then down to 5.5 today. He is still admittedly
drinking with alcohol level which was very elevated. His platelets are actually better than his baseline. He has not had any encephalopathy recently. It is unclear if he has been following up with anyone chronically.
Past Medical History
Past Medical History: Other (Cirrhosis secondary to alcohol, decompensated with previous esophageal varices, status post banding, ascites with SBP in the past and portal gastropathy, encephalopathy. bowel perforation from strangulated hernia)
Past Surgical History: Other (Hernia repair)
Social History
Tobacco: Non-Smoker
Alcohol: Daily
Family History
Family History: Reviewed & Not Pertinent
Allergies / Home Medications
Allergy/AdvReac Type Severity Reaction Status Date / Time
No Known Allergies Allergy Verified 05/09/24 07:55
�Medication �Instructions �Recorded
thiamine HCl (vitamin B1) 100 mg 100 mg PO DAILY #30 tabs 11/19/23
tablet
folic acid 1 mg tablet 1 mg PO DAILY #0 tabs 12/19/23
furosemide 40 mg tablet 40 mg PO DAILY #30 tabs 02/01/24
lactulose 20 gram/30 mL oral 20 g (30 mL) PO QID #3,000 mL 02/01/24
solution
pantoprazole 40 mg tablet,delayed 40 mg PO DAILY #30 tabs 02/01/24
release (Protonix)
spironolactone 50 mg tablet 50 mg PO DAILY #30 tabs 02/01/24
(Aldactone)
ciprofloxacin HCl 500 mg tablet 500 mg PO DAILY 05/09/24
Review of Systems
-
All other systems: A 12 pt ROS was Negative except as stated above in HPI
Vital Signs
Temp Pulse Resp BP Pulse Ox
98.3 F 106 20 107/62 95
05/11/24 07:00 05/11/24 09:10 05/11/24 07:00 05/11/24 09:10 05/11/24 07:00
Physical Exam
Exam
General: NAD, oriented
HEENT: MMM, anicteric, no lymphadenopathy, icteric
Heart: Regular, no murmurs
Lungs: CTA bilaterally
Abdomen: normal bowel sounds, large ascites though soft, mild diffuse tenderness without rebound
Extremeties: no edema
Skin: no rashes
Results
WBC 10.0 10^3/uL (4.8-10.8) 05/11/24 08:57
Hgb 5.5 g/dL (13.0-18.0) L* 05/11/24 08:57
Hct 15.5 % (39.0-52.0) L* 05/11/24 08:57
MCV 86.6 fL (80.0-94.0) 05/11/24 08:57
Plt Count 106 10^3/uL (130-400) L D 05/11/24 08:57
Absolute Neuts (auto) 3.9 10^3/uL (1.4-6.5) 05/09/24 08:54
PT 27.4 Sec (11.4-14.6) H 05/11/24 08:57
INR 2.55 05/11/24 08:57
APTT 37.9 Sec (23.4-35.0) H 05/09/24 08:54
Sodium 127 mmol/L (135-145) L D 05/11/24 08:57
Potassium 4.1 mmol/L (3.5-5.1) 05/11/24 08:57
Chloride 91 mmol/L (98-107) L 05/11/24 08:57
Carbon Dioxide 25 mmol/L (22-30) 05/11/24 08:57
BUN 11 mg/dl (9-20) 05/11/24 08:57
Creatinine 2.0 mg/dL (0.7-1.3) H 05/11/24 08:57
Calcium 8.0 mg/dl (8.4-10.2) L 05/11/24 08:57
Total Bilirubin 7.8 mg/dl (0.2-1.3) H D 05/11/24 08:57
AST 74 U/L (17-59) H 05/11/24 08:57
ALT 22 U/L (0-50) 05/11/24 08:57
Alkaline Phosphatase 150 U/L (38-126) H 05/11/24 08:57
Lipase 59 U/L (23-300) 05/09/24 08:54
Diagnostic Image Results:
Prior GI Procedures:
EGD:
01/17/24
Impression: - Scars in the middle third of the esophagus and in
the lower third of the esophagus from prior banding.
- Grade I esophageal varices with no bleeding and no
stigmata of recent bleeding.
- Portal hypertensive gastropathy.
- Normal examined duodenum.
- No specimens collected.
- he had fresh blood in mouth with tongue laceration
and lip laceration he may have bled from this and
swallowed blood.
Colonoscopy:
Assessment / Plan
-
1. Cirrhosis: Secondary to continued alcohol, decompensated with ascites with SBP, encephalopathy in the past, bleeding from esophageal varices and gastropathy status post banding, now with recurrent ascites. His recent tap from the was
negative for SBP. He has a drop in hemoglobin here, though again no signs of GI bleeding, with bilious emesis this morning and brown bowel movement yesterday. Endoscopy earlier this year showed scarring at sites of prior banding and grade 1
varices, though no stigmata and portal gastropathy. At this point we will continue close observation and PPI, n.p.o. for now, though without any signs of gross GI bleeding we will hold on endoscopy for now. Will await repeat CBC and final CT
reading to rule out intra-abdominal or retroperitoneal bleeding. Will continue Cipro and diuretics. His long-term prognosis is poor with continued alcohol.
-
-
Thank you for consultation and allowing me to participate in the patient's care. Please call the [facility] operator GI physician during the after hours with any questions or concerns.
[2024-05-11 10:54] LABS: Reticulocyte Count 5.1 % (0.4-2.8)
[2024-05-11 10:56] LABS: APTT 45.2 Sec (23.4-35.0)
[2024-05-11 11:09] LABS: Fibrinogen 86 MG/DL (199-459)
--- NOTE | 2024-05-11 11:10 | W.PN.HOSP.TC ---
Today's Communication/Plan
-
see note
Assessment / Plan
Assessment / Plan
1. Acute hypoxic respite insufficiency
-Secondary to large ascites and increased intra-abdominal pressures
-Chest x-ray in ER showing stable chronic elevated right hemidiaphragm. No major parenchymal change
-Continue wean off oxygen as possible
2. Recurrent ascites
h/o of SBP
-Patient have history of recurrent ascites and have not been compliant with outpatient paracentesis schedule
-In ER on exam patient had tense abdominal distention with diffuse mild tenderness
-Home medications showing patient on oral ciprofloxacin daily for SBP prophylaxis, compliance unknown
-IRAD with paracentesis of 8.6 L of fluid. No concern of SBP on testing.
-Post paracentesis 62.5g albumin infusion ordered.
-Continue home dose of oral Lasix 40 mg daily. Aldactone dose decreased to 25 mg daily with holding parameters.
3. Acute blood loss anemia
Chronic normocytic anemia
-Patient is a hemoglobin of 9, yesterday hemoglobin dipped down to 6.9, 1 unit was provided
-Today in the morning patient hemoglobin drifted down again to 5.5
-Patient denies of having any overt hematemesis/hematochezia
-urgent CT abdomen pelvis was done which showed right large abdominal wall hematoma at site of paracentesis
-2 more units of blood transfusion ordered
-As patient getting more coagulopathic DIC panel was checked and fibrinogen was 86, platelet is actually improving to 110 (yesterday was ~ 50K), discussed with hematology and recommended 2 units of FFP.
4. Low fibrinogen
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
-Drop in fibrinogen is due to consumption from abdominal wall hematoma
-Low concern of DIC
5. GREG
-Cr rising up to 2 today
-monitor for hepatorenal syndrome. got 62.5mg albumin post paracentesis
6. Acute hyponatremia
-ADH excess state with new bleeding issues
-maintain on fluid restriction 40oz
-Monitor sodium and may require 3% NS if continues to trend down furthe
7. Decompensated alcoholic cirrhosis
Coagulopathy
Thrombocytopenia
-Patient remains at high risk of further complication due to alcoholic cirrhosis and ongoing continual alcohol use
-Child roman scoring of 10C
-Total bilirubin up today 7.8, check direct component. Presuming presenting due to indirect hyperbilirubinemia with bleeding
-Plt actually improved and will need transfusion if drops < 50k AND bleeding
8. Hypoglycemia
-BG of 59 in ER, got IV dextrose.
-Acute decreased oral intake with ongoing alcohol use and impaired gluconeogenesis with cirrohosis
-Continue monitoring for Hypoglycemia, every 6 Accu-Cheks ordered
9. Alcohol use disorder
-Blood alcohol level of 217 at admission
-Monitor for withdrawal, MSAS/Ativan protocol ordered
10. Metabolic acidosis -resolved
-Anion gap metabolic acidosis possible from alcohol use and starvation ketoacidosis
-Provide oral bicarb therapy, avoiding IVF bicarb due to volume overload issues with cirrohosis
DVT PPX - scd
Full code
Patient to be transferred to IMU
Total Critical Care Time 48 minutes. I was immediately available to the patient and staff. I personally examined, reviewed labs, diagnostic images/reports, interpretations, treatment plans, discussed patient care with other providers and family
or caregivers (if patient is unable to make decisions), entered orders as appropriate and documented the medical record.
Anticipated Discharge: > 48 hours
Subjective/Interval History
-
Date of Service: May 11, 2024
Patient denying having any hematemesis/hematochezia
No new back pain reported
Vitally stable
Objective Data
-
Labs:
Laboratory Results
05/11/24 05/11/24 05/11/24
08:57 10:00 11:02
WBC 10.0 Pending
Hgb 5.5 L* Pending
Hct 15.5 L* Pending
Plt Count 106 L D Pending
PT 27.4 H
INR 2.55
APTT 45.2 H Cancelled
Sodium 127 L D
Potassium 4.1
Chloride 91 L
Carbon Dioxide 25
BUN 11
Creatinine 2.0 H
Glucose 166 H
Calcium 8.0 L
Total Bilirubin 7.8 H D
AST 74 H
ALT 22
Alkaline Phosphatase 150 H
05/11/24
18:00
WBC Pending
Hgb Pending
Hct Pending
Plt Count Pending
PT
INR
APTT
Sodium
Potassium
Chloride
Carbon Dioxide
BUN
Creatinine
Glucose
Calcium
Total Bilirubin
AST
ALT
Alkaline Phosphatase
Vital Signs:
Vital Signs
Temp Pulse Resp BP Pulse Ox
98.3 F 106 20 107/62 95
05/11/24 07:00 05/11/24 09:10 05/11/24 07:00 05/11/24 09:10 05/11/24 07:00
I&O
05/10/24 05/11/24 05/12/24
06:59 06:59 06:59
Intake Total 240 / 240 1460 / 1460 960 / 960
Output Total 300 / 300
Balance -60 / -60 1460 / 1460 960 / 960
Review of Systems
-
Unable to obtain full review of systems at this time due to: Other (Language line used)
Respiratory: Reports No Symptoms
Cardiac: Reports No Symptoms
Abdomen/GI: Reports Abdominal Pain, Nausea and Vomiting; Denies Bloody Stools or Hematemesis
Physical Exam
-
General: Cachectic
HEENT: Oxygen
Respiratory: Clear to Auscultation
Cardiac: Regular Rhythm and S1/S2
GI: Soft, Tender (RLQ) and Distended
Musculoskeletal: No Edema
Neuro: Awake, Alert, Oriented and No Motor Deficits
Psych: Calm
[2024-05-11 11:22] LABS: LDH 130 U/L (120-246)
[2024-05-11 11:31] LABS: Hematocrit 15.6 % (39.0-52.0); Hemoglobin 5.5 g/dL (13.0-18.0); Mean Corp Hgb Conc. 35.3 g/dL (33.0-37.0); Mean Corpuscular Hgb 30.7 pg (27.0-31.0); Mean Corpuscular Volume 87.2 fL (80.0-94.0); Mean Platelet Volume 10.1 fL (7.4-10.4); Platelet Count 114 10^3/uL (130-400); Red Blood Cell Count 1.79 10^6/uL (4.70-6.10); Red Cell Dist. Width 16.5 % (11.5-14.5); White Blood Cell Count 10.9 10^3/uL (4.8-10.8)
--- NOTE | 2024-05-11 11:33 | CM ---
CM reviewed chart, spoke with nurse, patient transfer to IMU. CM will continue to follow for all discharge planning needs.
Plan; will depend on medical needs/progression in hospital.
--- NOTE | 2024-05-11 12:06 | PTCARENOTE ---
Received pt from [facility]. Pt upgraded to IMU level of care for drop in HGB. Pt placed on monitor upon arrival to rm [id number], NSR on the monitor, weak pedal pulses noted. Pt also complaining of feeling dizzy, educated pt that he wont be allowed
out of bed until further notice. bed alarm activated for pt safety. SpO2 90-92% on room air. Pt visually SOB w/ any movement, placed on 2L NC. Pt also complaining of abd pain. Educated pt that he isn't due for any more pain medicine at this time.
Call peraza is within reach, able to make needs known.
[2024-05-11 12:30] LABS: Direct Bilirubin 3.4 mg/dl (0.0-0.4)
--- NOTE | 2024-05-11 16:30 | PTCARENOTE ---
2 units PRBCs transfused w/o issue. VSS.
[2024-05-11] MEDS: SODIUM BICARBONATE PO (16:32)
--- NOTE | 2024-05-11 18:01 | PTCARENOTE ---
2 units FFP infused w/o issue. VSS.
--- NOTE | 2024-05-11 18:01 | PTCARENOTE ---
Pt vomitted after lunch, however insisted on ordering dinner. This RN attempted to educate pt on choices for dinner that would be easier on his stomach. Pt informed this RN that vomiting after eating meals is normal for him.
[2024-05-11] MEDS: PROTONIX IV 40 MG IV (20:18)
[2024-05-11] MEDS: NSS (PRESERVATIVE FREE) 10 ML IV (20:18)
[2024-05-11] MEDS: ZOFRAN 4 MG IV (20:31)
--- NOTE | 2024-05-11 20:32 | PTCARENOTE ---
Pt rang for assistance and found Pt with severe nosebleed. Gauze provided and pressure held to bridge of nose with Pt leaning forward in bed. Epistaxis stopped after ~ 5-10 min. Assisted Pt with cleaning up. Will continue to monitor and assess.
[2024-05-11 22:08] LABS: Glucose - Point of Care 130 mg/dl (70-99)
[2024-05-11 22:10] LABS: Mean Corp Hgb Conc. 35.4 g/dL (33.0-37.0); Mean Corpuscular Hgb 30.2 pg (27.0-31.0); Mean Corpuscular Volume 85.3 fL (80.0-94.0); Red Blood Cell Count 2.32 10^6/uL (4.70-6.10); White Blood Cell Count 8.5 10^3/uL (4.8-10.8)
[2024-05-11 22:18] LABS: Mean Platelet Volume 10.3 fL (7.4-10.4); Platelet Count 61 10^3/uL (130-400)
[2024-05-11 22:20] LABS: Hematocrit 19.8 % (39.0-52.0)
[2024-05-12] VITALS (16 sets, daily range): BP systolic 104–118; BP diastolic 52–72; BMI 19.3
[2024-05-12] MEDS: ROXICODONE 7.5 MG PO ×4 (03:22→19:47)
[2024-05-12] MEDS: SODIUM BICARBONATE 1300 MG PO ×3 (04:55→22:15)
[2024-05-12 05:19] LABS: ALT (SGPT) 25 U/L (0-50); AST (SGOT) 82 U/L (17-59); Albumin 2.9 g/dl (3.5-5.0); Alkaline Phosphatase 149 U/L (38-126); Blood Urea Nitrogen 12 mg/dl (9-20); Carbon Dioxide 28 mmol/L (22-30); Chloride 91 mmol/L (98-107); Estimated Creatinine Clearance 43 ml/min; Glucose 101 mg/dl (70-99); Potassium 4.1 mmol/L (3.5-5.1); Sodium 129 mmol/L (135-145); Total Bilirubin 6.3 mg/dl (0.2-1.3); Total Protein 6.2 g/dl (6.3-8.2); eGFR 47.18
[2024-05-12 05:26] LABS: INR 2.05
[2024-05-12 05:29] LABS: Hematocrit 19.9 % (39.0-52.0); Mean Corp Hgb Conc. 35.2 g/dL (33.0-37.0); Mean Corpuscular Hgb 30.4 pg (27.0-31.0); Mean Corpuscular Volume 86.5 fL (80.0-94.0); Mean Platelet Volume 9.8 fL (7.4-10.4); Platelet Count 66 10^3/uL (130-400); Red Cell Dist. Width 15.2 % (11.5-14.5); White Blood Cell Count 7.6 10^3/uL (4.8-10.8)
--- NOTE | 2024-05-12 06:46 | W.PN.GI.CBS2 ---
Today's Communication / Plan
-
Please see assessment and plan for details.
Assessment / Plan
-
1. Cirrhosis: Secondary to continued alcohol, decompensated with ascites with SBP, encephalopathy in the past, bleeding from esophageal varices and gastropathy status post banding, now with recurrent ascites and abdominal wall hematoma with small
retroperitoneal hematoma. His hemoglobin has stabilized after FFP and blood, remains hemodynamically stable. At this point would continue supportive care. Again discussed alcohol abstinence, continue outpatient medications and salt restriction.
Unfortunately, he continues to drink and has a poor prognosis if he continues to drink.
We will sign off for now, please call back with any further questions.
Subjective
Subjective
Date of Service: May 12, 2024
No new events, patient still complains of some pain at hematoma site, though otherwise feels okay. No fevers or chills, has remained hemodynamically stable, hemoglobin is stable overnight after FFP and blood.
Objective
Data Reviewed
Laboratory Data:
Laboratory Results
05/12/24 04:39
05/12/24 04:39
Laboratory Results
PT 23.0 Sec (11.4-14.6) H 05/12/24 04:39
INR 2.05 05/12/24 04:39
APTT Cancelled 05/11/24 10:00
Total Bilirubin 6.3 mg/dl (0.2-1.3) H 05/12/24 04:39
AST 82 U/L (17-59) H 05/12/24 04:39
ALT 25 U/L (0-50) 05/12/24 04:39
Alkaline Phosphatase 149 U/L (38-126) H 05/12/24 04:39
Lipase 59 U/L (23-300) 05/09/24 08:54
Vital Signs and I&O:
Vital Signs
Temp Pulse Resp BP Pulse Ox
98.5 F 78 14 110/65 96
05/12/24 05:39 05/12/24 02:00 05/12/24 02:00 05/12/24 02:00 05/12/24 02:00
I&O
05/10/24 05/11/24 05/12/24
06:59 06:59 06:59
Intake Total 240 / 240 1460 / 1460 2125
Output Total 300 / 300 100 / 100
Balance -60 / -60 1460 / 1460 2025
Physical Exam
Physical Exam
General: NAD, jaundice
Abdomen: normal bowel sounds, moderate ascites though soft, mild right sided abdominal pain
[2024-05-12] MEDS: LASIX 40 MG PO (07:58)
[2024-05-12] MEDS: FOLVITE 1 MG PO (07:58)
[2024-05-12] MEDS: CIPRO 500 MG PO (07:59)
[2024-05-12] MEDS: VITAMIN B1 100 MG PO ×2 (07:59→19:39)
[2024-05-12] MEDS: ALDACTONE 25 MG PO (07:59)
[2024-05-12] MEDS: PROTONIX IV 40 MG IV ×2 (08:04→19:39)
[2024-05-12] MEDS: NSS (PRESERVATIVE FREE) 10 ML IV ×2 (08:04→19:39)
--- NOTE | 2024-05-12 11:07 | CON.ONC ---
Impression
Impression
Decompensated alcoholic cirrhosis
Hypofibrinogenemia
Acute on chronic coagulopathy, possible related to abx + little PO's
Abdominal wall hematomas
Plan
Plan
Low fibrinogen attributable to advanced cirrhosis.
Daily coags, give FFP PRN fibrinogen < 100.
Follow CBC for evidence of ongoing bleeding vs hematoma stability.
Thank you for consult, will follow along with you.
Patient History
History of Present Illness
Patient is a 34-year-old male with past medical history of decompensated alcoholic cirrhosis, ongoing alcohol use, recurrent ascites, history of SBP, history of GI bleed from esophageal varices, severe protein calorie malnutrition, thrombocytopenia
came to ER after having abdominal distention and discomfort. Patient was also noted to be dyspneic and minimally hypoxic requiring 2 L oxygen through nasal cannula. Patient blood alcohol level of 217 in ER and stated of having last drink 48 hours
before. He last underwent paracentesis 05/09. He came to ED 05/09 with c/o increasing abdominal discomfort. Imaging showed multiple areas of hematoma in abdominal wall. On 05/11/24 found to have fibrinogen of 86, INR 2.55. Hgb 5.5, Plt 106. Pt was
given 2U FFP yesterday with improvement in INR to 2.05 this morning. Pt reports that he still has some pain this morning. He has a history of SBP and has been on Cipro since 05/10.
Past-Medical/Surgical History
Past Medical History
Decompensated alcoholic cirrhosis, ongoing alcohol use, recurrent ascites, history of SBP, history of GI bleed from esophageal varices, severe protein calorie malnutrition, thrombocytopenia
Social History
Tobacco: Non-smoker
Alcohol: Daily
Drug: None
Family History
Family History: Not pertinent
Patient Medication
�Medication �Instructions �Recorded �Confirmed �Last Taken �Type
thiamine HCl (vitamin B1) 100 mg 100 mg PO DAILY #30 tabs 11/19/23 05/09/24 04/19/24 Rx
tablet
folic acid 1 mg tablet 1 mg PO DAILY #0 tabs 12/19/23 05/09/24 04/19/24 Rx
furosemide 40 mg tablet 40 mg PO DAILY #30 tabs 02/01/24 05/09/24 04/19/24 Rx
lactulose 20 gram/30 mL oral 20 g (30 mL) PO QID #3,000 mL 02/01/24 05/09/24 04/19/24 Rx
solution
pantoprazole 40 mg tablet,delayed 40 mg PO DAILY #30 tabs 02/01/24 05/09/24 04/19/24 Rx
release (Protonix)
spironolactone 50 mg tablet 50 mg PO DAILY #30 tabs 02/01/24 05/09/24 04/19/24 Rx
(Aldactone)
ciprofloxacin HCl 500 mg tablet 500 mg PO DAILY 05/09/24 05/09/24 Unknown History
Active Medications
Generic Name Dose Route Start Last Admin
Trade Name Freq PRN Reason Stop Dose Admin
Ciprofloxacin 500 mg 05/10/24 08:00 05/12/24 07:59
Ciprofloxacin 500 Mg Tablet PO 500 mg
DAILY UMANG Administration
Folic Acid 1 mg 05/10/24 08:00 05/12/24 07:58
Folic Acid 1 Mg Tablet PO 06/07/24 07:59 1 mg
DAILY UMANG Administration
Furosemide 40 mg 05/10/24 08:00 05/12/24 07:58
Furosemide 40 Mg Tablet PO 06/07/24 07:59 40 mg
DAILY UMANG Administration
Folic Acid 1 mg/ Sodium 50.2 mls @ 200.8 mls/hr 05/09/24 14:23
Chloride IV 06/06/24 14:22
DAILYPRN PRN
if NPO
Lorazepam 1 mg 05/09/24 14:23 05/10/24 05:20
Lorazepam 1 Mg Tablet PO 06/06/24 14:22 1 mg
Q2HPRN PRN Administration
MSAS 5-7
Lorazepam 1 mg 05/09/24 14:23
Lorazepam 2 Mg/Ml Vial IV 06/06/24 14:22
Q1HPRN PRN
MSAS 8-11
Lorazepam 2 mg 05/09/24 14:23
Lorazepam 2 Mg/Ml Vial IV 06/06/24 14:22
Q1HPRN PRN
MSAS > 11
Ondansetron HCl 4 mg 05/09/24 13:44 05/11/24 20:31
Ondansetron 4 Mg/2 Ml Vial IV 06/06/24 13:43 4 mg
Q6HPRN PRN Administration
nausea and vomiting
Oxycodone HCl 7.5 mg 05/10/24 10:33 05/12/24 07:57
Oxycodone 5 Mg Regular Release Tablet PO 05/23/24 14:45 7.5 mg
Q4HPRN PRN Administration
mod sev pain
Pantoprazole Sodium 40 mg 05/11/24 20:00 05/12/24 08:04
Pantoprazole Sodium 40 Mg/10 Ml Vial IV 06/08/24 19:59 40 mg
BID UMANG Administration
Sodium Bicarbonate 1,300 mg 05/09/24 14:00 05/12/24 04:55
Sodium Bicarbonate 650 Mg Tablet PO 06/06/24 13:59 1,300 mg
Q8H UMANG Administration
Sodium Chloride 0 flush 05/09/24 14:00
Sodium Chloride 0.9% (Flush) Syringe IV 06/06/24 13:59
PER PROTOCOL UMANG
Sodium Chloride 0 ml 05/09/24 14:23
Sodium Chloride 0.9% (Preservative Free) 10 Ml Vial IV 06/06/24 14:22
PRN PRN
To dilute IV Ativan
Protocol
Sodium Chloride 10 ml 05/11/24 20:00 05/12/24 08:04
Sodium Chloride 0.9% (Preservative Free) 10 Ml Vial IV 06/08/24 19:59 10 ml
BID UMANG Administration
Spironolactone 25 mg 05/10/24 08:00 05/12/24 07:59
Spironolactone 50 Mg Tablet PO 06/07/24 07:59 25 mg
DAILY UMANG Administration
Thiamine HCl 100 mg 05/10/24 11:00 05/12/24 07:59
Thiamine 100 Mg Tablet PO 06/07/24 10:59 100 mg
BID UMANG Administration
Review of Systems
-
Unable to obtain full review of systems at this time due to: Language Barrier
Physical Exam
-
Appears cachectic, older than stated age
GI: Distended and Other (tender RLQ)
Labs
Lab Results
WBC 7.6 10^3/uL (4.8-10.8) 05/12/24 04:39
RBC 2.30 10^6/uL (4.70-6.10) L 05/12/24 04:39
Hgb 7.0 g/dL (13.0-18.0) L 05/12/24 04:39
Hct 19.9 % (39.0-52.0) L* 05/12/24 04:39
MCV 86.5 fL (80.0-94.0) 05/12/24 04:39
MCH 30.4 pg (27.0-31.0) 05/12/24 04:39
MCHC 35.2 g/dL (33.0-37.0) 05/12/24 04:39
RDW 15.2 % (11.5-14.5) H 05/12/24 04:39
Plt Count 66 10^3/uL (130-400) L 05/12/24 04:39
MPV 9.8 fL (7.4-10.4) 05/12/24 04:39
Abs Immat Gran (auto) 0.0 10^3/uL (0-0.05) 05/09/24 08:54
Absolute Neuts (auto) 3.9 10^3/uL (1.4-6.5) 05/09/24 08:54
Absolute Lymphs (auto) 0.6 10^3/uL (1.2-3.4) L 05/09/24 08:54
Absolute Monos (auto) 0.3 10^3/uL (0.1-0.6) 05/09/24 08:54
Absolute Eos (auto) 0.0 10^3/uL (0-0.7) 05/09/24 08:54
Absolute Basos (auto) 0.2 10^3/uL (0-0.2) 05/09/24 08:54
Immature Gran % 0.6 % (0-0.5) H 05/09/24 08:54
Neutrophils % 78.4 % (42.2-75.2) H 05/09/24 08:54
Lymphocytes % 11.8 % (20.5-51.1) L 05/09/24 08:54
Monocytes % 5.0 % (1.7-9.3) 05/09/24 08:54
Eosinophils % 0.8 % (0-6) 05/09/24 08:54
Basophils % 3.4 % (0-2) H 05/09/24 08:54
Creatinine 1.9 mg/dL (0.7-1.3) H 05/12/24 04:39
Vital Signs
Vital Signs
Temp Pulse Resp BP Pulse Ox
98.6 F 95 19 115/69 93
05/12/24 07:37 05/12/24 08:00 05/12/24 08:00 05/12/24 08:00 05/12/24 09:17
[2024-05-12 12:28] LABS: Glucose - Point of Care 98 mg/dl (70-99)
--- NOTE | 2024-05-12 12:39 | PTCARENOTE ---
Patient out of bed with nurses assistance. Abdomen distended. Denying nausea when asked. Right side abdominal pain relieved as per doctors orders. Patient oriented x3 and communicative with nurse. Language line as needed for interpretation. ital
signs 109/60, 97, rr 14 . Patient is compliant with medication regimen.
--- NOTE | 2024-05-12 14:10 | W.PN.HOSP.TC ---
Today's Communication/Plan
-
Monitor vital signs
see plan
Repeat H&H
Transfuse if needed
Continue to monitor hemoglobin and platelets
cw ppi and cipro
Assessment / Plan
Assessment / Plan
Acute hypoxic respite insufficiency
-Secondary to large ascites and increased intra-abdominal pressures
-Chest x-ray in ER showing stable chronic elevated right hemidiaphragm. No major parenchymal change
-Continue wean off oxygen as possible
Recurrent ascites
h/o of SBP
-Patient have history of recurrent ascites and have not been compliant with outpatient paracentesis schedule
-In ER on exam patient had tense abdominal distention with diffuse mild tenderness
-Home medications showing patient on oral ciprofloxacin daily for SBP prophylaxis, compliance unknown
-IRAD with paracentesis of 8.6 L of fluid. No concern of SBP on testing.
-Post paracentesis 62.5g albumin infusion ordered.
-Continue home dose of oral Lasix 40 mg daily. Aldactone dose decreased to 25 mg daily with holding parameters.
Acute blood loss anemia suspect 2/2 andominal wall hematoma
Chronic normocytic anemia
-Patient is a hemoglobin of 9, then hemoglobin dipped down to 6.9, 1 unit was provided
-then hgb to 5.5; now 7 after prbc
-Patient denies of having any overt hematemesis/hematochezia
-urgent CT abdomen pelvis was done which showed right large abdominal wall hematoma at site of paracentesis
-As patient getting more coagulopathic DIC panel was checked and fibrinogen was 86, platelet is actually improving to 110 (yesterday was ~ 50K), discussed with hematology and recommended 2 units of FFP.
Low fibrinogen
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
-Drop in fibrinogen is due to consumption from abdominal wall hematoma
-Low concern of DIC
GREG
-Cr 1.9 today
-monitor for hepatorenal syndrome. got 62.5mg albumin post paracentesis
check Ua
Acute hyponatremia
-ADH excess state with new bleeding issues
-maintain on fluid restriction 40oz
-Monitor sodium and may require 3% NS
Decompensated alcoholic cirrhosis
Coagulopathy
Thrombocytopenia
-Patient remains at high risk of further complication due to alcoholic cirrhosis and ongoing continual alcohol use
-Child roman scoring of 10C
-Total bilirubin NOW 6.6, check direct component. Presuming presenting due to indirect hyperbilirubinemia with bleeding
-Plt actually improved and will need transfusion if drops < 50k AND bleeding
Hypoglycemia
Slowly improving
-Acute decreased oral intake with ongoing alcohol use and impaired gluconeogenesis with cirrohosis
-Continue monitoring for Hypoglycemia, every 6 Accu-Cheks ordered
Alcohol use disorder
-Blood alcohol level of 217 at admission
-Monitor for withdrawal, MSAS/Ativan protocol ordered
Metabolic acidosis -resolved
-Anion gap metabolic acidosis possible from alcohol use and starvation ketoacidosis
-Provide oral bicarb therapy, avoiding IVF bicarb due to volume overload issues with cirrohosis
DVT PPX - scd
Full code
General: Cachectic
HEENT: Oxygen
Respiratory: Clear to Auscultation
Cardiac: Regular Rhythm and S1/S2
GI: Soft, Tender (RLQ) and Distended
Musculoskeletal: No Edema
Neuro: Awake, Alert, Oriented and No Motor Deficits
Psych: Calm
I spent a total of 52 minutes with the patient or on the floor. More than 50% of this time involved counseling and coordination of care.
Anticipated Discharge: 24 - 48 hours
Subjective/Interval History
-
Date of Service: May 12, 2024
denies nausea
Objective Data
-
Labs:
Laboratory Results
05/12/24
04:39
WBC 7.6
Hgb 7.0 L
Hct 19.9 L*
Plt Count 66 L
PT 23.0 H
INR 2.05
Sodium 129 L
Potassium 4.1
Chloride 91 L
Carbon Dioxide 28
BUN 12
Creatinine 1.9 H
Glucose 101 H
Calcium 8.0 L
Total Bilirubin 6.3 H
AST 82 H
ALT 25
Alkaline Phosphatase 149 H
Vital Signs:
Vital Signs
Temp Pulse Resp BP Pulse Ox
98.4 F 87 11 109/60 92
05/12/24 11:34 05/12/24 12:00 05/12/24 12:00 05/12/24 12:00 05/12/24 10:00
I&O
05/11/24 05/12/24 05/13/24
06:59 06:59 06:59
Intake Total 1460 / 1460 2125
Output Total 100 / 100 75 / 75
Balance 1460 / 1460 2025 -75 / -75
--- NOTE | 2024-05-12 14:46 | CM ---
CM reviewed pt with nursing/Kelly
Pt not ready for dc
CM will continue to follow for dc planning
Historically has denied [facility]
Call [facility]- as pt undocumented, pt not eligible for community [facility] pending for hospitalization stay
Discharge Disposition- home, hopefully with [facility] and [facility] followup
[2024-05-12 14:49] LABS: Hematocrit 21.4 % (39.0-52.0); Hemoglobin 7.4 g/dL (13.0-18.0)
[2024-05-12 15:02] LABS: Urine Albumin Negative (Neg - Trace); Urine Bilirubin Negative (Negative); Urine Character Clear (Clear); Urine Color Yellow; Urine Glucose Negative (Negative); Urine Ketone Negative (Negative); Urine Leukocyte Negative (Negative); Urine Nitrite Negative (Negative); Urine Occult Blood Negative (Negative); Urine Urobilinogen Negative (Neg - 1+)
[2024-05-12] MEDS: ZOFRAN 4 MG IV (15:18)
[2024-05-12 17:57] LABS: Glucose - Point of Care 112 mg/dl (70-99)
[2024-05-12 21:32] LABS: Hematocrit 19.2 % (39.0-52.0); Hemoglobin 6.9 g/dL (13.0-18.0)
[2024-05-12 21:57] LABS: Glucose - Point of Care 125 mg/dl (70-99)
--- NOTE | 2024-05-12 22:57 | PTCARENOTE ---
Hgb 6.9, AMINA Isaac notified. 1 unit PRBCs ordered and infusing. 15 min VS check complete.
[2024-05-13] VITALS (12 sets, daily range): BP systolic 110–135; BP diastolic 63–86; BMI 19.6
[2024-05-13] MEDS: ROXICODONE 7.5 MG PO ×5 (00:54→23:26)
[2024-05-13] MEDS: SODIUM BICARBONATE 1300 MG PO ×3 (04:47→20:24)
[2024-05-13 04:56] LABS: Hematocrit 21.1 % (39.0-52.0); Hemoglobin 7.6 g/dL (13.0-18.0); Mean Corpuscular Hgb 30.6 pg (27.0-31.0); Mean Corpuscular Volume 85.1 fL (80.0-94.0); Mean Platelet Volume 9.3 fL (7.4-10.4); Platelet Count 67 10^3/uL (130-400); Red Blood Cell Count 2.48 10^6/uL (4.70-6.10); Red Cell Dist. Width 14.6 % (11.5-14.5); White Blood Cell Count 6.1 10^3/uL (4.8-10.8)
[2024-05-13 05:03] LABS: ALT (SGPT) 27 U/L (0-50); AST (SGOT) 90 U/L (17-59); Albumin 2.7 g/dl (3.5-5.0); Alkaline Phosphatase 169 U/L (38-126); Blood Urea Nitrogen 13 mg/dl (9-20); Calcium 7.8 mg/dl (8.4-10.2); Carbon Dioxide 27 mmol/L (22-30); Chloride 90 mmol/L (98-107); Estimated Creatinine Clearance 65 ml/min; Glucose 94 mg/dl (70-99); Sodium 126 mmol/L (135-145); Total Bilirubin 6.8 mg/dl (0.2-1.3); Total Protein 6.1 g/dl (6.3-8.2); eGFR > 60.00
[2024-05-13 05:33] LABS: INR 2.16
[2024-05-13 05:34] LABS: APTT 41.3 Sec (23.4-35.0)
[2024-05-13 05:39] LABS: Fibrinogen 126 MG/DL (199-459)
[2024-05-13 07:25] LABS: Glucose - Point of Care 101 mg/dl (70-99)
[2024-05-13] MEDS: LASIX 40 MG PO (08:12)
[2024-05-13] MEDS: CIPRO 500 MG PO (08:12)
[2024-05-13] MEDS: ALDACTONE 25 MG PO (08:12)
[2024-05-13] MEDS: VITAMIN B1 100 MG PO ×2 (08:12→20:24)
[2024-05-13] MEDS: PROTONIX IV 40 MG IV ×2 (08:14→20:24)
[2024-05-13] MEDS: NSS (PRESERVATIVE FREE) 10 ML IV ×2 (08:14→20:24)
[2024-05-13] MEDS: FOLVITE 1 MG PO (08:14)
[2024-05-13 13:16] LABS: Glucose - Point of Care 101 mg/dl (70-99)
--- NOTE | 2024-05-13 13:28 | W.PN.HOSP.TC ---
Today's Communication/Plan
-
Monitor vital signs see plan
Continue to monitor hemoglobin
Transfuse as necessary
Monitor sodium
serial H/H
Assessment / Plan
Assessment / Plan
Acute hypoxic respite insufficiency
-Secondary to large ascites and increased intra-abdominal pressures
-Chest x-ray in ER showing stable chronic elevated right hemidiaphragm. No major parenchymal change
-Continue wean off oxygen as possible
Recurrent ascites
h/o of SBP
-Patient have history of recurrent ascites and have not been compliant with outpatient paracentesis schedule
-In ER on exam patient had tense abdominal distention with diffuse mild tenderness
-Home medications showing patient on oral ciprofloxacin daily for SBP prophylaxis, compliance unknown
-IRAD with paracentesis of 8.6 L of fluid. No concern of SBP on testing 05/09
-Post paracentesis 62.5g albumin infusion ordered.
-Continue home dose of oral Lasix 40 mg daily. Aldactone dose decreased to 25 mg daily with holding parameters.
might need repeat CT if abdominal pain worsen; currently improving per patient
Acute blood loss anemia suspect 2/2 abdominal wall hematoma
Chronic normocytic anemia
-Patient is a hemoglobin of 9, then hemoglobin dipped down to 6.9, 1 unit was provided
-then later hgb dropped again; now with PRBC 05/12; monitor serial H/H
-Patient denies of having any overt hematemesis/hematochezia
-urgent CT abdomen pelvis was done which showed right large abdominal wall hematoma at site of paracentesis
-As patient getting more coagulopathic DIC panel was checked and fibrinogen was 86, platelet is actually improving to 110 (yesterday was ~ 50K), discussed with hematology and recommended 2 units of FFP which was given.
Low fibrinogen
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
-Drop in fibrinogen is due to consumption from abdominal wall hematoma
-Low concern of DIC
GREG
-Cr 1.3 today
-monitor for hepatorenal syndrome. got 62.5mg albumin post paracentesis
check Ua
Acute hyponatremia
-ADH excess state with new bleeding issues
-maintain on fluid restriction 40oz
-Monitor sodium and may require 3% NS
Decompensated alcoholic cirrhosis
Coagulopathy
Thrombocytopenia
-Patient remains at high risk of further complication due to alcoholic cirrhosis and ongoing continual alcohol use
-Child roman scoring of 10C
-Total bilirubin NOW 6.6, check direct component. Presuming presenting due to indirect hyperbilirubinemia with bleeding
-Plt actually improved and will need transfusion if drops < 50k AND bleeding
Hypoglycemia
Slowly improving
-Acute decreased oral intake with ongoing alcohol use and impaired gluconeogenesis with cirrohosis
-Continue monitoring for Hypoglycemia, every 6 Accu-Cheks ordered
Alcohol use disorder
-Blood alcohol level of 217 at admission
-Monitor for withdrawal, MSAS/Ativan protocol ordered
Metabolic acidosis -resolved
-Anion gap metabolic acidosis possible from alcohol use and starvation ketoacidosis
-Provide oral bicarb therapy, avoiding IVF bicarb due to volume overload issues with cirrohosis
DVT PPX - scd
Full code
General: Cachectic
HEENT: Oxygen
Respiratory: Clear to Auscultation
Cardiac: Regular Rhythm and S1/S2
GI: Soft, Tender (RLQ) and Distended
Musculoskeletal: No Edema
Neuro: Awake, Alert, Oriented and No Motor Deficits
Psych: Calm
I spent a total of 51 minutes with the patient or on the floor. More than 50% of this time involved counseling and coordination of care.
Anticipated Discharge: 24 - 48 hours
Subjective/Interval History
-
Date of Service: May 13, 2024
feeling little better
Objective Data
-
Labs:
Laboratory Results
05/13/24
04:34
WBC 6.1
Hgb 7.6 L
Hct 21.1 L
Plt Count 67 L
PT 24.0 H
INR 2.16
APTT 41.3 H
Sodium 126 L
Potassium 4.0
Chloride 90 L
Carbon Dioxide 27
BUN 13
Creatinine 1.3
Glucose 94
Calcium 7.8 L
Total Bilirubin 6.8 H
AST 90 H
ALT 27
Alkaline Phosphatase 169 H
Vital Signs:
Vital Signs
Temp Pulse Resp BP Pulse Ox
98.9 F 101 22 115/79 95
05/13/24 11:55 05/13/24 07:48 05/13/24 07:48 05/13/24 07:48 05/13/24 08:00
I&O
05/12/24 05/13/24 05/14/24
06:59 06:59 06:59
Intake Total 6 / 2126 1150 / 1150 240 / 240
Output Total 100 / 100 695 / 695 150 / 150
Balance 2025 / 2025 455 / 455 90 / 90
[2024-05-13 16:17] LABS: Hematocrit 21.7 % (39.0-52.0); Hemoglobin 7.9 g/dL (13.0-18.0)
[2024-05-13 17:33] LABS: Glucose - Point of Care 113 mg/dl (70-99)
--- NOTE | 2024-05-13 19:13 | PTCARENOTE ---
Continues to c/o right side pain/ has dark maroon/ purple large ecchymotic area- 8-05/29 pain some relief with roxycodone po down to 01/27. Given x3 this shift. Ambulated to bathroom - no stools this shift, urine out put adequate. H/H drawn and
result noted slightly higher. SR/ST on tele 97% RAIR but c/o SOB at times and want O2 on- education provided and O2 left off.
[2024-05-13] MEDS: ZOFRAN 4 MG IV (20:32)
[2024-05-13 20:54] LABS: Hematocrit 22.3 % (39.0-52.0)
--- NOTE | 2024-05-13 21:40 | PTCARENOTE ---
H & H provided 8.0/22.3. AMINA Aaronoscar notified due to pt having a nose bleed, after lab draw.
[2024-05-13 22:24] LABS: Glucose - Point of Care 106 mg/dl (70-99)
[2024-05-14] VITALS (11 sets, daily range): BP systolic 109–135; BP diastolic 51–89
[2024-05-14] MEDS: SODIUM BICARBONATE 1300 MG PO ×3 (04:26→22:17)
[2024-05-14] MEDS: ROXICODONE 7.5 MG PO ×4 (04:26→19:51)
[2024-05-14 04:49] LABS: Hematocrit 23.9 % (39.0-52.0); Hemoglobin 8.6 g/dL (13.0-18.0); Mean Corpuscular Hgb 30.7 pg (27.0-31.0); Mean Corpuscular Volume 85.4 fL (80.0-94.0); Mean Platelet Volume 9.2 fL (7.4-10.4); Platelet Count 78 10^3/uL (130-400)
[2024-05-14 05:14] LABS: ALT (SGPT) 27 U/L (0-50); AST (SGOT) 88 U/L (17-59); Alkaline Phosphatase 180 U/L (38-126); Blood Urea Nitrogen 14 mg/dl (9-20); Carbon Dioxide 31 mmol/L (22-30); Chloride 88 mmol/L (98-107); Estimated Creatinine Clearance 84 ml/min; Glucose 89 mg/dl (70-99); Potassium 3.6 mmol/L (3.5-5.1); Sodium 127 mmol/L (135-145); Total Bilirubin 8.6 mg/dl (0.2-1.3); Total Protein 6.5 g/dl (6.3-8.2); eGFR > 60.00
--- NOTE | 2024-05-14 08:06 | W.PN.ONC2 ---
Today's Communication / Plan
-
Monitor Coags and fibrinogen.
Impression
Impression
Decompensated alcoholic cirrhosis
Hypofibrinogenemia
Acute on chronic coagulopathy, possible related to abx + little PO's
Abdominal wall hematomas
Plan
Plan
Low fibrinogen attributable to advanced cirrhosis.
Daily coags, give FFP PRN fibrinogen < 100 if bleeding.
Follow CBC for evidence of ongoing bleeding vs hematoma stability.
Subjective/Objective
Chief Complaint
ACS Heme Onc
Subjective
Denies bleeding or hematemesis.
Vital Signs:
Vital Signs
Temp Pulse Resp BP Pulse Ox
98.6 F 90 14 115/64 94
05/14/24 04:57 05/14/24 06:01 05/14/24 06:01 05/14/24 06:01 05/14/24 06:01
Lab Results:
Laboratory Data
WBC 6.0 10^3/uL (4.8-10.8) 05/14/24 04:36
Hgb 8.6 g/dL (13.0-18.0) L 05/14/24 04:36
Plt Count 78 10^3/uL (130-400) L 05/14/24 04:36
PT 24.0 Sec (11.4-14.6) H 05/13/24 04:34
INR 2.16 05/13/24 04:34
APTT 41.3 Sec (23.4-35.0) H 05/13/24 04:34
eGFR > 60.00 05/14/24 04:36
Physical Exam
HEENT: Jaundice
Cardiology: S1 and S2
Pulmonary: Clear
GI: Distended
Extremities: No C/C/E
Orders
Orders
Orders From Last 24 Hours
05/15/24 06:00
Complete Blood Count/With Diff IN AM
Fibrinogen IN AM
PTT IN AM
Prothrombin Time IN AM
[2024-05-14] MEDS: CIPRO 500 MG PO (08:38)
[2024-05-14] MEDS: ALDACTONE 25 MG PO (08:38)
[2024-05-14] MEDS: VITAMIN B1 100 MG PO ×2 (08:38→19:52)
[2024-05-14] MEDS: PROTONIX IV 40 MG IV (08:38)
[2024-05-14] MEDS: FOLVITE 1 MG PO (08:39)
[2024-05-14] MEDS: LASIX 40 MG PO (08:39)
[2024-05-14] MEDS: NSS (PRESERVATIVE FREE) 10 ML IV (08:39)
[2024-05-14 09:08] LABS: Glucose - Point of Care 99 mg/dl (70-99)
[2024-05-14 12:05] LABS: Glucose - Point of Care 102 mg/dl (70-99)
--- NOTE | 2024-05-14 13:07 | W.PN.HOSP.TC ---
Today's Communication/Plan
-
Monitor vital signs see plan
Monitor hemoglobin
Appears to be slowly improving
If hemoglobin continues to improve along with his symptoms then will likely discharge
restart lactulose
Assessment / Plan
Assessment / Plan
Acute hypoxic respite insufficiency
-Secondary to large ascites and increased intra-abdominal pressures
-Chest x-ray in ER showing stable chronic elevated right hemidiaphragm. No major parenchymal change
-Continue wean off oxygen as possible
Recurrent ascites
h/o of SBP
-Patient have history of recurrent ascites and have not been compliant with outpatient paracentesis schedule
-In ER on exam patient had tense abdominal distention with diffuse mild tenderness
-Home medications showing patient on oral ciprofloxacin daily for SBP prophylaxis, compliance unknown
-IRAD with paracentesis of 8.6 L of fluid. No concern of SBP on testing 05/09
-Post paracentesis 62.5g albumin infusion ordered.
-Continue home dose of oral Lasix 40 mg daily. Aldactone dose decreased to 25 mg daily with holding parameters.
might need repeat CT if abdominal pain worsen; currently improving per patient
Acute blood loss anemia suspect 2/2 abdominal wall hematoma
Chronic normocytic anemia
-Patient is a hemoglobin of 9, then hemoglobin dipped down to 6.9, 1 unit was provided
-then later hgb dropped again; now with PRBC 05/12; monitor serial H/H. hgb now 8.6
-Patient denies of having any overt hematemesis/hematochezia
-urgent CT abdomen pelvis was done which showed right large abdominal wall hematoma at site of paracentesis
-As patient getting more coagulopathic DIC panel was checked and fibrinogen was 86, platelet is actually improving, was given FFP earlier in hospitalization after discussion with hematology
Low fibrinogen
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
-Drop in fibrinogen is due to consumption from abdominal wall hematoma
-Low concern of DIC
GREG
improving
-Cr 1 today
-monitor for hepatorenal syndrome. got 62.5mg albumin post paracentesis
Uaneg
Acute hyponatremia
-ADH excess state with new bleeding issues
-maintain on fluid restriction 40oz
-Monitor sodium and may require 3% NS
Decompensated alcoholic cirrhosis
Coagulopathy
Thrombocytopenia
-Patient remains at high risk of further complication due to alcoholic cirrhosis and ongoing continual alcohol use
-Child roman scoring of 10C
-Increased bilirubin secondary to decompensated liver cirrhosis and bleeding. Presuming presenting due to indirect hyperbilirubinemia with bleeding
-Plt actually improving and will need transfusion if drops < 50k AND bleeding
Hypoglycemia
Slowly improving
-Acute decreased oral intake with ongoing alcohol use and impaired gluconeogenesis with cirrohosis
-Continue monitoring for Hypoglycemia, every 6 Accu-Cheks ordered
Alcohol use disorder
-Blood alcohol level of 217 at admission
-Monitor for withdrawal, MSAS/Ativan protocol ordered
Metabolic acidosis -resolved
-Anion gap metabolic acidosis possible from alcohol use and starvation ketoacidosis
-Provide oral bicarb therapy, avoiding IVF bicarb due to volume overload issues with cirrohosis
DVT PPX - scd
Full code
General: Cachectic
HEENT: Oxygen
Respiratory: Clear to Auscultation
Cardiac: Regular Rhythm and S1/S2
GI: Soft, Tender (RLQ) and Distended
Musculoskeletal: No Edema
Neuro: Awake, Alert, Oriented and No Motor Deficits
Psych: Calm
Anticipated Discharge: Within 24 hours
Subjective/Interval History
-
Date of Service: May 14, 2024
denies nausea
Objective Data
-
Labs:
Laboratory Results
05/14/24
04:36
WBC 6.0
Hgb 8.6 L
Hct 23.9 L
Plt Count 78 L
Sodium 127 L
Potassium 3.6
Chloride 88 L
Carbon Dioxide 31 H
BUN 14
Creatinine 1.0
Glucose 89
Calcium 8.0 L
Total Bilirubin 8.6 H
AST 88 H
ALT 27
Alkaline Phosphatase 180 H
Vital Signs:
Vital Signs
Temp Pulse Resp BP Pulse Ox
98.2 F 83 13 131/76 87
05/14/24 07:55 05/14/24 12:00 05/14/24 12:00 05/14/24 10:27 05/14/24 12:00
I&O
05/13/24 05/14/24 05/15/24
06:59 06:59 06:59
Intake Total 1150 / 1150 850 / 850 240 / 240
Output Total 695 / 695 610 / 610 50 / 50
Balance 455 / 455 240 / 240 190 / 190
--- NOTE | 2024-05-14 14:07 | CM ---
CM reviewed chart, patient not in room. CM will continue to follow for discharge planning needs, watch for potential discharge today/
Plan; home with family, patient has information for [facility].
[2024-05-14] MEDS: DUPHALAC/CHRONULAC 20 GRAMS PO ×2 (17:50→22:17)
[2024-05-14 18:14] LABS: Glucose - Point of Care 111 mg/dl (70-99)
--- NOTE | 2024-05-14 19:37 | PTCARENOTE ---
PRN Roxycodone given x2 this shift for Right sided abdominal pain- right side large ecchymotic area remains purple/ red/ blue. Abdomen is grossly distended. Appetite good. Lactulose given this pm. I did not witness any stool today. OOB to
recliner chair for few hours.
[2024-05-14] MEDS: PROTONIX 40 MG PO (19:52)
--- NOTE | 2024-05-14 20:15 | PTCARENOTE ---
Received pt from [facility]. Pt is AAox3. NSR/sinus tach on the monitor. On RA O2 sat 96%, lungs diminished. BRP x1. Pt c/o right upper leg and side pain, hematoma, PRN pain medication given (see OCT). Pt is laying in bed with call peraza in reach.
[2024-05-14 22:28] LABS: Glucose - Point of Care 108 mg/dl (70-99)
[2024-05-15] VITALS (12 sets, daily range): BP systolic 101–127; BP diastolic 64–97
[2024-05-15] MEDS: ROXICODONE 7.5 MG PO ×4 (01:30→20:21)
[2024-05-15] MEDS: SODIUM BICARBONATE 1300 MG PO ×3 (04:01→21:30)
[2024-05-15 04:12] LABS: Hematocrit 23.5 % (39.0-52.0); Hemoglobin 8.3 g/dL (13.0-18.0); Mean Corp Hgb Conc. 35.3 g/dL (33.0-37.0); Mean Corpuscular Hgb 30.5 pg (27.0-31.0); Mean Corpuscular Volume 86.4 fL (80.0-94.0); Mean Platelet Volume 9.2 fL (7.4-10.4); Platelet Count 73 10^3/uL (130-400); Red Blood Cell Count 2.72 10^6/uL (4.70-6.10); Red Cell Dist. Width 15.4 % (11.5-14.5)
[2024-05-15 04:17] LABS: INR 1.82; PT 21.2 Sec (11.4-14.6)
[2024-05-15 04:18] LABS: APTT 41.1 Sec (23.4-35.0); Fibrinogen 166 MG/DL (199-459)
[2024-05-15 05:07] LABS: Absolute Neutrophils -Man Diff 2.8 10^3/uL (1.4-6.5); Band Neutrophils 0 % (0-3); Eosinophils 2 % (0-6); Lymphocytes 10 % (20-51); Monocytes 18 % (2-9); Platelets Checked Yes; Segmented Neutrophils 70 % (42-75)
[2024-05-15 05:08] LABS: Anisocytosis 1+; Hypochromasia Slight; Normal RBC Morphology No; Total Cells Counted 100
[2024-05-15 07:26] LABS: Glucose - Point of Care 119 mg/dl (70-99)
[2024-05-15] MEDS: ALDACTONE 25 MG PO (07:42)
[2024-05-15] MEDS: CIPRO 500 MG PO (07:42)
[2024-05-15] MEDS: FOLVITE 1 MG PO (07:42)
[2024-05-15] MEDS: PROTONIX 40 MG PO ×2 (07:42→20:21)
[2024-05-15] MEDS: VITAMIN B1 100 MG PO ×2 (07:42→20:21)
[2024-05-15] MEDS: DUPHALAC/CHRONULAC 20 GRAMS PO ×4 (07:43→21:28)
[2024-05-15] MEDS: LASIX 40 MG PO (07:43)
--- NOTE | 2024-05-15 13:05 | W.PN.HOSP.TC ---
Today's Communication/Plan
-
Monitor vital signs see plan
Monitor hemoglobin
CMP pending
Likely will need another CT scan
Assessment / Plan
Assessment / Plan
Acute hypoxic respite insufficiency
-Secondary to large ascites and increased intra-abdominal pressures
-Chest x-ray in ER showing stable chronic elevated right hemidiaphragm. No major parenchymal change
-Continue wean off oxygen as possible
Recurrent ascites
h/o of SBP
-Patient have history of recurrent ascites and have not been compliant with outpatient paracentesis schedule
-In ER on exam patient had tense abdominal distention with diffuse mild tenderness
-Home medications showing patient on oral ciprofloxacin daily for SBP prophylaxis, compliance unknown
-IRAD with paracentesis of 8.6 L of fluid. No concern of SBP on testing 05/09
-Post paracentesis 62.5g albumin infusion ordered.
-Continue home dose of oral Lasix 40 mg daily. Aldactone dose decreased to 25 mg daily with holding parameters.
might need repeat CT if abdominal pain worsen; currently improving per patient
Acute blood loss anemia suspect 2/2 abdominal wall hematoma
Chronic normocytic anemia
-Patient is a hemoglobin of 9, then hemoglobin dipped down to 6.9, 1 unit was provided
-then later hgb dropped again; now with PRBC 05/12; monitor serial H/H. hgb now 8.3
-Patient denies of having any overt hematemesis/hematochezia
-urgent CT abdomen pelvis was done which showed right large abdominal wall hematoma at site of paracentesis
-As patient getting more coagulopathic DIC panel was checked and fibrinogen was 86, platelet is actually improving, was given FFP earlier in hospitalization after discussion with hematology
having pain still; awaiting CMP. likely will get another CT scan
Low fibrinogen
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
-Drop in fibrinogen is due to consumption from abdominal wall hematoma
-Low concern of DIC
GREG
improving
-Cr 1 today
-monitor for hepatorenal syndrome. got 62.5mg albumin post paracentesis
Ua neg
Acute hyponatremia
-ADH excess state with new bleeding issues
-maintain on fluid restriction 40oz
-Monitor sodium and may require 3% NS
Decompensated alcoholic cirrhosis
Coagulopathy
Thrombocytopenia
-Patient remains at high risk of further complication due to alcoholic cirrhosis and ongoing continual alcohol use
-Increased bilirubin secondary to decompensated liver cirrhosis and bleeding. Presuming presenting due to indirect hyperbilirubinemia with bleeding
-Plt actually improving and will need transfusion if drops < 50k AND bleeding
Hypoglycemia
Slowly improving
-Acute decreased oral intake with ongoing alcohol use and impaired gluconeogenesis with cirrhosis
-Continue monitoring for Hypoglycemia, every 6 Accu-Cheks ordered
Alcohol use disorder
-Blood alcohol level of 217 at admission
-Monitor for withdrawal, MSAS/Ativan protocol ordered
Metabolic acidosis -resolved
-Anion gap metabolic acidosis possible from alcohol use and starvation ketoacidosis
-Provide oral bicarb therapy, avoiding IVF bicarb due to volume overload issues with cirrhosis
DVT PPX - scd
Full code
General: Cachectic
HEENT: Oxygen
Respiratory: Clear to Auscultation
Cardiac: Regular Rhythm and S1/S2
GI: Soft, Tender (RLQ) and Distended
Musculoskeletal: No Edema
Neuro: Awake, Alert, Oriented and No Motor Deficits
Psych: Calm
Anticipated Discharge: 24 - 48 hours
Subjective/Interval History
-
Date of Service: May 15, 2024
denies pain
Objective Data
-
Labs:
Laboratory Results
05/15/24 05/15/24
03:54 11:43
WBC 4.0 L
Hgb 8.3 L
Hct 23.5 L
Plt Count 73 L
PT 21.2 H
INR 1.82
APTT 41.1 H
Sodium Pending
Potassium Pending
Chloride Pending
Carbon Dioxide Pending
BUN Pending
Creatinine Pending
Glucose Pending
Calcium Pending
Total Bilirubin Pending
AST Pending
ALT Pending
Alkaline Phosphatase Pending
Vital Signs:
Vital Signs
Temp Pulse Resp BP Pulse Ox
98.4 F 87 15 115/68 96
05/15/24 11:18 05/15/24 07:43 05/15/24 06:00 05/15/24 07:43 05/15/24 09:20
I&O
05/14/24 05/15/24 05/16/24
06:59 06:59 06:59
Intake Total 850 / 850 1610 / 1610
Output Total 610 / 610 300 / 300
Balance 240 / 240 1310 / 1310
[2024-05-15 13:47] LABS: ALT (SGPT) 28 U/L (0-50); AST (SGOT) 87 U/L (17-59); Albumin 3.1 g/dl (3.5-5.0); Alkaline Phosphatase 159 U/L (38-126); Blood Urea Nitrogen 14 mg/dl (9-20); Calcium 8.1 mg/dl (8.4-10.2); Carbon Dioxide 36 mmol/L (22-30); Chloride 85 mmol/L (98-107); Estimated Creatinine Clearance 106 ml/min; Glucose 95 mg/dl (70-99); Potassium 3.2 mmol/L (3.5-5.1); Sodium 129 mmol/L (135-145); Total Bilirubin 8.4 mg/dl (0.2-1.3); Total Protein 6.8 g/dl (6.3-8.2); eGFR > 60.00
--- NOTE | 2024-05-15 15:02 | PN.CDI ---
CDI
- -
CDI:
Physician Documentation Request
Admit Date: 05/09/24 12:04
Dear Doctor Shamir,
Please review the following and provide your response in the progress notes.
Clinical Indicators:
PN, 05/14
#Acute hyponatremia
#...-ADH excess state with new bleeding issues
#...-maintain on fluid restriction 40oz
#...-Monitor sodium and may require 3% NS
Laboratory Tests
05/09/24 05/10/24 05/11/24
08:54 05:59 08:57
Sodium 134 L 136 127 L D
05/12/24 05/13/24 05/14/24
04:39 04:34 04:36
Sodium 129 L 126 L 127 L
05/15/24
13:16
Sodium 129 L
Based on the above and your clinical assessment, please clarify in the progress notes, the appropriate diagnosis, if significant, that supports the above abnormalities and additional evaluation, monitoring and/or treatment rendered:
Inappropriate secretion of ADH
Chronic Hyponatremia without SIADH
Other(please specify)
Use of terms such as suspected, likely, concern for, or probable (associated with a specific diagnosis that is being evaluated, monitored, or treated as if it exists) are acceptable and can be coded in the inpatient setting, when documented at the
time of discharge.
Thank you,
Nga Shipman RN BSN CCDS
CDI Specialist
please contact via tiger text
Please use your independent medical judgment in providing your response.
[2024-05-15] MEDS: KCL 40 MEQ PO (15:54)
--- NOTE | 2024-05-15 20:40 | PTCARENOTE ---
Vital signs downloaded at the beginning of shift 7p-7a. I can not verify vital signs downloaded prior to 1900 on 05/15/24.
[2024-05-15] MEDS: ZOFRAN 4 MG IV (21:33)
[2024-05-15 22:18] LABS: Glucose - Point of Care 124 mg/dl (70-99)
[2024-05-16] VITALS (8 sets, daily range): BP systolic 110–123; BP diastolic 67–85
[2024-05-16] MEDS: ROXICODONE 7.5 MG PO ×2 (04:57→11:23)
[2024-05-16] MEDS: SODIUM BICARBONATE 1300 MG PO ×2 (05:31→13:07)
[2024-05-16 05:59] LABS: % Basophils 0.9 % (0-2); % Eosinophils 4.7 % (0-6); % Immature Granulocytes 0.4 % (0-0.5); % Lymphocytes 15.4 % (20.5-51.1); % Monocytes 26.3 % (1.7-9.3); % Neutrophils 52.3 % (42.2-75.2); Absolute Eosinophils 0.2 10^3/uL (0-0.7); Absolute Lymphocytes 0.7 10^3/uL (1.2-3.4); Absolute Monocytes 1.2 10^3/uL (0.1-0.6); Absolute Neutrophils 2.4 10^3/uL (1.4-6.5); Hematocrit 27.2 % (39.0-52.0); Hemoglobin 9.6 g/dL (13.0-18.0); Mean Corp Hgb Conc. 35.3 g/dL (33.0-37.0); Mean Corpuscular Hgb 31.6 pg (27.0-31.0); Mean Corpuscular Volume 89.5 fL (80.0-94.0); Mean Platelet Volume 8.7 fL (7.4-10.4); Nucleated Red Blood Cells % 0 % (-); Platelet Count 88 10^3/uL (130-400); Red Blood Cell Count 3.04 10^6/uL (4.70-6.10); Red Cell Dist. Width 15.4 % (11.5-14.5); White Blood Cell Count 4.5 10^3/uL (4.8-10.8)
[2024-05-16 06:19] LABS: ALT (SGPT) 27 U/L (0-50); AST (SGOT) 75 U/L (17-59); Albumin 3.2 g/dl (3.5-5.0); Alkaline Phosphatase 186 U/L (38-126); Blood Urea Nitrogen 14 mg/dl (9-20); Calcium 8.1 mg/dl (8.4-10.2); Carbon Dioxide 32 mmol/L (22-30); Chloride 87 mmol/L (98-107); Estimated Creatinine Clearance 94 ml/min; Glucose 103 mg/dl (70-99); Potassium 3.4 mmol/L (3.5-5.1); Sodium 131 mmol/L (135-145); Total Bilirubin 8.6 mg/dl (0.2-1.3); Total Protein 6.9 g/dl (6.3-8.2); eGFR > 60.00
[2024-05-16 07:45] LABS: Glucose - Point of Care 116 mg/dl (70-99)
--- NOTE | 2024-05-16 09:28 | CM ---
Addendum entered by Audrey Monaco 05/16/24 16:08:
Patient given application for [facility] and patient calling for ride home. Patient nursing updated.
Original Note:
Patient seen at bedside in IMU. Patient stated that he has no concerns at this time. Patient eating breakfast. CM will continue to follow for discharge planning needs.
Plan; home with family; [facility];pending acceptance
[2024-05-16] MEDS: LASIX 40 MG PO (09:31)
[2024-05-16] MEDS: VITAMIN B1 100 MG PO (09:31)
[2024-05-16] MEDS: ALDACTONE 25 MG PO (09:31)
[2024-05-16] MEDS: CIPRO 500 MG PO (09:31)
[2024-05-16] MEDS: DUPHALAC/CHRONULAC 20 GRAMS PO ×2 (09:31→13:08)
[2024-05-16] MEDS: FOLVITE 1 MG PO (09:31)
[2024-05-16] MEDS: PROTONIX 40 MG PO (09:31)
[2024-05-16] MEDS: KCL 40 MEQ PO (11:29)
--- NOTE | 2024-05-16 13:52 | W.PN.HOSP.TC ---
Addendum entered and electronically signed by Navneet Barksdale MD 05/16/24 14:06:
Time of discharge 39 minutes
Original Note:
Today's Communication/Plan
-
Monitor vital signs see plan
Replete potassium
Hemoglobin now improving, hematoma is also better on repeat CT scan
Pain control
Discharge today
Assessment / Plan
Assessment / Plan
Acute hypoxic respite insufficiency
-Secondary to large ascites and increased intra-abdominal pressures
-Chest x-ray in ER showing stable chronic elevated right hemidiaphragm. No major parenchymal change
-Continue wean off oxygen as possible
Recurrent ascites
h/o of SBP
-Patient have history of recurrent ascites and have not been compliant with outpatient paracentesis schedule
-In ER on exam patient had tense abdominal distention with diffuse mild tenderness
-Home medications showing patient on oral ciprofloxacin daily for SBP prophylaxis, compliance unknown
-IRAD with paracentesis of 8.6 L of fluid. No concern of SBP on testing 05/09
-Post paracentesis 62.5g albumin infusion ordered.
-Continue home dose of oral Lasix 40 mg daily. Aldactone dose decreased to 25 mg daily with holding parameters.
Repeat CT scan 05/15 with decrease in size of right abdominal wall hematoma. Ascites. Likely portal hypertension
Acute blood loss anemia suspect 2/2 abdominal wall hematoma
Chronic normocytic anemia
-Patient is a hemoglobin of 9, then hemoglobin dipped down to 6.9, 1 unit was provided
-then later hgb dropped again; now with PRBC 05/12; monitor serial H/H. hgb now 8.3
-Patient denies of having any overt hematemesis/hematochezia
-urgent CT abdomen pelvis was done which showed right large abdominal wall hematoma at site of paracentesis
-As patient getting more coagulopathic DIC panel was checked and fibrinogen was 86, platelet is actually improving, was given FFP earlier in hospitalization after discussion with hematology
Hypokalemia
Repleted
Low fibrinogen
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
-Drop in fibrinogen is due to consumption from abdominal wall hematoma
-Low concern of DIC
GREG
improving
-Cr 0.9 today
-monitor for hepatorenal syndrome. got 62.5mg albumin post paracentesis
Ua neg
Acute hyponatremia likely 2/2 SIADH
-ADH excess state with new bleeding issues
-maintain on fluid restriction 40oz
-Monitor sodium and may require 3% NS
Decompensated alcoholic cirrhosis
Coagulopathy
Thrombocytopenia
-Patient remains at high risk of further complication due to alcoholic cirrhosis and ongoing continual alcohol use
-Increased bilirubin secondary to decompensated liver cirrhosis and bleeding. Presuming presenting due to indirect hyperbilirubinemia with bleeding
-Plt actually improving and will need transfusion if drops < 50k AND bleeding
Hypoglycemia
Slowly improving
-Acute decreased oral intake with ongoing alcohol use and impaired gluconeogenesis with cirrhosis
-Continue monitoring for Hypoglycemia, every 6 Accu-Cheks ordered
Alcohol use disorder
-Blood alcohol level of 217 at admission
-Monitor for withdrawal, MSAS/Ativan protocol ordered
Metabolic acidosis -resolved
-Anion gap metabolic acidosis possible from alcohol use and starvation ketoacidosis
-Provide oral bicarb therapy, avoiding IVF bicarb due to volume overload issues with cirrhosis
DVT PPX - scd
Full code
General: Cachectic
HEENT: Oxygen
Respiratory: Clear to Auscultation
Cardiac: Regular Rhythm and S1/S2
GI: Soft, Tender (RLQ) and Distended
Musculoskeletal: No Edema
Neuro: Awake, Alert, Oriented and No Motor Deficits
Psych: Calm
Anticipated Discharge: Today
Subjective/Interval History
-
Date of Service: May 16, 2024
has some pain but better
Objective Data
-
Labs:
Laboratory Results
05/16/24
05:39
WBC 4.5 L
Hgb 9.6 L
Hct 27.2 L
Plt Count 88 L D
Sodium 131 L
Potassium 3.4 L
Chloride 87 L
Carbon Dioxide 32 H
BUN 14
Creatinine 0.9
Glucose 103 H
Calcium 8.1 L
Total Bilirubin 8.6 H
AST 75 H
ALT 27
Alkaline Phosphatase 186 H
Vital Signs:
Vital Signs
Temp Pulse Resp BP Pulse Ox
98.7 F 88 13 118/82 95
05/16/24 10:52 05/16/24 13:10 05/16/24 13:10 05/16/24 13:10 05/15/24 20:20
I&O
05/15/24 05/16/24 05/17/24
06:59 06:59 06:59
Intake Total 1610 / 1610 360 / 360
Output Total 300 / 300
Balance 1310 / 1310 360 / 360
--- NOTE | 2024-05-16 14:06 | W.DCSUMMARY ---
Discharge Summary
Discharge Data
Date of Admission: 05/09/24
Date of Discharge: 05/16/24
-
Pending Results: No
Hospital Course
34-year-old male with past medical history of liver cirrhosis secondary to alcohol, hyponatremia, alcohol use disorder came to the hospital with recurrent ascites. Patient underwent paracentesis with removal of 8.6 L of fluid. Fluid analysis was
negative for SBP. Post paracentesis patient hemoglobin dropped and he was hypotensive. CT scan of the abdomen was done which showed abdominal wall hematoma. Patient required multiple blood transfusion throughout hospitalization. His platelets
was also low for which hematology was consulted. Hematology recommended FFP. On discharge she is platelets continue to improve. Repeat CT scan was done which showed improving hematoma. For his hyponatremia he was maintained on fluid restriction.
He also had acute kidney injury which over time continue to improve. Over time his hematoma and hemoglobin continue to improve, so he was discharged home with instructions to follow-up with all his physicians outpatient.
Discharge Plan
-
Patient Disposition: Home (Routine Discharge)
Discharge Diagnosis/Procedures: Recurrent ascites
Acute blood loss anemia secondary to abdominal wall hematoma status post paracentesis
Acute kidney injury
Hyponatremia
Decompensated alcoholic cirrhosis
Coagulopathy
Thrombocytopenia
Alcohol use disorder
Hypoglycemia
Metabolic acidosis
Diet: As tolerated
Activity: As tolerated
Driving Restrictions: As prior to admission
Blood Work: CBC AND CMP next week with PCP
Referrals:
Kana Casarez MD [Active] -
UNKNOWN - PT DOES,NOT KNOW [Family Provider] - in less than 1 week
Prescriptions:
New
thiamine HCl (vitamin B1) 100 mg Tablet
100 mg PO BID Qty: 60 0RF
oxycodone 5 mg Tablet
7.5 mg PO Q4HPRN PRN (Reason: mod sev pain) Qty: 15 0RF
Continued
thiamine HCl (vitamin B1) 100 mg tablet
100 mg PO DAILY Qty: 30 0RF
folic acid 1 mg Tablet
1 mg PO DAILY Qty: 0 0RF
lactulose 20 gram/30 mL solution
20 g PO QID Qty: 3000 0RF
furosemide 40 mg Tablet
40 mg PO DAILY Qty: 30 0RF
ciprofloxacin HCl 500 mg Tablet
500 mg PO DAILY
Changed
pantoprazole [Protonix] 40 mg tablet,delayed release (DR/EC)
40 mg PO BID Qty: 60 0RF
spironolactone [Aldactone] 50 mg tablet
25 mg PO DAILY Qty: 30 0RF
Discharge Orders:
Discharge Patient (As Directed); Ordered 05/16/24
Ordered By: Navneet Barksdale
Discharge Date and Time
Discharge Date/Time: 05/16/24 15:00
Print Language: SUDANESE
== END 2024-05-16 15:00 | disposition home or self-care (01) | DRG 433 ==
LOC: IMU 12:04
PROVIDERS: Internal Medicine Hematology & Oncology; Physician Assistant; Radiology Vascular & Interventional Radiology; ADMITTING PHYSICIAN Hospitalist; ATTENDING PHYSICIAN Internal Medicine; CONSULT PHYSICIAN Internal Medicine Gastroenterology; EMERGENCY PHYSICIAN Emergency Medicine; OTHER PHYSICIAN Internal Medicine Hematology & Oncology
PROC: 0W9G3ZZ Drainage of Peritoneal Cavity, Percutaneous Approach (ICD-10-PCS; 2024-05-09)
PROC: 30233N1 Transfusion of Nonautologous Red Blood Cells into Peripheral Vein, Percutaneous Approach (ICD-10-PCS; 2024-05-10)
PROC: 30233K1 Transfusion of Nonautologous Frozen Plasma into Peripheral Vein, Percutaneous Approach (ICD-10-PCS; 2024-05-11)
DX: K70.31 Alcoholic cirrhosis of liver with ascites (principal); D62 Acute posthemorrhagic anemia; D68.8 Other specified coagulation defects; N17.9 Acute kidney failure, unspecified; E87.29 Other acidosis; E87.1 Hypo-osmolality and hyponatremia; Z68.1 Body mass index [BMI] 19.9 or less, adult; R64 Cachexia; S30.1XXA Contusion of abdominal wall, initial encounter; R09.02 Hypoxemia; R06.89 Other abnormalities of breathing; E87.6 Hypokalemia; D69.6 Thrombocytopenia, unspecified; E16.2 Hypoglycemia, unspecified; F10.10 Alcohol abuse, uncomplicated; Y84.4 Aspiration of fluid as the cause of abnormal reaction of the patient, or of later complication, without mention of misadventure at the time of the procedure
CPT/HCPCS: 49083; 71046; 74176; 80053; 80179; 81003; 82077; 82140; 82248; 82962; 83615; 83690; 83880; 84484; 85014; 85018; 85025; 85027; 85045; 85384; 85610; 85730; 86850; 86900; 86901; 86920; 87015; 87070; 87205; 87811; 89051; 93005; 96361; 96374; 96375; 99284; P9016; P9047; P9059

== ENCOUNTER 2024-08-20 08:19 | Emergency (ER) | payer SELFPAY ==
[2024-08-20 08:21] VITALS: BP 105/67; BMI 26.4
[2024-08-20 08:31] LABS: Glucose - Point of Care 127 mg/dl (70-99)
--- NOTE | 2024-08-20 08:31 | EDRN ---
witnessed cardiac arrest CPR in progress @ 825, see code sheet for further documentation
[2024-08-20 08:50] LABS: Hematocrit 34.8 % (39.0-52.0); Hemoglobin 11.5 g/dL (13.0-18.0); Mean Corpuscular Hgb 32.1 pg (27.0-31.0); Mean Corpuscular Volume 97.2 fL (80.0-94.0); Mean Platelet Volume 9.4 fL (7.4-10.4); Platelet Count 140 10^3/uL (130-400); Red Blood Cell Count 3.58 10^6/uL (4.70-6.10); Red Cell Dist. Width 13.8 % (11.5-14.5); White Blood Cell Count 6.9 10^3/uL (4.8-10.8)
--- NOTE | 2024-08-20 08:56 | ED.GENMED ---
History of Present Illness
General
Chief Complaint: Abdominal Symptoms
Time Seen by Provider: 08/20/24 08:52
History of Present Illness
History of Present Illness:
TIME OF INITIAL ENCOUNTER: 8:26 AM
HPI: The details are currently extremely limited. I was emergently called to the room at 8:26 AM. The patient reportedly just had a seizure and just arrived moments prior. He reportedly has a history of alcoholic cirrhosis. As I walk in the room
he was unresponsive with a markedly distended abdomen consistent with ascites. He had no pulse.
EXAM:
GENERAL: The patient is critically ill in appearance
HEENT: Dry oral mucosa, the pupils are fixed and dilated
CARDIOVASCULAR: Absent heart sounds
PULMONARY: Apneic
ABDOMEN: The patient has severe ascites
NEUROLOGIC: Unresponsive, no spontaneous movements
PSYCHIATRIC: Nonverbal
EXTREMITIES: No obvious deformities
SKIN: Appears pale
NUMBER AND COMPLEXITY OF PROBLEMS ADDRESSED AT THE ENCOUNTER
� Chronic conditions affecting care: Alcoholic cirrhosis
� Acute Exacerbation and/or Progression of Chronic Illness: This is an acute problem
� Differential Diagnosis includes: Severe ascites, dysrhythmia, electrolyte abnormality, hypoglycemia
AMOUNT AND/OR COMPLEXITY OF DATA TO BE REVIEWED AND ANALYZED
� I performed an independent evaluation of and my interpretation is:
EKG: Pulseless very shortly after arrival�no EKG obtained
CT:
X-rays:
Laboratory Studies: White count 6.9, hemoglobin 11.5, sodium 131, bicarb 17, creatinine 1.5
Other:
� Review of other/old records: The patient was seen here with abdominal ascites and admitted in April 2024
� Clinical information was obtained by an independent historian: EMS
� Prescriptions/Medications Considered but not given:
� Further testing considered but not performed:
RISK OF COMPLICATIONS AND/OR MORBIDITY OR MORTALITY OF PATIENT MANAGEMENT
� Social determinants of health affecting care: Lives at home, alcoholism
� Discussion with other providers: I discussed with medical underwriter
� Escalation of care including admission/observation vs risk of discharge considered: Just before I was called to the room emergently, the patient reportedly did have some abdominal pain. He then had a seizure and I then
immediately went into the room. He was found to be unresponsive and pulseless. He was intubated and chest compressions were started. He was coded for approximately 26 minutes. His pupils are fixed and dilated. During the code he was difficult
to bag I did perform an emergent paracentesis with serous fluid removed. Bagging became easier and his sats improved however he remained pulseless. He was pronounced at 8:52 AM.
ANY OTHER UPDATES:
9:05 AM: I notified the medical underwriter�jennyfer remain collections and archives director's case for now. I also spoke to the family, cell phone [phone]
Past History
Past History
ED Past Medical History: Renal failure (Peritoneal dialysis), Psychiatric (Depression) and Other (alcohol abuse, alcoholic hepatitis, Cirrhosis of the liver, Ascites, Anemia, )
ED Past Surgical History: Other (Hernia repair)
Social History
Tobacco: Non-smoker
Alcohol: Chronic alcoholic (Daily 4 large beer and 2 shots)
Drug: Other (denies however UDS from prior visit pos for opioids)
Personal: Single
Living: with roommate
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
Family History
Family History: Other (Noncontributory)
Phy Exam
Physical Exam
Physical Exam:
See HPI
Course
Orders/Labs/Results
Orders:
Orders
08/20/24 08:20
EPINEPHrine [Adrenalin 1 mg/10 ml] 7 mg .ROUTE .STK-MED ONE
Sodium Bicarbonate 50 meq .ROUTE .STK-MED ONE
08/20/24 08:33
Complete Blood Count/With Diff Urgent
Comprehensive Metabolic Panel Urgent
Magnesium Urgent
Manual Differential Urgent
08/20/24 08:41
PT/INR [Prothrombin Time] Urgent
PTT Urgent
Abnormal Lab Results
08/20/24 08/20/24
08:29 08:33
RBC 3.58 L 10^6/uL
(4.70-6.10)
Hgb 11.5 L g/dL
(13.0-18.0)
Hct 34.8 L %
(39.0-52.0)
MCV 97.2 H fL
(80.0-94.0)
MCH 32.1 H pg
(27.0-31.0)
Band Neutrophils 36 H %
(0-3)
Lymphocytes (Manual) 9 L %
(20-51)
Sodium 131 L mmol/L
(135-145)
Chloride 93 L mmol/L
(98-107)
Carbon Dioxide 17 L mmol/L
(22-30)
Creatinine 1.5 H mg/dL
(0.7-1.3)
Glucose 123 H mg/dl
(70-99)
Calcium 8.1 L mg/dl
(8.4-10.2)
Total Bilirubin 5.7 H mg/dl
(0.2-1.3)
AST 67 H U/L
(17-59)
Alkaline Phosphatase 152 H U/L
(38-126)
Albumin 3.4 L g/dl
(3.5-5.0)
POC Glucose 127 H mg/dl
(70-99)
08/20/24 08:33
08/20/24 08:33
Vital Signs
Initial and Last Documented VS:
Initial Vital Signs
Temp Pulse Resp BP Pulse Ox
36.2 C 106 20 105/67 98
08/20/24 08:21 08/20/24 08:21 08/20/24 08:21 08/20/24 08:21 08/20/24 08:21
Last Documented Vital Signs
Temp Pulse Resp BP Pulse Ox
36.2 C 106 20 105/67 98
08/20/24 08:21 08/20/24 08:21 08/20/24 08:21 08/20/24 08:21 08/20/24 08:21
Procedures
Intubations
Procedure completed by: Dr. Halima Gao
Method of Intubation: glidescope
Tube size (cm): 8.0
Placement confirmed by: capnography
Breath sounds after intubation: equal
Intubation complications: no complications
Other
Indication for procedure:: Difficult to bag, emergent paracentesis
Procedure completed by: Dr. Halima Gao
Consent form signed: No
If no, reason: Emergency procedure
Additional Procedure:
Emergent paracentesis performed with ultrasound guidance in the left lower quadrant, moderate amount of serous appearing ascites removed and he became easier to bag
*Pulse Oximetry
Patient hypoxic: yes
Comment: Sats of 50% upon arrival despite bagging�markedly distended abdomen
*Critical Care Note
Total Time (30-74mins, 75-104mins- exclusive of procedures): 35 minutes
comment:
See note above
ED Attending Note
-
Portions of this chart may have been created with voice recognition software.� Occasional wrong word or��sound alike� substitutions may have occurred due to the inherent limitations of voice recognition software.
Discharge Plan
Departure
Patient Disposition:
Date of Disposition: 08/20/24
Time of Disposition: 08:54
Discharge Problem:
Cardiac arrest
Prescriptions:
No Action
thiamine HCl (vitamin B1) 100 mg tablet
100 mg PO DAILY Qty: 30 0RF
folic acid 1 mg Tablet
1 mg PO DAILY Qty: 0 0RF
lactulose 20 gram/30 mL solution
20 g PO QID Qty: 3000 0RF
furosemide 40 mg Tablet
40 mg PO DAILY Qty: 30 0RF
ciprofloxacin HCl 500 mg Tablet
500 mg PO DAILY
thiamine HCl (vitamin B1) 100 mg Tablet
100 mg PO BID Qty: 60 0RF
oxycodone 5 mg Tablet
7.5 mg PO Q4HPRN PRN (Reason: mod sev pain) Qty: 15 0RF
pantoprazole [Protonix] 40 mg tablet,delayed release (DR/EC)
40 mg PO BID Qty: 60 0RF
spironolactone [Aldactone] 50 mg tablet
25 mg PO DAILY Qty: 30 0RF
Referrals:
UNKNOWN - PT NOT,INTERVIEWE [Family Provider] -
Interventions
Interventions:
*General Assessment Last Done: 08/20/24 08:21
*Nursing Disposition Last Done: 08/20/24 09:30
Discharge Date and Time
Discharge Date/Time: 08/20/24 11:00
Print Language: MAURITIAN
[2024-08-20 09:06] LABS: Segmented Neutrophils 52 % (42-75)
[2024-08-20 09:07] LABS: Band Neutrophils 36 % (0-3); Lymphocytes 9 % (20-51); Monocytes 2 % (2-9); Myelocytes 1 % (-)
[2024-08-20 09:09] LABS: Anisocytosis Slight; Hypochromasia Slight; Normal RBC Morphology No; Platelets Checked Yes; Total Cells Counted 100
[2024-08-20 09:19] LABS: ALT (SGPT) 21 U/L (0-50); AST (SGOT) 67 U/L (17-59); Albumin 3.4 g/dl (3.5-5.0); Alkaline Phosphatase 152 U/L (38-126); Blood Urea Nitrogen 16 mg/dl (9-20); Calcium 8.1 mg/dl (8.4-10.2); Carbon Dioxide 17 mmol/L (22-30); Chloride 93 mmol/L (98-107); Estimated Creatinine Clearance 61 ml/min; Glucose 123 mg/dl (70-99); Potassium 3.7 mmol/L (3.5-5.1); Sodium 131 mmol/L (135-145); Total Bilirubin 5.7 mg/dl (0.2-1.3); Total Protein 7.8 g/dl (6.3-8.2); eGFR > 60.00
--- NOTE | 2024-08-20 09:30 | EDRN ---
Pt arrives via EMS from home for c/o abdominal pain, significant abdominal distention noted on arrival. Pt awake on arrival, Mont[place]in speaking, combative with IV insertion. While attempting to obtain VS and triage assessment just minutes after
arrival, pt becomes unresponsive and in cardiac arrest. CPR started immediately [address] Varghese to bedside. SEE CODE SHEET. Pt and CPR stopped 08. Family notified via phone.
== END 2024-08-20 08:52 | disposition expired ==
LOC: EMR 08:19
PROVIDERS: EMERGENCY PHYSICIAN Emergency Medicine
DX: I46.9 Cardiac arrest, cause unspecified (principal); K70.31 Alcoholic cirrhosis of liver with ascites; R56.9 Unspecified convulsions
CPT/HCPCS: 31500; 49083; 99291; 80053; 82962; 83735; 85025